=== PATIENT | male | born 1985 | race Caucasian/White ===

== ENCOUNTER → 2022-10-06 10:08 | Outpatient (CLI) | payer OTHER, SELFPAY ==
[2022-10-06 18:15] LABS: Basophils % 0.4 % (0.1-2.0); Eosinophils # 0.2 K/mm3 (0.0-0.4); Eosinophils % 2.2 % (0.1-12.0); Hematocrit 51.8 % (42.0-52.0); Hemoglobin 16.8 g/dL (14.1-18.0); Lymphocytes # 1.8 K/mm3 (0.7-4.5); Lymphocytes % 20.6 % (10-50); Mean Corpuscular HGB Conc 32.4 g/dL (31.8-35.4); Mean Corpuscular Hemoglobin 30.1 pg (27.0-31.2); Mean Corpuscular Volume 92.7 fl (80-94); Mean Platelet Volume 10.4 fl (7.4-10.4); Monocytes # 0.4 K/mm3 (0.1-1.0); Monocytes % 4.3 % (1.7-9.3); Neutrophils # 6.2 K/mm3 (1.8-7.8); Neutrophils % 72.6 % (37.0-80.0); Platelet Count 186 K/mm3 (142-424); Red Blood Count 5.59 M/mm3 (4.60-6.20); Red Cell Distribution Width 12.9 % (11.5-17.5); White Blood Count 8.5 K/mm3 (4.8-10.8)
[2022-10-06 18:33] LABS: Alanine Aminotransferase 29 U/L (12-78); Albumin Level 4.8 g/dl (3.5-5.0); Albumin/Globulin Ratio 1.9 (1.1-1.8); Alkaline Phosphatase 101 U/L (38-126); Anion Gap 15.7 mEq/L (5-15); Aspartate Amino Transferase 35 U/L (17-59); Bilirubin,Total 0.7 mg/dl (0.2-1.3); Blood Urea Nitrogen 17 mg/dl (9-20); Calcium 9.4 mg/dl (8.4-10.2); Carbon Dioxide 29 mmol/L (22.0-30.0); Chloride 103 mmol/L (98-107); Chol/HDL Ratio 3.5 (1-3.5); Cholesterol 188 mg/dl (140-200); Estimated Glomerular Filt Rate 94 ml/min (>60); GFR (African American) 114 ML/MIN (>60); Globulin 2.5 g/dL (1.3-3.2); Glucose 85 mg/dl (74-100); HDL Cholesterol 53 mg/dl (40-60); Potassium 4.7 mmoL/L (3.5-5.1); Sodium 143 mmol/L (136-145); Total Protein,Serum 7.3 g/dl (6.3-8.2); Triglycerides 161 mg/dl (30-150); VLDL Cholesterol 32 mg/dL (0-40)
[2022-10-06 18:44] LABS: Direct LDL Cholesterol 106.58 mg/dL (100-129)
[2022-10-06 18:48] LABS: T4 (Thyroxine) 7.8 ug/dl (5.53-11.0)
[2022-10-06 18:53] LABS: 25-OH Vitamin D, Total 33.5 ng/mL (30-100)
[2022-10-06 19:07] LABS: Prostate Specific Ag Screen 1.4 ng/ml (0.0-4.0); Thyroid Stimulating Hormone 0.78 uIU/mL (0.465-4.68)
== END ==
PROVIDERS: PCP Emergency Medicine; Visit Provider Emergency Medicine
DX: Z00.00 Encounter for general adult medical examination without abnormal findings (principal); R33.9 Retention of urine, unspecified; E66.3 Overweight; Z68.29 Body mass index [BMI] 29.0-29.9, adult; Z12.5 Encounter for screening for malignant neoplasm of prostate
CPT/HCPCS: 80053; 80061; 82306; 84436; 84443; 85025; 87086; G0103

== ENCOUNTER → 2022-10-17 10:05 | Outpatient (CLI) | payer OTHER, SELFPAY ==
--- NOTE | 2022-10-17 10:05 | CT_ITS ---
FINAL REPORT TECHNIQUE: Postcontrast axial images through the abdomen and pelvis were performed. This study was performed with techniques to keep radiation doses as low as reasonably achievable, (ALARA). Individualized dose reduction techniques using automated exposure control or adjustment of mA and/or kV according to the patient's size were employed. CLINICAL HISTORY: abnormal bowel habits, Constipation FINDINGS: Abdomen: The lung bases are clear. The liver is normal in size and attenuation. There is an 8 mm mass in the inferior spleen which is nonspecific. The adrenals are normal. The pancreas is unremarkable. The kidneys enhance appropriately. The aorta is normal in caliber. No free fluid is identified. No findings for mechanical bowel obstruction are identified. Pelvis: The appendix is normal. There is circumscribed rectal wall thickening measuring up to 26 mm with wall calcifications. Multiple enlarged perirectal lymph nodes are identified. While this could be inflammatory it is most worrisome for rectal neoplasm. The urinary bladder is unremarkable. No free fluid, free air, or abscess is identified. IMPRESSION: Findings most worrisome for rectal neoplasm. Recommend correlation with colonoscopy. Mass in the inferior spleen which is nonspecific. cytotechnologist supervisor Jaylyn Meza was notified of findings on 10/17/2022 at 12:39 p.m. Reviewed, Interpreted and Dictated by Chau Higuera III, MD Transcribed by Danni Keller Authenticated and [facility] [place]
--- NOTE | 2022-10-17 12:46 | HMH.ITSTN ---
CRITICAL FINDING CALLED FROM DR HINSON TO IGNACIO NEIL, MASS IN RECTUM REPRESENTING NEOPLASM . CRITICAL FINDING CALL TO DR. PAREKH OFFICE, I SPOKE WITH DR DENNEY NURSE NATALIO AND RELAYED THE CRITICAL FINDING, WILL FAX REPORT [phone] ONCE REPORT HAS BEEN SIGNED.
== END ==
PROVIDERS: PCP Emergency Medicine; Visit Provider Emergency Medicine
DX: R19.8 Other specified symptoms and signs involving the digestive system and abdomen (principal)
CPT/HCPCS: 74177; Q9967

== ENCOUNTER 2022-10-23 06:35 | Day surgery (SDC) | payer OTHER, SELFPAY ==
[2022-10-19 11:01] VITALS: BMI 28.8
[2022-10-23 06:48] VITALS: BP 149/90; PULSE 99; RESP 18; TEMP 36.8; O2SAT 97
[2022-10-23 07:05] VITALS: BP 125/71; PULSE 92; RESP 18; TEMP 36.1; O2SAT 97
[2022-10-23 07:16] VITALS: O2SAT 97
--- NOTE | 2022-10-23 07:51 | P.PCN_ITS ---
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 He has had some change in bowel habits with constipation for several months beginning in January or February 2022. He has felt sensation of incomplete defecation. He has had some abdominal discomfort. He had a CT scan ordered by his primary care provider. And this revealed findings of most worrisome for rectal neoplasm. There was a mass in the inferior aspect of the spleen which was nonspecific. Surgery was requested to perform colonoscopy as soon as possible. Performing Provider:: Chau Camejo MD Referring Provider:: Kimani Suazo Sedation:: MAC sedation Procedure:: Patient history was obtained and appropriate physical examination was performed. Patient's medications and allergies were reviewed. Informed consent was obtained after explaining the benefits, alternatives, and risks of the procedure including, but not limited to, bleeding, perforation, missed lesions, and adverse reaction to anesthesia medications. Patient was transported to endoscopy procedure room. Patient was connected to monitoring devices. Throughout the procedure the patient's blood pressure, pulse, and oxygen saturations were monitored continuously. Patient identification and planned procedure were verified by the staff. Patient was positioned in lateral decubitus position. Digital anorectal exam was performed. Variable stiffness Olympus colonoscope was inserted and advanced under direct visualization to the cecum. Adequacy of the colonic preparation was noted. The colonoscope was advanced a short distance into the terminal ileum. The colonoscope was then slowly withdrawn while carefully examining the color, texture, anatomy, and integrity of the mucosoa circumferentially. Within the rectum retroflexion was performed. Colonoscope was then withdrawn. Digital examination revealed a circumferential firm mass about 7 cm from the anal verge. Olympus colonoscope was inserted via the anus. Findings consistent with circumferential fungating somewhat ulcerated mass was encountered consistent with rectal carcinoma. There was some luminal compromise but the colonoscope was able to be advanced beyond this. Colonoscope was advanced to the cecum. Colonic preparation was good. Terminal ileum was normal. There was possible polyp noted in the ascending colon. However with repeated insertion and withdrawal of the colonoscope none was noted and this was likely hyperplastic or lymphoid aggregate. Colonoscope was withdrawn into the rectum. The mass extended between 7 and 12 cm approximately and was circumferential. Numerous biopsies were obtained using cold biopsy forceps. The mass was rather friable and fungating and bled somewhat easily. Colonoscope was withdrawn. Findings:: Circumferential fungating somewhat ulcerative mass in rectum between 7 and 12 cm from the anal verge consistent with rectal carcinoma Recommendations:: Follow-up on biopsies Complications:: None immediate Estimated blood obtained (mL): 5 Colonoscopy Component Colonoscopy Component Was a colonoscopy performed during today's procedure?: Yes Recommended follow up colonoscopy of at least 10 years?: No If no, follow up colonoscopy recommended in ___ years?: Unknown Reason for not recommending >/= 10 yr follow-up interval?: Path
[2022-10-23 08:05] VITALS: BP 118/80; PULSE 79; RESP 16; O2SAT 94
[2022-10-23 08:15] VITALS: BP 121/70; PULSE 78; RESP 16; O2SAT 94
[2022-10-23 08:25] VITALS: BP 118/71; PULSE 79; RESP 16; TEMP 36.6; O2SAT 100
--- NOTE | 2022-10-23 08:50 | EXP.ANES.CKL ---
[facility] Disclaimer: The information contained in this section may have been updated after the patient was seen, as this information can be updated by other users. Medical History (Updated 10/23/22 @ 06:46 by Evelyn Garcia RN) Constipation H/O fracture of arm History of kidney stones Hx of fracture of forearm Ulna fracture Surgical History [place] teeth extracted Family History Other No significant family history Social History Smoking Status: Current every day smoker alcohol intake: current substance use type: denies use current occupational status: employed Travel in the last 8 weeks: None caffeine: Yes [facility] Anesthesia Checklist Patient Identification Patient Identification: Verbal (Name & ) Structural Data Admitted From: Home Planned Operative Procedure/s: colonoscopy Consent for Planned Operative Procedure(s) Verified: Yes Airway Assessment C-Spine Mobility Assessed: Yes TMJ Mobility Assessed: Yes Dentition: Good Dentition Neurological Assessment Level of Consciousness: Awake, Alert and Appropriate Anesthesia Plan Anesthesia Risk discussed: Yes Anesthesia Plan: Verified ASA Class: I Anesthesia Type: MAC
== END 2022-10-23 08:25 | disposition home or self-care (01) ==
PROVIDERS: PCP Emergency Medicine; Visit Provider Surgery
PROC: 0DJD8ZZ Inspection of Lower Intestinal Tract, Via Natural or Artificial Opening Endoscopic (ICD-10-PCS; CPT 45380; principal; 2022-10-23 07:30)
DX: C20 Malignant neoplasm of rectum (principal)
CPT/HCPCS: 45380

== ENCOUNTER 2023-04-02 14:03 | Outpatient (CLI) | payer OTHER, SELFPAY ==
[2023-04-02 14:12] VITALS: BMI 29.5
[2023-04-02 14:27] LABS: Basophils % 0.2 % (0.1-2.0); Eosinophils # 0.4 K/mm3 (0.0-0.4); Eosinophils % 4.8 % (0.1-12.0); Hematocrit 40.2 % (42.0-52.0); Hemoglobin 13.1 g/dL (14.1-18.0); Lymphocytes # 0.8 K/mm3 (0.7-4.5); Lymphocytes % 9.8 % (10-50); Mean Corpuscular HGB Conc 32.5 g/dL (31.8-35.4); Mean Corpuscular Hemoglobin 31.1 pg (27.0-31.2); Mean Corpuscular Volume 95.6 fl (80-94); Mean Platelet Volume 7.7 fl (7.4-10.4); Monocytes # 0.3 K/mm3 (0.1-1.0); Monocytes % 3.9 % (1.7-9.3); Neutrophils # 6.4 K/mm3 (1.8-7.8); Neutrophils % 81.3 % (37.0-80.0); Platelet Count 447 K/mm3 (142-424); Red Blood Count 4.21 M/mm3 (4.60-6.20); White Blood Count 7.8 K/mm3 (4.8-10.8)
[2023-04-02 14:36] LABS: Alanine Aminotransferase 49 U/L (12-78); Alkaline Phosphatase 178 U/L (38-126); Anion Gap 12.3 mEq/L (5-15); Aspartate Amino Transferase 30 U/L (17-59); Bilirubin,Total 0.3 mg/dl (0.2-1.3); Blood Urea Nitrogen 14 mg/dl (9-20); Carbon Dioxide 27 mmol/L (22.0-30.0); Chloride 101 mmol/L (98-107); Creatinine Clearance Estimated 122 mL/min (50-200); Estimated Glomerular Filt Rate 83 ml/min (>60); GFR (African American) 100 ML/MIN (>60); Globulin 3.9 g/dL (1.3-3.2); Glucose 111 mg/dl (74-100); Potassium 4.3 mmoL/L (3.5-5.1); Sodium 136 mmol/L (136-145); Total Protein,Serum 7.9 g/dl (6.3-8.2)
[2023-04-02 14:54] LABS: C-Reactive Protein 38.3 mg/L (0-4)
[2023-04-02 15:03] LABS: Erythrocyte Sedimentation Rate 74 mm/hr (0-15)
== END 2023-04-02 14:36 | disposition home or self-care (01) ==
LOC: INF 14:06
PROVIDERS: PCP Internal Medicine; Visit Provider Internal Medicine Infectious Disease
DX: Z45.2 Encounter for adjustment and management of vascular access device (principal); Z48.00 Encounter for change or removal of nonsurgical wound dressing
CPT/HCPCS: 36592; 80053; 85025; 85651; 86140

== ENCOUNTER 2023-04-09 09:57 | Outpatient (CLI) | payer OTHER, SELFPAY ==
[2023-04-09 10:04] VITALS: BMI 29.5
[2023-04-09 10:25] LABS: Basophils % 0.3 % (0.1-2.0); Eosinophils # 0.4 K/mm3 (0.0-0.4); Eosinophils % 5.9 % (0.1-12.0); Hematocrit 38.4 % (42.0-52.0); Hemoglobin 12.8 g/dL (14.1-18.0); Lymphocytes # 0.7 K/mm3 (0.7-4.5); Lymphocytes % 11.9 % (10-50); Mean Corpuscular HGB Conc 33.3 g/dL (31.8-35.4); Mean Corpuscular Hemoglobin 31.1 pg (27.0-31.2); Mean Corpuscular Volume 93.2 fl (80-94); Mean Platelet Volume 8.3 fl (7.4-10.4); Monocytes # 0.3 K/mm3 (0.1-1.0); Monocytes % 4.5 % (1.7-9.3); Neutrophils # 4.7 K/mm3 (1.8-7.8); Neutrophils % 77.4 % (37.0-80.0); Platelet Count 296 K/mm3 (142-424); Red Blood Count 4.13 M/mm3 (4.60-6.20); Red Cell Distribution Width 13.2 % (11.5-17.5); White Blood Count 6.1 K/mm3 (4.8-10.8)
[2023-04-09 10:26] LABS: Chloride 103 mmol/L (98-107)
[2023-04-09 10:27] LABS: Potassium 4.5 mmoL/L (3.5-5.1); Sodium 138 mmol/L (136-145)
[2023-04-09 10:29] LABS: Alanine Aminotransferase 38 U/L (12-78); Albumin/Globulin Ratio 1.1 (1.1-1.8); Alkaline Phosphatase 130 U/L (38-126); Aspartate Amino Transferase 36 U/L (17-59); Bilirubin,Total 0.3 mg/dl (0.2-1.3); Blood Urea Nitrogen 15 mg/dl (9-20); Calcium 9.3 mg/dl (8.4-10.2); Creatinine Clearance Estimated 76 mL/min (50-200); Estimated Glomerular Filt Rate 48 ml/min (>60); GFR (African American) 58 ML/MIN (>60); Globulin 3.6 g/dL (1.3-3.2); Glucose 103 mg/dl (74-100); Total Protein,Serum 7.6 g/dl (6.3-8.2)
[2023-04-09 10:35] LABS: C-Reactive Protein 20.5 mg/L (0-4)
[2023-04-09 11:11] LABS: Anion Gap 11.5 mEq/L (5-15); Carbon Dioxide 28 mmol/L (22.0-30.0)
[2023-04-09 11:19] LABS: Erythrocyte Sedimentation Rate 85 mm/hr (0-15)
== END 2023-04-09 10:33 | disposition home or self-care (01) ==
LOC: INF 09:58
PROVIDERS: PCP Internal Medicine; Visit Provider Internal Medicine Infectious Disease
DX: Z45.2 Encounter for adjustment and management of vascular access device (principal)
CPT/HCPCS: 36592; 80053; 83735; 85025; 85651; 86140

== ENCOUNTER 2023-04-11 13:40 | Outpatient (CLI) | payer OTHER, SELFPAY ==
[2023-04-11 13:45] VITALS: BMI 29.5
[2023-04-11 14:10] LABS: Chloride 103 mmol/L (98-107); Sodium 140 mmol/L (136-145)
[2023-04-11 14:11] LABS: Potassium 3.9 mmoL/L (3.5-5.1)
[2023-04-11 14:13] LABS: Blood Urea Nitrogen 14 mg/dl (9-20); Creatinine Clearance Estimated 76 mL/min (50-200); Estimated Glomerular Filt Rate 48 ml/min (>60); GFR (African American) 58 ML/MIN (>60)
[2023-04-11 14:14] LABS: Anion Gap 11.9 mEq/L (5-15); Calcium 9.3 mg/dl (8.4-10.2); Carbon Dioxide 29 mmol/L (22.0-30.0); Glucose 155 mg/dl (74-100)
--- NOTE | 2023-04-11 14:42 | PC.NURSE ---
04/11/23 1350 pt presents today to have blood drawn from picc line to check labs as ordered per . Picc line accessed and blood obtained from line for labs. Specimen obtained and sent to lab for analysis. Picc line flushed with saline and pt d/c'd home.
== END 2023-04-11 13:50 | disposition home or self-care (01) ==
LOC: INF 13:41
PROVIDERS: PCP Internal Medicine; Visit Provider Internal Medicine Infectious Disease
DX: N17.9 Acute kidney failure, unspecified (principal); T81.43XD Infection following a procedure, organ and space surgical site, subsequent encounter; K65.1 Peritoneal abscess; B97.89 Other viral agents as the cause of diseases classified elsewhere; C20 Malignant neoplasm of rectum; Z92.21 Personal history of antineoplastic chemotherapy
CPT/HCPCS: 36592; 80048

== ENCOUNTER 2023-04-16 11:16 | Outpatient (CLI) | payer OTHER, SELFPAY ==
[2023-04-16 11:21] VITALS: BMI 29.5
[2023-04-16 11:44] LABS: Basophils % 0.2 % (0.1-2.0); Chloride 104 mmol/L (98-107); Eosinophils # 0.3 K/mm3 (0.0-0.4); Eosinophils % 4.7 % (0.1-12.0); Hematocrit 38.4 % (42.0-52.0); Hemoglobin 12.9 g/dL (14.1-18.0); Lymphocytes # 0.8 K/mm3 (0.7-4.5); Lymphocytes % 11.9 % (10-50); Mean Corpuscular HGB Conc 33.6 g/dL (31.8-35.4); Mean Corpuscular Hemoglobin 30.7 pg (27.0-31.2); Mean Corpuscular Volume 91.3 fl (80-94); Mean Platelet Volume 8.2 fl (7.4-10.4); Monocytes # 0.3 K/mm3 (0.1-1.0); Monocytes % 4.6 % (1.7-9.3); Neutrophils # 5.1 K/mm3 (1.8-7.8); Neutrophils % 78.5 % (37.0-80.0); Platelet Count 212 K/mm3 (142-424); Red Cell Distribution Width 13.3 % (11.5-17.5); White Blood Count 6.4 K/mm3 (4.8-10.8)
[2023-04-16 11:45] LABS: Potassium 4.1 mmoL/L (3.5-5.1); Sodium 138 mmol/L (136-145)
[2023-04-16 11:47] LABS: Alanine Aminotransferase 61 U/L (12-78); Alkaline Phosphatase 139 U/L (38-126); Aspartate Amino Transferase 50 U/L (17-59); Bilirubin,Total 0.5 mg/dl (0.2-1.3); Blood Urea Nitrogen 12 mg/dl (9-20); Creatinine Clearance Estimated 87 mL/min (50-200); Estimated Glomerular Filt Rate 56 ml/min (>60); GFR (African American) 68 ML/MIN (>60)
[2023-04-16 11:48] LABS: Albumin Level 4.3 g/dl (3.5-5.0); Albumin/Globulin Ratio 1.2 (1.1-1.8); Anion Gap 10.1 mEq/L (5-15); Calcium 9.5 mg/dl (8.4-10.2); Carbon Dioxide 28 mmol/L (22.0-30.0); Globulin 3.5 g/dL (1.3-3.2); Glucose 95 mg/dl (74-100); Total Protein,Serum 7.8 g/dl (6.3-8.2)
[2023-04-16 12:26] LABS: Erythrocyte Sedimentation Rate 79 mm/hr (0-15)
== END 2023-04-16 11:37 | disposition home or self-care (01) ==
LOC: INF 11:16
PROVIDERS: PCP Internal Medicine; Visit Provider Internal Medicine Infectious Disease
DX: Z45.2 Encounter for adjustment and management of vascular access device (principal)
CPT/HCPCS: 36592; 80053; 85025; 85651; 86140

== ENCOUNTER 2023-04-20 11:14 | Outpatient (CLI) | payer OTHER, SELFPAY | END 2023-04-20 11:29 | disposition home or self-care (01) | PROVIDERS: PCP Internal Medicine; Visit Provider Internal Medicine Infectious Disease | DX: Z45.2 Encounter for adjustment and management of vascular access device (principal); N17.9 Acute kidney failure, unspecified; T81.43XD Infection following a procedure, organ and space surgical site, subsequent encounter; K65.1 Peritoneal abscess | CPT/HCPCS: G0463 ==

== ENCOUNTER → 2023-04-27 11:04 | Outpatient (CLI) | payer OTHER, SELFPAY ==
[2023-04-27 11:19] VITALS: BMI 24.0
[2023-04-27 12:08] LABS: Microscopic, Urine URINE MICROSCOPIC (MICROSCOPIC)
[2023-04-27 12:09] LABS: Basophils % 0.4 % (0.1-2.0); Eosinophils # 0.3 K/mm3 (0.0-0.4); Eosinophils % 4.8 % (0.1-12.0); Hematocrit 41.6 % (42.0-52.0); Hemoglobin 14.1 g/dL (14.1-18.0); Lymphocytes # 0.6 K/mm3 (0.7-4.5); Lymphocytes % 10.2 % (10-50); Mean Corpuscular HGB Conc 33.9 g/dL (31.8-35.4); Mean Corpuscular Hemoglobin 30.5 pg (27.0-31.2); Mean Corpuscular Volume 89.9 fl (80-94); Mean Platelet Volume 8.2 fl (7.4-10.4); Monocytes # 0.3 K/mm3 (0.1-1.0); Monocytes % 4.6 % (1.7-9.3); Neutrophils # 4.7 K/mm3 (1.8-7.8); Platelet Count 214 K/mm3 (142-424); Red Blood Count 4.63 M/mm3 (4.60-6.20); Red Cell Distribution Width 13.4 % (11.5-17.5); White Blood Count 5.9 K/mm3 (4.8-10.8)
[2023-04-27 12:10] LABS: Appearance,Urine CLEAR (Clear); Bilirubin,Urine Negative (Negative); Blood, Urine Negative (Negative); Color,Urine YELLOW (Yellow); Glucose,Urine (UA) Negative (Negative); Ketones,Urine TRACE (Negative); Leukocyte Esterase,Urine Negative (Negative); Nitrate,Urine Negative (Negative); Protein,Urine Negative (Negative); Urobilinogen,Urine 0.2 EU/dl (0.2)
[2023-04-27 12:25] LABS: Chloride 99 mmol/L (98-107); Sodium 139 mmol/L (136-145)
[2023-04-27 12:26] LABS: Potassium 4.1 mmoL/L (3.5-5.1)
[2023-04-27 12:28] LABS: Alanine Aminotransferase 74 U/L (12-78); Albumin Level 4.7 g/dl (3.5-5.0); Albumin/Globulin Ratio 1.3 (1.1-1.8); Alkaline Phosphatase 154 U/L (38-126); Anion Gap 13.1 mEq/L (5-15); Aspartate Amino Transferase 56 U/L (17-59); Bacteria,Urine Trace /lpf; Bilirubin,Total 0.4 mg/dl (0.2-1.3); Blood Urea Nitrogen 17 mg/dl (9-20); Carbon Dioxide 31 mmol/L (22.0-30.0); Creatinine Clearance Estimated 100 mL/min (50-200); Estimated Glomerular Filt Rate 83 ml/min (>60); GFR (African American) 100 ML/MIN (>60); Globulin 3.7 g/dL (1.3-3.2); Squamous Epithelial Cell,Urine Occasional #/hpf (0-5); Total Protein,Serum 8.4 g/dl (6.3-8.2)
[2023-04-27 12:29] LABS: Calcium 9.8 mg/dl (8.4-10.2); Glucose 108 mg/dl (74-100)
[2023-04-27 12:40] LABS: Erythrocyte Sedimentation Rate 57 mm/hr (0-15)
--- NOTE | 2023-04-27 12:42 | CT_ITS ---
FINAL REPORT TECHNIQUE: After the administration of oral and intravenous contrast, axial images were obtained through the abdomen and pelvis by computed tomography. The study was performed with techniques to keep radiation dose as low as reasonably achievable, (ALARA). Individual dose reduction techniques using automated exposure control or adjustment of mA and/or kV according to the patient's size were employed. CLINICAL HISTORY: LT LOWER QUAD PAIN. recent surgery and cancer dx. drain in place COMPARISON: 10/17/2022 FINDINGS: Abdomen: The lung bases are clear. The liver parenchyma is homogeneous. The gallbladder is present. There is a small, low-attenuation focus in the inferior spleen measuring 8 mm. The pancreas, adrenals and kidneys appear unremarkable. The aorta is normal in caliber. A right anterior abdominal wall ostomy is present Pelvis: There are postoperative changes in the rectum. There is a fluid collection in the presacral space posterior to the rectum measuring 4.4 x 2.5 cm in transverse and AP dimension. The bladder is incompletely distended. Previously noted multiple enlarged pelvic and perirectal lymph nodes are no longer seen. However, there are now several loops of small bowel with abnormal bowel wall thickening and surrounding inflammation, best seen on images 81 through 88 of series 2. IMPRESSION: Postoperative changes with presacral fluid collection which could be related to seroma, hematoma, or abscess. Clinical correlation is recommended. Previously noted enlarged perirectal lymph nodes are no longer present. New right anterior abdominal wall ostomy. Loops of abnormally thickened small bowel with surrounding fluid and inflammation may be postoperative. Ischemic or inflammatory changes are not excluded. Reviewed, Interpreted and Dictated by Lázaro Wang MD Transcribed by Tati De La Paz Authenticated and [facility]
[2023-04-27 14:05] LABS: C-Reactive Protein 71.6 mg/L (0-4)
== END ==
PROVIDERS: Internal Medicine Infectious Disease; PCP Internal Medicine; Visit Provider Colon & Rectal Surgery
DX: R10.32 Left lower quadrant pain (principal); N17.9 Acute kidney failure, unspecified; T81.43XD Infection following a procedure, organ and space surgical site, subsequent encounter; K65.1 Peritoneal abscess; B37.89 Other sites of candidiasis; C20 Malignant neoplasm of rectum; Z92.21 Personal history of antineoplastic chemotherapy
CPT/HCPCS: 36415; 74177; 80053; 81001; 85025; 85651; 86140; Q9967

== ENCOUNTER 2023-05-04 14:07 | Outpatient (CLI) | payer OTHER, SELFPAY ==
[2023-05-04 14:10] VITALS: BMI 24.2
[2023-05-04] MEDS: SODIUM CHLORIDE 0.9% 10ML FLUSH SYRINGE 10 ML IV (14:15)
[2023-05-04 14:55] LABS: Basophils % 0.4 % (0.1-2.0); Eosinophils # 0.1 K/mm3 (0.0-0.4); Eosinophils % 2.8 % (0.1-12.0); Hematocrit 35.6 % (42.0-52.0); Hemoglobin 12.2 g/dL (14.1-18.0); Lymphocytes # 0.6 K/mm3 (0.7-4.5); Lymphocytes % 12.4 % (10-50); Mean Corpuscular HGB Conc 34.2 g/dL (31.8-35.4); Mean Corpuscular Hemoglobin 29.6 pg (27.0-31.2); Mean Corpuscular Volume 86.6 fl (80-94); Mean Platelet Volume 8.1 fl (7.4-10.4); Monocytes # 0.2 K/mm3 (0.1-1.0); Monocytes % 4.9 % (1.7-9.3); Neutrophils % 79.5 % (37.0-80.0); Platelet Count 231 K/mm3 (142-424); Red Blood Count 4.11 M/mm3 (4.60-6.20); Red Cell Distribution Width 13.4 % (11.5-17.5)
[2023-05-04 14:56] LABS: Anion Gap 9.8 mEq/L (5-15); Blood Urea Nitrogen 11 mg/dl (9-20); Calcium 8.8 mg/dl (8.4-10.2); Carbon Dioxide 26 mmol/L (22.0-30.0); Chloride 103 mmol/L (98-107); Creatinine Clearance Estimated 129 mL/min (50-200); Estimated Glomerular Filt Rate 107 ml/min (>60); GFR (African American) 130 ML/MIN (>60); Glucose 120 mg/dl (74-100); Potassium 3.8 mmoL/L (3.5-5.1); Sodium 135 mmol/L (136-145)
[2023-05-04 15:00] LABS: C-Reactive Protein 49.5 mg/L (0-4)
== END 2023-05-04 14:40 | disposition home or self-care (01) ==
LOC: INF 14:08
PROVIDERS: PCP Internal Medicine; Visit Provider Internal Medicine Infectious Disease
DX: C20 Malignant neoplasm of rectum (principal); K65.1 Peritoneal abscess; T81.43XD Infection following a procedure, organ and space surgical site, subsequent encounter; Z45.2 Encounter for adjustment and management of vascular access device
CPT/HCPCS: 36591; 80048; 85025; 86140; J1642

== ENCOUNTER 2023-05-26 21:24 | Emergency (ER) | payer OTHER, SELFPAY ==
[2023-05-26] VITALS (8 sets, daily range): BP systolic 121–144; BP diastolic 62–76; PULSE 77–120; RESP 14–25; TEMP 38.4; O2SAT 96–98; BMI 25.8
--- NOTE | 2023-05-26 21:36 | XR_ITS ---
PROCEDURE INFORMATION: Exam: XR Chest Exam date and time: 05/26/2023 9:36 PM Age: 38 years old Clinical indication: Patient HX: Fever, on chemo TECHNIQUE: Imaging protocol: Radiologic exam of the chest. Views: 2 views. Total images: 2 COMPARISON: CT ABDOMEN PELVIS W CON 04/27/2023 1:00 PM FINDINGS: Tubes, catheters and devices: Status post right IJ infusion port with catheter tip in the lower SVC. EKG leads are present. Lungs: Unremarkable. No consolidation. No pulmonary vascular congestion or edema. Pleural spaces: Unremarkable. No pleural effusion. No pneumothorax. Heart/Mediastinum: Unremarkable. No cardiomegaly. No mediastinal widening or hilar enlargement. Bones/joints: Unremarkable. IMPRESSION: No radiographically acute cardiopulmonary process.
[2023-05-26 21:57] LABS: Adenovirus,PCR Not Detected (NotDetected); Coronavirus 19, PCR Not Detected (NotDetected); Coronavirus 229E Not Detected (NotDetected); Coronavirus NL63 Not Detected (NotDetected); Coronavirus OC43 Not Detected (NotDetected); Coronovirus HKU1,PCR Not Detected (NotDetected); Human Metapneumovirus Not Detected (NotDetected); Influenza A, PCR Not Detected (NotDetected); Influenza AH1, 2009 Not Detected (NotDetected); Influenza AH1, PCR Not Detected (NotDetected); Influenza AH3,PCR Not Detected (NotDetected); Influenza B, PCR Not Detected (NotDetected); Parainfluenza 1, PCR Not Detected (NotDetected); Parainfluenza 2, PCR Not Detected (NotDetected); Parainfluenza 3, PCR Not Detected (NotDetected); Parainfluenza 4, PCR Not Detected (NotDetected); Respiratory Syncytial Virus Not Detected (NotDetected); Rhinovirus/Enterovirus Not Detected (NotDetected)
--- NOTE | 2023-05-26 22:05 | ED_ITS ---
Discharge Plan Disposition Patient Disposition: Home, Self-Care Condition: Good Prescriptions Prescriptions: No Action docusate sodium [Stool Softener] 100 mg capsule 100 mg PO DAILY capecitabine 150 mg tablet 150 mg PO capecitabine 500 mg tablet 500 mg PO lisinopril 2.5 mg tablet 2.5 mg PO DAILY Qty: 30 1RF Referrals Follow up/Referrals: Dylan Rowe DO [Primary Care Provider] - See instructions Activity Restrictions/Add. Instructions Additional Instructions/Restrictions: Your CT scan showed no changes in the fluid collection in the pelvis. Your blood work showed that your white blood cell count is low but not critically so. No obvious source of infection on workup. Please follow-up with your oncologist as soon as possible. Please continue taking your home medications as prescribed. Please follow-up with your primary care provider. Please return to the emergency department if you develop any new or worsening symptoms or become concerned for your health. Clinical Impressions Clinical Impression: Rectal carcinoma Fever Qualifiers: Encounter type: initial encounter Discharge ED Provider: Reece Washburn General Adult HPI <Reece Washburn MD - Last Filed: 05/26/23 22:59> General Chief complaint: Fever Stated complaint: on chemo now running fever Time Seen by Provider: 05/26/23 21:32 Mode of Arrival: Ambulatory Source of Information: Patient and Spouse Limitations: No Limitations Description of Symptoms (Recalled from ER Triage Doc. by RN): Patient has rectal cancer and on chemo and started running a fever tonight with tmax of 100.6 prior to arrival. History of Present Illness HPI narrative: 38-year-old male history of colorectal cancer s/p resection with ileostomy bag in place currently on chemotherapy presenting with fever. Patient started h aving fever today just prior to arrival. 100.5. After an hour and talking to their strap machine operator automatic/oncologist, went up to greater than 101 ?F. Came to the emergency department for further evaluation. Patient having no symptoms. Patient is concerned because after colorectal resection, patient had recurrent abscess requiring drains and antibiotics. Currently on Augmentin and fluconazole for this. Patient denies rectal pain, bleeding, purulent discharge, or any similar complaints to what he had in the past when he did have the abscess. Patient's states that rectal abscess was about 2.5 x 4 cm when last imaged. This was at the middle of April. Related Data Home Medications Medication Instructions Recorded Confirmed docusate sodium 100 mg capsule 100 mg PO DAILY stool 10/06/22 12/27/22 (Stool Softener) capecitabine 150 mg tablet 150 mg PO 12/27/22 12/27/22 capecitabine 500 mg tablet 500 mg PO 12/27/22 12/27/22 Previous Rx's Medication Instructions Recorded lisinopril 2.5 mg tablet 2.5 mg PO DAILY #30 tabs 12/27/22 Allergies Allergy/AdvReac Type Severity Reaction Status Date / Time No Known Allergies Allergy Verified 12/27/22 08:49 PFS <Reece Washburn MD - Last Filed: 05/26/23 22:59> [facility] Disclaimer: The information contained in this section may have been updated after the patient was seen, as this information can be updated by other users. Medical History Constipation H/O fracture of arm History of kidney stones Hx of fracture of forearm surgery repair plates Ulna fracture 2009 Surgical History History of colonoscopy History of surgery on arm [place] teeth extracted Family History Other No significant family history Social History Smoking Status: Current every day smoker alcohol intake: current substance use type: denies use current occupational status: employed Travel in the last 8 weeks: None caffeine: Yes <Reece Washburn MD - Last Filed: 05/26/23 22:59> ROS Obtained: Yes All systems reviewed & no additional complaints except as documented Physical Exam <Reece Washburn MD - Last Filed: 05/26/23 22:59> General General appearance: alert and in no apparent distress Head Head exam: atraumatic and normocephalic Eye Eye exam: Present normal appearance, PERRL and EOMI ENT ENT exam: Present mucous membranes moist Neck Neck exam: Present normal inspection, full ROM and trachea midline Respiratory Respiratory exam: Present normal lung sounds bilaterally; Absent respiratory distress, wheezes, stridor, accessory muscle use or prolonged expiratory phase Cardiovascular Cardiovascular exam: Present normal rhythm and tachycardia Abdominal Exam Abdominal exam: Present soft; Absent distention, tenderness, guarding, rebound or rigidity Extremities Exam Extremities exam: Absent edema Neurological Exam Neurological exam: Present alert, oriented X3, CN II-XII intact and normal gait; Absent motor sensory deficit Skin Skin exam: Present warm and dry; Absent diaphoresis or erythema Medical Decision Making <Reece Washburn MD - Last Filed: 05/26/23 22:59> Medical Records Medical records reviewed: Yes I reviewed the patient's medical records. Sam Inquiry Pt receiving controlled substance: No Sam was queried for this patient: No Vital Signs: 05/26/23 21:25 05/26/23 21:32 05/26/23 22:00 Temperature 101.2 F H Temperature Source Oral Oral Pulse Rate 100 H Pulse Rate [Radial] 102 H Respiratory Rate 17 14 Blood Pressure 124/70 Blood Pressure [Right Radial Artery] 126/76 Blood Pressure Mean 88 Blood Pressure Mean [Right Radial Artery] 92 Blood Pressure Source [Right Radial Artery] Automatic Cuff Blood Pressure Position [Right Radial Artery] Sitting 02 Sat by Pulse Oximetry 97 98 Oxygen Delivery Method Room Air Room Air 05/26/23 22:20 05/26/23 22:40 05/26/23 23:00 Temperature Temperature Source Pulse Rate 98 H 96 H Pulse Rate [Radial] Respiratory Rate 16 18 25 H Blood Pressure 144/75 H 130/71 129/64 Blood Pressure [Right Radial Artery] Blood Pressure Mean 83 83 Blood Pressure Mean [Right Radial Artery] Blood Pressure Source [Right Radial Artery] Blood Pressure Position [Right Radial Artery] 02 Sat by Pulse Oximetry 97 98 Oxygen Delivery Method Room Air Room Air 05/26/23 23:04 05/26/23 23:20 05/26/23 23:40 Temperature Temperature Source Pulse Rate 120 H 89 77 Pulse Rate [Radial] Respiratory Rate 22 20 Blood Pressure 133/62 128/66 121/64 Blood Pressure [Right Radial Artery] Blood Pressure Mean 75 Blood Pressure Mean [Right Radial Artery] Blood Pressure Source [Right Radial Artery] Blood Pressure Position [Right Radial Artery] 02 Sat by Pulse Oximetry 96 97 98 Oxygen Delivery Method Room Air 05/27/23 00:00 05/27/23 00:20 05/27/23 00:40 Temperature Temperature Source Pulse Rate 81 88 70 Pulse Rate [Radial] Respiratory Rate 18 22 20 Blood Pressure 123/69 128/51 L 113/59 L Blood Pressure [Right Radial Artery] Blood Pressure Mean 80 76 75 Blood Pressure Mean [Right Radial Artery] Blood Pressure Source [Right Radial Artery] Blood Pressure Position [Right Radial Artery] 02 Sat by Pulse Oximetry 97 97 98 Oxygen Delivery Method Room Air Room Air Room Air 05/27/23 01:00 05/27/23 01:28 Temperature 0 F L Temperature Source Pulse Rate 69 69 Pulse Rate [Radial] Respiratory Rate 19 12 Blood Pressure 112/59 L 106/63 L Blood Pressure [Right Radial Artery] Blood Pressure Mean Blood Pressure Mean [Right Radial Artery] Blood Pressure Source [Right Radial Artery] Blood Pressure Position [Right Radial Artery] 02 Sat by Pulse Oximetry 98 Oxygen Delivery Method Lab Data Lab Results 05/26/23 21:45: WBC 2.2 L, RBC 3.84 L, Hgb 11.1 L, Hct 32.4 L, MCV 84.5, MCH 28.8, MCHC 34.1, RDW 14.6, Plt Count 220, MPV 8.2, Neut % (Auto) 71.2, Lymph % (Auto) 23.5, [place] % (Auto) 3.2, Eos % (Auto) 2.0, Baso % (Auto) 0.2, Neut # (Auto) 1.6 L, Lymph # (Auto) 0.5 L, [place] # (Auto) 0.1, Eos # (Auto) 0.0, Baso # (Auto) 0.0, Sodium 133 L, Potassium 3.5, Chloride 99, Carbon Dioxide 28, Anion Gap 9.5, BUN 13, Creatinine 0.80, Estimated Creat Clear 134, Estimated GFR 107, Est GFR ( Amer) 130, Glucose 107 H, Lactate 0.9, Calcium 8.7, Phosphorus 3.5, Total Bilirubin 0.5, AST 37, ALT 46, Alkaline Phosphatase 131 H, Lactate Dehydrogenase 148 L, C-Reactive Protein 132.1 H, Total Protein 6.9, Albumin 3.7, Globulin 3.2, Albumin/Globulin Ratio 1.2, Procalcitonin 0.075 05/26/23 21:51: Chlamy pneumoniae PCR TNP, Adenovirus (PCR) Not detected, B. pertussis DNA (PCR) TNP, Coronavirus OC43 (PCR) Not detected, Coronavirus HKU1 ( PCR) Not detected, Coronavirus 229E (PCR) Not detected, SARS-CoV-2 (PCR) Not detected, Coronavirus NL63 (PCR) Not detected, Human Metapneumovir PCR Not detected, Influenza A (H1) PCR Not detected, Influ A (H1N1/09) PCR Not detected, Influenza A (H3) PCR Not detected, Influenza Type A (PCR) Not detected, Influenza Type B (PCR) Not detected, M. pneumoniae (PCR) TNP, Parainfluenza 1 (PCR) Not detected, Parainfluenza 2 (PCR) Not detected, Parainfluenza 3 (PCR) Not detected, Parainfluenza 4 (PCR) Not detected, RSV (PCR) Not detected, Entero/Rhino (PCR) Not detected 05/26/23 23:58: Urine Color Yellow, Urine Appearance Clear, Urine pH 6.0, Ur Specific [place] <= 1.005, Urine Protein Negative, Urine Glucose (UA) Negative, Urine Ketones Negative, Urine Blood Negative, Urine Nitrate Negative, Urine Bilirubin Negative, Urine Urobilinogen 0.2, Ur Leukocyte Esterase Negative, U rine RBC None, Urine WBC None, Ur Squamous Epith Cells Occasional, Urine Bacteria None 05/26/23 21:45 05/26/23 21:45 Orders (Tests/Meds): ED MEDICATIONS Discontinued Medications Generic Name Dose Route Start Last Admin Trade Name Freq PRN Reason Stop Dose Admin Acetaminophen 1,000 mg 05/26/23 22:09 05/26/23 22:19 Acetaminophen 500mg Tab PO 05/26/23 22:10 1,000 mg ONCE ONE Administration Chlorpromazine HCl 50 mg 05/26/23 22:04 05/26/23 22:12 Chlorpromazine 25mg/Ml Amp IM 05/26/23 22:05 50 mg ONCE ONE Administration Heparin Sodium (Porcine) 300 unit 05/27/23 01:17 05/27/23 01:20 Heparin Lock Flush 500 Units/5ml Syr IV 05/27/23 01:18 300 unit ONCE ONE Administration Ceftriaxone Sodium 1 gm/ 50 mls @ 100 mls/hr 05/27/23 00:33 05/27/23 01:02 Sodium Chloride IV 05/27/23 01:02 100 mls/hr ONCE ONE Administration Iopamidol 75 ml 05/26/23 23:14 05/26/23 23:15 Iopamidol-370 (76%);100ml Bottle IV 05/26/23 23:15 75 ml ONCE ONE Administration Ketorolac Tromethamine 15 mg 05/26/23 22:09 05/26/23 22:19 Ketorolac 30mg/Ml Vial IV 05/26/23 22:10 15 mg ONCE ONE Administration Sodium Chloride 10 ml 05/26/23 23:14 05/26/23 23:15 Sodium Chloride 0.9% 10ml Syr (Rad Only) IV 05/26/23 23:15 10 ml ONCE ONE Administration ORDERS Category Date Time Status CT abdomen pelvis w con Stat Cat Scan 05/26/23 22:55 Completed CXR 2 view (NOT portable) [XR chest 2V] Stat Exams 05/26/23 21:36 Completed CBC w/Auto Diff [Complete Blood Count Auto Diff] Stat Lab 05/26/23 21:45 Completed CMP [Comprehensive Metabolic Panel] Stat Lab 05/26/23 21:45 Completed CRP [C-Reactive Protein] Stat Lab 05/26/23 21:45 Completed Full Resp Panel w/COVID ([facility]) Routine Lab 05/26/23 21:51 Completed LDH [Lactate Dehydrogenase] Stat Lab 05/26/23 21:45 Completed Lactic Acid Stat Lab 05/26/23 21:45 Completed Phosphorous Stat Lab 05/26/23 21:45 Completed Procalcitonin Stat Lab 05/26/23 21:45 Completed UA [Urinalysis and Microscopic] Stat Lab 05/26/23 23:58 Completed Blood Culture Stat Micro 05/26/23 22:16 Received Medical Decision Narrative: 38-year-old male history of colorectal cancer s/p resection with ileostomy bag in place currently on chemotherapy presenting with fever. Patient started having fever today just prior to arrival. 100.5. After an hour and talking to their strap machine operator automatic/oncologist, went up to greater than 101 ?F. Came to the emergency department for further evaluation. Patient having no symptoms. Patient is concerned because after colorectal resection, patient had recurrent abscess requiring drains and antibiotics. Currently on Augmentin and fluconazole for this. Patient denies rectal pain, bleeding, purulent discharge, or any similar complaints to what he had in the past when he did have the abscess. Patient's states that rectal abscess was about 2.5 x 4 cm when last imaged. This was at the middle of April. It should be noted that patient has cancer, is currently on chemotherapy, and has known rectal abscess, which is likely complicating care. History was obtained via conversation with patient and . On arrival, patient hemodynamically stable, alert, oriented x4, appropriate, GCS 15, moving all extremities spontaneously, pupils equal and reactive to light. Full physical exam performed and significant for well-appearing male no acute distress. Currently has no symptoms. Abdomen is soft, nontender, nondistended. He does have ileostomy in place right side of abdomen. Lungs clear to auscultation, patient is tachycardic, but cardiac exam otherwise normal. Differential includes perirectal abscess, viral syndrome, sepsis, pneumonia, opportunistic infection, medication side effect, among others. Patient was given Tylenol, Motrin, fluids for symptomatic management and corre ction of underlying abnormalities. He was also given Thorazine for intractable hiccups. Workup independently interpreted and significant for leukopenia 2.2 thousand with neutrophils 1600, lymphocytes 500. Nonactionable chemistry. CRP elevated at 132, lactate negative. Chest x-ray nonactionable and no evidence of acute pulmonary disease. See radiology read for full review of final results. On reevaluation, patient no longer having hiccups thankfully. Conversation was had regarding elevation in CRP and history of rectal abscess with fever, CT abdomen pelvis was ordered. Pending at time of handoff to Dr. Sims. <Wilfredo Sims MD - Last Filed: 05/27/23 02:25> Vital Signs: 05/26/23 21:25 05/26/23 21:32 05/26/23 22:00 Temperature 101.2 F H Temperature Source Oral Oral Pulse Rate 100 H Pulse Rate [Radial] 102 H Respiratory Rate 17 14 Blood Pressure 124/70 Blood Pressure [Right Radial Artery] 126/76 Blood Pressure Mean 88 Blood Pressure Mean [Right Radial Artery] 92 Blood Pressure Source [Right Radial Artery] Automatic Cuff Blood Pressure Position [Right Radial Artery] Sitting 02 Sat by Pulse Oximetry 97 98 Oxygen Delivery Method Room Air Room Air 05/26/23 22:20 05/26/23 22:40 05/26/23 23:00 Temperature Temperature Source Pulse Rate 98 H 96 H Pulse Rate [Radial] Respiratory Rate 16 18 25 H Blood Pressure 144/75 H 130/71 129/64 Blood Pressure [Right Radial Artery] Blood Pressure Mean 83 83 Blood Pressure Mean [Right Radial Artery] Blood Pressure Source [Right Radial Artery] Blood Pressure Position [Right Radial Artery] 02 Sat by Pulse Oximetry 97 98 Oxygen Delivery Method Room Air Room Air 05/26/23 23:04 05/26/23 23:20 05/26/23 23:40 Temperature Temperature Source Pulse Rate 120 H 89 77 Pulse Rate [Radial] Respiratory Rate 22 20 Blood Pressure 133/62 128/66 121/64 Blood Pressure [Right Radial Artery] Blood Pressure Mean 75 Blood Pressure Mean [Right Radial Artery] Blood Pressure Source [Right Radial Artery] Blood Pressure Position [Right Radial Artery] 02 Sat by Pulse Oximetry 96 97 98 Oxygen Delivery Method Room Air 05/27/23 00:00 05/27/23 00:20 05/27/23 00:40 Temperature Temperature Source Pulse Rate 81 88 70 Pulse Rate [Radial] Respiratory Rate 18 22 20 Blood Pressure 123/69 128/51 L 113/59 L Blood Pressure [Right Radial Artery] Blood Pressure Mean 80 76 75 Blood Pressure Mean [Right Radial Artery] Blood Pressure Source [Right Radial Artery] Blood Pressure Position [Right Radial Artery] 02 Sat by Pulse Oximetry 97 97 98 Oxygen Delivery Method Room Air Room Air Room Air 05/27/23 01:00 05/27/23 01:28 Temperature 0 F L Temperature Source Pulse Rate 69 69 Pulse Rate [Radial] Respiratory Rate 19 12 Blood Pressure 112/59 L 106/63 L Blood Pressure [Right Radial Artery] Blood Pressure Mean Blood Pressure Mean [Right Radial Artery] Blood Pressure Source [Right Radial Artery] Blood Pressure Position [Right Radial Artery] 02 Sat by Pulse Oximetry 98 Oxygen Delivery Method Lab Data Lab Results 05/26/23 21:45: WBC 2.2 L, RBC 3.84 L, Hgb 11.1 L, Hct 32.4 L, MCV 84.5, MCH 28.8, MCHC 34.1, RDW 14.6, Plt Count 220, MPV 8.2, Neut % (Auto) 71.2, Lymph % (Auto) 23.5, [place] % (Auto) 3.2, Eos % (Auto) 2.0, Baso % (Auto) 0.2, Neut # (Auto) 1.6 L, Lymph # (Auto) 0.5 L, [place] # (Auto) 0.1, Eos # (Auto) 0.0, Baso # (Auto) 0.0, Sodium 133 L, Potassium 3.5, Chloride 99, Carbon Dioxide 28, Anion Gap 9.5, BUN 13, Creatinine 0.80, Estimated Creat Clear 134, Estimated GFR 107, Est GFR ( Amer) 130, Glucose 107 H, Lactate 0.9, Calcium 8.7, Phosphorus 3.5, Total Bilirubin 0.5, AST 37, ALT 46, Alkaline Phosphatase 131 H, Lactate Dehydrogenase 148 L, C-Reactive Protein 132.1 H, Total Protein 6.9, Albumin 3.7, Globulin 3.2, Albumin/Globulin Ratio 1.2, Procalcitonin 0.075 05/26/23 21:51: Chlamy pneumoniae PCR TNP, Adenovirus (PCR) Not detected, B. pertussis DNA (PCR) TNP, Coronavirus OC43 (PCR) Not detected, Coronavirus HKU1 (PCR) Not detected, Coronavirus 229E (PCR) Not detected, SARS-CoV-2 (PCR) Not detected, Coronavirus NL63 (PCR) Not detected, Human Metapneumovir PCR Not detected, Influenza A (H1) PCR Not detected, Influ A (H1N1/09) PCR Not detected, Influenza A (H3) PCR Not detected, Influenza Type A (PCR) Not detected, Influenza Type B (PCR) Not detected, M. pneumoniae (PCR) TNP, Parainfluenza 1 (PCR) Not detected, Parainfluenza 2 (PCR) Not detected, Parainfluenza 3 (PCR) Not detected, Parainfluenza 4 (PCR) Not detected, RSV (PCR) Not detected, Entero/Rhino (PCR) Not detected 05/26/23 23:58: Urine Color Yellow, Urine Appearance Clear, Urine pH 6.0, Ur Spe cific [place] <= 1.005, Urine Protein Negative, Urine Glucose (UA) Negative, Urine Ketones Negative, Urine Blood Negative, Urine Nitrate Negative, Urine Bilirubin Negative, Urine Urobilinogen 0.2, Ur Leukocyte Esterase Negative, Urine RBC None, Urine WBC None, Ur Squamous Epith Cells Occasional, Urine Bacteria None Orders (Tests/Meds): ED MEDICATIONS Discontinued Medications Generic Name Dose Route Start Last Admin Trade Name Freq PRN Reason Stop Dose Admin Acetaminophen 1,000 mg 05/26/23 22:09 05/26/23 22:19 Acetaminophen 500mg Tab PO 05/26/23 22:10 1,000 mg ONCE ONE Administration Chlorpromazine HCl 50 mg 05/26/23 22:04 05/26/23 22:12 Chlorpromazine 25mg/Ml Amp IM 05/26/23 22:05 50 mg ONCE ONE Administration Heparin Sodium (Porcine) 300 unit 05/27/23 01:17 05/27/23 01:20 Heparin Lock Flush 500 Units/5ml Syr IV 05/27/23 01:18 300 unit ONCE ONE Administration Ceftriaxone Sodium 1 gm/ 50 mls @ 100 mls/hr 05/27/23 00:33 05/27/23 01:02 Sodium Chloride IV 05/27/23 01:02 100 mls/hr ONCE ONE Administration Iopamidol 75 ml 05/26/23 23:14 05/26/23 23:15 Iopamidol-370 (76%);100ml Bottle IV 05/26/23 23:15 75 ml ONCE ONE Administration Ketorolac Tromethamine 15 mg 05/26/23 22:09 05/26/23 22:19 Ketorolac 30mg/Ml Vial IV 05/26/23 22:10 15 mg ONCE ONE Administration Sodium Chloride 10 ml 05/26/23 23:14 05/26/23 23:15 Sodium Chloride 0.9% 10ml Syr (Rad Only) IV 05/26/23 23:15 10 ml ONCE ONE Administration ORDERS Category Date Time Status CT abdomen pelvis w con Stat Cat Scan 05/26/23 22:55 Completed CXR 2 view (NOT portable) [XR chest 2V] Stat Exams 05/26/23 21:36 Completed CBC w/Auto Diff [Complete Blood Count Auto Diff] Stat Lab 05/26/23 21:45 Completed CMP [Comprehensive Metabolic Panel] Stat Lab 05/26/23 21:45 Completed CRP [C-Reactive Protein] Stat Lab 05/26/23 21:45 Completed Full Resp Panel w/COVID ([facility]) Routine Lab 05/26/23 21:51 Completed LDH [Lactate Dehydrogenase] Stat Lab 05/26/23 21:45 Completed Lactic Acid Stat Lab 05/26/23 21:45 Completed Phosphorous Stat Lab 05/26/23 21:45 Completed Procalcitonin Stat Lab 05/26/23 21:45 Completed UA [Urinalysis and Microscopic] Stat Lab 05/26/23 23:58 Completed Blood Culture Stat Micro 05/26/23 22:16 Received Medical Decision Narrative: 38-year-old male history of colorectal cancer s/p resection with ileostomy bag in place currently on chemotherapy presenting with fever. Patient started having fever today just prior to arrival. 100.5. After an hour and talking to their strap machine operator automatic/oncologist, went up to greater than 101 ?F. Came to the emergency department for further evaluation. Patient having no symptoms. Patient is concerned because after colorectal resection, patient had recurrent abscess requiring drains and antibiotics. Currently on Augmentin and fluconazole for this. Patient denies rectal pain, bleeding, purulent discharge, or any similar complaints to what he had in the past when he did have the abscess. Patient's states that rectal abscess was about 2.5 x 4 cm when last imaged. This was at the middle of April. It should be noted that patient has cancer, is currently on chemotherapy, and has known rectal abscess, which is likely complicating care. History was obtained via conversation with patient and . On arrival, patient hemodynamically stable, alert, oriented x4, appropriate, GCS 15, moving all extremities spontaneously, pupils equal and reactive to light. Full physical exam performed and significant for well-appearing male no acute distress. Currently has no symptoms. Abdomen is soft, nontender, nondistended. He does have ileostomy in place right side of abdomen. Lungs clear to auscultation, patient is tachycardic, but cardiac exam otherwise normal. Differential includes perirectal abscess, viral syndrome, sepsis, pneumonia, opportunistic infection, medication side effect, among others. Patient was given Tylenol, Motrin, fluids for symptomatic management and correction of underlying abnormalities. He was also given Thorazine for intractable hiccups. Workup independently interpreted and significant for leukopenia 2.2 thousand with neutrophils 1600, lymphocytes 500. Nonactionable chemistry. CRP elevated at 132, lactate negative. Chest x-ray nonactionable and no evidence of acute pulmonary disease. See radiology read for full review of final results. On reevaluation, patient no longer having hiccups thankfully. Conversation was had regarding elevation in CRP and history of rectal abscess with fever, CT abdomen pelvis was ordered. Pending at time of handoff to Dr. Sims. Levi MEJIA: I assumed care of the patient at the time of handoff from the prior provider. On reassessment, patient remains hemodynamically stable and without symptoms. CT scan interpreted by me, shows nonspecific hypodensity in the spleen, stable appearance of the presacral fluid collection, specifically read by radiology as doubtful for abscess. Patient has no pelvic/rectal pain to suggest worsening of this area. No evidence of acute infectious pathology on CT imaging. Urinalysis shows no evidence of UTI. Full viral panel is negative. I had extensive discussion with patient and family regarding patient's presentation. He is not currently neutropenic though he is very close to it. There is no obvious source of infection time. We will treat with 1 dose of ceftriaxone IV with plan for follow-up with oncology on Sunday morning. Patient instructed to continue fluconazole and Augmentin at home as previously prescribed. Return precautions were given. Patient discharged in stable condition. Critical Care <Reece Washburn MD - Last Filed: 05/26/23 22:59> Critical Care Time Critical Care Time: No
[2023-05-26 22:06] LABS: Basophils % 0.2 % (0.1-2.0); Hematocrit 32.4 % (42.0-52.0); Hemoglobin 11.1 g/dL (14.1-18.0); Lymphocytes # 0.5 K/mm3 (0.7-4.5); Lymphocytes % 23.5 % (10-50); Mean Corpuscular HGB Conc 34.1 g/dL (31.8-35.4); Mean Corpuscular Hemoglobin 28.8 pg (27.0-31.2); Mean Corpuscular Volume 84.5 fl (80-94); Mean Platelet Volume 8.2 fl (7.4-10.4); Monocytes # 0.1 K/mm3 (0.1-1.0); Monocytes % 3.2 % (1.7-9.3); Neutrophils # 1.6 K/mm3 (1.8-7.8); Neutrophils % 71.2 % (37.0-80.0); Platelet Count 220 K/mm3 (142-424); Red Blood Count 3.84 M/mm3 (4.60-6.20); Red Cell Distribution Width 14.6 % (11.5-17.5); White Blood Count 2.2 K/mm3 (4.8-10.8)
[2023-05-26] MEDS: CHLORPROMAZINE 25 MG/ML 50 MG IM (22:12)
[2023-05-26 22:16] LABS: Chloride 99 mmol/L (98-107); Potassium 3.5 mmoL/L (3.5-5.1); Sodium 133 mmol/L (136-145)
[2023-05-26 22:19] LABS: Alanine Aminotransferase 46 U/L (12-78); Albumin Level 3.7 g/dl (3.5-5.0); Albumin/Globulin Ratio 1.2 (1.1-1.8); Alkaline Phosphatase 131 U/L (38-126); Anion Gap 9.5 mEq/L (5-15); Aspartate Amino Transferase 37 U/L (17-59); Bilirubin,Total 0.5 mg/dl (0.2-1.3); Blood Urea Nitrogen 13 mg/dl (9-20); Carbon Dioxide 28 mmol/L (22.0-30.0); Creatinine Clearance Estimated 134 mL/min (50-200); Estimated Glomerular Filt Rate 107 ml/min (>60); GFR (African American) 130 ML/MIN (>60); Globulin 3.2 g/dL (1.3-3.2); Lactic Acid 0.9 mmol/L (0.7-2.1); Phosphorous 3.5 mg/dl (2.5-4.5); Total Protein,Serum 6.9 g/dl (6.3-8.2)
[2023-05-26] MEDS: ACETAMINOPHEN 500MG TAB 1000 MG PO (22:19)
[2023-05-26] MEDS: KETOROLAC 30MG/ML VIAL 15 MG IV (22:19)
[2023-05-26 22:20] LABS: Calcium 8.7 mg/dl (8.4-10.2); Glucose 107 mg/dl (74-100)
[2023-05-26 22:25] LABS: C-Reactive Protein 132.1 mg/L (0-4)
[2023-05-26 22:38] LABS: Procalcitonin 0.075 ng/mL (0.0-2.0)
[2023-05-26 22:49] LABS: Lactate Dehydrogenase 148 U/L (313-618)
--- NOTE | 2023-05-26 22:55 | CT_ITS ---
PROCEDURE INFORMATION: Exam: CT Abdomen And Pelvis With Contrast Exam date and time: 05/26/2023 11:07 PM Age: 38 years old Clinical indication: Patient HX: History of rectal cancer, on chemo, new fever; Additional info: History of rectal abscess. On chemo, new fevers TECHNIQUE: Imaging protocol: Computed tomography of the abdomen and pelvis with contrast. Total images: 296 Radiation optimization: All CT scans at this facility use at least one of these dose optimization techniques: automated exposure control; mA and/or kV adjustment per patient size (includes targeted exams where dose is matched to clinical indication); or iterative reconstruction. Contrast material: ISOVUE; Contrast volume: 75 ml; Contrast route: IV; COMPARISON: CT ABDOMEN PELVIS W CON 04/27/2023 1:00 PM FINDINGS: Tubes, catheters and devices: Central venous catheter tip at the right atrium. Lungs: Lung bases are clear. Heart: Normal heart size. Liver: Focal fatty infiltration near the falciform ligament. Otherwise, unremarkable liver. Gallbladder and bile ducts: Contracted gallbladder. No calcified gallstones or bile duct dilatation. Pancreas: Normal. No ductal dilation. Spleen: Mild splenomegaly at 13.8 cm. Calcified splenic granulomas. Nonspecific 15 mm round splenic hypodensity, increased in size from prior exam measurement of 8 mm. Adrenal glands: Normal. No mass. Kidneys and ureters: No hydronephrosis, nephrolithiasis, or perinephric fluid. Stomach and bowel: Postoperative change of the rectum. Unremarkable stomach and duodenum. No ileus or bowel obstruction. Small bowel appears within normal limits. Unremarkable terminal ileum. The colon is completely collapsed. The rectum is completely collapsed. Status post diverting ileostomy in the right abdomen. No parastomal herniation. No bowel obstruction. Appendix: No evidence for appendicitis. Intraperitoneal space: Unremarkable. No free air. No significant fluid collection. Vasculature: Abdominal aorta is normal in caliber. Major abdominal vessels enhance appropriately. Lymph nodes: Unremarkable. No enlarged lymph nodes. Urinary bladder: Moderate bladder wall thickening. Reproductive: Nonenlarged prostate with dystrophic calcifications. Extraperitoneal space: Thick-walled presacral fluid collection, similar in size to the prior examination. Associated perirectal and presacral edema. Bones/joints: Mild degenerative changes thoracolumbar spine. No acute osseous abnormality or concerning bone lesions. Soft tissues: Unremarkable. IMPRESSION: 1. Stable thick-walled presacral fluid collection, likely reflecting chronic hematoma or seroma. Doubt abscess. No associated intraluminal gas. 2. Moderate circumferential bladder wall thickening with perivesicular edema implying acute or chronic cystitis. 3. Status post diverting ileostomy. No bowel obstruction. 4. Nonspecific enlarging 15 mm splenic hypodensity, previously measured 8 mm. 5. Mild splenomegaly at 13.8 cm. 6. Additional chronic and incidental findings.
[2023-05-26] MEDS: IOPAMIDOL-370 (76%);100ML BOTTLE 75 ML IV (23:15)
[2023-05-26] MEDS: SODIUM CHLORIDE 0.9% 10ML SYR (RAD ONLY) 10 ML IV (23:15)
--- NOTE | 2023-05-26 23:16 | PC.NURSE ---
called for medicals records at this time.
--- NOTE | 2023-05-26 23:16 | PC.NURSE ---
faxed medical records release form at this time.
[2023-05-27] VITALS: BP 123/69; PULSE 81; RESP 18; O2SAT 97
[2023-05-27 00:02] LABS: Microscopic, Urine URINE MICROSCOPIC (MICROSCOPIC)
[2023-05-27 00:03] LABS: Appearance,Urine CLEAR (Clear); Bilirubin,Urine Negative (Negative); Blood, Urine Negative (Negative); Color,Urine YELLOW (Yellow); Glucose,Urine (UA) Negative (Negative); Ketones,Urine Negative (Negative); Leukocyte Esterase,Urine Negative (Negative); Nitrate,Urine Negative (Negative); Protein,Urine Negative (Negative); Specific Gravity, Urine <= 1.005 (1.005-1.030); Urobilinogen,Urine 0.2 EU/dl (0.2)
[2023-05-27 00:19] LABS: Squamous Epithelial Cell,Urine Occasional #/hpf (0-5)
[2023-05-27 00:20] VITALS: BP 128/51; PULSE 88; RESP 22; O2SAT 97
[2023-05-27 00:40] VITALS: BP 113/59; PULSE 70; RESP 20; O2SAT 98
[2023-05-27 01:00] VITALS: BP 112/59; PULSE 69; RESP 19; O2SAT 98
[2023-05-27] MEDS: CEFTRIAXONE 1 GM 1 GM in 0.9 % SODIUM CHLORIDE 50 ML IV (01:02)
[2023-05-27 01:28] VITALS: BP 106/63; PULSE 69; RESP 12; TEMP -17.7; TEMP 0
== END 2023-05-27 01:31 | disposition home or self-care (01) ==
PROVIDERS: Emergency Provider Emergency Medicine; PCP Internal Medicine
DX: R50.9 Fever, unspecified (principal); C20 Malignant neoplasm of rectum; R00.0 Tachycardia, unspecified; F17.200 Nicotine dependence, unspecified, uncomplicated; Z93.2 Ileostomy status; D72.819 Decreased white blood cell count, unspecified
CPT/HCPCS: 71046; 74177; 80053; 81001; 83605; 83615; 84100; 84145; 85025; 86140; 87040; 87581; 87632; 87635; 87798; 96365; 96372; 96375; 99285; J0696; J1642; Q9967

== ENCOUNTER 2023-05-29 00:57 | Emergency (ER) | payer OTHER, SELFPAY ==
[2023-05-29] VITALS (15 sets, daily range): BP systolic 118–143; BP diastolic 64–88; PULSE 75–111; RESP 16–22; TEMP 37.3–37.9; O2SAT 97–100; BMI 25.8
--- NOTE | 2023-05-29 01:03 | HMH.EDGENADL ---
Discharge Plan Disposition Patient Disposition: Home, Self-Care Condition: Fair Prescriptions Prescriptions: No Action fluconazole 200 mg tablet 200 mg PO DAILY Patient Comments: Take 1 tablet by mouth once a day acetaminophen 500 mg tablet 650 mg PO QID Patient Comments: TAKE TWO TABLETS BY MOUTH EVERY 6 HOURS ondansetron 8 mg tablet,disintegrating 8 mg PO TID Patient Comments: DISSOLVE ONE TABLET in MOUTH THREE TIMES DAILY NEEDED FOR NAUSEA tamsulosin 0.4 mg capsule 0.4 mg PO DAILY Patient Comments: TAKE ONE CAPSULE BY MOUTH EVERY DAY baclofen 10 mg tablet 10 mg PO BID Patient Comments: TAKE ONE TABLET BY MOUTH TWICE DAILY MAY CAUSE DROWSINESS ferrous sulfate [FeroSul] 325 mg (65 mg iron) tablet 325 mg PO TID Patient Comments: TAKE ONE TABLET BY MOUTH 3 TIMES A WEEK ON Sunday AND SUNDAY gabapentin 100 mg capsule 200 mg PO TID Patient Comments: TAKE TWO CAPSULES BY MOUTH THREE TIMES DAILY MAY CAUSE DROWSINESS max daily DOSE of 600 MG chlorpromazine 50 mg tablet 50 mg PO DAILY diazepam 5 mg tablet 5 mg PO QID Patient Comments: TAKE ONE TABLET BY MOUTH EVERY 6 HOURS NEEDED FOR MUSCLE SPASMS metoclopramide HCl 10 mg tablet 10 mg PO TID Patient Comments: TAKE ONE TABLET BY MOUTH EVERY 8 HOURS FOR 10 DAYS TO aide with hiccups amoxicillin-pot clavulanate 875-125 mg tablet 1 tab PO BID Patient Comments: Take 1 tablet by mouth twice a day oxycodone 5 mg tablet 5 mg PO QID Patient Comments: TAKE ONE TABLET BY MOUTH EVERY 6 HOURS NEEDED FOR PAIN MAY CAUSE DROWSINESS Vasculera 630 mg Tablet 1 tab PO DAILY Referrals Follow up/Referrals: Dylan Rowe DO [Primary Care Provider] - See instructions Clinical Impressions Clinical Impression: Chronic hiccups, Breath shortness Instructions Patient Instructions: DI for Shortness of Breath Discharge ED Provider: Ralph Caldera General Adult HPI General Chief complaint: Shortness of Breath/Dyspnea Stated complaint: SOA-Post Chemo Time Seen by Provider: 05/29/23 01:01 History of Present Illness HPI narrative: 38-year-old male history of colorectal cancer s/p resection with ileostomy bag, HTN, currently on chemotherapy presenting with complaints of SOB. Patient notes that since morning, he has been having progressively worsening shortness of breath. Patient notes that his shortness of breath is acutely worsening, but denies any chest pain. On Sunday night, patient was seen in the ED after the patient spiked a fever. Patient had a CT abdomen pelvis obtained at that time to rule out any sort of postoperative abscess, which the patient has had previously, but CT scan was negative for any acute fluid collection. Patient notes that his last chemotherapy was from Sunday to Sunday. Patient is not on any anticoagulation. Patient denies any prior cardiac history. Patient denies any documented fevers greater than 100.4 in the last 18 hours. Patient is also having acute worsening of his hiccups which patient notes has been thought to be a side effect from chemotherapy. Related Data Home Medications Medication Instructions Recorded Confirmed acetaminophen 500 mg tablet 650 mg PO QID 05/29/23 05/29/23 amoxicillin 875 mg-potassium 1 tab PO BID 05/29/23 05/29/23 clavulanate 125 mg tablet baclofen 10 mg tablet 10 mg PO BID 05/29/23 05/29/23 chlorpromazine 50 mg tablet 50 mg PO DAILY 05/29/23 05/29/23 diazepam 5 mg tablet 5 mg PO QID 05/29/23 05/29/23 diosmin complex no.1 630 mg tablet 1 tab PO DAILY 05/29/23 05/29/23 (Vasculera) ferrous sulfate 325 mg (65 mg 325 mg PO TID 05/29/23 05/29/23 iron) tablet (FeroSul) fluconazole 200 mg tablet 200 mg PO DAILY 05/29/23 05/29/23 gabapentin 100 mg capsule 200 mg PO TID 05/29/23 05/29/23 metoclopramide HCl 10 mg tablet 10 mg PO TID 05/29/23 05/29/23 ondansetron 8 mg disintegrating 8 mg PO TID 05/29/23 05/29/23 tablet oxycodone 5 mg tablet 5 mg PO QID 05/29/23 05/29/23 tamsulosin 0.4 mg capsule 0.4 mg PO DAILY 05/29/23 05/29/23 Allergies Allergy/AdvReac Type Severity Reaction Status Date / Time No Known Allergies Allergy Verified 12/27/22 08:49 [facility] Disclaimer: The information contained in this section may have been updated after the patient was seen, as this information can be updated by other users. Medical History Constipation H/O fracture of arm History of kidney stones Hx of fracture of forearm surgery repair plates Ulna fracture 2009 Surgical History History of colonoscopy History of surgery on arm [place] teeth extracted Family History Other No significant family history Social History Smoking Status: Current every day smoker alcohol intake: current substance use type: denies use current occupational status: employed Travel in the last 8 weeks: None caffeine: Yes ROS Obtained: Yes All systems reviewed & no additional complaints except as documented Physical Exam General General appearance: alert and in no apparent distress Head Head exam: atraumatic, normocephalic and normal inspection Eye Eye exam: Present normal appearance, PERRL and EOMI; Absent scleral icterus or nystagmus ENT ENT exam: Present normal exam, mucous membranes moist and normal external ear exam Neck Neck exam: Present normal inspection, full ROM and trachea midline Chest Chest inspection: Present normal inspection and symmetric chest wall rise; Absent tenderness Respiratory Respiratory exam: Present normal lung sounds bilaterally; Absent respiratory distress, wheezes or accessory muscle use Cardiovascular Cardiovascular exam: Present regular rate, normal rhythm and normal heart sounds Abdominal Exam Abdominal exam: Present soft; Absent distention, tenderness, guarding, rebound, rigidity, trauma, ascites or pulsatile mass Comment: Ileostomy in place exam: Present deferred Extremities Exam Extremities exam: Present normal inspection and full ROM; Absent tenderness Back Exam Back exam: Present normal inspection and full ROM; Absent tenderness Neurological Exam Neurological exam: Present alert, oriented X3 and normal gait; Absent motor sensory deficit Psychiatric Psychiatric exam: Present normal affect and normal mood Skin Skin exam: Present warm, dry and normal color Medical Decision Making Medical Records Medical records reviewed: Yes I reviewed the patient's medical records. Sam Inquiry Pt receiving controlled substance: No Vital Signs: 05/29/23 00:58 05/29/23 02:00 05/29/23 02:20 Temperature 100.2 F H Temperature Source Oral Pulse Rate 76 86 Pulse Rate [Left] 111 H Respiratory Rate 20 20 18 Blood Pressure 131/70 118/69 Blood Pressure [Right Arm] 124/79 Blood Pressure Mean 90 85 Blood Pressure Mean [Right Arm] 94 Blood Pressure Source [Right Arm] Automatic Cuff Blood Pressure Position [Right Arm] Supine 02 Sat by Pulse Oximetry 98 98 97 Oxygen Delivery Method Room Air Room Air Room Air 05/29/23 02:40 05/29/23 03:00 05/29/23 03:20 Temperature Temperature Source Pulse Rate 86 80 84 Pulse Rate [Left] Respiratory Rate 16 16 18 Blood Pressure 125/77 143/88 H 129/66 Blood Pressure [Right Arm] Blood Pressure Mean 85 99 87 Blood Pressure Mean [Right Arm] Blood Pressure Source [Right Arm] Blood Pressure Position [Right Arm] 02 Sat by Pulse Oximetry 100 99 97 Oxygen Delivery Method 05/29/23 03:40 05/29/23 04:00 05/29/23 04:20 Temperature Temperature Source Pulse Rate 90 88 85 Pulse Rate [Left] Respiratory Rate 22 20 20 Blood Pressure 128/75 126/78 131/77 Blood Pressure [Right Arm] Blood Pressure Mean 82 94 93 Blood Pressure Mean [Right Arm] Blood Pressure Source [Right Arm] Blood Pressure Position [Right Arm] 02 Sat by Pulse Oximetry 97 97 98 Oxygen Delivery Method Room Air Room Air Room Air 05/29/23 04:40 05/29/23 05:00 Temperature Temperature Source Pulse Rate 82 76 Pulse Rate [Left] Respiratory Rate 16 18 Blood Pressure 129/81 126/80 Blood Pressure [Right Arm] Blood Pressure Mean 88 96 Blood Pressure Mean [Right Arm] Blood Pressure Source [Right Arm] Blood Pressure Position [Right Arm] 02 Sat by Pulse Oximetry 98 97 Oxygen Delivery Method Room Air Room Air Lab Data Lab results reviewed: Yes I reviewed the patient's lab results. Lab Results 05/29/23 01:20: WBC 2.2 L, RBC 3.67 L, Hgb 10.3 L, Hct 30.9 L, MCV 84.2, MCH 28.1, MCHC 33.3, RDW 14.4, Plt Count 167, MPV 8.1, Neut % (Auto) 80.8 H, Lymph % (Auto) 13.2, [place] % (Auto) 3.3, Eos % (Auto) 2.3, Baso % (Auto) 0.4, Neut # (Auto) 1.8, Lymph # (Auto) 0.3 L, [place] # (Auto) 0.1, Eos # (Auto) 0.1, Baso # (Auto) 0.0, Sodium 134 L, Potassium 3.9, Chloride 102, Carbon Dioxide 27, Anion Gap 8.9, BUN 10, Creatinine 0.80, Estimated Creat Clear 134, Estimated GFR 107, Est GFR ( Amer) 130, Glucose 104 H, Lactate 0.7, Calcium 8.6, Magnesium 1.8, Total Bilirubin 0.5, AST 45, ALT 39, Alkaline Phosphatase 157 H, Troponin I < 0.01, Total Protein 6.8, Albumin 3.6, Globulin 3.2, Albumin/Globulin Ratio 1.1, Lipase 68 05/29/23 01:30: SARS-CoV-2 (PCR) Not detected, Influenza A Untype (PCR) Not detected, Influenza Type B (PCR) Not detected 05/29/23 01:20 05/29/23 01:20 Orders (Tests/Meds): ED MEDICATIONS Generic Name Dose Route Start Last Admin Trade Name Freq PRN Reason Stop Dose Admin Sodium Chloride 10 ml 05/29/23 01:57 05/29/23 01:58 Sodium Chloride 0.9% 10ml Syr (Rad Only) IV 06/28/23 01:56 10 ml NEEDED PRN Administration Maintain IV Site Tetracycl/Hydrocort/Nystatin/Diphen 15 ml 05/29/23 09:00 05/29/23 02:52 Magic Mouthwash 300ml Bottle PO 06/28/23 08:59 15 ml QID BEKA Administration Discontinued Medications Generic Name Dose Route Start Last Admin Trade Name Freq PRN Reason Stop Dose Admin Albuterol Sulfate 2.5 mg 05/29/23 05:28 Albuterol 0.083% 2.5 Mg/3 Ml Neb IH 05/29/23 05:29 ONCE ONE Belladonna Alkaloids 60 ml 05/29/23 01:16 05/29/23 01:20 Belladonna Alkaloids 60 Ml Ml PO 05/29/23 01:17 60 ml ONCE ONE Administration Diazepam 5 mg 05/29/23 02:45 05/29/23 02:52 Diazepam 10mg/2ml Syringe IV 05/29/23 02:46 5 mg ONCE ONE Administration Haloperidol Lactate 5 mg 05/29/23 01:36 05/29/23 01:42 Haloperidol Lactate 5 Mg/Ml Vial IV 05/29/23 01:37 5 mg ONCE ONE Administration Iopamidol 75 ml 05/29/23 01:57 05/29/23 01:58 Iopamidol-370 (76%);100ml Bottle IV 05/29/23 01:58 75 ml ONCE ONE Administration ORDERS Category Date Time Status CT angio chest PE protocol Stat Cat Scan 05/29/23 01:13 Completed CBC w/Auto Diff [Complete Blood Count Auto Diff] Stat Lab 05/29/23 01:20 Completed CMP [Comprehensive Metabolic Panel] Stat Lab 05/29/23 01:20 Completed Lactic Acid Stat Lab 05/29/23 01:20 Completed Lipase Stat Lab 05/29/23 01:20 Completed Magnesium Stat Lab 05/29/23 01:20 Completed Rapid PCR Covid and Flu A/B Stat Lab 05/29/23 01:30 Completed Troponin I Q3H Lab 05/29/23 01:20 Completed Troponin I Q3H Lab 05/29/23 04:15 Ordered ECG initial [place] Stat Y 05/29/23 01:30 Completed Medical Decision Narrative: In summary, 38-year-old male history of colorectal cancer s/p resection with ileostomy bag, HTN, currently on chemotherapy presenting with complaints of SOB. Patient notes that since morning, he has been having progressively worsening shortness of breath. Patient notes that his shortness of breath is acutely worsening, but denies any chest pain. On Sunday night, patient was seen in the ED after the patient spiked a fever. Patient had a CT abdomen pelvis obtained at that time to rule out any sort of postoperative abscess, which the patient has had previously, but CT scan was negative for any acute fluid collection. Patient notes that his last chemotherapy was from Sunday to Sunday. Patient is not on any anticoagulation. Patient denies any prior cardiac history. Patient denies any documented fevers greater than 100.4 in the last 18 hours. Patient is also having acute worsening of his hiccups which patient notes has been thought to be a side effect from chemotherapy. Patient was afebrile, hemodynamically stable, in no respiratory distress, and nontoxic in appearance upon arrival and throughout the entire stay in the ED. Physical examination was unremarkable aside from hiccups, including lungs CTAB, normal cardiac auscultation, benign abdominal exam with no focal TTP, and no acute neurological deficit. The DDx includes, but is not limited to, ACS, PE, CHF exacerbation, asthma vs COPD exacerbation, arrhythmia, pneumothorax, pneumonia, pleural effusion, acute metabolic derangement, acute hematologic derangement, viral syndrome, pericarditis/myocarditis, thoracic aortic dissection, musculoskeletal chest pain, costochondritis or other acute infectious process. All of these have been considered, however ruling out the most morbid conditions drove my clinical assessment and thus the following laboratory and/or radiographic evaluation was conducted to the appropriate extent based on history and physical examination. Patient's largest concern was persistent hiccups despite thorazine, reglan, valium, gabapentin, baclofen at home. All ordered laboratory studies independently reviewed and interpreted by myself and pertinent for: - CBC was unremarkable for any actionable leukocytosis, anemia, or thrombocytopenia. - CMP was unremarkable for any actionable electrolyte derangement, elevated creatinine, or transaminitis. - Lactate WNL - Lipase WNL - Mg WNL - COVID flu negative - Troponin <0.01 EKG independently reviewed and interpreted as follows: - EKG: Regular rate and rhythm. No actionable ST elevations or interval abnormalities with normal QTc. Lot of artifact in the EKG as well from hiccups X-ray/CT/US studies independently reviewed and interpreted by myself and notable for: - CT PE protocol negative for large central PE. Lot of motion artifact from hiccups. Interventions/Medications Received in the ED: - IV haldol 5mg, 5mg valium, GI cocktail, magic mouthwash all attempted to improve hiccups which could be causing the SOB - To rule out any sort of laryngospasm or bronchospasm, albuterol neb was attempted without any improvement. Reassessment: On re-evaluation of patient, patient endorsed mild improvement of symptoms, but patient continued to have significant hiccups presumably from chemotherapy side effects. At this time, despite no significant improvement of hiccups but otherwise negative cardiac/pulm workup, it was felt that the patient was safe to be discharged home with close follow up with oncologist the very same day. The patient/parents were comfortable and in agreement with this plan. Patient instructed to follow up with oncology today. The patient/parents were given strict return precautions prior to being discharged from the emergency department. All questions were answered. Ralph Caldera MD Emergency Medicine Critical Care Critical Care Time Critical Care Time: No
--- OUTSIDE RECORDS SUMMARY | 2023-05-29 01:04 | XMS_ITS ---
Author Name Unknown Address [address] [place] [address] [place] [phone] Phone Organization [facility] Address [address] [place] [address] [place] [phone] Phone Care Team Providers Care Auto Claims Adjuster Name Role Phone Avelino Perrin MD [ ] Conditions or Problems No information available. Medications Medication Instructions Start Date Stop Date Generic Name [facility] Provider FLUCONAZOLE 200 MG TABS Take 1 tablet by mouth once a day 2 fluconazole 43883076459 Avelino Perrin MD TAMSULOSIN HCL 0.4 MG CAPS Take 1 capsule by mouth once a day tamsulosin [id number] Avelino Perrin MD AMOXICILLIN-POT CLAVULANATE 875-125 MG TABS Take 1 tablet by mouth twice a day 2 amoxicillin-po t clavulanate [id number] Avelino Perrin MD TAMSULOSIN HCL 0.4 MG CAPS 1 capsule by mouth once a day 6 tamsulosin [id number] Avelino Perrin MD Medications Administered No information available. Allergies, Adverse Reactions, Alerts No information available. Results Date Name Value Unit Range Flag Description Office Visit: Office Visit: 13 MEDS REVIEW Done Documenta tion of current medications (procedure) ORALTOBACUSE Former Tobacco smoking status SMOK STATUS Current every da y smoker Tobacco smoking status Plan of Care Type Date Detail Appointment 02:15 PM Avelino Perrin MD, [facility], [address], [place], [phone], Pending order Continue oral an tibiotics Pending order CMP Pending order CBC with Differe ntial Pending order C- reactive prot ein Pending order Sedimentation Ra te (ESR) Procedures No information available. Vital Signs Date Name Value Unit Description BMI (Body Mass Index) 26.12 kg/m2 Bod y Mass Index (Ratio) Body Temperature 97.5 [degF] temperat ure E&M BP Diastolic 60 mm[Hg] blood pressu re, diastolic BP Systolic 124 mm[Hg] blood pressur e, systolic Heart Rate 100 /min pulse rate Height 68 [in_us] height E&M Respiratory Rate 16 /min respirat ory rate E&M Weight Measured 171.8 [lb_av] weight E& M Immunizations No information available. Advance Directives No information available.
--- OUTSIDE RECORDS SUMMARY | 2023-05-29 01:04 | XMS_ITS ---
Author Name Unknown Address [address] [place], [place] [address] [address] [place] [phone] Phone Organization [facility] Address [address] [facility] [address] [place] [phone] Phone Care Team Providers Care Die Casting Machine Maintainer Name Role Phone Aydin MEJIA, Avelino Shea [ ] Conditions or Problems Problem Name Problem Code Onset Date Status Entry Date Provider Comment Standard Description Annotate Renal failure, acute [id number] (SNOMED CT) Active Avelino Perrin MD Acute kidney injury Medications No information available. Medications Administered No information available. Allergies, Adverse Reactions, Alerts No information available. Results Date Name Value Unit Range Flag Description Office Visit: Office Visit: rm 14 ORALTOBACUSE Former Tobacco smoking status SMOK STATUS Current every da y smoker Tobacco smoking status MEDS REVIEW Done Documenta tion of current medications (procedure) Plan of Care Type Date Detail Appointment 02:15 PM Avelino Perrin MD, [address] [place] [address], [facility] [address] [place] [address], [phone], Pending order Continue IV anti biotics Pending order BMP Procedures Code Procedure Name Date Entry Date CPT-ca Continue IV antibiotics 2022 [id number] BMP Vital Signs Date Name Value Unit Description BMI (Body Mass Index) 27.34 kg/m2 Bod y Mass Index (Ratio) Body Temperature 97.5 [degF] temperat ure E&M BP Diastolic 68 mm[Hg] blood pressu re, diastolic BP Systolic 120 mm[Hg] blood pressur e, systolic Heart Rate 88 /min pulse rate Height 68 [in_us] height E&M Respiratory Rate 16 /min respirat ory rate E&M Weight Measured 179.8 [lb_av] weight E& M Immunizations No information available. Advance Directives No information available.
--- OUTSIDE RECORDS SUMMARY | 2023-05-29 01:04 | XMS_ITS ---
Author Name Unknown Address [address] [place] [address] [place] [id number] Phone Organization [facility] Address [address] [place] [address] [place] [phone] Phone Care Team Providers Care Furnace Keeper Name Role Phone Aydin MEJIA, Avelino Unavailable [ ] Conditions or Problems No information available. Medications No information available. Medications Administered No information available. Allergies, Adverse Reactions, Alerts No information available. Results Date Name Value Unit Range Flag Description Office Visit: Office Visit: 10 ORALTOBACUSE Former Tobacco smoking status SMOK STATUS Current every da y smoker Tobacco smoking status MEDS REVIEW Done Documenta tion of current medications (procedure) Plan of Care Type Date Detail Appointment 02:15 PM Avelino Perrin MD, [address] [place] [address] [place] [address], [phone], Pending order Continue oral an tibiotics Pending order CMP Pending order CBC with Differe ntial Pending order C- reactive prot ein Pending order Sedimentation Ra te (ESR) Pending order CMP Pending order CBC with Differe ntial Pending order C- reactive prot ein Pending order Sedimentation Ra te (ESR) Procedures Code Procedure Name Date Entry Date CPT-Cooral Continue oral antibiotics 20 28/04/26 CPT-76518 CMP [id number] CBC with Differential 2022 CPT-91400 C- reactive protein CPT-97983 Sedimentation Rate (ESR) 202 07/16/25 CPT-11917 CMP [id number] CBC with Differential 2022 CPT-41938 C- reactive protein CPT-64840 Sedimentation Rate (ESR) 202 07/16/25 Vital Signs Date Name Value Unit Description BMI (Body Mass Index) 26.97 kg/m2 Bod y Mass Index (Ratio) Body Temperature 97.1 [degF] temperat ure E&M BP Diastolic 74 mm[Hg] blood pressu re, diastolic BP Systolic 116 mm[Hg] blood pressur e, systolic Heart Rate 96 /min pulse rate Height 68 [in_us] height E&M Respiratory Rate 16 /min respirat ory rate E&M Weight Measured 177.4 [lb_av] weight E& M Immunizations No information available. Advance Directives No information available.
--- OUTSIDE RECORDS SUMMARY | 2023-05-29 01:04 | XMS_ITS ---
Author Name Unknown Address [address] [place] [address] [address] [place] [address] Phone Organization [facility] Address [address] [place] [address] Phone Care Team Providers Care Route Driver Salesperson Name Role Phone Avelino Perrin MD [ ] Conditions or Problems No information available. Medications Medication Instructions Start Date Stop Date Generic Name NDC Provider GABAPENTIN 100 MG CAPS Take 2 capsules (200 mg total) by mouth nightly for 10 days. Max Daily Amount: 200 mg 0 gabapentin [id number] Avelino Perrin MD FLUCONAZOLE 200 MG TABS Take 1 tablet (200 mg total) by mouth daily for 14 days. 1 fluconazole [id number] Avelino Perrin MD FLUCONAZOLE 200 MG TABS Take 2 tablet by mouth once a day 9 fluconazole [id number] Avelino Perrin MD GABAPENTIN 100 MG CAPS Take 2 capsule by mouth every night 9 gabapentin [id number] Avelino Perrin MD magnesium gluconate 30 mg (550 mg) tablet Take 1 tablet by mouth once a day 9 magnesium gluconate [id number] Avelino Perrin MD DIAZEPAM 5 MG TABS Q6HPRN diazepam [id number] Stephani Calina OXYCODONE HCL 5 MG CAPS Q4HPRN oxycodone [id number] Stephani Calina Medications Administered No information available. Allergies, Adverse Reactions, Alerts No information available. Results Date Name Value Unit Range Flag Description Office Visit: Office Visit: 14 [facility] MEDS REVIEW Done Documenta tion of current medications (procedure) ORALTOBACUSE Former Tobacco smoking status SMOK STATUS Current every da y smoker Tobacco smoking status Plan of Care Type Date Detail Appointment 02:15 PM Avelino Perrin MD, [address] [facility], [address], [place], [phone], Pending order Continue IV anti biotics Procedures Code Procedure Name Date Entry Date CPT-ca Continue IV antibiotics 2022 Vital Signs Date Name Value Unit Description BMI (Body Mass Index) 27.09 kg/m2 Bod y Mass Index (Ratio) Body Temperature 97.6 [degF] temperat ure E&M BP Diastolic 72 mm[Hg] blood pressu re, diastolic BP Systolic 124 mm[Hg] blood pressur e, systolic Heart Rate 84 /min pulse rate Height 68 [in_us] height E&M Respiratory Rate 16 /min respirat ory rate E&M Weight Measured 178.2 [lb_av] weight E& M Immunizations No information available. Advance Directives Directive Description Start Date NO ADVANCE DIRECTIVES
--- OUTSIDE RECORDS SUMMARY | 2023-05-29 01:04 | XMS_ITS ---
Author Name Unknown Address [address] [place] [address] [place] [address] Phone [facility] Address [address] [place] [address] [place] [address] Phone Care Team Providers Care Research Professor Of Biostatistics Name Role Phone Avelino Perrin MD [ ] Conditions or Problems No information available. Medications Medication Instructions Start Date Stop Date Generic Name [facility] Provider FLUCONAZOLE 200 MG TABS Take 2 tablet by mouth once a day 9 fluconazole [id number] Avelino Perrin MD AMOXICILLIN-POT CLAVULANATE 875-125 MG TABS Take 1 tablet by mouth twice a day 2 amoxicillin-po t clavulanate 77972587902 Avelino Perrin MD FLUCONAZOLE 200 MG TABS Take 1 tablet by mouth once a day 2 fluconazole [id number] Avelino Perrin MD VASCULERA TABS once a day diosmin complex no.1 [id number] Amber Ta Medications Administered No information available. Allergies, Adverse Reactions, Alerts No information available. Results Date Name Value Unit Range Flag Description Office Visit: Office Visit: 12 ORALTOBACUSE Former Tobacco smoking status SMOK STATUS Current every da y smoker Tobacco smoking status MEDS REVIEW Done Documenta tion of current medications (procedure) Plan of Care Type Date Detail Appointment 02:15 PM Avelino Perrin MD, [facility], [address], [place], [phone], Pending order Continue IV anti biotics Pending order Continue oral an tibiotics Pending order CMP Pending order CBC with Differe ntial Pending order C- reactive prot ein Pending order Sedimentation Ra te (ESR) Procedures Code Procedure Name Date Entry Date CPT-ca Continue IV antibiotics 2022 CPT-Cooral Continue oral antibiotics 20 28/04/12 CPT-34869 CMP [id number] CBC with Differential 2022 CPT-72538 C- reactive protein CPT-50715 Sedimentation Rate (ESR) 202 07/17/11 Vital Signs Date Name Value Unit Description BMI (Body Mass Index) 27.15 kg/m2 Bod y Mass Index (Ratio) Body Temperature 97.4 [degF] temperat ure E&M BP Diastolic 78 mm[Hg] blood pressu re, diastolic BP Systolic 124 mm[Hg] blood pressur e, systolic Heart Rate 84 /min pulse rate Height 68 [in_us] height E&M Respiratory Rate 16 /min respirat ory rate E&M Weight Measured 178.6 [lb_av] weight E& M Immunizations No information available. Advance Directives No information available.
--- NOTE | 2023-05-29 01:13 | CT_ITS ---
PROCEDURE INFORMATION: Exam: CTA Chest With Contrast Exam date and time: 05/29/2023 1:51 AM Age: 38 years old Clinical indication: Shortness of breath; Additional info: Colon cancer, SOB TECHNIQUE: Imaging protocol: Computed tomographic angiography of the chest with contrast. Exam focused on the arteries. 3D rendering (Not supervised by radiologist): MIP and/or 3D reconstructed images were created by the technologist. Radiation optimization: All CT scans at this facility use at least one of these dose optimization techniques: automated exposure control; mA and/or kV adjustment per patient size (includes targeted exams where dose is matched to clinical indication); or iterative reconstruction. Contrast material: ISOVUE; Contrast volume: 75 ml; Contrast route: INTRAVENOUS (IV); COMPARISON: CR Chest 05/26/2023 9:36 PM FINDINGS: Tubes, catheters and devices: There is a right internal jugular vein Sohinc-Q-Ipbn noted. Pulmonary arteries: Normal. No pulmonary emboli. Aorta: Unremarkable. No aortic aneurysm. No aortic dissection. Lungs: There are several small calcified left upper lobe granulomas. Pleural spaces: Unremarkable. No pneumothorax. No pleural effusion. Heart: Unremarkable. No cardiomegaly. No pericardial effusion. Lymph nodes: There are small calcified left hilar and mediastinal lymph nodes. Bones/joints: Unremarkable. No acute fracture. Soft tissues: Unremarkable. Other findings: The study is degraded by motion artifact. IMPRESSION: 1. There are no large pulmonary emboli however, small distal pulmonary emboli could be missed due to the abundant motion causing misregistration artifact. 2. Evidence of prior granulomatous exposure.
[2023-05-29] MEDS: BELLADONNA ALKALOIDS 60 ML ML PO (01:20)
--- NOTE | 2023-05-29 01:30 | ECG_ITS ---
APPROVED REPORT Exam: Resting ECG HR:102 bpm ECG Measurements Heart Rate 102 AXES WI 136 P 75 QRSd 89 QRS 43 QT 379 T 71 QTc 438 Conclusion SINUS TACHYCARDIA NONSPECIFIC T-WAVE ABNORMALITY ABNORMAL RHYTHM ECG marked artifact limits interpretation UNCONFIRMED REPORT Electronically signed by : Levi Cantu MD 06/01/2023 14:48:59
[2023-05-29 01:34] LABS: Chloride 102 mmol/L (98-107)
[2023-05-29 01:35] LABS: Potassium 3.9 mmoL/L (3.5-5.1); Sodium 134 mmol/L (136-145)
[2023-05-29 01:36] LABS: Coronavirus 19, PCR Not Detected (NotDetected); Influenza A, PCR Not Detected (NotDetected); Influenza B, PCR Not Detected (NotDetected)
[2023-05-29 01:37] LABS: Alanine Aminotransferase 39 U/L (12-78); Alkaline Phosphatase 157 U/L (38-126); Anion Gap 8.9 mEq/L (5-15); Aspartate Amino Transferase 45 U/L (17-59); Bilirubin,Total 0.5 mg/dl (0.2-1.3); Blood Urea Nitrogen 10 mg/dl (9-20); Carbon Dioxide 27 mmol/L (22.0-30.0); Creatinine Clearance Estimated 134 mL/min (50-200); Estimated Glomerular Filt Rate 107 ml/min (>60); GFR (African American) 130 ML/MIN (>60); Lactic Acid 0.7 mmol/L (0.7-2.1)
[2023-05-29 01:38] LABS: Albumin Level 3.6 g/dl (3.5-5.0); Albumin/Globulin Ratio 1.1 (1.1-1.8); Calcium 8.6 mg/dl (8.4-10.2); Globulin 3.2 g/dL (1.3-3.2); Glucose 104 mg/dl (74-100); Lipase 68 U/L (23-300); Magnesium 1.8 mg/dl (1.6-2.3); Total Protein,Serum 6.8 g/dl (6.3-8.2)
[2023-05-29 01:39] LABS: Basophils % 0.4 % (0.1-2.0); Eosinophils # 0.1 K/mm3 (0.0-0.4); Eosinophils % 2.3 % (0.1-12.0); Hematocrit 30.9 % (42.0-52.0); Hemoglobin 10.3 g/dL (14.1-18.0); Lymphocytes # 0.3 K/mm3 (0.7-4.5); Lymphocytes % 13.2 % (10-50); Mean Corpuscular HGB Conc 33.3 g/dL (31.8-35.4); Mean Corpuscular Hemoglobin 28.1 pg (27.0-31.2); Mean Corpuscular Volume 84.2 fl (80-94); Mean Platelet Volume 8.1 fl (7.4-10.4); Monocytes # 0.1 K/mm3 (0.1-1.0); Monocytes % 3.3 % (1.7-9.3); Neutrophils # 1.8 K/mm3 (1.8-7.8); Neutrophils % 80.8 % (37.0-80.0); Platelet Count 167 K/mm3 (142-424); Red Blood Count 3.67 M/mm3 (4.60-6.20); Red Cell Distribution Width 14.4 % (11.5-17.5); White Blood Count 2.2 K/mm3 (4.8-10.8)
[2023-05-29] MEDS: HALOPERIDOL LACTATE 5 MG/ML VIAL IV (01:42)
[2023-05-29 01:50] LABS: Troponin I < 0.01 ng/ml (0.00-0.034)
[2023-05-29] MEDS: SODIUM CHLORIDE 0.9% 10ML SYR (RAD ONLY) 10 ML IV (01:58)
[2023-05-29] MEDS: IOPAMIDOL-370 (76%);100ML BOTTLE 75 ML IV (01:58)
[2023-05-29] MEDS: diazePAM 10MG/2ML SYRINGE 5 MG IV (02:52)
[2023-05-29] MEDS: MAGIC MOUTHWASH 300ML BOTTLE 15 ML PO (02:52)
[2023-05-29] MEDS: ALBUTEROL 0.083% 2.5 MG/3 ML NEB IH (05:40)
--- NOTE | 2023-05-29 07:25 | PC.NURSE ---
dr brar at bedside
[2023-05-29] MEDS: diphenhydrAMINE 50MG/ML VIAL 50 MG IV (07:34)
--- NOTE | 2023-05-29 07:45 | PC.NURSE ---
Patient wants to hold on taking the Thorazine at this time. aware.
[2023-05-29] MEDS: LACTATED RINGERS 1000ML 1,000 ML 999 ML IV (08:15)
--- NOTE | 2023-05-29 09:04 | PC.NURSE ---
on phone with ISABELLA Roman from 's office at this time
--- NOTE | 2023-05-29 09:21 | PC.NURSE ---
paged Dr Ashford per family request
[2023-05-29] MEDS: DEXAMETHASONE 4MG/ML 1ML VIAL 10 MG IV (09:31)
== END 2023-05-29 09:43 | disposition home or self-care (01) ==
PROVIDERS: Emergency Provider Emergency Medicine; PCP Internal Medicine
DX: R06.02 Shortness of breath (principal); R06.6 Hiccough; T45.1X5A Adverse effect of antineoplastic and immunosuppressive drugs, initial encounter; C18.9 Malignant neoplasm of colon, unspecified; F17.200 Nicotine dependence, unspecified, uncomplicated; I10 Essential (primary) hypertension
CPT/HCPCS: 71275; 80053; 83605; 83690; 83735; 84484; 85025; 87636; 93005; 96374; 96375; 99285; J1642; Q9967

== ENCOUNTER 2023-05-30 15:42 | Outpatient (CLI) | payer OTHER, SELFPAY ==
[2023-05-30 15:56] VITALS: BP 134/89; PULSE 78; RESP 18; O2SAT 100
[2023-05-30] MEDS: ERTAPENEM SODIUM 1 GM in 0.9 % SODIUM CHLORIDE 50 ML IV (15:56)
[2023-05-30] MEDS: 0.9 % SODIUM CHLORIDE 50 ML IV (15:59)
[2023-05-30 16:36] VITALS: BP 128/83; PULSE 72; RESP 18; O2SAT 99
[2023-05-30] MEDS: SODIUM CHLORIDE 0.9% 10ML FLUSH SYRINGE 10 ML IV (16:39)
== END 2023-05-30 16:38 | disposition home or self-care (01) ==
LOC: INF 15:43
PROVIDERS: PCP Internal Medicine; Visit Provider Internal Medicine Infectious Disease
DX: K61.2 Anorectal abscess (principal); C20 Malignant neoplasm of rectum; R50.9 Fever, unspecified
CPT/HCPCS: 96365; J1335; J1642

== ENCOUNTER 2023-05-31 15:29 | Outpatient (CLI) | payer OTHER, SELFPAY ==
[2023-05-31] MEDS: 0.9 % SODIUM CHLORIDE 50 ML 100 ML IV (15:40)
[2023-05-31] MEDS: ERTAPENEM SODIUM 1 GM in 0.9 % SODIUM CHLORIDE 50 ML IV (15:45)
[2023-05-31 15:50] VITALS: BP 118/89; PULSE 60; RESP 18; TEMP 36.6; O2SAT 100
[2023-05-31] MEDS: SODIUM CHLORIDE 0.9% 10ML FLUSH SYRINGE 10 ML IV (16:17)
[2023-05-31 16:24] VITALS: BP 140/78; PULSE 87; RESP 18; O2SAT 100
== END 2023-05-31 16:24 | disposition home or self-care (01) ==
LOC: INF 15:29
PROVIDERS: PCP Internal Medicine; Visit Provider Internal Medicine Infectious Disease
DX: K61.2 Anorectal abscess (principal); C20 Malignant neoplasm of rectum; Z45.2 Encounter for adjustment and management of vascular access device
CPT/HCPCS: 96365; J1335; J1642

== ENCOUNTER 2023-06-01 15:05 | Outpatient (CLI) | payer OTHER, SELFPAY ==
[2023-06-01 15:30] VITALS: BP 134/69; PULSE 57; RESP 18; O2SAT 100
[2023-06-01] MEDS: IRON SUCROSE COMPLEX 200 MG in 0.9 % SODIUM CHLORIDE 100 ML 220 MG IV (15:30)
[2023-06-01] MEDS: ERTAPENEM SODIUM 1 GM in 0.9 % SODIUM CHLORIDE 50 ML IV (16:06)
[2023-06-01] MEDS: SODIUM CHLORIDE 0.9% 50ML BAG 50 ML IV (16:06)
[2023-06-01] MEDS: SODIUM CHLORIDE 0.9% 10ML FLUSH SYRINGE 10 ML IV (16:40)
[2023-06-01 16:48] VITALS: BP 130/76; PULSE 55; RESP 18; O2SAT 100
== END 2023-06-01 16:48 | disposition home or self-care (01) ==
LOC: INF 15:05
PROVIDERS: PCP Internal Medicine; Visit Provider Internal Medicine Infectious Disease
DX: C20 Malignant neoplasm of rectum (principal); K61.2 Anorectal abscess; T81.43XD Infection following a procedure, organ and space surgical site, subsequent encounter; Z45.2 Encounter for adjustment and management of vascular access device
CPT/HCPCS: 96365; 96366; 96367; J1335; J1642; J1756

== ENCOUNTER 2023-06-02 14:07 | Outpatient (CLI) | payer OTHER, SELFPAY ==
[2023-06-02] MEDS: ERTAPENEM SODIUM 1 GM in 0.9 % SODIUM CHLORIDE 50 ML IV (14:30)
== END 2023-06-02 23:59 ==
PROVIDERS: PCP Internal Medicine; Visit Provider Internal Medicine Infectious Disease
DX: K61.2 Anorectal abscess (principal); C20 Malignant neoplasm of rectum; D50.0 Iron deficiency anemia secondary to blood loss (chronic)
CPT/HCPCS: 96365; J1335

== ENCOUNTER 2023-06-03 15:19 | Outpatient (CLI) | payer OTHER, SELFPAY ==
[2023-06-03] MEDS: ERTAPENEM SODIUM 1 GM in 0.9 % SODIUM CHLORIDE 50 ML IV (15:30)
--- NOTE | 2023-06-03 16:06 | PC.NURSE ---
port deaccessed at this time, flushed with hep lock prior to deaccessing. site cdi, no s/s of infection or bleeding noted.
== END 2023-06-03 23:59 ==
LOC: INF 15:20
PROVIDERS: PCP Internal Medicine; Visit Provider Internal Medicine Infectious Disease
DX: K61.2 Anorectal abscess (principal); C20 Malignant neoplasm of rectum; R50.9 Fever, unspecified; Z45.2 Encounter for adjustment and management of vascular access device
CPT/HCPCS: 96365; J1335; J1642

== ENCOUNTER 2023-06-04 15:46 | Outpatient (CLI) | payer OTHER, SELFPAY ==
[2023-06-04 15:50] VITALS: BMI 25.4
[2023-06-04] MEDS: SODIUM CHLORIDE 0.9% 50ML BAG 50 ML IV (15:57)
[2023-06-04] MEDS: ERTAPENEM SODIUM 1 GM in 0.9 % SODIUM CHLORIDE 50 ML IV (15:57)
[2023-06-04 15:58] VITALS: BP 121/75; PULSE 50; RESP 18; O2SAT 100
[2023-06-04] MEDS: SODIUM CHLORIDE 0.9% 10ML FLUSH SYRINGE 10 ML IV (16:28)
[2023-06-04 16:30] LABS: Basophils % 0.2 % (0.1-2.0); Hematocrit 34.8 % (42.0-52.0); Hemoglobin 11.6 g/dL (14.1-18.0); Lymphocytes # 0.6 K/mm3 (0.7-4.5); Lymphocytes % 17.2 % (10-50); Mean Corpuscular HGB Conc 33.2 g/dL (31.8-35.4); Mean Corpuscular Hemoglobin 28.9 pg (27.0-31.2); Mean Platelet Volume 9.1 fl (7.4-10.4); Monocytes # 0.3 K/mm3 (0.1-1.0); Monocytes % 8.2 % (1.7-9.3); Neutrophils # 2.4 K/mm3 (1.8-7.8); Neutrophils % 74.4 % (37.0-80.0); Platelet Count 114 K/mm3 (142-424); Red Cell Distribution Width 17.6 % (11.5-17.5); White Blood Count 3.2 K/mm3 (4.8-10.8)
[2023-06-04 16:38] LABS: Alanine Aminotransferase 75 U/L (12-78); Albumin Level 3.6 g/dl (3.5-5.0); Albumin/Globulin Ratio 1.3 (1.1-1.8); Alkaline Phosphatase 97 U/L (38-126); Anion Gap 8.6 mEq/L (5-15); Aspartate Amino Transferase 47 U/L (17-59); Bilirubin,Total 0.2 mg/dl (0.2-1.3); Blood Urea Nitrogen 24 mg/dl (9-20); Calcium 8.8 mg/dl (8.4-10.2); Carbon Dioxide 28 mmol/L (22.0-30.0); Chloride 103 mmol/L (98-107); Creatinine Clearance Estimated 132 mL/min (50-200); Estimated Glomerular Filt Rate 107 ml/min (>60); GFR (African American) 130 ML/MIN (>60); Globulin 2.7 g/dL (1.3-3.2); Glucose 122 mg/dl (74-100); Potassium 3.6 mmoL/L (3.5-5.1); Sodium 136 mmol/L (136-145); Total Protein,Serum 6.3 g/dl (6.3-8.2)
[2023-06-04 16:42] VITALS: BP 119/70; PULSE 48; RESP 18; O2SAT 99
[2023-06-04 16:44] LABS: C-Reactive Protein 4.5 mg/L (0-4)
[2023-06-04 17:09] LABS: Erythrocyte Sedimentation Rate 45 mm/hr (0-15)
[2023-06-05 08:32] LABS: CEA 3.8 ng/mL (0.0-4.7)
== END 2023-06-04 16:46 | disposition home or self-care (01) ==
LOC: INF 15:47
PROVIDERS: Internal Medicine Medical Oncology; PCP Internal Medicine; Visit Provider Internal Medicine Infectious Disease
DX: K61.2 Anorectal abscess (principal); C20 Malignant neoplasm of rectum; Z45.2 Encounter for adjustment and management of vascular access device
CPT/HCPCS: 80053; 82378; 85025; 85651; 86140; 96365; J1335; J1642

== ENCOUNTER 2023-06-05 12:00 | Outpatient (CLI) | payer OTHER, SELFPAY ==
[2023-06-05 12:12] VITALS: BP 120/74; PULSE 51; RESP 18; TEMP 36.7; O2SAT 100
[2023-06-05] MEDS: ERTAPENEM SODIUM 1 GM in 0.9 % SODIUM CHLORIDE 50 ML IV (12:12)
[2023-06-05] MEDS: 0.9 % SODIUM CHLORIDE 50 ML 100 ML IV (12:12)
[2023-06-05] MEDS: SODIUM CHLORIDE 0.9% 10ML FLUSH SYRINGE 10 ML IV (12:53)
[2023-06-05 12:56] VITALS: BP 124/55; PULSE 54; RESP 18; O2SAT 100
== END 2023-06-05 12:56 | disposition home or self-care (01) ==
LOC: INF 12:01
PROVIDERS: PCP Internal Medicine; Visit Provider Internal Medicine Infectious Disease
DX: Z45.2 Encounter for adjustment and management of vascular access device (principal); K61.2 Anorectal abscess; C20 Malignant neoplasm of rectum
CPT/HCPCS: 96365; J1335; J1642

== ENCOUNTER 2023-06-06 15:25 | Outpatient (CLI) | payer OTHER, SELFPAY ==
[2023-06-06 15:40] VITALS: BP 124/84; PULSE 79; RESP 18; TEMP 36.8; O2SAT 99
[2023-06-06] MEDS: 0.9 % SODIUM CHLORIDE 50 ML 25 ML IV (15:40)
[2023-06-06] MEDS: SODIUM CHLORIDE 0.9% 10ML FLUSH SYRINGE 10 ML IV (16:11)
[2023-06-06 16:20] VITALS: BP 132/74; PULSE 76; RESP 18; O2SAT 99
[2023-06-06] MEDS: ERTAPENEM SODIUM 1 GM in 0.9 % SODIUM CHLORIDE 50 ML IV (16:20)
== END 2023-06-06 16:22 | disposition home or self-care (01) ==
LOC: INF 15:25
PROVIDERS: PCP Internal Medicine; Visit Provider Internal Medicine Infectious Disease
DX: Z45.2 Encounter for adjustment and management of vascular access device (principal); K61.2 Anorectal abscess; C20 Malignant neoplasm of rectum
CPT/HCPCS: 96365; J1335; J1642

== ENCOUNTER 2023-06-07 15:24 | Outpatient (CLI) | payer OTHER, SELFPAY ==
[2023-06-07] MEDS: ERTAPENEM SODIUM 1 GM in 0.9 % SODIUM CHLORIDE 50 ML IV (15:40)
[2023-06-07 15:45] VITALS: BP 148/75; PULSE 85; RESP 18; O2SAT 99
[2023-06-07 16:15] VITALS: BP 124/66; PULSE 81
[2023-06-07] MEDS: SODIUM CHLORIDE 0.9% 10ML FLUSH SYRINGE 10 ML IV (16:16)
[2023-06-07] MEDS: SODIUM CHLORIDE 0.9% 50ML BAG 50 ML IV (16:16)
== END 2023-06-07 16:18 | disposition home or self-care (01) ==
LOC: INF 15:24
PROVIDERS: PCP Internal Medicine; Visit Provider Internal Medicine Medical Oncology
DX: K61.2 Anorectal abscess (principal); C20 Malignant neoplasm of rectum; Z45.2 Encounter for adjustment and management of vascular access device
CPT/HCPCS: 96365; J1335; J1642

== ENCOUNTER 2023-06-08 14:47 | Outpatient (CLI) | payer OTHER, SELFPAY ==
[2023-06-08 15:24] VITALS: BP 127/75; PULSE 95; RESP 18; O2SAT 100
[2023-06-08] MEDS: 0.9 % SODIUM CHLORIDE 50 ML 100 ML IV (15:24)
[2023-06-08] MEDS: ERTAPENEM SODIUM 1 GM in 0.9 % SODIUM CHLORIDE 50 ML IV (15:54)
[2023-06-08] MEDS: IRON SUCROSE COMPLEX 200 MG in 0.9 % SODIUM CHLORIDE 100 ML 220 MG IV (15:56)
[2023-06-08] MEDS: SODIUM CHLORIDE 0.9% 10ML FLUSH SYRINGE 10 ML IV (16:39)
[2023-06-08 16:41] VITALS: BP 126/63; PULSE 76; RESP 18
== END 2023-06-08 16:41 | disposition home or self-care (01) ==
LOC: INF 14:47
PROVIDERS: PCP Internal Medicine; Visit Provider Internal Medicine Infectious Disease
DX: K61.2 Anorectal abscess (principal); C20 Malignant neoplasm of rectum; D64.9 Anemia, unspecified; Z79.899 Other long term (current) drug therapy
CPT/HCPCS: 96365; 96367; J1335; J1642; J1756

== ENCOUNTER 2023-06-09 12:35 | Outpatient (CLI) | payer OTHER, SELFPAY ==
[2023-06-09] MEDS: ERTAPENEM SODIUM 1 GM in 0.9 % SODIUM CHLORIDE 50 ML IV (13:00)
[2023-06-09 13:33] VITALS: PULSE 83; RESP 16; TEMP 36.8; O2SAT 100
== END 2023-06-09 13:40 | disposition home or self-care (01) ==
LOC: INF 12:36
PROVIDERS: PCP Internal Medicine; Visit Provider Internal Medicine Infectious Disease
DX: K61.2 Anorectal abscess (principal); C20 Malignant neoplasm of rectum
CPT/HCPCS: 96365; G0463; J1335

== ENCOUNTER 2023-06-10 12:21 | Outpatient (CLI) | payer OTHER, SELFPAY ==
[2023-06-10 12:21] VITALS: BP 103/70; PULSE 102; RESP 16; TEMP 37.2; O2SAT 100
[2023-06-10] MEDS: ERTAPENEM SODIUM 1 GM in 0.9 % SODIUM CHLORIDE 50 ML IV (12:38)
== END 2023-06-10 13:11 | disposition home or self-care (01) ==
LOC: INF 12:22
PROVIDERS: PCP Internal Medicine; Referring Provider Internal Medicine; Visit Provider Internal Medicine Infectious Disease
DX: K61.2 Anorectal abscess (principal); C20 Malignant neoplasm of rectum
CPT/HCPCS: 96365; G0463; J1335

== ENCOUNTER 2023-06-11 15:25 | Outpatient (CLI) | payer OTHER, SELFPAY ==
[2023-06-11 15:27] VITALS: BMI 25.9
[2023-06-11 15:46] LABS: Basophils % 0.3 % (0.1-2.0); Eosinophils # 0.1 K/mm3 (0.0-0.4); Eosinophils % 0.9 % (0.1-12.0); Hematocrit 34.9 % (42.0-52.0); Hemoglobin 11.6 g/dL (14.1-18.0); Lymphocytes # 0.7 K/mm3 (0.7-4.5); Lymphocytes % 13.4 % (10-50); Mean Corpuscular HGB Conc 33.2 g/dL (31.8-35.4); Mean Corpuscular Hemoglobin 30.4 pg (27.0-31.2); Mean Corpuscular Volume 91.4 fl (80-94); Mean Platelet Volume 9.1 fl (7.4-10.4); Monocytes # 0.5 K/mm3 (0.1-1.0); Monocytes % 8.9 % (1.7-9.3); Neutrophils # 3.9 K/mm3 (1.8-7.8); Neutrophils % 76.4 % (37.0-80.0); Platelet Count 134 K/mm3 (142-424); Red Blood Count 3.82 M/mm3 (4.60-6.20); Red Cell Distribution Width 19.2 % (11.5-17.5); White Blood Count 5.1 K/mm3 (4.8-10.8)
[2023-06-11 15:53] VITALS: BP 124/68; PULSE 88; RESP 18; O2SAT 100
[2023-06-11 15:55] LABS: Chloride 107 mmol/L (98-107); Potassium 3.9 mmoL/L (3.5-5.1); Sodium 136 mmol/L (136-145)
[2023-06-11 15:58] LABS: Alanine Aminotransferase 53 U/L (12-78); Albumin Level 3.5 g/dl (3.5-5.0); Albumin/Globulin Ratio 1.1 (1.1-1.8); Alkaline Phosphatase 121 U/L (38-126); Anion Gap 5.9 mEq/L (5-15); Aspartate Amino Transferase 40 U/L (17-59); Bilirubin,Total 0.4 mg/dl (0.2-1.3); Blood Urea Nitrogen 19 mg/dl (9-20); Carbon Dioxide 27 mmol/L (22.0-30.0); Creatinine Clearance Estimated 154 mL/min (50-200); Estimated Glomerular Filt Rate 125 ml/min (>60); GFR (African American) 151 ML/MIN (>60); Globulin 3.2 g/dL (1.3-3.2); Total Protein,Serum 6.7 g/dl (6.3-8.2)
[2023-06-11 15:59] LABS: Calcium 8.7 mg/dl (8.4-10.2); Glucose 94 mg/dl (74-100)
[2023-06-11 16:04] LABS: C-Reactive Protein 47.7 mg/L (0-4)
[2023-06-11 16:19] LABS: Erythrocyte Sedimentation Rate 95 mm/hr (0-15)
[2023-06-11] MEDS: SODIUM CHLORIDE 0.9% 10ML FLUSH SYRINGE 10 ML IV (16:20)
[2023-06-11] MEDS: 0.9 % SODIUM CHLORIDE 50 ML IV (16:20)
[2023-06-11 16:24] VITALS: BP 131/82; PULSE 88; RESP 18; O2SAT 98
[2023-06-11] MEDS: ERTAPENEM SODIUM 1 GM in 0.9 % SODIUM CHLORIDE 50 ML IV (16:25)
== END 2023-06-11 16:24 | disposition home or self-care (01) ==
LOC: INF 15:26
PROVIDERS: PCP Internal Medicine; Visit Provider Internal Medicine Infectious Disease
DX: K61.2 Anorectal abscess (principal); C20 Malignant neoplasm of rectum; Z79.899 Other long term (current) drug therapy
CPT/HCPCS: 80053; 85025; 85651; 86140; J1335; J1642

== ENCOUNTER 2023-06-12 12:56 | Outpatient (CLI) | payer OTHER, SELFPAY ==
[2023-06-12] MEDS: 0.9 % SODIUM CHLORIDE 25 ML IV (13:08)
[2023-06-12 13:09] VITALS: BP 114/70; PULSE 95; RESP 18; TEMP 36.6; O2SAT 100
[2023-06-12] MEDS: ERTAPENEM SODIUM 1 GM in 0.9 % SODIUM CHLORIDE 50 ML IV (13:09)
[2023-06-12] MEDS: SODIUM CHLORIDE 0.9% 10ML FLUSH SYRINGE 10 ML IV (13:09)
[2023-06-12 13:50] VITALS: BP 116/72; PULSE 85; RESP 18; O2SAT 100
== END 2023-06-12 13:50 | disposition home or self-care (01) ==
LOC: INF 12:56
PROVIDERS: PCP Internal Medicine; Visit Provider Internal Medicine Infectious Disease
DX: K61.2 Anorectal abscess (principal); C20 Malignant neoplasm of rectum; Z45.2 Encounter for adjustment and management of vascular access device
CPT/HCPCS: 96365; J1335; J1642

== ENCOUNTER 2023-06-13 09:32 | Outpatient (CLI) | payer OTHER, SELFPAY ==
[2023-06-13] VITALS (12 sets, daily range): BP systolic 108–127; BP diastolic 57–70; PULSE 60–81; RESP 16–17; TEMP 36.6; O2SAT 99
[2023-06-13] MEDS: DEXTROSE 5 % IN WATER 100 ML IV (09:46)
[2023-06-13] MEDS: POTASSIUM CHLORIDE 20MEQ TAB 40 MEQ PO (09:46)
[2023-06-13] MEDS: ONDANSETRON 4MG ODT 16 MG (09:47)
[2023-06-13] MEDS: LEUCOVORIN CALCIUM IV (10:27)
[2023-06-13] MEDS: DEXTROSE 5% IV (10:27)
[2023-06-13] MEDS: WATER IV (10:27)
[2023-06-13] MEDS: FLUOROURACIL 500MG/10ML VIAL 760 MG IV (13:05)
--- NOTE | 2023-06-13 15:50 | PC.NURSE ---
1315 - [facility] DELIVERED 5FU FOR CONTINUOUS HOME INFUSION OVER NEXT 46 HRS. HOOKED TO PORT AND MADE SURE ALL CLAMPS ALONG TUBING WERE OPEN. INSTRUCTED ON INFUSION OVER NEXT 46 HRS AND TO RETURN AT 1115 ON 06/15/23 TO [facility].
== END 2023-06-13 13:30 | disposition home or self-care (01) ==
LOC: INF 09:33
PROVIDERS: PCP Internal Medicine; Visit Provider Internal Medicine Infectious Disease
DX: C18.9 Malignant neoplasm of colon, unspecified (principal); K61.2 Anorectal abscess; C20 Malignant neoplasm of rectum
CPT/HCPCS: 96411; 96413; 96415; J0640; J9190

== ENCOUNTER 2023-06-15 11:23 | Outpatient (CLI) | payer OTHER, SELFPAY ==
[2023-06-15 11:40] VITALS: BP 125/72; PULSE 88; RESP 17; O2SAT 100
[2023-06-15] MEDS: 0.9 % SODIUM CHLORIDE 1000ML 1,000 ML 999 ML IV (11:40)
[2023-06-15] MEDS: IRON SUCROSE COMPLEX 200 MG in 0.9 % SODIUM CHLORIDE 100 ML 220 MG IV (11:43)
[2023-06-15] MEDS: SODIUM CHLORIDE 0.9% 50ML BAG 50 ML IV (11:43)
[2023-06-15 12:40] VITALS: BP 129/78; PULSE 89; RESP 17; TEMP 36.8
== END 2023-06-15 12:50 | disposition home or self-care (01) ==
LOC: INF 11:24
PROVIDERS: PCP Internal Medicine; Visit Provider Internal Medicine Medical Oncology
DX: K61.2 Anorectal abscess (principal); C20 Malignant neoplasm of rectum; E86.0 Dehydration; Z45.2 Encounter for adjustment and management of vascular access device
CPT/HCPCS: 96360; 96367; J1642; J1756

== ENCOUNTER 2023-06-19 13:57 | Outpatient (CLI) | payer OTHER, SELFPAY ==
--- NOTE | 2023-06-19 | CT_ITS ---
FINAL REPORT CLINICAL HISTORY: FOLLOW UP ABCESS/Rectal CANCER COMPARISON: CTA chest 05/29/2023 FINDINGS: Axial CT images of the chest were obtained with contrast. Coronal reformatted images were also obtained. This study was performed with techniques to keep radiation doses as low as reasonably achievable, (ALARA). Individualized dose reduction techniques using automated exposure control or adjustment of mA and/or KV according to the patients' size were employed. Right jugular port is present. There is no evidence of mediastinal or hilar mass or adenopathy.No axillary mass or adenopathy is identified. On lung window images, no pulmonary mass or dominant pulmonary nodule is identified. There is mild bibasilar atelectasis. IMPRESSION: Mild bibasilar atelectasis. Reviewed, Interpreted and Dictated by Chau Higuera III, MD Transcribed by Nithya Naranjo Authenticated and [facility]
--- NOTE | 2023-06-19 | CT_ITS ---
FINAL REPORT CLINICAL HISTORY: rectal cancer, resent rectal abscess. COMPARISON: 05/26/2023 FINDINGS: CT OF THE ABDOMEN AND PELVIS WITH CONTRAST Axial CT images of the abdomen and pelvis were obtained after the administration of IV contrast. Coronal reformatted images were also obtained and reviewed.This study was performed with techniques to keep radiation doses as low as reasonably achievable (ALARA). Individualized dose reduction techniques using automated exposure control or adjustment of mA and/or kV according to the patient''s size were employed. Abdomen: The liver has an unremarkable appearance, without evidence of mass or biliary ductal dilatation. The gallbladder is partially collapsed with wall thickening. Probable cyst inferior pole of the spleen appears similar to the prior study. No adrenal mass is present. The pancreas has an unremarkable appearance. The kidneys are normal, without evidence of mass or hydronephrosis. The aorta is normal in caliber. Right abdomen ostomy is noted. Pelvis: The appendix normal. Bladder wall thickening is likely inflammatory. Presacral fluid collection measuring 3.9 x 1.7 cm is stable and likely represents seroma or chronic hematoma, less likely abscess. Presacral soft tissue is likely posttreatment change. There is no evidence of bowel obstruction. There are postoperative changes in the lower pelvis. IMPRESSION: Stable presacral fluid collection likely represent seroma or chronic hematoma, less likely abscess. Reviewed, Interpreted and Dictated by Chau Higuera III, MD Transcribed by Nithya Naranjo Authenticated and [facility]
[2023-06-19] MEDS: IOPAMIDOL-370 (76%);100ML BOTTLE 75 ML IV (14:31)
[2023-06-19] MEDS: SODIUM CHLORIDE 0.9% 10ML FLUSH SYRINGE 10 ML IV (14:32)
== END 2023-06-19 14:35 | disposition home or self-care (01) ==
LOC: RAD 13:57
PROVIDERS: PCP Internal Medicine; Visit Provider Internal Medicine Medical Oncology
DX: K61.1 Rectal abscess (principal); C20 Malignant neoplasm of rectum
CPT/HCPCS: 71260; 74177; J1642; Q9967

== ENCOUNTER 2023-06-22 15:11 | Outpatient (CLI) | payer OTHER, SELFPAY ==
[2023-06-22 15:14] VITALS: BMI 25.9
[2023-06-22 15:35] LABS: Basophils % 0.2 % (0.1-2.0); Eosinophils # 0.1 K/mm3 (0.0-0.4); Eosinophils % 1.6 % (0.1-12.0); Hematocrit 31.4 % (42.0-52.0); Hemoglobin 10.7 g/dL (14.1-18.0); Lymphocytes # 0.7 K/mm3 (0.7-4.5); Lymphocytes % 15.1 % (10-50); Mean Corpuscular HGB Conc 34.1 g/dL (31.8-35.4); Mean Corpuscular Hemoglobin 30.3 pg (27.0-31.2); Mean Corpuscular Volume 88.7 fl (80-94); Mean Platelet Volume 9.2 fl (7.4-10.4); Monocytes # 0.4 K/mm3 (0.1-1.0); Monocytes % 9.2 % (1.7-9.3); Neutrophils # 3.4 K/mm3 (1.8-7.8); Neutrophils % 73.9 % (37.0-80.0); Platelet Count 188 K/mm3 (142-424); Red Blood Count 3.54 M/mm3 (4.60-6.20); Red Cell Distribution Width 19.1 % (11.5-17.5); White Blood Count 4.6 K/mm3 (4.8-10.8)
[2023-06-22 15:54] LABS: Alanine Aminotransferase 46 U/L (12-78); Albumin Level 3.7 g/dl (3.5-5.0); Albumin/Globulin Ratio 1.1 (1.1-1.8); Alkaline Phosphatase 136 U/L (38-126); Anion Gap 8.6 mEq/L (5-15); Aspartate Amino Transferase 38 U/L (17-59); Bilirubin,Total 0.3 mg/dl (0.2-1.3); Blood Urea Nitrogen 11 mg/dl (9-20); Calcium 9.3 mg/dl (8.4-10.2); Carbon Dioxide 29 mmol/L (22.0-30.0); Chloride 104 mmol/L (98-107); Creatinine Clearance Estimated 154 mL/min (50-200); Estimated Glomerular Filt Rate 125 ml/min (>60); GFR (African American) 151 ML/MIN (>60); Globulin 3.4 g/dL (1.3-3.2); Glucose 89 mg/dl (74-100); Potassium 3.6 mmoL/L (3.5-5.1); Sodium 138 mmol/L (136-145); Total Protein,Serum 7.1 g/dl (6.3-8.2)
[2023-06-22 15:59] LABS: C-Reactive Protein 107.6 mg/L (0-4)
[2023-06-22 16:04] LABS: Erythrocyte Sedimentation Rate > 140 mm/hr (0-15)
== END 2023-06-22 15:30 | disposition home or self-care (01) ==
LOC: INF 15:11
PROVIDERS: Internal Medicine Infectious Disease; PCP Internal Medicine; Visit Provider Internal Medicine Medical Oncology
DX: K65.1 Peritoneal abscess (principal); C20 Malignant neoplasm of rectum; Z45.2 Encounter for adjustment and management of vascular access device
CPT/HCPCS: 36591; 80053; 85025; 85651; 86140; J1642

== ENCOUNTER 2023-06-27 11:48 | Outpatient (CLI) | payer OTHER, SELFPAY ==
--- NOTE | 2023-06-27 11:52 | MR_ITS ---
FINAL REPORT CLINICAL HISTORY: .abnormal ct, surgery mar 13 for rectal cancer, fluid collection near sacrum seen on ct COMPARISON: CT 06/19/2023 FINDINGS: Multiplanar and multisequence imaging of the pelvis were obtained without contrast. There is a presacral fluid collection measuring 4.2 x 1.8 cm best seen on axial images 19 through 29 of series 7. There appears to be a deformity in the left lateral wall of the rectum with fluid continuity between the rectum and the presacral space best seen on image 30 of series 7. Cannot exclude persistent leak from the lateral wall of the rectum. This is also well seen on coronal image 12 of series 3. IMPRESSION: Presacral fluid collection as above. Left lateral rectal wall defect. Cannot exclude persistent leak. Reviewed, Interpreted and Dictated by Lázaro Wang MD Transcribed by Nithya Naranjo Authenticated and [facility]
== END 2023-06-27 23:59 ==
LOC: RAD 11:48
PROVIDERS: PCP Internal Medicine; Visit Provider Internal Medicine Infectious Disease
DX: T81.43XD Infection following a procedure, organ and space surgical site, subsequent encounter (principal); K65.1 Peritoneal abscess; C20 Malignant neoplasm of rectum; Z92.21 Personal history of antineoplastic chemotherapy
CPT/HCPCS: 72195

== ENCOUNTER 2023-07-02 15:13 | Outpatient (CLI) | payer OTHER, SELFPAY ==
[2023-07-02 15:16] VITALS: BMI 25.9
[2023-07-02 15:43] LABS: Basophils % 0.2 % (0.1-2.0); Eosinophils # 0.1 K/mm3 (0.0-0.4); Eosinophils % 1.2 % (0.1-12.0); Hematocrit 34.9 % (42.0-52.0); Hemoglobin 11.5 g/dL (14.1-18.0); Lymphocytes # 0.9 K/mm3 (0.7-4.5); Lymphocytes % 15.4 % (10-50); Mean Corpuscular HGB Conc 32.9 g/dL (31.8-35.4); Mean Corpuscular Hemoglobin 29.8 pg (27.0-31.2); Mean Corpuscular Volume 90.6 fl (80-94); Mean Platelet Volume 8.1 fl (7.4-10.4); Monocytes # 0.4 K/mm3 (0.1-1.0); Monocytes % 6.3 % (1.7-9.3); Neutrophils # 4.3 K/mm3 (1.8-7.8); Neutrophils % 76.9 % (37.0-80.0); Platelet Count 336 K/mm3 (142-424); Red Blood Count 3.85 M/mm3 (4.60-6.20); Red Cell Distribution Width 18.4 % (11.5-17.5); White Blood Count 5.6 K/mm3 (4.8-10.8)
[2023-07-02 15:50] LABS: Alanine Aminotransferase 34 U/L (12-78); Albumin Level 3.8 g/dl (3.5-5.0); Albumin/Globulin Ratio 1.2 (1.1-1.8); Alkaline Phosphatase 140 U/L (38-126); Anion Gap 8.8 mEq/L (5-15); Aspartate Amino Transferase 34 U/L (17-59); Blood Urea Nitrogen 15 mg/dl (9-20); Calcium 9.3 mg/dl (8.4-10.2); Carbon Dioxide 25 mmol/L (22.0-30.0); Chloride 106 mmol/L (98-107); Creatinine Clearance Estimated 154 mL/min (50-200); Estimated Glomerular Filt Rate 125 ml/min (>60); GFR (African American) 151 ML/MIN (>60); Globulin 3.2 g/dL (1.3-3.2); Glucose 88 mg/dl (74-100); Potassium 3.8 mmoL/L (3.5-5.1); Sodium 136 mmol/L (136-145)
[2023-07-02 15:52] LABS: Bilirubin,Total 0.1 mg/dl (0.2-1.3)
[2023-07-02 15:56] LABS: C-Reactive Protein 28.9 mg/L (0-4)
[2023-07-02 16:36] LABS: Erythrocyte Sedimentation Rate 140 mm/hr (0-15)
== END 2023-07-02 15:30 | disposition home or self-care (01) ==
LOC: INF 15:13
PROVIDERS: PCP Internal Medicine; Visit Provider Internal Medicine Infectious Disease
DX: T81.43XD Infection following a procedure, organ and space surgical site, subsequent encounter (principal); K65.1 Peritoneal abscess; C20 Malignant neoplasm of rectum; Z92.21 Personal history of antineoplastic chemotherapy
CPT/HCPCS: 36591; 80053; 85025; 85651; 86140; J1642

== ENCOUNTER 2023-07-09 14:40 | Outpatient (CLI) | payer OTHER, SELFPAY ==
[2023-07-09 14:55] VITALS: BMI 26.3
[2023-07-09 15:23] LABS: Basophils % 0.3 % (0.1-2.0); Eosinophils % 0.5 % (0.1-12.0); Hematocrit 33.9 % (42.0-52.0); Lymphocytes # 0.6 K/mm3 (0.7-4.5); Lymphocytes % 9.2 % (10-50); Mean Corpuscular HGB Conc 32.3 g/dL (31.8-35.4); Mean Corpuscular Hemoglobin 30.4 pg (27.0-31.2); Mean Platelet Volume 8.2 fl (7.4-10.4); Monocytes # 0.4 K/mm3 (0.1-1.0); Monocytes % 5.7 % (1.7-9.3); Neutrophils # 5.2 K/mm3 (1.8-7.8); Neutrophils % 84.3 % (37.0-80.0); Platelet Count 183 K/mm3 (142-424); Red Blood Count 3.61 M/mm3 (4.60-6.20); Red Cell Distribution Width 19.5 % (11.5-17.5); White Blood Count 6.2 K/mm3 (4.8-10.8)
[2023-07-09 15:28] LABS: Alanine Aminotransferase 39 U/L (12-78); Albumin Level 3.7 g/dl (3.5-5.0); Albumin/Globulin Ratio 1.4 (1.1-1.8); Alkaline Phosphatase 83 U/L (38-126); Anion Gap 8.6 mEq/L (5-15); Aspartate Amino Transferase 42 U/L (17-59); Blood Urea Nitrogen 15 mg/dl (9-20); Calcium 9.3 mg/dl (8.4-10.2); Carbon Dioxide 26 mmol/L (22.0-30.0); Chloride 109 mmol/L (98-107); Creatinine Clearance Estimated 156 mL/min (50-200); Estimated Glomerular Filt Rate 125 ml/min (>60); GFR (African American) 151 ML/MIN (>60); Globulin 2.6 g/dL (1.3-3.2); Glucose 105 mg/dl (74-100); Potassium 3.6 mmoL/L (3.5-5.1); Sodium 140 mmol/L (136-145); Total Protein,Serum 6.3 g/dl (6.3-8.2)
[2023-07-09 15:31] LABS: Bilirubin,Total 0.1 mg/dl (0.2-1.3)
[2023-07-09 15:33] LABS: C-Reactive Protein 4.7 mg/L (0-4)
[2023-07-09 16:09] LABS: Erythrocyte Sedimentation Rate 77 mm/hr (0-15)
== END 2023-07-09 15:00 | disposition home or self-care (01) ==
LOC: LAB 14:42
PROVIDERS: PCP Internal Medicine; Visit Provider Internal Medicine Infectious Disease
DX: T81.43XD Infection following a procedure, organ and space surgical site, subsequent encounter (principal); K65.1 Peritoneal abscess; C20 Malignant neoplasm of rectum; Z92.21 Personal history of antineoplastic chemotherapy; Z45.2 Encounter for adjustment and management of vascular access device
CPT/HCPCS: 36591; 80053; 85025; 85651; 86140; J1642

== ENCOUNTER 2023-07-16 13:28 | Outpatient (CLI) | payer OTHER, SELFPAY ==
[2023-07-16 13:32] VITALS: BMI 26.3
[2023-07-16 13:46] LABS: Basophils % 0.4 % (0.1-2.0); Eosinophils # 0.1 K/mm3 (0.0-0.4); Hematocrit 38.4 % (42.0-52.0); Hemoglobin 12.4 g/dL (14.1-18.0); Lymphocytes # 0.7 K/mm3 (0.7-4.5); Lymphocytes % 10.4 % (10-50); Mean Corpuscular HGB Conc 32.4 g/dL (31.8-35.4); Mean Corpuscular Hemoglobin 30.8 pg (27.0-31.2); Mean Corpuscular Volume 95.1 fl (80-94); Mean Platelet Volume 9.2 fl (7.4-10.4); Monocytes # 0.3 K/mm3 (0.1-1.0); Monocytes % 4.8 % (1.7-9.3); Neutrophils # 5.2 K/mm3 (1.8-7.8); Neutrophils % 83.4 % (37.0-80.0); Platelet Count 173 K/mm3 (142-424); Red Blood Count 4.04 M/mm3 (4.60-6.20); Red Cell Distribution Width 19.9 % (11.5-17.5); White Blood Count 6.3 K/mm3 (4.8-10.8)
[2023-07-16 13:55] LABS: Chloride 106 mmol/L (98-107); Potassium 3.6 mmoL/L (3.5-5.1); Sodium 138 mmol/L (136-145)
[2023-07-16 13:57] LABS: Alanine Aminotransferase 33 U/L (12-78); Blood Urea Nitrogen 12 mg/dl (9-20); Creatinine Clearance Estimated 156 mL/min (50-200); Estimated Glomerular Filt Rate 125 ml/min (>60); GFR (African American) 151 ML/MIN (>60)
[2023-07-16 13:58] LABS: Albumin/Globulin Ratio 1.4 (1.1-1.8); Alkaline Phosphatase 93 U/L (38-126); Anion Gap 8.6 mEq/L (5-15); Aspartate Amino Transferase 36 U/L (17-59); Bilirubin,Total 0.2 mg/dl (0.2-1.3); Calcium 9.4 mg/dl (8.4-10.2); Carbon Dioxide 27 mmol/L (22.0-30.0); Globulin 2.9 g/dL (1.3-3.2); Glucose 110 mg/dl (74-100); Total Protein,Serum 6.9 g/dl (6.3-8.2)
[2023-07-16 14:04] LABS: C-Reactive Protein 39.5 mg/L (0-4)
[2023-07-16 14:14] LABS: Erythrocyte Sedimentation Rate 91 mm/hr (0-15)
== END 2023-07-16 13:55 | disposition home or self-care (01) ==
LOC: INF 13:28
PROVIDERS: Internal Medicine Infectious Disease; PCP Internal Medicine; Visit Provider Internal Medicine Medical Oncology
DX: K65.1 Peritoneal abscess (principal); T81.43XD Infection following a procedure, organ and space surgical site, subsequent encounter; B37.89 Other sites of candidiasis; C20 Malignant neoplasm of rectum; Z92.21 Personal history of antineoplastic chemotherapy; Z45.2 Encounter for adjustment and management of vascular access device
CPT/HCPCS: 36591; 80053; 85025; 85651; 86140; J1642

== ENCOUNTER 2023-07-18 13:34 | Outpatient (CLI) | payer OTHER, SELFPAY ==
[2023-07-18] MEDS: ERTAPENEM SODIUM 1 GM in 0.9 % SODIUM CHLORIDE 50 ML IV (14:00)
[2023-07-18 14:10] VITALS: BP 141/78; PULSE 97; RESP 18; O2SAT 100
[2023-07-18] MEDS: 0.9 % SODIUM CHLORIDE 50 ML 100 ML IV (14:10)
[2023-07-18] MEDS: DAPTOmycin 500 MG in 0.9 % SODIUM CHLORIDE 50 ML 100 MG IV (14:10)
[2023-07-18] MEDS: SODIUM CHLORIDE 0.9% 10ML FLUSH SYRINGE 10 ML IV (15:00)
[2023-07-18 15:06] VITALS: BP 147/98; PULSE 95; RESP 18; O2SAT 100
== END 2023-07-18 15:06 | disposition home or self-care (01) ==
LOC: INF 13:35
PROVIDERS: PCP Internal Medicine; Visit Provider Internal Medicine Infectious Disease
DX: K61.2 Anorectal abscess (principal); C20 Malignant neoplasm of rectum
CPT/HCPCS: 96365; 96367; J0878; J1335; J1642

== ENCOUNTER 2023-07-19 08:55 | Outpatient (CLI) | payer OTHER, SELFPAY ==
[2023-07-19] MEDS: SODIUM CHLORIDE 0.9% 50ML BAG 50 ML IV (09:30)
[2023-07-19] MEDS: DAPTOmycin 500 MG in 0.9 % SODIUM CHLORIDE 50 ML 100 MG IV (09:30)
[2023-07-19] MEDS: ERTAPENEM SODIUM 1 GM in 0.9 % SODIUM CHLORIDE 50 ML IV (09:30)
[2023-07-19 09:35] VITALS: BP 122/71; PULSE 72; RESP 18; O2SAT 99
[2023-07-19 10:05] VITALS: BP 102/68; PULSE 73; O2SAT 99
== END 2023-07-19 10:10 | disposition home or self-care (01) ==
LOC: INF 08:55
PROVIDERS: PCP Internal Medicine; Visit Provider Internal Medicine Infectious Disease
DX: K61.2 Anorectal abscess (principal); C20 Malignant neoplasm of rectum
CPT/HCPCS: 96365; 96367; J0878; J1335; J1642

== ENCOUNTER 2023-07-20 13:17 | Outpatient (CLI) | payer OTHER, SELFPAY ==
[2023-07-20 13:27] VITALS: BMI 26.3
[2023-07-20 13:30] VITALS: BP 127/75; PULSE 92; RESP 18; O2SAT 100
[2023-07-20] MEDS: DAPTOmycin 500 MG in 0.9 % SODIUM CHLORIDE 50 ML 100 MG IV (13:30)
[2023-07-20] MEDS: ERTAPENEM SODIUM 1 GM in 0.9 % SODIUM CHLORIDE 50 ML IV (13:30)
[2023-07-20] MEDS: SODIUM CHLORIDE 0.9% 50ML BAG 50 ML IV (13:30)
[2023-07-20 14:03] LABS: Anion Gap 11.6 mEq/L (5-15); Blood Urea Nitrogen 14 mg/dl (9-20); Calcium 9.3 mg/dl (8.4-10.2); Carbon Dioxide 23 mmol/L (22.0-30.0); Chloride 108 mmol/L (98-107); Creatine Kinase 41 U/L (55-170); Creatinine Clearance Estimated 182 mL/min (50-200); Estimated Glomerular Filt Rate 149 ml/min (>60); GFR (African American) 181 ML/MIN (>60); Glucose 131 mg/dl (74-100); Potassium 3.6 mmoL/L (3.5-5.1); Sodium 139 mmol/L (136-145)
[2023-07-20 14:25] VITALS: BP 130/78; PULSE 89; RESP 18; O2SAT 100
[2023-07-20] MEDS: SODIUM CHLORIDE 0.9% 10ML FLUSH SYRINGE 10 ML IV (15:09)
== END 2023-07-20 14:25 | disposition home or self-care (01) ==
LOC: INF 13:17
PROVIDERS: PCP Internal Medicine; Visit Provider Internal Medicine Infectious Disease
DX: K61.2 Anorectal abscess; C20 Malignant neoplasm of rectum
CPT/HCPCS: 80048; 82550; 96365; 96367; J0878; J1335; J1642

== ENCOUNTER 2023-07-21 14:05 | Outpatient (CLI) | payer OTHER, SELFPAY ==
[2023-07-21 14:05] VITALS: BP 120/68; PULSE 70; RESP 14; O2SAT 100
[2023-07-21 14:45] VITALS: BMI 27.3
[2023-07-21] MEDS: DAPTOmycin 500 MG in 0.9 % SODIUM CHLORIDE 50 ML 100 MG IV (14:46)
[2023-07-21] MEDS: ERTAPENEM SODIUM 1 GM in 0.9 % SODIUM CHLORIDE 50 ML IV (14:48)
== END 2023-07-21 15:27 | disposition home or self-care (01) ==
LOC: INF 14:05
PROVIDERS: PCP Internal Medicine; Visit Provider Internal Medicine Infectious Disease
DX: K61.2 Anorectal abscess (principal); C20 Malignant neoplasm of rectum
CPT/HCPCS: 96365; 96367; G0463; J0878; J1335; J1642

== ENCOUNTER 2023-07-22 13:35 | Outpatient (CLI) | payer OTHER, SELFPAY ==
[2023-07-22] MEDS: ERTAPENEM SODIUM 1 GM in 0.9 % SODIUM CHLORIDE 50 ML IV (13:50)
[2023-07-22] MEDS: DAPTOmycin 500 MG in 0.9 % SODIUM CHLORIDE 50 ML 100 MG IV (13:50)
== END 2023-07-22 14:30 | disposition home or self-care (01) ==
LOC: INF 13:35
PROVIDERS: PCP Internal Medicine; Visit Provider Internal Medicine Infectious Disease
DX: K61.2 Anorectal abscess (principal); C20 Malignant neoplasm of rectum
CPT/HCPCS: 96365; 96367; G0463; J0878; J1335

== ENCOUNTER 2023-07-23 10:17 | Outpatient (CLI) | payer OTHER, SELFPAY ==
[2023-07-23 10:21] VITALS: BMI 26.3
[2023-07-23] MEDS: DAPTOmycin 500 MG in 0.9 % SODIUM CHLORIDE 50 ML 100 MG IV (10:44)
[2023-07-23] MEDS: ERTAPENEM SODIUM 1 GM in 0.9 % SODIUM CHLORIDE 50 ML IV (10:44)
[2023-07-23 10:46] LABS: Basophils # 0.1 K/mm3 (0-0.2); Basophils % 0.9 % (0.1-2.0); Eosinophils # 0.2 K/mm3 (0.0-0.4); Eosinophils % 3.7 % (0.1-12.0); Hematocrit 38.5 % (42.0-52.0); Hemoglobin 12.3 g/dL (14.1-18.0); Lymphocytes # 0.7 K/mm3 (0.7-4.5); Lymphocytes % 12.1 % (10-50); Mean Corpuscular Hemoglobin 30.3 pg (27.0-31.2); Mean Corpuscular Volume 94.8 fl (80-94); Mean Platelet Volume 8.3 fl (7.4-10.4); Monocytes # 0.4 K/mm3 (0.1-1.0); Monocytes % 6.1 % (1.7-9.3); Neutrophils # 4.4 K/mm3 (1.8-7.8); Neutrophils % 77.1 % (37.0-80.0); Platelet Count 211 K/mm3 (142-424); Red Blood Count 4.06 M/mm3 (4.60-6.20); Red Cell Distribution Width 19.1 % (11.5-17.5); White Blood Count 5.8 K/mm3 (4.8-10.8)
[2023-07-23 10:54] LABS: Alanine Aminotransferase 35 U/L (12-78); Albumin Level 3.8 g/dl (3.5-5.0); Albumin/Globulin Ratio 1.5 (1.1-1.8); Alkaline Phosphatase 87 U/L (38-126); Anion Gap 7.2 mEq/L (5-15); Aspartate Amino Transferase 37 U/L (17-59); Bilirubin,Total 0.2 mg/dl (0.2-1.3); Blood Urea Nitrogen 13 mg/dl (9-20); Calcium 9.1 mg/dl (8.4-10.2); Carbon Dioxide 28 mmol/L (22.0-30.0); Chloride 108 mmol/L (98-107); Creatine Kinase 23 U/L (55-170); Creatinine Clearance Estimated 156 mL/min (50-200); Estimated Glomerular Filt Rate 125 ml/min (>60); GFR (African American) 151 ML/MIN (>60); Globulin 2.6 g/dL (1.3-3.2); Glucose 97 mg/dl (74-100); Potassium 3.2 mmoL/L (3.5-5.1); Sodium 140 mmol/L (136-145); Total Protein,Serum 6.4 g/dl (6.3-8.2)
[2023-07-23 10:55] VITALS: BP 147/72; PULSE 88; RESP 18; TEMP 36.6; O2SAT 100
[2023-07-23 11:00] LABS: C-Reactive Protein 5.3 mg/L (0-4)
[2023-07-23 11:29] VITALS: BP 154/69; PULSE 82
[2023-07-23] MEDS: 0.9 % SODIUM CHLORIDE 50 ML 25 ML IV (11:30)
[2023-07-23 12:20] LABS: Erythrocyte Sedimentation Rate 82 mm/hr (0-15)
== END 2023-07-23 11:30 | disposition home or self-care (01) ==
LOC: INF 10:17
PROVIDERS: PCP Internal Medicine; Visit Provider Internal Medicine Infectious Disease
DX: K65.1 Peritoneal abscess (principal); T81.43XD Infection following a procedure, organ and space surgical site, subsequent encounter; B37.89 Other sites of candidiasis; C20 Malignant neoplasm of rectum; Z92.21 Personal history of antineoplastic chemotherapy
CPT/HCPCS: 80053; 82550; 85025; 85651; 86140; 96365; 96367; J0878; J1335; J1642

== ENCOUNTER 2023-07-24 11:59 | Outpatient (CLI) | payer OTHER, SELFPAY ==
[2023-07-24] MEDS: DAPTOmycin 500 MG in 0.9 % SODIUM CHLORIDE 50 ML 100 MG IV (12:25)
[2023-07-24] MEDS: ERTAPENEM SODIUM 1 GM in 0.9 % SODIUM CHLORIDE 50 ML IV (12:26)
[2023-07-24 12:38] VITALS: BP 122/77; PULSE 74; RESP 18; O2SAT 100
[2023-07-24] MEDS: SODIUM CHLORIDE 0.9% 50ML BAG 50 ML IV (12:38)
[2023-07-24] MEDS: SODIUM CHLORIDE 0.9% 10ML FLUSH SYRINGE 10 ML IV (13:19)
[2023-07-24 13:21] VITALS: BP 123/70; PULSE 74; RESP 18; O2SAT 100
== END 2023-07-24 23:59 | disposition home or self-care (01) ==
PROVIDERS: PCP Internal Medicine; Visit Provider Internal Medicine Infectious Disease
DX: K61.2 Anorectal abscess (principal); C20 Malignant neoplasm of rectum
CPT/HCPCS: 96365; 96367; J0878; J1335; J1642

== ENCOUNTER 2023-07-25 14:31 | Outpatient (CLI) | payer OTHER, SELFPAY ==
[2023-07-25] MEDS: ERTAPENEM SODIUM 1 GM in 0.9 % SODIUM CHLORIDE 50 ML IV (14:45)
[2023-07-25] MEDS: DAPTOmycin 500 MG in 0.9 % SODIUM CHLORIDE 50 ML 100 MG IV (14:45)
[2023-07-25] MEDS: SODIUM CHLORIDE 0.9% 50ML BAG 50 ML IV (14:45)
[2023-07-25 15:09] VITALS: BP 137/77; PULSE 77; RESP 16; O2SAT 100
[2023-07-25] MEDS: SODIUM CHLORIDE 0.9% 10ML FLUSH SYRINGE 10 ML IV (15:26)
[2023-07-25 15:31] VITALS: BP 128/76; PULSE 75; RESP 16; O2SAT 100
== END 2023-07-25 23:59 | disposition home or self-care (01) ==
PROVIDERS: PCP Internal Medicine; Visit Provider Internal Medicine Infectious Disease
DX: K61.2 Anorectal abscess (principal); C20 Malignant neoplasm of rectum
CPT/HCPCS: 96365; 96367; J0878; J1335; J1642

== ENCOUNTER 2023-07-26 14:40 | Outpatient (CLI) | payer OTHER, SELFPAY ==
[2023-07-26] MEDS: DAPTOmycin 500 MG in 0.9 % SODIUM CHLORIDE 50 ML 100 MG IV (15:15)
[2023-07-26] MEDS: ERTAPENEM SODIUM 1 GM in 0.9 % SODIUM CHLORIDE 50 ML IV (15:15)
[2023-07-26] MEDS: SODIUM CHLORIDE 0.9% 50ML BAG 50 ML IV (15:15)
[2023-07-26 15:18] VITALS: BP 118/74; PULSE 74; RESP 16; O2SAT 100
[2023-07-26 15:32] LABS: Creatine Kinase 33 U/L (55-170)
[2023-07-26 15:33] LABS: Chloride 107 mmol/L (98-107); Sodium 143 mmol/L (136-145)
[2023-07-26 15:36] LABS: Blood Urea Nitrogen 17 mg/dl (9-20); Carbon Dioxide 30 mmol/L (22.0-30.0); Estimated Glomerular Filt Rate 93 ml/min (>60); GFR (African American) 113 ML/MIN (>60); Glucose 84 mg/dl (74-100)
[2023-07-26] MEDS: SODIUM CHLORIDE 0.9% 10ML FLUSH SYRINGE 10 ML IV (15:55)
[2023-07-26 16:00] VITALS: BP 122/75; PULSE 77; RESP 16; O2SAT 100
== END 2023-07-26 16:02 | disposition home or self-care (01) ==
PROVIDERS: PCP Internal Medicine; Visit Provider Internal Medicine Infectious Disease
DX: K61.2 Anorectal abscess (principal); C20 Malignant neoplasm of rectum
CPT/HCPCS: 80048; 82550; 96365; 96367; J0878; J1335; J1642

== ENCOUNTER 2023-07-27 14:36 | Outpatient (CLI) | payer OTHER, SELFPAY ==
[2023-07-27 14:50] VITALS: BP 128/84; PULSE 73; RESP 18; O2SAT 100
[2023-07-27] MEDS: ERTAPENEM SODIUM 1 GM in 0.9 % SODIUM CHLORIDE 50 ML IV (14:50)
[2023-07-27] MEDS: DAPTOmycin 500 MG in 0.9 % SODIUM CHLORIDE 50 ML 100 MG IV (14:50)
[2023-07-27] MEDS: SODIUM CHLORIDE 0.9% 50ML BAG 50 ML IV (14:50)
[2023-07-27] MEDS: SODIUM CHLORIDE 0.9% 10ML FLUSH SYRINGE 10 ML IV (15:25)
[2023-07-27 15:30] VITALS: BP 125/76; PULSE 79; RESP 18; O2SAT 100
== END 2023-07-27 15:30 | disposition home or self-care (01) ==
LOC: INF 14:36
PROVIDERS: PCP Internal Medicine; Visit Provider Internal Medicine Infectious Disease
DX: K61.2 Anorectal abscess (principal); C20 Malignant neoplasm of rectum
CPT/HCPCS: 96365; 96367; J0878; J1335; J1642

== ENCOUNTER 2023-07-28 15:04 | Outpatient (CLI) | payer OTHER, SELFPAY ==
[2023-07-28] MEDS: ERTAPENEM SODIUM 1 GM in 0.9 % SODIUM CHLORIDE 50 ML IV (15:30)
[2023-07-28] MEDS: DAPTOmycin 500 MG in 0.9 % SODIUM CHLORIDE 50 ML 100 MG IV (15:30)
== END 2023-07-28 23:59 ==
LOC: INF 15:05
PROVIDERS: PCP Internal Medicine; Visit Provider Internal Medicine Infectious Disease
DX: K61.2 Anorectal abscess (principal); C20 Malignant neoplasm of rectum; Z48.01 Encounter for change or removal of surgical wound dressing
CPT/HCPCS: 96365; 96367; J0878; J1335; J1642

== ENCOUNTER 2023-07-29 14:19 | Outpatient (CLI) | payer OTHER, SELFPAY ==
[2023-07-29 14:52] VITALS: BP 124/77; PULSE 77; RESP 18; O2SAT 99
[2023-07-29] MEDS: ERTAPENEM SODIUM 1 GM in 0.9 % SODIUM CHLORIDE 50 ML IV (14:53)
[2023-07-29] MEDS: DAPTOmycin 500 MG in 0.9 % SODIUM CHLORIDE 50 ML 100 MG IV (14:53)
[2023-07-29 16:07] VITALS: BP 124/77; PULSE 77; RESP 18; O2SAT 99
== END 2023-07-29 16:08 | disposition home or self-care (01) ==
LOC: INF 14:20
PROVIDERS: PCP Internal Medicine; Visit Provider Internal Medicine Infectious Disease
DX: K61.2 Anorectal abscess (principal); C20 Malignant neoplasm of rectum
CPT/HCPCS: 96365; 96367; J0878; J1335; J1642

== ENCOUNTER 2023-07-30 14:28 | Outpatient (CLI) | payer OTHER, SELFPAY ==
[2023-07-30 14:34] VITALS: BMI 26.3
[2023-07-30 14:51] LABS: Basophils % 0.6 % (0.1-2.0); Eosinophils # 0.2 K/mm3 (0.0-0.4); Eosinophils % 2.7 % (0.1-12.0); Hematocrit 37.1 % (42.0-52.0); Hemoglobin 12.3 g/dL (14.1-18.0); Lymphocytes # 0.7 K/mm3 (0.7-4.5); Lymphocytes % 12.5 % (10-50); Mean Corpuscular HGB Conc 33.2 g/dL (31.8-35.4); Mean Corpuscular Hemoglobin 31.3 pg (27.0-31.2); Mean Corpuscular Volume 94.3 fl (80-94); Mean Platelet Volume 9.3 fl (7.4-10.4); Monocytes # 0.3 K/mm3 (0.1-1.0); Monocytes % 5.5 % (1.7-9.3); Neutrophils # 4.5 K/mm3 (1.8-7.8); Neutrophils % 78.7 % (37.0-80.0); Platelet Count 163 K/mm3 (142-424); Red Blood Count 3.93 M/mm3 (4.60-6.20); Red Cell Distribution Width 18.3 % (11.5-17.5); White Blood Count 5.7 K/mm3 (4.8-10.8)
[2023-07-30 15:15] VITALS: BP 137/90; PULSE 77; RESP 18; O2SAT 100
[2023-07-30] MEDS: SODIUM CHLORIDE 0.9% 10ML FLUSH SYRINGE 10 ML IV (15:15)
[2023-07-30] MEDS: DAPTOmycin 500 MG in 0.9 % SODIUM CHLORIDE 50 ML 100 MG IV (15:15)
[2023-07-30] MEDS: SODIUM CHLORIDE 0.9% 50ML BAG 50 ML IV (15:15)
[2023-07-30] MEDS: ERTAPENEM SODIUM 1 GM in 0.9 % SODIUM CHLORIDE 50 ML IV (15:15)
[2023-07-30 15:19] LABS: Erythrocyte Sedimentation Rate 25 mm/hr (0-15)
[2023-07-30 15:54] VITALS: BP 134/82; PULSE 89
[2023-07-30 16:01] LABS: Creatine Kinase 48 U/L (55-170)
[2023-07-30 16:07] LABS: C-Reactive Protein 4.9 mg/L (0-4)
[2023-07-30 16:41] LABS: Chloride 108 mmol/L (98-107); Potassium 3.5 mmoL/L (3.5-5.1); Sodium 139 mmol/L (136-145)
[2023-07-30 16:44] LABS: Alanine Aminotransferase 60 U/L (12-78); Albumin Level 3.9 g/dl (3.5-5.0); Albumin/Globulin Ratio 1.5 (1.1-1.8); Alkaline Phosphatase 113 U/L (38-126); Anion Gap 8.5 mEq/L (5-15); Aspartate Amino Transferase 52 U/L (17-59); Blood Urea Nitrogen 13 mg/dl (9-20); Calcium 9.2 mg/dl (8.4-10.2); Carbon Dioxide 26 mmol/L (22.0-30.0); Creatinine Clearance Estimated 156 mL/min (50-200); Estimated Glomerular Filt Rate 125 ml/min (>60); GFR (African American) 151 ML/MIN (>60); Globulin 2.6 g/dL (1.3-3.2); Glucose 110 mg/dl (74-100); Total Protein,Serum 6.5 g/dl (6.3-8.2)
[2023-07-30 16:45] LABS: Bilirubin,Total 0.1 mg/dl (0.2-1.3)
== END 2023-07-30 15:54 | disposition home or self-care (01) ==
LOC: INF 14:30
PROVIDERS: PCP Internal Medicine; Visit Provider Internal Medicine Infectious Disease
DX: K61.2 Anorectal abscess (principal); C20 Malignant neoplasm of rectum; Z79.899 Other long term (current) drug therapy
CPT/HCPCS: 80053; 82550; 85025; 85651; 86140; 96365; 96367; J0878; J1335

== ENCOUNTER 2023-07-31 11:41 | Outpatient (CLI) | payer OTHER, SELFPAY ==
[2023-07-31 12:00] VITALS: BP 127/69; PULSE 82; RESP 18; O2SAT 97
[2023-07-31] MEDS: ERTAPENEM SODIUM 1 GM in 0.9 % SODIUM CHLORIDE 50 ML IV (12:00)
[2023-07-31] MEDS: DAPTOmycin 500 MG in 0.9 % SODIUM CHLORIDE 50 ML 100 MG IV (12:00)
[2023-07-31 12:40] VITALS: BP 125/70; PULSE 72
[2023-07-31] MEDS: SODIUM CHLORIDE 0.9% 50ML BAG 50 ML IV (12:40)
[2023-07-31] MEDS: SODIUM CHLORIDE 0.9% 10ML FLUSH SYRINGE 10 ML IV (12:40)
== END 2023-07-31 12:45 | disposition home or self-care (01) ==
LOC: INF 11:41
PROVIDERS: PCP Internal Medicine; Visit Provider Internal Medicine Infectious Disease
DX: K61.2 Anorectal abscess (principal); C20 Malignant neoplasm of rectum
CPT/HCPCS: 96365; 96367; J0878; J1335; J1642

== ENCOUNTER 2023-08-13 14:06 | Outpatient (CLI) | payer OTHER, SELFPAY ==
[2023-08-13 14:10] VITALS: BMI 25.8
[2023-08-13] MEDS: SODIUM CHLORIDE 0.9% 10ML FLUSH SYRINGE 10 ML IV (14:20)
[2023-08-13 14:32] LABS: Basophils # 0.1 K/mm3 (0-0.2); Basophils % 1.1 % (0.1-2.0); Eosinophils # 0.2 K/mm3 (0.0-0.4); Eosinophils % 3.2 % (0.1-12.0); Hematocrit 40.2 % (42.0-52.0); Hemoglobin 13.4 g/dL (14.1-18.0); Lymphocytes # 0.9 K/mm3 (0.7-4.5); Lymphocytes % 18.7 % (10-50); Mean Corpuscular HGB Conc 33.3 g/dL (31.8-35.4); Mean Corpuscular Hemoglobin 31.1 pg (27.0-31.2); Mean Corpuscular Volume 93.3 fl (80-94); Mean Platelet Volume 8.6 fl (7.4-10.4); Monocytes # 0.3 K/mm3 (0.1-1.0); Monocytes % 7.4 % (1.7-9.3); Neutrophils # 3.2 K/mm3 (1.8-7.8); Neutrophils % 69.6 % (37.0-80.0); Platelet Count 158 K/mm3 (142-424); Red Blood Count 4.31 M/mm3 (4.60-6.20); Red Cell Distribution Width 17.8 % (11.5-17.5); White Blood Count 4.6 K/mm3 (4.8-10.8)
[2023-08-13 14:38] LABS: Chloride 106 mmol/L (98-107)
[2023-08-13 14:39] LABS: Potassium 3.8 mmoL/L (3.5-5.1); Sodium 137 mmol/L (136-145)
[2023-08-13 14:41] LABS: Alanine Aminotransferase 52 U/L (12-78); Albumin Level 4.3 g/dl (3.5-5.0); Albumin/Globulin Ratio 1.7 (1.1-1.8); Alkaline Phosphatase 124 U/L (38-126); Anion Gap 8.8 mEq/L (5-15); Aspartate Amino Transferase 48 U/L (17-59); Bilirubin,Total 0.2 mg/dl (0.2-1.3); Blood Urea Nitrogen 13 mg/dl (9-20); Calcium 9.8 mg/dl (8.4-10.2); Carbon Dioxide 26 mmol/L (22.0-30.0); Creatinine Clearance Estimated 134 mL/min (50-200); Estimated Glomerular Filt Rate 107 ml/min (>60); GFR (African American) 130 ML/MIN (>60); Globulin 2.5 g/dL (1.3-3.2); Glucose 84 mg/dl (74-100); Total Protein,Serum 6.8 g/dl (6.3-8.2)
[2023-08-13 15:15] LABS: Erythrocyte Sedimentation Rate 17 mm/hr (0-15)
== END 2023-08-13 14:27 | disposition home or self-care (01) ==
PROVIDERS: PCP Internal Medicine; Visit Provider Internal Medicine Infectious Disease
DX: K65.1 Peritoneal abscess (principal); T81.43XD Infection following a procedure, organ and space surgical site, subsequent encounter; B37.89 Other sites of candidiasis; C20 Malignant neoplasm of rectum; Z92.21 Personal history of antineoplastic chemotherapy; Z45.2 Encounter for adjustment and management of vascular access device
CPT/HCPCS: 36591; 80053; 85025; 85651; 86140; J1642

== ENCOUNTER 2023-08-30 14:34 | Outpatient (CLI) | payer OTHER, SELFPAY ==
[2023-08-30 14:38] VITALS: BMI 27.0
[2023-08-30] MEDS: SODIUM CHLORIDE 0.9% 10ML FLUSH SYRINGE 10 ML IV (14:50)
[2023-08-30 15:02] LABS: Basophils % 0.3 % (0.1-2.0); Eosinophils # 0.1 K/mm3 (0.0-0.4); Eosinophils % 2.3 % (0.1-12.0); Hematocrit 39.4 % (42.0-52.0); Hemoglobin 13.4 g/dL (14.1-18.0); Lymphocytes # 0.7 K/mm3 (0.7-4.5); Lymphocytes % 16.5 % (10-50); Mean Corpuscular HGB Conc 34.1 g/dL (31.8-35.4); Mean Corpuscular Hemoglobin 31.8 pg (27.0-31.2); Mean Corpuscular Volume 93.1 fl (80-94); Mean Platelet Volume 8.7 fl (7.4-10.4); Monocytes # 0.3 K/mm3 (0.1-1.0); Monocytes % 5.9 % (1.7-9.3); Neutrophils # 3.4 K/mm3 (1.8-7.8); Platelet Count 148 K/mm3 (142-424); Red Blood Count 4.23 M/mm3 (4.60-6.20); Red Cell Distribution Width 17.1 % (11.5-17.5); White Blood Count 4.5 K/mm3 (4.8-10.8)
[2023-08-30 15:09] LABS: Chloride 107 mmol/L (98-107); Sodium 138 mmol/L (136-145)
[2023-08-30 15:10] LABS: Potassium 3.6 mmoL/L (3.5-5.1)
[2023-08-30 15:12] LABS: Alanine Aminotransferase 47 U/L (12-78); Albumin/Globulin Ratio 1.6 (1.1-1.8); Alkaline Phosphatase 107 U/L (38-126); Anion Gap 8.6 mEq/L (5-15); Aspartate Amino Transferase 45 U/L (17-59); Bilirubin,Total 0.4 mg/dl (0.2-1.3); Blood Urea Nitrogen 13 mg/dl (9-20); Calcium 9.2 mg/dl (8.4-10.2); Carbon Dioxide 26 mmol/L (22.0-30.0); Creatinine Clearance Estimated 125 mL/min (50-200); Estimated Glomerular Filt Rate 93 ml/min (>60); GFR (African American) 113 ML/MIN (>60); Globulin 2.5 g/dL (1.3-3.2); Glucose 122 mg/dl (74-100); Total Protein,Serum 6.5 g/dl (6.3-8.2)
[2023-08-30 15:58] LABS: Erythrocyte Sedimentation Rate 20 mm/hr (0-15)
== END 2023-08-30 14:55 | disposition home or self-care (01) ==
LOC: INF 14:35
PROVIDERS: PCP Internal Medicine; Visit Provider Internal Medicine Infectious Disease
DX: N17.9 Acute kidney failure, unspecified (principal); T81.43XD Infection following a procedure, organ and space surgical site, subsequent encounter; K65.1 Peritoneal abscess; B37.89 Other sites of candidiasis; C20 Malignant neoplasm of rectum; Z45.2 Encounter for adjustment and management of vascular access device
CPT/HCPCS: 36591; 80053; 85025; 85651; 86140; J1642

== ENCOUNTER 2023-09-03 13:47 | Outpatient (CLI) | payer OTHER, SELFPAY ==
[2023-09-03 13:48] VITALS: BMI 26.1
--- NOTE | 2023-09-03 13:52 | PC.NURSE ---
1352-collected swabs for covid/flu and strep test per md order will call pt with results.
[2023-09-03 14:07] LABS: Influenza A, PCR Not Detected (NotDetected); Influenza B, PCR Not Detected (NotDetected)
[2023-09-03 14:22] LABS: Strep Scrn Group A (Rapid) Negative (Negative)
[2023-09-03 14:50] LABS: Coronavirus 19, PCR Detected (NotDetected)
== END 2023-09-03 13:55 | disposition home or self-care (01) ==
LOC: INF 13:47
PROVIDERS: PCP Internal Medicine; Visit Provider Internal Medicine Infectious Disease
DX: R50.9 Fever, unspecified (principal)
CPT/HCPCS: 87430; 87636; G0463

== ENCOUNTER 2023-09-21 14:27 | Outpatient (CLI) | payer OTHER, SELFPAY ==
[2023-09-21] MEDS: SODIUM CHLORIDE 0.9% 10ML FLUSH SYRINGE 10 ML IV (14:35)
== END 2023-09-21 14:39 | disposition home or self-care (01) ==
LOC: INF 14:28
PROVIDERS: PCP Internal Medicine; Visit Provider Internal Medicine Infectious Disease
DX: K61.2 Anorectal abscess (principal); C20 Malignant neoplasm of rectum; Z45.2 Encounter for adjustment and management of vascular access device
CPT/HCPCS: 96523; J1642

== ENCOUNTER 2023-10-02 10:08 | Outpatient (CLI) | payer OTHER, SELFPAY ==
--- NOTE | 2023-10-02 10:13 | CT_ITS ---
FINAL REPORT TECHNIQUE: Routine axial images were obtained from the lung apices to below the diaphragm following IV contrast administration. Individualized dose reduction techniques using automated exposure control or adjustment of the mA and/or kV according to the patient size were employed. CLINICAL HISTORY: RECTAL CANCER COMPARISON: June 19, 2023. FINDINGS: There is no axillary adenopathy. Heart size is normal. No acute lung disease is present. There is mild dependent edema at the lung bases. No pleural or pericardial effusion is seen. There is no significant mediastinal mass or adenopathy. There is a right-sided chest port identified with the tip terminating in the right atrium. IMPRESSION: No acute cardiopulmonary process. Reviewed, Interpreted and Dictated by Lázaro Wang MD Transcribed by Esthela Smith PA-C Authenticated and [facility]
--- NOTE | 2023-10-02 10:13 | CT_ITS ---
FINAL REPORT TECHNIQUE: After the administration of oral and intravenous contrast, axial images were obtained through the abdomen and pelvis by computed tomography. The study was performed with techniques to keep radiation dose as low as reasonably achievable, (ALARA). Individual dose reduction techniques using automated exposure control or adjustment of mA and/or kV according to the patient's size were employed. CLINICAL HISTORY: RECTAL CANCER COMPARISON: 06/19/2023 FINDINGS: Abdomen: The lung bases are clear. There is moderate fatty infiltration of the liver. The gallbladder is present. There is a 1.2 cm benign-appearing cyst in the inferior spleen. The pancreas, adrenals and kidneys appear unremarkable. The aorta is normal in caliber. There is no free fluid or adenopathy. A right anterior abdominal wall ostomy is seen. Pelvis: There is abnormal soft tissue in the presacral region measuring up to 2.8 cm in AP dimension. Previously noted fluid collection in this region has resolved. There are postoperative changes in this region. The appendix is not identified. The urinary bladder is decompressed. There is no free fluid or adenopathy. IMPRESSION: Abnormal soft tissue in the presacral region is probably related to posttreatment change. There has been interval resolution of fluid collection in this region. Reviewed, Interpreted and Dictated by Lázaro Wang MD Transcribed by Tati De La Paz Authenticated and [facility]
[2023-10-02 10:22] VITALS: BMI 29.2
[2023-10-02 11:07] LABS: Chloride 106 mmol/L (98-107)
[2023-10-02 11:08] LABS: Potassium 3.9 mmoL/L (3.5-5.1); Sodium 138 mmol/L (136-145)
[2023-10-02 11:10] LABS: Alanine Aminotransferase 55 U/L (12-78); Aspartate Amino Transferase 50 U/L (17-59); Blood Urea Nitrogen 12 mg/dl (9-20); Creatinine Clearance Estimated 151 mL/min (50-200); Estimated Glomerular Filt Rate 107 ml/min (>60); GFR (African American) 130 ML/MIN (>60)
[2023-10-02 11:11] LABS: Albumin Level 4.1 g/dl (3.5-5.0); Albumin/Globulin Ratio 1.4 (1.1-1.8); Alkaline Phosphatase 115 U/L (38-126); Bilirubin,Total 0.2 mg/dl (0.2-1.3); Calcium 9.5 mg/dl (8.4-10.2); Globulin 2.9 g/dL (1.3-3.2); Glucose 90 mg/dl (74-100)
[2023-10-02 11:13] LABS: Basophils % 0.3 % (0.1-2.0); Eosinophils # 0.1 K/mm3 (0.0-0.4); Eosinophils % 2.2 % (0.1-12.0); Hematocrit 42.1 % (42.0-52.0); Hemoglobin 14.1 g/dL (14.1-18.0); Lymphocytes # 0.7 K/mm3 (0.7-4.5); Lymphocytes % 12.2 % (10-50); Mean Corpuscular HGB Conc 33.4 g/dL (31.8-35.4); Mean Corpuscular Hemoglobin 31.3 pg (27.0-31.2); Mean Corpuscular Volume 93.8 fl (80-94); Mean Platelet Volume 8.5 fl (7.4-10.4); Monocytes # 0.2 K/mm3 (0.1-1.0); Monocytes % 4.5 % (1.7-9.3); Neutrophils # 4.4 K/mm3 (1.8-7.8); Neutrophils % 80.8 % (37.0-80.0); Platelet Count 147 K/mm3 (142-424); Red Blood Count 4.49 M/mm3 (4.60-6.20); Red Cell Distribution Width 15.8 % (11.5-17.5); White Blood Count 5.4 K/mm3 (4.8-10.8)
[2023-10-02 11:15] LABS: C-Reactive Protein 7.5 mg/L (0-4)
[2023-10-02] MEDS: SODIUM CHLORIDE 0.9% 10ML SYR (RAD ONLY) 10 ML IV (11:55)
[2023-10-02] MEDS: IOPAMIDOL-370 (76%);100ML BOTTLE 75 ML IV (11:55)
[2023-10-02 12:09] LABS: Erythrocyte Sedimentation Rate 14 mm/hr (0-15)
[2023-10-02 15:00] LABS: Anion Gap 12.9 mEq/L (5-15); Carbon Dioxide 23 mmol/L (22.0-30.0)
[2023-10-03 08:28] LABS: CEA 7.2 ng/mL (0.0-4.7)
== END 2023-10-02 11:35 | disposition home or self-care (01) ==
PROVIDERS: Internal Medicine Infectious Disease; PCP Internal Medicine; Visit Provider Internal Medicine Medical Oncology
DX: C20 Malignant neoplasm of rectum (principal); Z79.899 Other long term (current) drug therapy
CPT/HCPCS: 36591; 71260; 74177; 80053; 82378; 85025; 85651; 86140; J1642; Q9967

== ENCOUNTER 2023-10-29 19:49 | Emergency (ER) | payer OTHER, SELFPAY ==
[2023-10-29 20:00] VITALS: BP 131/87; PULSE 97; RESP 18; TEMP 37.1; O2SAT 99; BMI 28.1
--- NOTE | 2023-10-29 20:05 | ED_ITS ---
<Statement entered by Yane Winter DO - 10/30/23 00:11> I was consulted by the GENEVIEVE, and we discussed the complexity of the problems being addressed. I approved the treatment and management plan for this patient's care in the emergency department, thus performing a substantive portion of the medical decision making. Yane Winter DO Discharge Plan Disposition Patient Disposition: Home, Self-Care Condition: Good Prescriptions Prescriptions: New cephalexin 500 mg capsule 500 mg PO BID 10 Days Qty: 20 0RF Referrals Follow up/Referrals: Dylan Rowe DO [Primary Care Provider] - See instructions Activity Restrictions/Add. Instructions Additional Instructions/Restrictions: Please follow-up with your PCP as needed. Return to ER for any worsening signs of redness swelling drainage or pain. Clinical Impressions Clinical Impression: Foreign body (FB) in soft tissue, Laceration Discharge ED Provider: Yane Winter General Adult HPI General Chief complaint: Extremity Injury, Lower Stated complaint: AO 10/28, FO in left leg Time Seen by Provider: 10/29/23 20:05 History of Present Illness HPI narrative: Patient presents after evaluation of embedding a fishing lower into his left calf. Patient was fishing and was casting and hooked his calf in the left lateral portion of his lower extremity. Patient reports normal sensation and no loss of function. Related Data Previous Rx's Medication Instructions Recorded cephalexin 500 mg capsule 500 mg PO BID 10 days #20 caps 10/29/23 Allergies Allergy/AdvReac Type Severity Reaction Status Date / Time No Known Allergies Allergy Verified 10/29/23 20:13 [facility] Disclaimer: The information contained in this section may have been updated after the patient was seen, as this information can be updated by other users. Medical History Hx of fracture of forearm surgery repair plates History of kidney stones H/O fracture of arm Ulna fracture 2009 Constipation Surgical History History of colonoscopy History of surgery on arm [place] teeth extracted Family History Other No significant family history Social History Smoking Status: Current every day smoker alcohol intake: current alcohol intake frequency: 3 or more drinks per day substance use type: denies use current occupational status: employed Travel in the last 8 weeks: None caffeine: Yes ROS Obtained: Yes Systems reviewed as appropriate & no additional complaints except as documented Physical Exam General General appearance: alert and in no apparent distress Respiratory Respiratory exam: Present normal lung sounds bilaterally Cardiovascular Cardiovascular exam: Present regular rate and normal rhythm Expanded Lower Extremity Exam Left: Leg image: 2 1. Location of rob entry Neurological Exam Neurological exam: Present alert and oriented X3 Medical Decision Making Sam Inquiry Pt receiving controlled substance: No Vital Signs: 10/29/23 20:00 10/29/23 21:11 Temperature 98.7 F 98.7 F Temperature Source Oral Oral Pulse Rate 80 Pulse Rate [Right Radial] 97 H Respiratory Rate 18 18 Blood Pressure 124/78 Blood Pressure [Right Arm] 131/87 Blood Pressure Mean [Right Arm] 101 Blood Pressure Source [Right Arm] Automatic Cuff Blood Pressure Position [Right Arm] Sitting 02 Sat by Pulse Oximetry 99 Oxygen Delivery Method Room Air Orders (Tests/Meds): ED MEDICATIONS Discontinued Medications Generic Name Dose Route Start Last Admin Trade Name Alecq PRN Reason Stop Dose Admin Cephalexin HCl 500 mg 10/29/23 21:03 10/29/23 21:07 Cephalexin 500mg Capsule PO 10/29/23 21:04 500 mg ONCE ONE Administration Lidocaine HCl 10 ml 10/29/23 20:31 Lidocaine 1% 10ml Mdv SQ 10/29/23 20:32 ONCE ONE Lidocaine HCl 15 ml 10/29/23 20:33 10/29/23 20:34 Lidocaine 1% 20ml Mdv SQ 10/29/23 20:34 15 ml ONCE ONE Administration Medical Decision Narrative: In summary patient is a 38-year-old male who presents to the emergency department for evaluation of embedded fishhook in his left calf. Patient is hemodynamically stable upon arrival, afebrile. Physical exam is remarkable for a buzz bite rob impaled rob first into his left calf. Differential diagnosis includes simple fishing lower versus nerve involvement versus vascular vomiting versus bony involvement. Initial workup will be conducted with [hematologic labs, imaging, respiratory swab, describe workup]. Initial interventions were considered however I can feel the entire length of the rob and it is not involving any important structure therefore further workup was deferred. After local anesthesia I made a small incision and poked the rob through the skin and was able to remove the fishhook after clipping off the rob. Skin was closed loosely with 4-0 nylon. Procedures Laceration Laceration 1: Site: lower extremity (Left calf) Side (If applicable): left Size (cm): 1 Description: irregular Depth: involves muscle layer Local Anesthetic: lidocaine 1% Amount of anesthesia used (mL): 10 Pre-repair: wound explored, irrigated extensively and deep structures intact Skin layer closed with: nylon Size (cm): 4-0 Number of sutures: 4 Technique: simple, interrupted (Skin edges approximated loosely due to deep involvement) Foreign Body Removal Site: left and lower extremity (Left calf) Description of foreign body: fish hook Sedation/Analgesia: other (Local lidocaine) Technique: incision made to facilitate removal Confirmed by:: direct visualization Complications: none Critical Care Critical Care Time Critical Care Time: No
--- NOTE | 2023-10-29 20:15 | PC.NURSE ---
Pt had tdap in 2022.
[2023-10-29] MEDS: LIDOCAINE 1% 20ML MDV 15 ML SQ (20:34)
[2023-10-29] MEDS: cephALEXin 500MG CAPSULE 500 MG PO (21:07)
[2023-10-29 21:11] VITALS: BP 124/78; PULSE 80; RESP 18; TEMP 37.1; O2SAT 99
== END 2023-10-29 21:12 | disposition home or self-care (01) ==
PROVIDERS: Emergency Provider Emergency Medicine; PCP Internal Medicine
DX: S80.852A Superficial foreign body, left lower leg, initial encounter (principal); W45.8XXA Other foreign body or object entering through skin, initial encounter
CPT/HCPCS: 12001; 99283

== ENCOUNTER 2023-11-06 14:34 | Outpatient (CLI) | payer OTHER, SELFPAY ==
[2023-11-06] MEDS: SODIUM CHLORIDE 0.9% 10ML FLUSH SYRINGE 10 ML IV (14:36)
== END 2023-11-06 14:44 | disposition home or self-care (01) ==
LOC: INF 14:34
PROVIDERS: PCP Internal Medicine; Visit Provider Internal Medicine Medical Oncology
DX: C20 Malignant neoplasm of rectum (principal)
CPT/HCPCS: 96523; J1642

== ENCOUNTER 2023-11-16 13:10 | Outpatient (CLI) | payer OTHER, SELFPAY ==
[2023-11-16] MEDS: SODIUM CHLORIDE 0.9% 10ML FLUSH SYRINGE 10 ML IV (13:15)
[2023-11-16 13:43] VITALS: BMI 29.2
[2023-11-17 03:37] LABS: CEA 4.1 ng/mL (0.0-4.7)
== END 2023-11-16 13:20 | disposition home or self-care (01) ==
LOC: INF 13:10
PROVIDERS: PCP Internal Medicine; Visit Provider Internal Medicine Medical Oncology
DX: C20 Malignant neoplasm of rectum (principal)
CPT/HCPCS: 36591; 82378; J1642

== ENCOUNTER 2023-11-22 13:27 | Outpatient (CLI) | payer OTHER, SELFPAY ==
[2023-11-22 14:40] VITALS: BMI 29.2
[2023-11-22] MEDS: SODIUM CHLORIDE 0.9% 10ML FLUSH SYRINGE 10 ML IV (14:45)
[2023-11-22 15:12] LABS: Basophils % 0.4 % (0.1-2.0); Eosinophils # 0.1 K/mm3 (0.0-0.4); Eosinophils % 2.4 % (0.1-12.0); Hematocrit 41.3 % (42.0-52.0); Hemoglobin 14.1 g/dL (14.1-18.0); Lymphocytes # 0.8 K/mm3 (0.7-4.5); Lymphocytes % 16.1 % (10-50); Mean Platelet Volume 8.5 fl (7.4-10.4); Monocytes # 0.3 K/mm3 (0.1-1.0); Monocytes % 5.2 % (1.7-9.3); Neutrophils # 3.9 K/mm3 (1.8-7.8); Neutrophils % 75.9 % (37.0-80.0); Platelet Count 160 K/mm3 (142-424); Red Cell Distribution Width 14.7 % (11.5-17.5); White Blood Count 5.1 K/mm3 (4.8-10.8)
[2023-11-22 15:33] LABS: Chloride 108 mmol/L (98-107); Potassium 3.3 mmoL/L (3.5-5.1); Sodium 141 mmol/L (136-145)
[2023-11-22 15:35] LABS: Alanine Aminotransferase 67 U/L (12-78); Alkaline Phosphatase 113 U/L (38-126); Aspartate Amino Transferase 55 U/L (17-59); Bilirubin,Total 0.3 mg/dl (0.2-1.3); Blood Urea Nitrogen 18 mg/dl (9-20); Creatinine Clearance Estimated 151 mL/min (50-200); Estimated Glomerular Filt Rate 107 ml/min (>60); GFR (African American) 130 ML/MIN (>60)
[2023-11-22 15:36] LABS: Albumin Level 4.2 g/dl (3.5-5.0); Albumin/Globulin Ratio 1.6 (1.1-1.8); Anion Gap 9.3 mEq/L (5-15); Calcium 9.3 mg/dl (8.4-10.2); Carbon Dioxide 27 mmol/L (22.0-30.0); Globulin 2.6 g/dL (1.3-3.2); Glucose 130 mg/dl (74-100); Total Protein,Serum 6.8 g/dl (6.3-8.2)
[2023-11-22 15:53] LABS: Erythrocyte Sedimentation Rate 15 mm/hr (0-15)
== END 2023-11-22 14:50 | disposition home or self-care (01) ==
PROVIDERS: PCP Internal Medicine; Visit Provider Internal Medicine Infectious Disease
DX: C20 Malignant neoplasm of rectum (principal); K65.1 Peritoneal abscess
CPT/HCPCS: 36591; 80053; 85025; 85651; 86140; J1642

== ENCOUNTER 2023-12-24 14:32 | Outpatient (CLI) | payer OTHER, SELFPAY ==
[2023-12-24 14:33] VITALS: BMI 29.2
[2023-12-24 14:57] LABS: Basophils % 0.4 % (0.1-2.0); Eosinophils # 0.1 K/mm3 (0.0-0.4); Eosinophils % 2.5 % (0.1-12.0); Hematocrit 41.2 % (42.0-52.0); Lymphocytes # 0.9 K/mm3 (0.7-4.5); Lymphocytes % 20.2 % (10-50); Mean Corpuscular HGB Conc 33.9 g/dL (31.8-35.4); Mean Corpuscular Volume 94.3 fl (80-94); Monocytes # 0.2 K/mm3 (0.1-1.0); Monocytes % 5.3 % (1.7-9.3); Neutrophils # 3.3 K/mm3 (1.8-7.8); Neutrophils % 71.6 % (37.0-80.0); Platelet Count 169 K/mm3 (142-424); Red Blood Count 4.37 M/mm3 (4.60-6.20); Red Cell Distribution Width 14.2 % (11.5-17.5); White Blood Count 4.6 K/mm3 (4.8-10.8)
[2023-12-24 15:23] LABS: Albumin Level 4.1 g/dl (3.5-5.0); Chloride 108 mmol/L (98-107); Potassium 3.6 mmoL/L (3.5-5.1); Sodium 136 mmol/L (136-145)
[2023-12-24 15:26] LABS: Alanine Aminotransferase 48 U/L (12-78); Albumin/Globulin Ratio 1.6 (1.1-1.8); Alkaline Phosphatase 102 U/L (38-126); Anion Gap 5.6 mEq/L (5-15); Aspartate Amino Transferase 49 U/L (17-59); Bilirubin,Total 0.4 mg/dl (0.2-1.3); Blood Urea Nitrogen 15 mg/dl (9-20); Calcium 8.6 mg/dl (8.4-10.2); Carbon Dioxide 26 mmol/L (22.0-30.0); Creatinine Clearance Estimated 173 mL/min (50-200); Estimated Glomerular Filt Rate 125 ml/min (>60); GFR (African American) 151 ML/MIN (>60); Globulin 2.5 g/dL (1.3-3.2); Glucose 126 mg/dl (74-100); Total Protein,Serum 6.6 g/dl (6.3-8.2)
[2023-12-26 14:09] LABS: CEA 3.5 ng/mL (0.0-4.7)
== END 2023-12-24 14:45 | disposition home or self-care (01) ==
LOC: INF 14:32
PROVIDERS: PCP Internal Medicine; Visit Provider Internal Medicine Medical Oncology
DX: C20 Malignant neoplasm of rectum (principal)
CPT/HCPCS: 36591; 80053; 82378; 85025; J1642

== ENCOUNTER 2024-01-29 14:53 | Outpatient (CLI) | payer OTHER, SELFPAY ==
[2024-01-29 14:57] VITALS: BMI 28.8
[2024-01-29] MEDS: SODIUM CHLORIDE 0.9% 10ML FLUSH SYRINGE 10 ML IV (15:09)
[2024-01-29 15:28] LABS: Basophils % 0.4 % (0.1-2.0); Eosinophils # 0.1 K/mm3 (0.0-0.4); Eosinophils % 2.5 % (0.1-12.0); Hematocrit 44.3 % (42.0-52.0); Hemoglobin 14.9 g/dL (14.1-18.0); Lymphocytes # 0.9 K/mm3 (0.7-4.5); Lymphocytes % 16.4 % (10-50); Mean Corpuscular HGB Conc 33.5 g/dL (31.8-35.4); Mean Corpuscular Volume 95.5 fl (80-94); Mean Platelet Volume 7.9 fl (7.4-10.4); Monocytes # 0.3 K/mm3 (0.1-1.0); Neutrophils # 4.1 K/mm3 (1.8-7.8); Neutrophils % 74.8 % (37.0-80.0); Platelet Count 142 K/mm3 (142-424); Red Blood Count 4.64 M/mm3 (4.60-6.20); Red Cell Distribution Width 13.6 % (11.5-17.5); White Blood Count 5.5 K/mm3 (4.8-10.8)
[2024-01-29 15:33] LABS: Albumin Level 4.2 g/dl (3.5-5.0); Chloride 110 mmol/L (98-107); Potassium 3.5 mmoL/L (3.5-5.1); Sodium 139 mmol/L (136-145)
[2024-01-29 15:35] LABS: Blood Urea Nitrogen 16 mg/dl (9-20); Creatinine Clearance Estimated 120 mL/min (50-200); Estimated Glomerular Filt Rate 83 ml/min (>60); GFR (African American) 100 ML/MIN (>60)
[2024-01-29 15:36] LABS: Alanine Aminotransferase 72 U/L (12-78); Albumin/Globulin Ratio 1.7 (1.1-1.8); Alkaline Phosphatase 97 U/L (38-126); Anion Gap 6.5 mEq/L (5-15); Aspartate Amino Transferase 55 U/L (17-59); Bilirubin,Total 0.4 mg/dl (0.2-1.3); Calcium 9.1 mg/dl (8.4-10.2); Carbon Dioxide 26 mmol/L (22.0-30.0); Globulin 2.5 g/dL (1.3-3.2); Glucose 112 mg/dl (74-100); Total Protein,Serum 6.7 g/dl (6.3-8.2)
[2024-01-29 15:41] LABS: C-Reactive Protein 5.1 mg/L (0-4)
[2024-01-29 15:56] LABS: Erythrocyte Sedimentation Rate 11 mm/hr (0-15)
== END 2024-01-29 15:15 | disposition home or self-care (01) ==
LOC: INF 14:53
PROVIDERS: Internal Medicine Infectious Disease; PCP Internal Medicine; Visit Provider Internal Medicine Medical Oncology
DX: K65.1 Peritoneal abscess (principal)
CPT/HCPCS: 36591; 80053; 85025; 85651; 86140; J1642

== ENCOUNTER 2024-03-07 10:41 | Outpatient (CLI) | payer OTHER, SELFPAY ==
[2024-03-07] MEDS: SODIUM CHLORIDE 0.9% 10ML FLUSH SYRINGE 10 ML IV (10:55)
== END 2024-03-07 10:58 | disposition home or self-care (01) ==
LOC: INF 10:41
PROVIDERS: PCP Internal Medicine; Visit Provider Internal Medicine Medical Oncology
DX: Z45.2 Encounter for adjustment and management of vascular access device (principal)
CPT/HCPCS: 96523; J1642

== ENCOUNTER 2024-03-19 08:22 | Outpatient (CLI) | payer OTHER, SELFPAY ==
[2024-03-19 08:34] VITALS: BMI 30.7
[2024-03-19 08:42] LABS: Basophils % 0.8 % (0.1-2.0); Eosinophils # 0.1 K/mm3 (0.0-0.4); Eosinophils % 2.5 % (0.1-12.0); Hematocrit 45.7 % (42.0-52.0); Hemoglobin 15.7 g/dL (14.1-18.0); Lymphocytes # 0.8 K/mm3 (0.7-4.5); Lymphocytes % 14.6 % (10-50); Mean Corpuscular HGB Conc 34.4 g/dL (31.8-35.4); Mean Corpuscular Hemoglobin 31.5 pg (27.0-31.2); Mean Corpuscular Volume 91.6 fl (80-94); Monocytes # 0.3 K/mm3 (0.1-1.0); Monocytes % 6.1 % (1.7-9.3); Neutrophils # 4.1 K/mm3 (1.8-7.8); Platelet Count 131 K/mm3 (142-424); Red Blood Count 4.99 M/mm3 (4.60-6.20); Red Cell Distribution Width 13.5 % (11.5-17.5); White Blood Count 5.4 K/mm3 (4.8-10.8)
[2024-03-19 08:51] LABS: Alanine Aminotransferase 80 U/L (12-78); Albumin Level 4.2 g/dl (3.5-5.0); Albumin/Globulin Ratio 1.8 (1.1-1.8); Alkaline Phosphatase 93 U/L (38-126); Aspartate Amino Transferase 51 U/L (17-59); Bilirubin,Total 0.5 mg/dl (0.2-1.3); Blood Urea Nitrogen 16 mg/dl (9-20); Carbon Dioxide 25 mmol/L (22.0-30.0); Chloride 109 mmol/L (98-107); Creatinine Clearance Estimated 182 mL/min (50-200); Estimated Glomerular Filt Rate 125 ml/min (>60); GFR (African American) 151 ML/MIN (>60); Globulin 2.3 g/dL (1.3-3.2); Glucose 90 mg/dl (74-100); Sodium 139 mmol/L (136-145); Total Protein,Serum 6.5 g/dl (6.3-8.2)
[2024-03-19] MEDS: SODIUM CHLORIDE 0.9% 10ML SYR (RAD ONLY) 10 ML IV (09:16)
[2024-03-19] MEDS: BARIUM SULFATE(READI-CAT2);450ML BOTTLE 450 ML PO (09:16)
[2024-03-19] MEDS: IOPAMIDOL-370 (76%);100ML BOTTLE 75 ML IV (09:16)
[2024-03-19] MEDS: SODIUM CHLORIDE 0.9% 10ML FLUSH SYRINGE 10 ML IV (10:00)
[2024-03-20 12:15] LABS: CEA 3.3 ng/mL (0.0-4.7)
== END 2024-03-19 09:15 | disposition home or self-care (01) ==
LOC: INF 08:23
PROVIDERS: PCP Internal Medicine; Visit Provider Internal Medicine Medical Oncology
DX: C20 Malignant neoplasm of rectum (principal)
CPT/HCPCS: 36591; 71260; 74177; 80053; 82378; 85025; J1642; Q9967

== ENCOUNTER 2024-04-23 13:04 | Outpatient (CLI) | payer OTHER, SELFPAY ==
[2024-04-23] MEDS: SODIUM CHLORIDE 0.9% 10ML FLUSH SYRINGE 10 ML IV (13:30)
== END 2024-04-23 13:20 | disposition home or self-care (01) ==
LOC: INF 13:06
PROVIDERS: PCP Internal Medicine; Visit Provider Internal Medicine Medical Oncology
DX: C20 Malignant neoplasm of rectum (principal)
CPT/HCPCS: 96523; J1642

== ENCOUNTER 2024-05-23 13:36 | Outpatient (CLI) | payer OTHER, SELFPAY ==
[2024-05-23] MEDS: SODIUM CHLORIDE 0.9% 10ML FLUSH SYRINGE 10 ML IV (13:45)
== END 2024-05-23 13:50 | disposition home or self-care (01) ==
LOC: INF 13:38
PROVIDERS: PCP Internal Medicine; Visit Provider Internal Medicine Medical Oncology
DX: C20 Malignant neoplasm of rectum (principal)
CPT/HCPCS: 96523; J1642

== ENCOUNTER 2024-06-16 08:00 | Outpatient (CLI) | payer OTHER, SELFPAY ==
--- NOTE | 2024-06-16 08:00 | CT_ITS ---
FINAL REPORT TECHNIQUE: Oral and IV contrast enhanced exam This study was performed with techniques to keep radiation doses as low as reasonably achievable, (ALARA). Individualized dose reduction techniques using automated exposure control or adjustment of mA and/or kV according to the patient''s size were employed. CLINICAL HISTORY: HX COLON CANCER COMPARISON: 03/19/2024 FINDINGS: Abdomen: Lung bases are clear. The gallbladder is unremarkable. Liver has an unremarkable CT appearance. The spleen, pancreas and adrenal glands are unremarkable. Kidneys show no mass or obstruction. A right abdominal ileostomy is again noted. No evidence of bowel obstruction or bowel wall thickening is identified. Pelvis: The appendix is normal in appearance. Presacral soft tissue is once again identified, stable when compared to the prior CT, likely postoperative change. Pelvic bowel loops are unremarkable. No fluid collection or adenopathy is seen. The bladder is contracted. IMPRESSION: Postoperative changes are once again identified, stable since the prior CT of March 2024. There is no evidence of metastases when compared to the prior exam. Reviewed, Interpreted and Dictated by Brittany Mckeon MD Transcribed by Dolores Fong Authenticated and [facility]
--- NOTE | 2024-06-16 08:00 | CT_ITS ---
FINAL REPORT TECHNIQUE: Axial CT with contrast with 3-D MIP reconstruction This study was performed with techniques to keep radiation doses as low as reasonably achievable, (ALARA). Individualized dose reduction techniques using automated exposure control or adjustment of mA and/or kV according to the patient's size were employed. CLINICAL HISTORY: HX COLON CANCER COMPARISON: 03/19/2024 FINDINGS: CT CHEST WITH CONTRAST: No pulmonary mass or infiltrate is present. Minimal scarring is noted in the right lower lobe. There is no significant pleural effusion. There is no significant pericardial effusion. No mediastinal or hilar adenopathy is present. IMPRESSION: Stable chest CT without evidence of metastasis. Reviewed, Interpreted and Dictated by Brittany Mckeon MD Transcribed by Dolores Fong Authenticated and [facility]
[2024-06-16] MEDS: SODIUM CHLORIDE 0.9% 10ML SYR (RAD ONLY) 10 ML IV (08:26)
[2024-06-16] MEDS: IOPAMIDOL-370 (76%);100ML BOTTLE 75 ML IV (08:27)
[2024-06-16] MEDS: BARIUM SULFATE(READI-CAT2);450ML BOTTLE 450 ML PO (08:27)
== END 2024-06-16 23:59 | disposition home or self-care (01) ==
LOC: RAD 08:00
PROVIDERS: PCP Internal Medicine; Visit Provider Internal Medicine Medical Oncology
DX: C20 Malignant neoplasm of rectum (principal)
CPT/HCPCS: 71260; 74177; Q9967

== ENCOUNTER 2024-06-25 08:34 | Outpatient (CLI) | payer OTHER, SELFPAY ==
[2024-06-25] MEDS: SODIUM CHLORIDE 0.9% 10ML FLUSH SYRINGE 10 ML IV (08:38)
[2024-06-25 09:16] LABS: Albumin Level 4.4 g/dl (3.5-5.0); Basophils % 0.3 % (0.1-2.0); Chloride 107 mmol/L (98-107); Eosinophils # 0.2 K/mm3 (0.0-0.4); Eosinophils % 2.8 % (0.1-12.0); Hematocrit 44.1 % (42.0-52.0); Hemoglobin 15.4 g/dL (14.1-18.0); Lymphocytes # 0.8 K/mm3 (0.7-4.5); Lymphocytes % 13.3 % (10-50); Mean Corpuscular HGB Conc 34.9 g/dL (31.8-35.4); Mean Corpuscular Hemoglobin 30.7 pg (27.0-31.2); Mean Corpuscular Volume 87.8 fl (80-94); Monocytes # 0.5 K/mm3 (0.1-1.0); Monocytes % 7.6 % (1.7-9.3); Neutrophils # 4.6 K/mm3 (1.8-7.8); Neutrophils % 75.7 % (37.0-80.0); Platelet Count 139 K/mm3 (142-424); Red Blood Count 5.02 M/mm3 (4.60-6.20); Red Cell Distribution Width 12.6 % (11.5-17.5); Sodium 140 mmol/L (136-145)
[2024-06-25 09:17] LABS: Potassium 3.5 mmoL/L (3.5-5.1)
[2024-06-25 09:19] LABS: Alanine Aminotransferase 96 U/L (12-78); Albumin/Globulin Ratio 1.8 (1.1-1.8); Alkaline Phosphatase 99 U/L (38-126); Anion Gap 8.5 mEq/L (5-15); Aspartate Amino Transferase 64 U/L (17-59); Bilirubin,Total 0.4 mg/dl (0.2-1.3); Blood Urea Nitrogen 14 mg/dl (9-20); Carbon Dioxide 28 mmol/L (22.0-30.0); Estimated Glomerular Filt Rate 107 ml/min (>60); GFR (African American) 129 ML/MIN (>60); Globulin 2.5 g/dL (1.3-3.2); Glucose 93 mg/dl (74-100); Total Protein,Serum 6.9 g/dl (6.3-8.2)
[2024-06-25 09:20] LABS: Calcium 9.3 mg/dl (8.4-10.2)
== END 2024-06-25 08:45 | disposition home or self-care (01) ==
LOC: INF 08:35
PROVIDERS: PCP Internal Medicine; Visit Provider Internal Medicine Medical Oncology
DX: C20 Malignant neoplasm of rectum (principal)
CPT/HCPCS: 36591; 80053; 82378; 85025; J1642

== ENCOUNTER 2024-07-24 15:32 | Outpatient (CLI) | payer OTHER, SELFPAY | END 2024-07-24 15:45 | disposition home or self-care (01) | LOC: INF 15:32 | PROVIDERS: PCP Internal Medicine; Visit Provider Internal Medicine Medical Oncology | DX: C20 Malignant neoplasm of rectum (principal) | CPT/HCPCS: 96523; J1642 ==

== ENCOUNTER 2024-08-21 15:06 | Outpatient (CLI) | payer OTHER, SELFPAY ==
[2024-08-21] MEDS: SODIUM CHLORIDE 0.9% 10ML FLUSH SYRINGE 10 ML IV (15:15)
== END 2024-08-21 15:25 | disposition home or self-care (01) ==
PROVIDERS: Visit Provider Internal Medicine Medical Oncology
DX: Z45.2 Encounter for adjustment and management of vascular access device (principal)
CPT/HCPCS: 96523; J1642

== ENCOUNTER 2024-09-16 07:57 | Outpatient (CLI) | payer OTHER, SELFPAY ==
--- NOTE | 2024-09-16 08:00 | CT_ITS ---
PROCEDURE INFORMATION: Exam: CT Abdomen And Pelvis With Contrast Exam date and time: 09/16/2024 8:13 AM Age: 39 years old Clinical indication: Prior chemotherapy - rectal cancer 10/2022. Condition or disease; Other: F/u rectal cancer; Prior surgery; Surgery date: 6+ months; Surgery type: Colon TECHNIQUE: Imaging protocol: Computed tomography of the abdomen and pelvis with contrast. Radiation optimization: All CT scans at this facility use at least one of these dose optimization techniques: automated exposure control; mA and/or kV adjustment per patient size (includes targeted exams where dose is matched to clinical indication); or iterative reconstruction. Contrast material: ISOVUE; Contrast volume: 75 ml; Contrast route: IV; COMPARISON: CT ABDOMEN PELVIS W CON 06/16/2024 8:08 AM FINDINGS: Liver: Normal. No mass. Gallbladder and biliary ducts: Normal. No calcified stones. No ductal dilation. Pancreas: Normal. No ductal dilation. Spleen: Calcified splenic granulomas. Adrenal glands: Normal. No mass. Kidneys and ureters: Normal. No hydronephrosis. Stomach and bowel: Right lower quadrant ileostomy. Postsurgical changes of low anterior resection. No evidence of bowel obstruction. Appendix: No evidence of appendicitis. Intraperitoneal space: Unremarkable. No free air. No significant fluid collection. Vasculature: Unremarkable. No abdominal aortic aneurysm. Lymph nodes: Unremarkable. No enlarged lymph nodes. Urinary bladder: Unremarkable as visualized. Reproductive: Unremarkable as visualized. Bones/joints: Unremarkable. No acute fracture. Soft tissues: Similar presacral soft tissue thickening without any nodular or masslike components. IMPRESSION: No specific evidence of recurrent or metastatic disease in the abdomen or pelvis.
--- NOTE | 2024-09-16 08:00 | CT_ITS ---
PROCEDURE INFORMATION: Exam: CT Chest With Contrast; Diagnostic Exam date and time: 09/16/2024 8:13 AM Age: 39 years old Clinical indication: Prior chemotherapy - rectal cancer , 10/2022. Prior oncological surgery - colon 2022. Condition or disease; Other: F/u rectal cancer 2022; Prior surgery; Surgery date: 6+ months TECHNIQUE: Imaging protocol: Diagnostic computed tomography of the chest with contrast. Radiation optimization: All CT scans at this facility use at least one of these dose optimization techniques: automated exposure control; mA and/or kV adjustment per patient size (includes targeted exams where dose is matched to clinical indication); or iterative reconstruction. Contrast material: ISOVUE; Contrast volume: 75 ml; Contrast route: IV; COMPARISON: CT CHEST W CON 06/16/2024 8:08 AM FINDINGS: Tubes, catheters and devices: Right-sided Port-A-Cath terminates in the region of the superior cavoatrial junction. Lungs: Calcified granulomas in the left lung. No suspicious pulmonary nodules. No focal airspace consolidation. Pleural spaces: Unremarkable. No pneumothorax. No pleural effusion. Heart: Unremarkable. No cardiomegaly. No pericardial effusion. Lymph nodes: Calcified mediastinal and left hilar lymph nodes. Vasculature: Unremarkable. No aortic aneurysm. Bones/joints: Unremarkable. No acute fracture. Soft tissues: Unremarkable. IMPRESSION: No specific evidence of metastatic disease to the chest.
[2024-09-16] MEDS: SODIUM CHLORIDE 0.9% 10ML SYR (RAD ONLY) 10 ML IV (08:20)
[2024-09-16] MEDS: IOPAMIDOL-370 (76%);100ML BOTTLE 75 ML IV (08:20)
[2024-09-16] MEDS: BARIUM SULFATE(READI-CAT2);450ML BOTTLE 450 ML PO (08:20)
== END 2024-09-16 23:59 | disposition home or self-care (01) ==
LOC: RAD 07:58
PROVIDERS: PCP Nurse Practitioner Family; Visit Provider Internal Medicine Medical Oncology
DX: C20 Malignant neoplasm of rectum (principal)
CPT/HCPCS: 71260; 74177; Q9967

== ENCOUNTER 2024-09-23 14:58 | Outpatient (CLI) | payer OTHER, SELFPAY ==
[2024-09-23] MEDS: SODIUM CHLORIDE 0.9% 10ML FLUSH SYRINGE 10 ML IV (15:17)
[2024-09-23 15:26] LABS: Basophils % 0.4 % (0.1-2.0); Eosinophils # 0.1 Kmm3 (0.0-0.4); Eosinophils % 2.5 % (0.1-12.0); Hematocrit 40.7 % (42.0-52.0); Immature Granulocytes # 0.01 10^3uL; Immature Granulocytes % 0.2 %; Lymphocytes % 20.3 % (10-50); Mean Corpuscular HGB Conc 34.4 g/dL (31.8-35.4); Mean Corpuscular Hemoglobin 30.8 pg (27.0-31.2); Mean Corpuscular Volume 89.5 fl (80-94); Mean Platelet Volume 10.7 fl (7.4-10.4); Monocytes # 0.4 K/mm3 (0.1-1.0); Monocytes % 7.6 % (1.7-9.3); Neutrophils # 3.5 K/mm3 (1.8-7.8); Nucleated Red Blood Cells # 0 10^3/uL; Nucleated Red Blood Cells % 0 %; Platelet Count 137 K/mm3 (142-424); Red Blood Count 4.55 M/mm3 (4.60-6.20); Red Cell Distribution Width 12.4 % (11.5-17.5); Red Cell Distribution Width-SD 40.7 fL; White Blood Count 5.1 K/mm3 (4.8-10.8)
[2024-09-23 15:30] LABS: Albumin Level 4.3 g/dl (3.5-5.0); Chloride 107 mmol/L (98-107); Potassium 3.5 mmoL/L (3.5-5.1); Sodium 137 mmol/L (136-145)
[2024-09-23 15:33] LABS: Alanine Aminotransferase 62 U/L (12-78); Albumin/Globulin Ratio 1.9 (1.1-1.8); Alkaline Phosphatase 86 U/L (38-126); Anion Gap 7.5 mEq/L (5-15); Aspartate Amino Transferase 45 U/L (17-59); Bilirubin,Total 0.4 mg/dl (0.2-1.3); Blood Urea Nitrogen 18 mg/dl (9-20); Carbon Dioxide 26 mmol/L (22.0-30.0); Estimated Glomerular Filt Rate 107 ml/min (>60); GFR (African American) 129 ML/MIN (>60); Globulin 2.3 g/dL (1.3-3.2); Glucose 118 mg/dl (74-100); Total Protein,Serum 6.6 g/dl (6.3-8.2)
[2024-09-23 15:34] LABS: Calcium 8.9 mg/dl (8.4-10.2)
== END 2024-09-23 15:20 | disposition home or self-care (01) ==
LOC: INF 14:59
PROVIDERS: PCP Nurse Practitioner Family; Visit Provider Internal Medicine Medical Oncology
DX: C20 Malignant neoplasm of rectum (principal)
CPT/HCPCS: 36591; 80053; 82378; 85025; J1642

== ENCOUNTER 2024-10-22 12:45 | Outpatient (CLI) | payer OTHER, SELFPAY ==
--- OUTSIDE RECORDS SUMMARY | 2024-10-22 12:49 | XMS_ITS | Clinical Summary ---
Author Organization [facility] Address [address] [place] [address] [address] [place] [address] Phone Care Team Providers Care Maintenance Fitter Name Role Phone Status, Fax Unavailable Conditions or Problems Problem Name Problem Code Onset Date Status Entry Date Provider Comment Standard Description Annotate COVID-19 coronavirus acute bronchitis 755847722 (SNOMED CT) 09/10 Active 09/10 Avelino Perrin MD COVID-19 Fever (pyrexia) 328280217 (SNOMED CT) 09/02 Active 09/02 Yanci Barrera RN Fever Nicotine dependence 46721180 (SNOMED CT) 06/28 Active 06/28 Malika Davis Nicotine dependence Renal failure, acute 08898226 (SNOMED CT) 06/12 Active 06/12 Avelino Perrin MD Acute kidney injury Candidiasis infection B37.89 (ICD-10-CM) 06/02 Active 06/02 Najma Araujo Other sites of candidiasis Personal history of antineoplastic chemotherapy 220409903 (SNOMED CT) 06/02 Active 06/02 Najma Araujo H/O: chemotherapy Infection following a procedure, organ and space surgical site, subsequent encounter(s) T81.43xD (ICD-10-CM) 06/02 Active 06/02 Najma Araujo Infection following a procedure, organ and space surgical site, subsequent encounter Abscess, intra-abdominal K65.1 (ICD-10-CM) 06/02 Active 06/02 Najma Araujo Peritoneal abscess Primary malignant neoplasm of rectum 81013831 (SNOMED CT) 06/02 Active 06/02 Najma Araujo Primary malignant neoplasm of rectum Medications Medication Instructions Start Date Stop Date Generic Name NDC Provider DIAZEPAM 5 MG TABS Q6HPRN diazepam 89555721106 Esthela López OXYCODONE HCL 5 MG CAPS Q4HPRN oxycodone 74083307953 Esthela López OMEPRAZOLE 20 MG CPDR by mouth once a day omeprazole 68144927342 Esthela López SULFAMETHOXAZOLE -TRIMETHOPRIM 800-160 MG TABS Take 1 tablet by mouth once a day sulfamethoxazole -trimethoprim 13223844340 Yanci Barrera RN SULFAMETHOXAZOLE -TRIMETHOPRIM 800-160 MG TABS Take 1 tablet by mouth twice a day sulfamethoxazole -trimethoprim 08674245718 Avelino Perrin MD SULFAMETHOXAZOLE -TRIMETHOPRIM 800-160 MG TABS sulfamethoxazole -trimethoprim 51625687980 Avelino Perrin MD SULFAMETHOXAZOLE -TRIMETHOPRIM 800-160 MG TABS Take 1 tablet by mouth once a day sulfamethoxazole -trimethoprim 45286701997 Avelino Perrin MD PAXLOVID (300/100) 20 x 150 MG & 10 x 100MG TBPK 1 dose pack by mouth as directed nirmatrelvir-rit onavir 78827691013 Avelino Perrin MD FLUCONAZOLE 200 MG TABS fluconazole 88238675762 Yanci Barrera RN SULFAMETHOXAZOLE -TRIMETHOPRIM 800-160 MG TABS sulfamethoxazole -trimethoprim 46600150000 Yanci Barrera RN daptomycin recon soln 500mg Q 24hrs - 07/30 [facility] [phone] daptomycin recon soln Yanci Barrera RN ertapenem recon soln 1gm Q 24hrs - 07/30 [facility] ertapenem recon soln Yanci Barrera RN SULFAMETHOXAZOLE -TRIMETHOPRIM 800-160 MG TABS Take 1 tablet by mouth twice a day sulfamethoxazole -trimethoprim 00242499509 Avelino Perrin MD FLUCONAZOLE 200 MG TABS Take 1 tablet by mouth once a day fluconazole 35983088580 Avelion Perrin MD SULFAMETHOXAZOLE -TRIMETHOPRIM 800-160 MG TABS Take 1 tablet by mouth twice a day sulfamethoxazole -trimethoprim 98987470881 Avelino Perrin MD daptomycin recon soln 500mg Q 24hrs - 07/30 [facility] [phone] daptomycin recon soln [facility] ertapenem recon soln 1gm Q 24hrs - 07/30 [facility] ertapenem recon soln [facility] FLUCONAZOLE 200 MG TABS 1 tablet by mouth once a day fluconazole 84629150229 Avelino Perrin MD FLUCONAZOLE 200 MG TABS Take 1 tablet by mouth once a day fluconazole 97643619990 Avelino Perrin MD METRONIDAZOLE 500 MG TABS Take 1 tablet by mouth twice a day metronidazole 71104261215 Avelino Perrin MD LEVOFLOXACIN 750 MG TABS Take 1 tablet by mouth once a day levofloxacin 37908436568 Avelino Perrin MD PROMETHAZINE HCL 25 MG TABS Take 1/2 tablet by mouth once a day as needed nausea promethazine 80419265757 Avelino Perrin MD LEVOFLOXACIN 750 MG TABS Take 1 tablet by mouth once a day levofloxacin 02824843520 Avelino Perrin MD METRONIDAZOLE 500 MG TABS Take 1 tablet by mouth twice a day metronidazole 47831383670 Avelino Perrin MD OMEPRAZOLE 20 MG CPDR by mouth once a day omeprazole 12231799931 Kera Minor VASCULERA TABS once a day diosmin complex no.1 57993849452 Kera Minor TAMSULOSIN HCL 0.4 MG CAPS 1 capsule by mouth once a day tamsulosin 83828474713 Kera Tate NYSTATIN 317717 UNIT/ML SUSP Take 10 mLs (1,000,000 Units total) by mouth 2 (two) times daily Swish and Swallow nystatin 16867520708 Kera Tate ertapenem recon soln 1gm Q 24hrs - 06/12 [facility] ()[phone] ertapenem recon soln [facility] FLUCONAZOLE 100 MG TABS Take 1 tablet by mouth once a day fluconazole 75232627689 Rhona Amaya FLUCONAZOLE 200 MG TABS 1 tablet by mouth once a day fluconazole 67707112914 Avelino Perrin MD AMOXICILLIN-POT CLAVULANATE 875-125 MG TABS Take 1 tablet by mouth twice a day amoxicillin-pot clavulanate 27746469602 Avelino Perrin MD FLUCONAZOLE 200 MG TABS Take 1 tablet by mouth once a day fluconazole 70637788472 Avelino Perrin MD FLUCONAZOLE 100 MG TABS Take 1 tablet by mouth once a day fluconazole 00594874203 Avelino Perrin MD ertapenem recon soln 1gm Q 24hrs - 06/12 [facility] ()[phone] [facility] MG TABS Take 1 tablet by mouth once a day fluconazole 03674333506 Avelino Perrin MD TAMSULOSIN HCL 0.4 MG CAPS Take 1 capsule by mouth once a day tamsulosin 00097855383 Avelino Perrin MD AMOXICILLIN-POT CLAVULANATE 875-125 MG TABS Take 1 tablet by mouth twice a day amoxicillin-pot clavulanate 35359085021 Avelino Perrin MD TAMSULOSIN HCL 0.4 MG CAPS 1 capsule by mouth once a day tamsulosin 49767953831 Avelino Perrin MD GABAPENTIN 100 MG CAPS Take 1 capsule by mouth once a day gabapentin 13391882731 Avelino Perrin MD TAMSULOSIN HCL 0.4 MG CAPS Take 1 capsule by mouth once a day tamsulosin 62538235371 Pat Newell RN AMOXICILLIN-POT CLAVULANATE 875-125 MG TABS Take 1 tablet by mouth twice a day amoxicillin-pot clavulanate 72670435801 Avelino Perrin MD FLUCONAZOLE 200 MG TABS Take 1 tablet by mouth once a day fluconazole 41186857512 Avelino Perrin MD ZOSYN 2-0.25 GM/50ML SOLN Zosyn 13.5G IV q24hrs continuous-AMer imed/ [facility] dose, line care, labs piperacillin-jose ramon obactam-dextrs 57055615043 Pat Newell RN ZOSYN 2-0.25 GM/50ML SOLN Zosyn 13.5G IV q24hrs continuous-AMer imed/ [facility] dose, line care, labs piperacillin-jose ramon obactam-dextrs 99357047488 Nicole Kaiser RN FLUCONAZOLE 200 MG TABS Take 2 tablet by mouth once a day fluconazole 60105558319 Avelino Perrin MD AMOXICILLIN-POT CLAVULANATE 875-125 MG TABS Take 1 tablet by mouth twice a day amoxicillin-pot clavulanate 50920280424 Avelino Perrin MD FLUCONAZOLE 200 MG TABS Take 1 tablet by mouth once a day fluconazole 45205403095 Avelino Perrin MD VASCULERA TABS once a day diosmin complex no.1 72734380156 Amber aT GABAPENTIN 100 MG CAPS Take 2 capsules (200 mg total) by mouth nightly for 10 days. Max Daily Amount: 200 mg gabapentin 03983535736 Avelino Perrin MD FLUCONAZOLE 200 MG TABS Take 1 tablet (200 mg total) by mouth daily for 14 days. fluconazole 28832029481 Avelino Perrin MD FLUCONAZOLE 200 MG TABS Take 2 tablet by mouth once a day fluconazole 73713339479 Avelino Perrin MD GABAPENTIN 100 MG CAPS Take 2 capsule by mouth every night gabapentin 84841834268 Avelino Perrin MD magnesium gluconate 30 mg (550 mg) tablet Take 1 tablet by mouth once a day magnesium gluconate 94544265750 Avelino Perrin MD DIAZEPAM 5 MG TABS Q6HPRN diazepam 29077886065 Stephani Calina OXYCODONE HCL 5 MG CAPS Q4HPRN oxycodone 99803281044 Stephani Calina ZOSYN 2-0.25 GM/50ML SOLN Zosyn 13.5G IV q24hrs continuous-[facility] [employer] piperacillin-jose ramon obactam-dextrs 32435204786 Yanci Barrera RN TAMSULOSIN HCL 0.4 MG CAPS Take 1 capsule (0.4 mg total) by mouth daily. tamsulosin 01087778364 QIE qieuser OXYCODONE HCL 5 MG TABS Take 1-2 tablets (5-10 mg total) by mouth every 6 (six) hours as needed for Pain for up to 7 days. Max Daily Amount: 40 mg oxycodone 83561286897 QIE qieuser NYSTATIN 228124 UNIT/ML SUSP Take 10 mLs (1,000,000 Units total) by mouth 2 (two) times daily Swish and Swallow nystatin 53075377462 QIE qieuser METHOCARBAMOL 500 MG TABS Take 1 tablet (500 mg total) by mouth 4 (four) times daily as needed for up to 10 days. METHOCARBAMOL QIE qieuser KETOROLAC TROMETHAMINE 10 MG TABS Take 1 tablet (10 mg total) by mouth every 6 (six) hours as needed for up to 5 days. ketorolac 15061671223 QIE qieuser GABAPENTIN 100 MG CAPS Take 2 capsules (200 mg total) by mouth nightly for 10 days. Max Daily Amount: 200 mg gabapentin 74979967972 QIE qieuser FLUCONAZOLE 200 MG TABS Take 1 tablet (200 mg total) by mouth daily for 14 days. fluconazole 23550975029 QIE qieuser DIAZEPAM 5 MG TABS Take 1 tablet (5 mg total) by mouth every 6 (six) hours as needed (Spasms) for up to 7 days. Max Daily Amount: 20 mg diazepam 93277964050 QIE qieuser Medications Administered No information available. Allergies, Adverse Reactions, Alerts No information available. Results Date Name Value Unit Range Flag Description Clinical Lists Update: Prelo ad VAPE_USE Never Tobacco smok ing status Chart Maintenance: lab updat e MAGNESIUM 2 mg/dL Magnesium [Moles/volume] in Serum or Plasma Lab Report: CBC WITH AUTO DI FFERENTIAL -GE-unk 0.0 /100 WBC 0.0-0.2 GE use only - for [employer] import when terms are not otherwise specified IMMATUREGRAN 0.01 10*3/MM3 0.00-0.05 Immature granulocytes [#/volume] in Blood BASO# 0.01 10*3/mm3 0.00-0.20 Basophils [#/vol ume] in Blood EOS ABSLT 0.06 10*3/uL 0.00-0.40 Eosinophi ls [#/volume] in Blood MONOSCT AUTO 0.40 10*3/uL 0.10-0.90 Monocy jackie [#/volume] in Blood by Automated count LYMPHCT AUTO 0.47 10*3/mm3 0.70-3.10 L Lymph ocytes [#/volume] in Blood by Automated count ABS NEUTROPH 2.92 10*3/uL 1.70-7.00 Neutro phils [#/volume] in Blood IMM GRANU % 0.3 % 0.0-0.5 Immature granulocytes/100 leukocytes in Blood MONOCYTE % 10.3 % 5.0-12.0 Monocytes /100 leukocytes in Blood by Automated count LYMPHOCY BF 12.1 % 19.6-45.3 L lymphoc ytes as percent of body fluid leukocytes RDW_ 12.9 12.3-15.4 RDW, no uni ts MCHC 32.4 G/DL 31.5-35.7 MCHC [Mass/ volume] by Automated count MCH 28.1 pg 26.6-33.0 MCH [Entiti c mass] by Automated count MCV 86.6 fL 79.0-97.0 MCV [Entiti c volume] by Automated count Lab Report: COMPREHENSIVE ME TABOLIC PANEL ANIONGAP 8.0 mmol/L 5.0-15.0 anion gap, serum BUN/CREAT 17.1 7.0-25.0 Urea nitrogen/Creatinine [Mass Ratio] in Serum or Plasma ALBUMIN 4.2 g/dL 3.5-5.2 Albumin [Mass/volume] in Serum or Plasma PROTEIN, TOT 7.3 g/dL 6.0-8.5 Protein [Mass/volume] in Serum or Plasma CO2 28.0 mmol/L 22.0-29.0 Carbon diox debra, total [Moles/volume] in Venous blood CHLORIDE 101 mmol/L 98-107 Chloride [Moles/volume] in Serum or Plasma Chart Maintenance BASOPHIL % 0.2 % Basophils/ 100 leukocytes in Blood by Manual count % EOS AUTO 0.0 % Eosinophil s/100 leukocytes in Blood by Automated count MONOCYTE BF 8.2 % monocytes as percent of body fluid leukocytes NEUTROP BF 74.4 % Neutrophil s/100 leukocytes in Body fluid Chart Maintenance: Updated H H labs 07/30/23 LYMPHS % 12.5 % Lymphocytes/ 100 leukocytes in Blood by Automated count PMN % 78.7 % Neutrophils/1 00 leukocytes in Blood by Automated count PLATELETS 163 10*3/mm3 Platelets [#/volume] in Blood by Automated count HCT 37.1 % Hematocrit [V olume Fraction] of Blood by Automated count HGB 12.3 g/dL Hemoglobin [Mass/volume] in Blood RBC 3.93 10*6/mm3 Erythrocytes [#/volume] in Blood by Automated count WBC 5.7 10*3/mm3 Leukocytes [#/volume] in Blood by Automated count CRP 4.9 mg/dL C reactive pr otein [Mass/volume] in Serum or Plasma CPK 48 U/L Creatine daniela se [Enzymatic activity/volume] in Serum or Plasma BILI TOTAL 0.1 mg/dL Bilirubin. total [Mass/volume] in Serum or Plasma ALK PHOS 113 U/L Alkaline miri sphatase [Enzymatic activity/volume] in Blood SGPT (ALT) 60 U/L Alanine aminotransferase [Enzymatic activity/volume] in Serum or Plasma SGOT (AST) 52 U/L Aspartate aminotransferase [Enzymatic activity/volume] in Serum or Plasma CALCIUM 9.2 mg/dL Calcium [Moles/volume] in Serum or Plasma POTASSIUM 3.5 mmol/L Potassium [Moles/volume] in Serum or Plasma SODIUM 139 mmol/L Sodium [Moles/volume] in Serum or Plasma CREATININE 0.70 mg/dL Creatinine [Mass/volume] in Serum or Plasma BUN 13 mg/dL Urea nitrogen [Mass/volume] in Serum or Plasma GLUCOSE SER 110 mg/dL Glucose [Mass/volume] in Serum or Plasma ESR 25 mm/h Erythrocyte sedimentation rate by Westergren method External Other: Patient lexy albarran update - [facility] ... TONI reddy l be used to establish a PIN number for patients to register in the Patient Portal. External Other: Patient lexy albarran update - Email [facility] ... PAT E-MAIL [email or web address] patient's e-mail address Office Visit: Office Visit: 14 MEDS REVIEW Done Documenta tion of current medications (procedure) ORALTOBACUSE Former Tobacco smoking status SMOK STATUS Current every day smoker Tobacco smoking status Plan of Care Type Date Detail Referral MRI Sacrum w/o c ontrast Referral CT scan ABD/Pelv is with contrast Pending order CMP Pending order CBC with [...] order Sedimentation Ra te (ESR) Pending order Other Pending order Continue oral an tibiotics Pending order CMP Pending order CBC with Differe ntial Pending order C- reactive prot ein Pending order Sedimentation Ra te (ESR) Pending order CMP Pending order CBC with Differe ntial Pending order C- reactive prot ein Pending order Sedimentation Ra te (ESR) Pending order New Oral Antibio tic Pending order CMP Pending order CBC with Differe ntial Pending order C- reactive prot ein Pending order Sedimentation Ra te (ESR) Pending order New IV antibioti c Pending order CMP Pending order CBC with Differe ntial Pending order C- reactive prot ein Pending order CPK Pending order Sedimentation Ra te (ESR) Pending order CMP Pending order CBC with Differe ntial Pending order C- reactive prot ein Pending order CPK Pending order Sedimentation Ra te (ESR) Pending order Continue oral an tibiotics Pending order CMP Pending order CBC with Differe ntial Pending order C- reactive prot ein Pending order Sedimentation Ra te (ESR) Pending order CMP Pending order CBC with Differe ntial Pending order C- reactive prot ein Pending order Sedimentation Ra te (ESR) Pending order New Oral Antibio tic Pending order CMP Pending order CBC with Differe ntial Pending order C- reactive prot ein Pending order Sedimentation Ra te (ESR) Pending order Continue oral an tibiotics Pending order CMP Pending order CBC with Differe ntial Pending order C- reactive prot ein Pending order Sedimentation Ra te (ESR) Pending order Continue IV anti biotics Pending order Continue oral an tibiotics Pending order New IV antibioti c Pending order Weekly [facility] Pending order Weekly Labs (Con tinue) Pending order New IV antibioti c Pending Order exclud ed from report: Pending order New IV antibioti c Pending order New IV antibioti c Pending Order exclud ed from report: Pending order New IV antibioti c Pending Order exclud ed from report: Pending order Weekly Labs (Con tinue) Pending Order exclud ed from report: Pending order Continue oral an tibiotics Pending order CMP Pending order CBC with Differe ntial Pending order C- reactive prot ein Pending order Sedimentation Ra te (ESR) Pending order Labs Pending order CMP Pending order Sedimentation Ra te (ESR) Pending order C- reactive prot ein Pending order CBC with Differe ntial Pending order Continue oral an tibiotics Pending order CMP Pending order CBC with Differe ntial Pending order C- reactive prot ein Pending order Sedimentation Ra te (ESR) Pending order CMP Pending order CBC with Differe ntial Pending order C- reactive prot ein Pending order Sedimentation Ra te (ESR) Pending order BMP Pending order CBC with Differe ntial Pending order C- reactive prot ein Pending order PICC Removal Pending order Continue IV anti biotics Pending order Continue oral an tibiotics Pending order CMP Pending order CBC with Differe ntial Pending order C- reactive prot ein Pending order Sedimentation Ra te (ESR) Pending order Continue IV anti biotics Pending order BMP Pending order Continue IV anti biotics Pending order PICC Removal Pending order PICC Removal Pending Order exclud ed from report: Procedures Code Procedure Name Date Entry Date CPT-00160 CMP [id number] CBC with Differential 2023 CPT-30013 C- reactive protein CPT-33487 Sedimentation Rate (ESR) 202 08/09/06 CPT-LAB Other CPT-Cooral Continue oral antibiotics 20 28/08/08 CPT-30119 CMP [id number] CBC with Differential 2023 CPT-15107 C- reactive protein CPT-52736 Sedimentation Rate (ESR) 202 08/08/08 CPT-jahaira New Oral Antibiotic CPT-11390 CMP [id number] CBC with Differential 2023 CPT-99928 C- reactive protein CPT-65679 Sedimentation Rate (ESR) 202 08/07/25 CPT-rashmi New IV antibiotic CPT-06942 CMP [id number] CBC with Differential 2023 CPT-04745 C- reactive protein [id number], [id number] CPK CPT-14729 Sedimentation Rate (ESR) 202 08/08/11 CPT-67297 CMP [id number] CBC with Differential 2023 CPT-69676 C- reactive protein [id number], [id number] CPK CPT-29653 Sedimentation Rate (ESR) 202 08/08/11 CPT-Cooral Continue oral antibiotics 30/06/26 CPT-58615 CMP [id number] CBC with Differential 2023 CPT-19477 C- reactive protein CPT-15346 Sedimentation Rate (ESR) 202 08/06/26 CPT-64147 CMP [id number] CBC with Differential 2023 CPT-40834 C- reactive protein CPT-33006 Sedimentation Rate (ESR) 202 08/06/26 CPT-jahaira New Oral Antibiotic CPT-95947 CMP [id number] CBC with Differential 2023 CPT-57047 C- reactive protein CPT-41151 Sedimentation Rate (ESR) 202 08/07/19 CPT-10512 MRI Sacrum w/o contrast 2023 CPT-Cooral Continue oral antibiotics 30/06/05 CPT-68014 CMP [id number] CBC with Differential 2023 CPT-72029 C- reactive protein CPT-59908 Sedimentation Rate (ESR) 202 08/06/05 CPT-43487 CT scan ABD/Pelvis with contrast CPT-ca Continue IV antibiotics 2023 CPT-Cooral Continue oral antibiotics 30/05/29 CPT-wclc Weekly [facility] 08/06/23 CPT-rashmi New IV antibiotic CPT-rashmi New IV antibiotic CPT-rashmi New IV antibiotic CPT-cwl Weekly Labs (Continue) 05/30 CPT-Cooral Continue oral antibiotics 30/05/15 CPT-93388 CMP [id number] CBC with Differential 2023 CPT-63379 C- reactive protein CPT-80409 Sedimentation Rate (ESR) 202 08/06/15 CPT-labs Labs CPT-90499 CMP CPT-57331 Sedimentation Rate (ESR) 202 08/05/14 CPT-99158 C- reactive protein [id number] CBC with Differential 2023 CPT-26841 BMP [id number] CBC with Differential 2022 CPT-63838 C- reactive protein CPT-Cooral Continue oral antibiotics 20 28/04/26 CPT-00989 CMP [id number] CBC with Differential 2022 CPT-83986 C- reactive protein CPT-60834 Sedimentation Rate (ESR) 202 07/16/25 CPT-18122 CMP [id number] CBC with Differential 2022 CPT-69262 C- reactive protein CPT-29545 Sedimentation Rate (ESR) 202 07/16/25 CPT-PICREM PICC Removal CPT-ca Continue IV antibiotics 2022 CPT-Cooral Continue oral antibiotics 20 28/04/12 CPT-33883 CMP [id number] CBC with Differential 2022 CPT-71463 C- reactive protein CPT-15263 Sedimentation Rate (ESR) 202 07/17/11 CPT-ca Continue IV antibiotics 2022 CPT-61312 [facility] CPT-PICREM PICC Removal CPT-ca Continue IV antibiotics 2022 Vital Signs Date Name Value Unit Description BMI (Body Mass Index) 31.26 kg/m2 Bod y Mass Index (Ratio) Body Temperature 97.8 [degF] temperat ure E&M BP Diastolic 88 mm[Hg] blood pressu re, diastolic BP Systolic 130 mm[Hg] blood pressur e, systolic Heart Rate 84 /min pulse rate Height 68 [in_us] height E&M Respiratory Rate 16 /min respirat ory rate E&M Weight Measured 205.6 [lb_av] weight E& M Weight Measured 205.6 [lb_av] weight E& M Immunizations No information available. Advance Directives Directive Description Start Date NO ADVANCE DIRECTIVES
--- OUTSIDE RECORDS SUMMARY | 2024-10-22 12:50 | XMS_ITS | Clinical Summary ---
Author Organization [employer] Address [address] [place] [address] Care Team Providers Care Child Protective Investigator Name Role Phone Pat So MD Unavailable [phone] Vic Suazo MD Primary Care Provider [phone] Allergies No known active allergies Medications tamsulosin (FLOMAX) 0.4 mg Cap 24 hr capsule Take 1 capsule (0.4 mg total) by mouth daily. Active diazePAM (VALIUM) 5 MG tablet Take 1 tablet (5 mg total) by mouth every 6 (six) hours as needed. 04/04/2023 Active oxyCODONE (ROXICODONE) 5 MG immediate release tablet Take by mouth. 04/05/2023 Active amoxicillin-cla vulanate (AUGMENTIN) 875-125 mg per tablet Take 1 tablet by mouth 2 (two) times daily. 04/17/2023 Active fluconazole (DIFLUCAN) 200 MG tablet Take 1 tablet (200 mg total) by mouth daily. 04/17/2023 Active SL RX ANTACIDS VASCULAR SURGERY POST-OP: FAMOTIDINE IV/PO OR PANEL Activ e diosmin complex no.1 (Vasculera) 630 mg Tab Take 630 mg by mouth daily. Active metoclopramide HCl (Reglan) 10 MG tabletIndicatio ns:Hiccups Take 1 tablet by mouth every 8 hours for 10 days to aide with hiccups.. 30 tablet 05/11/2023 Active gabapentin (NEURONTIN) 100 MG capsule Take 2 capsules (200 mg total) by mouth 3 (three) times daily. Max Daily Amount: 600 mg 180 capsule 2 05/24/2023 Active Active Problems Problem Noted Date Diagnosed Date Intra-abdominal infection 03/23/2023 Rectal cancer 03/13/2023 Acute radiation dermatitis 01/03/2023 Malignant neoplasm of rectum 11/08/2022 Cancer Staging:Clinical stage from 11/08/2022:Stage IIIC(cT4b, cN2, cM0) - Signed by Robert Floyd MD on 11/08/2022 Immunizations Name Administration Dates Next Due Covid-19 Vaccine MRNA (PF) 18yr+ (Moderna)(IMM60 [id number]) 05/05/2021,04/06/2021 Pneumococcal Conjugate Vaccine (20-Valent) IM Tdap 04/25/2023 Family History Medical History Relation Name Comments Kidney nephrosis Brother 1 Cyrus No Known Problem Brother 2 Bean No Known Problem Father No Known Problem Mother No Known Problem Sister 1 Maribel No Known Problem Sister 2 Shannon Relation Name Status Comments Brother 1 Cyrus Alive Brother 2 Bean Alive Father Mother Alive Sister 1 Maribel Alive Sister 2 Shannon Alive Social History Tobacco Use Types Packs/Day Years Used Date Smoking Tobacco: Every Day Cigarettes 1 23.5 Started: 2001 Passive Smoke Exposure: Past Smokeless Tobacco: Former Snuff Quit: 2021 Comments:1/2 can of dip per year Alcohol Use Standard Drinks/Week Comments Yes 28 (1 standard drink = 0.6 oz pu re alcohol) 3 drinks a day Humiliation, Afraid, Rape, and Kick questionnair e Answer Date Recorded Within the last year, have y ou been afraid of your partner or ex-partner? No 03/23/2023 Within the last year, have y ou been humiliated or emotionally abused in other ways by your partner or ex-partner? No Within the last year, have y ou been kicked, hit, slapped, or otherwise physically hurt by your partner or ex-partner? No 03/23/2023 Within the last year, have y ou been raped or forced to have any kind of sexual activity by your partner or ex-partner? No 03/23/2023 Social Connection and Isolation Panel [NHANES] A nswer Date Recorded In a typical week, how many times do you talk on the phone with family, friends, or neighbors? Three times a week 03/23/20 How often do you get togethe r with friends or relatives? Three times a week 03/23/2023 How often do you attend chur ch or orthodoxy services? Never 03/23/2023 Do you belong to any clubs o r organizations such as amish groups, unions, fraternal or athletic groups, or school groups? No 03/23/2023 How often do you attend meet ings of the clubs or organizations you belong to? Never 03/23/2023 Are you , , di vorced, , never , or living with a partner? Living with partner 03/23/2023 AUDIT-C Answer Date Recorded Q1: How often do you have a drink containing alcohol? 4 or more times a week 03/23/2023 Q2: How many drinks containi ng alcohol do you have on a typical day when you are drinking? 3 or 4 Q3: How often do you have si x or more drinks on one occasion? Less than monthly 03/23/2023 Overall Financial Resource Strain (CARDIA) Answe r Date Recorded How hard is it for you to pa y for the very basics like food, housing, medical care, and heating? Not hard at all 03/23/2023 PHQ-2 Answer Date Recorded PHQ-2 Total Score 0 04/25/2023 [facility]ational Stress Questionnaire Answer Date Recorded Do you feel stress - tense, restless, nervous, or anxious, or unable to sleep at night because your mind is troubled all the time - these days? Not at all 03/23/2023 Exercise Vital Sign Answer Date Recorde d On average, how many days pe r week do you engage in moderate to strenuous exercise (like a brisk walk)? 7 days 03/23/2023 On average, how many minutes do you engage in exercise at this level? 40 min 03/23/2023 Hunger Vital Sign Answer Date Recorded Within the past 12 months, y ou worried that your food would run out before you got the money to buy more. Never true 03/23/20 Within the past 12 months, t he food you bought just didn't last and you didn't have money to get more. Never true 03/23/2023 PRAPARE - Transportation Answer Date Re corded In the past 12 months, has l ack of transportation kept you from medical appointments or from getting medications? No 03/07 In the past 12 months, has l ack of transportation kept you from meetings, work, or from getting things needed for daily living? No 03/23/2023 Housing Stability Vital Sign Answer Jameson e Recorded In the last 12 months, was t here a time when you were not able to pay the mortgage or rent on time? No 03/24/2023 In the last 12 months, how many places have you lived? 1 03/24/2023 In the last 12 months, was t here a time when you did not have a steady place to sleep or slept in a long-term (including now)? No 03/24/2023 [facility] Intimate Partner Violence Answer Da te Recorded Within the last year, have y ou been afraid of your partner or ex-partner? No 03/23/2023 Within the last year, have y ou been humiliated or emotionally abused in other ways by your partner or ex-partner? No Within the last year, have y ou been kicked, hit, slapped, or otherwise physically hurt by your partner or ex-partner? No 03/23/2023 Within the last year, have y ou been raped or forced to have any kind of sexual activity by your partner or ex-partner? No 03/23/2023 Interpersonal Safety Answer Date Record ed Family or friends hurt you Not on file 05/15 Family or friends insult you Not on file 01/2024 Family or friends threaten you Not on file 0 05/15/2023 Family or friends scream or curse at you Not on file 05/15/2023 Housing Stability Answer Date Recorded Living situation today Not on file Living situation problems Not on file 2023 Food Insecurity Answer Date Recorded Food run out past 12 months Not on file 01/2024 Food did not last past 12 months Not on file 05/15/2023 Transportation Needs Answer Date Record ed Transportation unreliable past 12 months Not on file 08/20/2023 Employment Answer Date Recorded Help finding and keeping a job Not on file 0 05/15/2023 Family and Community Support Answer Jameson e Recorded Help with Day to Day Activities Not on file 05/15/2023 Feeling Lonely or Isolated Not on file 05/15 Educational Attainment Answer Date Harvey rded Speak language other than Zambian at home Not on file 05/15/2023 Want help with school or training Not on file 05/15/2023 Depression Answer Date Recorded PHQ-2 Risk Not on file 05/15/2023 Disabilities Answer Date Recorded Difficulty concentrating Not on file 024 Difficulty doing errands alone Not on file 0 05/15/2023 Substance Use Answer Date Recorded Used prescription meds for non-medical reasons N ot on file 05/15/2023 Used illegal drugs past 12 months Not on file 05/15/2023 Sex and Gender Information Value Date Recorded Sex Assigned at Male 03/23/2023 5:42 PM ASSESSMENT CLINICIAN Legal Sex Male 2:23 PM CDT Gender Identity Male 03/23/2023 5:42 PM ASSESSMENT CLINICIAN Sexual Orientation Straight 03/23/2023 5: 42 PM ASSESSMENT CLINICIAN 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 Not on file Not o n file Last Filed Vital Signs Vital Sign Reading Time Taken Comments Blood Pressure 110/62 05/25/2023 1:00 PM EST Pulse 85 05/25/2023 1:00 PM EST Temperature 36.8 C (98.2 F) 05/25/2023 1:00 PM EST Respiratory Rate 18 05/25/2023 1:00 PM EST Oxygen Saturation 99% 05/25/2023 1:00 PM EST Inhaled Oxygen Concentration - - Weight 77.6 kg (171 lb 1.6 oz) 05/23/2023 11:00 AM EST Height 172.7 cm (5' 7.99 ) 05/09/2023 8:54 AM ES T Body Mass Index 26.02 05/09/2023 8:54 AM EST Plan of Treatment Health Maintenance Due Date Last Done Comments Depression Screening (12+) 1995 HIV Screening 1998 Hepatitis C Screening 2001 Lipid Panel 2018 COVID-19 VACCINE ( season) 2024, 04/06/2021 Tobacco Cessation Counseling and Screening (12+) 05/09/2024 05/09/2023 Influenza Vaccine (Season Ended) 2025 DTAP/TDAP/TD VACCINES (2 - Td or Tdap) 04/25/2033 Pneumococcal Vaccine: 0-49 Years Completed 04/25/20 23 Insurance [id number] (Home) [address] [id number] [place] Advance Directives For more information, please contact: [phone] * Full Code (Latest Code Status on File) Date Activated Date Inactivated Comments 03/23/2023 4:38 PM 2023 3:41 PM * Full Code Date Activated Date Inactivated Comments 03/13/2023 1:55 PM 03/16/2023 4:31 PM Care Teams Child Protective Investigator Relationship Specialty Start Date End Date Vic Suazo MD [address] [facility] [address] [address] PCP - General Family Medicine 01/31/23 Pat So MD [address] [facility] [address] [place], [place] [id number] Referring Physician Colon and Rectal Surgery 11/08/22
--- OUTSIDE RECORDS SUMMARY | 2024-10-22 12:50 | XMS_ITS | Encounter Summary ---
Author Organization [employer] Address [address] [place] [address] Care Team Providers Care Pin Drafter Operator Name Role Phone Esperanza Logan RN Unavailable Unavailable Robert Floyd MD Unavailable [phone] Samreen Atkinson APRN Unavailable [phone] Pat So MD Unavailable [phone] Vic Suazo MD Primary Care Provider [phone] Minnie Wesley MD Unavailable [phone] Naheed Singleton RN Unavailable Unavailable Close, Shannan Marrero RN Unavailable Unavailable Reason for Referral * CAT Scan (Routine) - Closed Specialty Diagnoses / Procedures Referred By Contac t Referred To Contact Radiology Diagnoses Rectal cancer (HCC) Procedures CT ABDOMEN/PELVIS WITH IV CONTRAST Standard Protocol Pat So MD [address] [place], [place] [address]te [facility] [address] [place] [address] Phone: tel: fax: Referral ID Status Reason Start Date Expiration Date Visits Re quested Visits Authorized [id number] Closed 04/02/2023 09/29/2023 1 1 Encounter Details Date Type Department Care Team (Late st Contact Info) Description 04/02/2023 Outside Orders [facility] Central Scheduling 1 [place] [address] Pat So MD [address] [place], [place] [address] [place] [id number] Rectal cancer (HCC) (Primary Dx) Social History Tobacco Use Types Packs/Day Years [...] week 03/23/2023 How often do you attend [facility] or taoism services? Never 03/23/2023 Do you belong to any clubs o r organizations such as gnosticist groups, unions, fraternal or athletic groups, or [...] when you are drinking? 3 or 4 3 Q3: How often do you have si x or more drinks on one occasion? Less than monthly 03/23/2023 Overall Financial Resource Strain (CARDIA) Answe r Date Recorded How hard is it for you to pa y for the very basics like food, housing, medical care, and heating? Not hard at all 03/23/2023 PHQ-2 Answer Date Recorded Patient Health Questionnaire-2 Score 0 03/06/2023 [facility] - Occupational Stress Questionnaire Answer Date Recorded [...] money to buy more. Never true 03/23/20 23 Within the past 12 months, t he [...] place to sleep or slept in a retirement (including now)? No 03/24/2023 [facility] Intimate Partner [...] by your partner or ex-partner? 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 No / Unsure 03/13/2023 5:14 AM EST documented as of this encounter Plan of Treatment Not on file documented as of this encounter Results * CT ABDOMEN/PELVIS WITH IV CONTRAST Standard Protocol (04/06/2023 3:15 PM EST) Anatomical Region Laterality Modality Abdomen, Pelvis Computed Tomogra phy (CT) 04/06/2023 3:31 PM EST Impressions 04/06/2023 4:15 PM EST Interval improvement in pelvic fluid collections although there is a residual collection within the presacral space. No other new abnormality identified. Images reviewed, interpreted, and dictated by Dr. Yesenia Mooney. Transcribed by Virginia Mercedes PA-C. Narrative 04/06/2023 4:[address] SCAN OF THE ABDOMEN AND PELVIS WITH CONTRAST 04/06/2023 2:34 PM HISTORY: Rectal cancer, presacral fluid collection evaluation. COMPARISON: 2023. PROCEDURE: The patient was injected with IV contrast. Axial images were obtained from the lung bases to the pubic symphysis by computed tomography. This study was performed with techniques to keep radiation doses as low as reasonably achievable, (ALARA). Individualized dose reduction techniques using automated exposure control or adjustment of mA and/or kV according to the patient size were employed. FINDINGS: ABDOMEN: The lung bases are clear. The heart is proper size. The liver is homogenous with no focal abnormality. The gallbladder is present. The spleen is unremarkable. No adrenal mass is present. The pancreas is unremarkable. The kidneys demonstrate mild right hydronephrosis, unchanged. There is no renal mass identified. The aorta is proper caliber. There is a right mid abdominal ostomy present. There is improved abnormal attenuation within the mesentery. There are small mesenteric lymph nodes which are likely reactive. There is improved subcutaneous air along the anterior abdominal wall. PELVIS: The GI tract demonstrates no obstruction. The appendix is not identified. The prostate is without acute abnormality. The urinary bladder is decompressed. The presacral fluid collection contains a pigtail drainage catheter and measures 2.6 x 5.1 cm. This previously measured 2.5 x 5.9 cm. There is a tiny amount of air present but this is improved from the prior exam. The collection in the right pelvis has decreased in size and now measures 2.7 cm, previously 5.3 cm. The left pelvic fluid collection has essentially resolved. There is no acute osseous abnormality. Procedure Note Yesenia Mooney MD - 04/06/2023 CT SCAN OF THE ABDOMEN AND PELVIS WITH CONTRAST 04/06/2023 2:34 PM HISTORY: Rectal cancer, presacral fluid collection evaluation. COMPARISON: 2023. PROCEDURE: The patient was injected with IV contrast. Axial images were obtained from the lung bases to the pubic symphysis by computed tomography. This study was performed with techniques to keep radiation doses as low as reasonably achievable, (ALARA). Individualized dose reduction techniques using automated exposure control or adjustment of mA and/or kV according to the patient size were employed. FINDINGS: ABDOMEN: The lung bases are clear. The heart is proper size. The liver is homogenous with no focal abnormality. The gallbladder is present. The spleen is unremarkable. No adrenal mass is present. The pancreas is unremarkable. The kidneys demonstrate mild right hydronephrosis, unchanged. There is no renal mass identified. The aorta is proper caliber. There is a right mid abdominal ostomy present. There is improved abnormal attenuation within the mesentery. There are small mesenteric lymph nodes which are likely reactive. There is improved subcutaneous air along the anterior abdominal wall. PELVIS: The GI tract demonstrates no obstruction. The appendix is not identified. The prostate is without acute abnormality. The urinary bladder is decompressed. The presacral fluid collection contains a pigtail drainage catheter and measures 2.6 x 5.1 cm. This previously measured 2.5 x 5.9 cm. There is a tiny amount of air present but this is improved from the prior exam. The collection in the right pelvis has decreased in size and now measures 2.7 cm, previously 5.3 cm. The left pelvic fluid collection has essentially resolved. There is no acute osseous abnormality. IMPRESSION: Interval improvement in pelvic fluid collections although there is a residual collection within the presacral space. No other new abnormality identified. Images reviewed, interpreted, and dictated by Dr. Yesenia Mooney. Transcribed by Virginia Mercedes PA-C. Pat So MD IMG CT ORDERABLES Final Result documented in this encounter Visit Diagnoses Diagnosis Rectal cancer (HCC)- Primary Malignant neoplasm of rectum Rectal cancer (HCC) Malignant neoplasm of rectum documented in this encounter Care Teams Pin Drafter Operator Relationship Specialty Start Date End Date Vic Suazo MD [address] [place] [address] PCP - General Family Medicine 01/31/23 Esperanza Logan, RN Nurse Navigator Oncology 11/08/22 03/18/24 Robert Floyd MD [address] [facility] [address] [facility] [address] [place] [id number] Radiation Oncologist Radiation Oncology 11/08/2203/18 Samreen Atkinson, HAMMAD [address] [place] [address] Advanced Registered Nurse Practitioner Radiation Oncology 11/08/22 03/18/24 Pat So MD [address] [facility] [address] [place] [address] Referring Physician Colon and Rectal Surgery 11/08/22 Minnie Wesley MD [address] [place] [address] Medical Oncologist Hematology and Oncology 02/06/23 03/18/24 Naheed Singleton RN Registered Nurse Oncology 03/14/23 03/18/24 Shannan Gramajo RN Registered Nurse Radiation Oncology 03/26/23 03/18/24 documented as of this encounter
--- OUTSIDE RECORDS SUMMARY | 2024-10-22 12:50 | XMS_ITS | Encounter Summary ---
Author Organization [employer] Address [address] [place] [address] Care Team Providers Care Rehabilitation Attendant Name Role Phone Esperanza Logan RN Unavailable Unavailable Robert Floyd MD Unavailable [phone] Samreen Atkinosn APRN Unavailable [phone] Pat So MD Unavailable [phone] Vic Suazo MD Primary Care Provider [phone] Minnie Wesley MD Unavailable [phone] Naheed Singleton RN Unavailable Unavailable Close, Shannan Marrero RN Unavailable Unavailable Encounter Details Date Type Department Care Team (Late st Contact Info) Description 04/16/2023 Outside Orders [facility] Central Scheduling 1 [place] [address] Pat So MD [address] [facility] [address] [place] [id number] Social History Tobacco Use Types Packs/Day Years [...] often do you attend chur ch or taoist services? Never 03/23/2023 Do you belong to any clubs o r organizations such as caodaism groups, unions, fraternal or athletic groups, or [...] Recorded Patient Health Questionnaire-2 Score 0 03/06/2023 [facility] - Occupational Stress Questionnaire Answer Date [...] place to sleep or slept in a assisted (including now)? 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 on file Not o n file documented as of this encounter Plan of Treatment Not on file documented as of this encounter Visit Diagnoses Not on filedocumented in this encounter Care Teams Rehabilitation Attendant Relationship Specialty Start Date End Date Vic Suazo MD [address] [place] [address] PCP - General Family Medicine 01/31/23 Esperanza Logan, ISABELLA Nurse Navigator Oncology 11/08/22 03/18/24 [place] [address] [place] [address] [address] [place] [address] Radiation Oncologist Radiation Oncology 11/08/2203/18 Samreen Atkinson, GEOSCIENCES ASSOCIATE PROFESSOR [address] [facility] [address] [place], [place] [id number] Advanced Registered Nurse Practitioner Radiation Oncology 11/08/22 03/18/24 Pat So MD [address] [facility] [address] [place], [place] [id number] Referring Physician Colon and Rectal Surgery 11/08/22 Minnie Wesley MD [address] [facility] [address] [place], [place] [id number] Medical Oncologist Hematology and Oncology 02/06/23 03/18/24 Naheed Singleton, ISABELLA Registered Nurse Oncology 03/14/23 03/18/24 Shannan Gramajo RN Registered Nurse Radiation Oncology 03/26/23 03/18/24 documented as of this encounter
--- OUTSIDE RECORDS SUMMARY | 2024-10-22 12:50 | XMS_ITS | Referral Summary ---
Author Organization [employer] Address [address] [place] [address] Care Team Providers Care Corner Brace Block Machine Operator Name Role Phone Pat So MD Unavailable [phone] Vic Suazo MD Primary Care Provider [phone] Allergies No known active allergies Medications tamsulosin [...] Pneumococcal Conjugate Vaccine (20-Valent) IM Tdap 04/25/2023 Social History Tobacco Use Types Packs/Day Years [...] week 03/23/2023 How often do you attend [facility] or buddhist services? Never 03/23/2023 Do you belong to any clubs o r organizations such as druze groups, unions, fraternal or athletic groups, or [...] Date Recorded PHQ-2 Total Score 0 04/25/2023 [facility] - Occupational Stress Questionnaire Answer Date Recorded [...] place to sleep or slept in a chcf (including now)? No 03/24/2023 CHI Intimate Partner [...] Date Harvey rded Speak language other than Tajik at home Not on file 05/15/2023 Want [...] Sex Assigned at Male 03/23/2023 5:42 PM FRENCH COMBER Legal Sex Male 2:23 PM CDT Gender Identity Male 03/23/2023 5:42 PM FRENCH COMBER Sexual Orientation Straight 03/23/2023 5: 42 PM FRENCH COMBER Occupation Industry Job Start Date Job End [...] 05/09/2023 8:54 AM EST Plan of Treatment Not on file Insurance [id number] (Home) [address] [id number] [place] [address] MEDICAID PEND Advance Directives For more information, please contact: [phone] * Full Code (Latest Code Status on File) Date Activated Date Inactivated Comments 03/23/2023 4:38 PM 2023 3:41 PM * Full Code Date Activated Date Inactivated Comments 03/13/2023 1:55 PM 03/16/2023 4:31 PM Care Teams Corner Brace Block Machine Operator Relationship Specialty Start Date End Date Vic Suazo MD [address] [place] [address] PCP - General Family Medicine 01/31/23 Pat So MD [address] [place] [address] [address] [place] [address] Referring Physician Colon and Rectal Surgery 11/08/22
--- OUTSIDE RECORDS SUMMARY | 2024-10-22 12:50 | XMS_ITS | Encounter Summary ---
Author Organization [employer] Address [address] [place] [address] Care Team Providers Care Knocker Out Name Role Phone Esperanza Logan RN Unavailable Unavailable Robert Floyd MD Unavailable [phone] Samreen Atkinson APRN Unavailable [phone] Pat So MD Unavailable [phone] Vic Suazo MD Primary Care Provider [phone] Minnie Wesley MD Unavailable [phone] Naheed Singleton RN Unavailable Unavailable Close, Shannan Marrero RN Unavailable Unavailable Encounter Details Date Type Department Care Team (Late st Contact Info) Description 04/16/2023 Outside Orders [facility] Central Scheduling 1 [place] [address] Pat So MD [address] [facility] [address] [place], [place] [id number] Post-op pain (Primary Dx) Social History Tobacco Use Types [...] often do you attend chur ch or faith services? Never 03/23/2023 Do you belong to any clubs o r organizations such as yarsanism groups, unions, fraternal or athletic groups, or [...] Recorded Patient Health Questionnaire-2 Score 0 03/06/2023 [facility] - Occupational [...] place to sleep or slept in a care home (including now)? 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 Not on file Not o n file documented as of this encounter Plan of Treatment Not on file documented as of this encounter Visit Diagnoses Diagnosis Post-op pain- Primary Other acute postoperative pain documented in this encounter Care Teams Knocker Out Relationship Specialty Start Date End Date Vic Suazo MD [address] [place], [place] [id number] PCP - General Family Medicine 01/31/23 Esperanza Logan, ISABELLA Nurse Navigator Oncology 11/08/22 03/18/24 Robert Floyd MD [address] [facility] [address] [place] [address] Radiation Oncologist Radiation Oncology 11/08/2203/18 Samreen Atkinson, SELF PAY REPRESENTATIVE [address] [facility] [address] [place] [address] Advanced Registered Nurse Practitioner Radiation Oncology 11/08/22 03/18/24 Pat So MD [address] [facility] [address] [place] [address] Referring Physician Colon and Rectal Surgery 11/08/22 Minnie Wesley MD [address] [facility] [address] [place] [address] Medical Oncologist Hematology and Oncology 02/06/23 03/18/24 Naheed Singleton, ISABELLA Registered Nurse Oncology 03/14/23 03/18/24 Shannan Gramajo RN Registered Nurse Radiation Oncology 03/26/23 03/18/24 documented as of this encounter
--- OUTSIDE RECORDS SUMMARY | 2024-10-22 12:50 | XMS_ITS | Encounter Summary ---
Author Organization [employer] Address [address] [place] [address] Care Team Providers Care Refiner Operator Name Role Phone Esperanza Logan RN Unavailable Unavailable Robert Floyd MD Unavailable [phone] Samreen Atkinson APRN Unavailable [phone] Pat So MD Unavailable [phone] Vic Suazo MD Primary Care Provider [phone] Minnie Wesley MD Unavailable [phone] Naheed Singleton RN Unavailable Unavailable Close, Shannan Marrero RN Unavailable Unavailable Encounter Details Date Type Department Care Team (Late st Contact Info) Description 04/02/[address] [facility] Central Scheduling 1 [place] [address] Pat So MD [address] [facility] [address] [place], [place] [id number] Rectal cancer (HCC) (Primary Dx) Social History [...] often do you attend chur ch or mormon services? Never 03/23/2023 Do you belong to any clubs o r organizations such as restorationism groups, unions, fraternal or athletic groups, or [...] Recorded Patient Health Questionnaire-2 Score 0 03/06/2023 [facility] - Occupational [...] place to sleep or slept in a [facility] (including now)? 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 Legal Sex Male 2:23 PM CDT Gender Identity Male 03/23/2023 5:42 PM AUTOMOTIVE PARTS SALESPERSON Sexual Orientation Straight 03/23/2023 5: 42 PM AUTOMOTIVE PARTS SALESPERSON Occupation Industry Job Start Date Job End [...] as of this encounter Visit Diagnoses Diagnosis Rectal cancer (HCC)- Primary Malignant neoplasm of rectum documented in this encounter Care Teams Refiner Operator Relationship Specialty Start Date End Date Vic Suazo MD [address] [place], [place] [id number] PCP - General Family Medicine 01/31/23 Esperanza Logan RN Nurse Navigator Oncology 11/08/22 03/18/24 Robert Floyd MD [address] [place] [address] [address] [place] [id number] Radiation Oncologist Radiation Oncology 11/08/2203/18 Samreen Atkinson, CLERK TELEVISION PRODUCTION [address] [facility] [address] [place], [place] [id number] Advanced Registered Nurse Practitioner Radiation Oncology 11/08/22 03/18/24 Pat So MD [address] [facility] [address] [place] [address] Referring Physician Colon and Rectal Surgery 11/08/22 Minnie Wesley MD [address] [facility] [address] [place], [place] [id number] Medical Oncologist Hematology and Oncology 02/06/23 03/18/24 Naheed Singleton RN Registered Nurse Oncology 03/14/23 03/18/24 Shannan Gramajo RN Registered Nurse Radiation Oncology 03/26/23 03/18/24 documented as of this encounter
--- OUTSIDE RECORDS SUMMARY | 2024-10-22 12:50 | XMS_ITS | Encounter Summary ---
Author Organization [employer] Address [address] [place] [address] Care Team Providers Care Commercial Reporter Name Role Phone Provider, Not In System Primary Care Provider Un available Esperanza Logan RN Unavailable Unavailable Vci Ashford MD Unavailable Robert Floyd MD Unavailable [phone] Samreen Atkinson APRN Unavailable [phone] CloseShannan RN Unavailable Unavailable Pat So MD Unavailable [phone] Vic Suazo MD Primary Care Provider [phone] Minnie Wesley MD Unavailable [phone] Naheed Singleton RN Unavailable Unavailable Shannan Gramajo RN Unavailable Unavailable Virginia Merritt RN Unavailable Unavailable Reason for Referral * MRI (Routine) - Closed Specialty Diagnoses / Procedures Referred By Contmaría elena t Referred To Contact Radiology Diagnoses Rectal cancer (HCC) Procedures MR pelvis without IV contrast Pat So MD [address] [place] [address] Phone: tel: fax: Referral ID Status Reason Start Date Expiration Date Visits Re quested Visits Authorized [id number] Closed 10/26/2022 04/24/2023 1 1 Encounter Details Date Type Department Care Team (Late st Contact Info) Description 10/26/2022 Outside Orders [facility] Central Scheduling 1 [place] [address] Pat So MD [address] [facility] [address] [place], [place] [id number] Rectal cancer (HCC) (Primary Dx) Social History Tobacco Use Types Packs/Day Years Used Date Smoking Tobacco: Never Assessed Sex and Gender Information Value Date Recorded Sex Assigned at Male 03/23/2023 5:42 PM CAR REPAIRER PULLMAN Legal Sex Male 2:23 PM CDT Gender Identity Male 03/23/2023 5:42 PM CAR REPAIRER PULLMAN Sexual Orientation Straight 03/23/2023 5: 42 PM CAR REPAIRER PULLMAN documented as of this encounter Plan of Treatment Not on file documented as of this encounter Results * MR pelvis without IV contrast (10/27/2022 12:04 PM EDT) Anatomical Region Laterality Modality Pelvis Magnetic Resonan ce (MRI) 10/27/2022 2:44 PM EDT Impressions 10/27/2022 4:38 PM EDT Primary Tumor Location: Lower and mid rectum. Stage: T4b N2 (If node positive, provide location). Lymph nodes in the mesorectal, inferior rectal, and left internal iliac chains. Sphincter involvement: Yes (if yes provide location/laterality), right posterior, lateral. EMVI: Yes Images reviewed, interpreted, and dictated by Yesenia Mooney MD Narrative 10/27/2022 4:38 PM EDT MRI PELVIS WITHOUT CONTRAST - PRIMARY RECTAL CANCER STAGING CLINICAL INFORMATION: Rectal cancer staging. COMPARISON: None PRIMARY TUMOR: MORPHOLOGY, LOCATION AND CHARACTERISTICS: Distance to the anal verge: 7.5 cm Distance to the top of sphincter complex/anorectal junction: 0 1 m Relationship to anterior peritoneal reflection: Below Craniocaudal length: 6.3 cm Tumor location: Mid(5-10cm) Lower(0-5cm) Morphology: Annular Mucinous composition: Mostly mucin MR-T category: T4b (tumor invades or adherent to adjacent organs or structures) *If T4b, structures with possible invasion: Invades the right levator ani musculature as seen on series 8, image 13. It extends well beyond the outer muscular layer along the anterior and left aspects of the lesion from the 11 o'clock to 3 o'clock positions. FOR LOW RECTAL TUMORS - Invasion of anal sphincter complex: Invades IS and extends into intersphincteric space (ISS) If present: upper anal canal Comments: This is best visualized on series 8, image 17 and series 5, image 24, along the right posterior. EMVI: Yes (indicate location, series and image number) this is best seen on series 8, image 13. TUMOR DEPOSITS: Yes (describe number and location): Series and image number: Series 8, image 7 and series 5, image 20. LYMPH NODES: Mesorectal/superior rectal lymph nodes and/or tumor deposits: 2- N+ (short axis >/=9mm) 2- N+ (short axis 5-9mm AND at least 2 morphologic criteria* Suspicious extra mesorectal lymph nodes: Yes (if yes, short axis diameter and pick from list below:) Left internal iliac, 11 mm, this is seen on series 3, image 9. Distant (M1): N/A Procedure Note Yesenia Mooney MD - 10/27/2022 MRI PELVIS WITHOUT CONTRAST - PRIMARY RECTAL CANCER STAGING CLINICAL INFORMATION: Rectal cancer staging. COMPARISON: None PRIMARY TUMOR: MORPHOLOGY, LOCATION AND CHARACTERISTICS: Distance to the anal verge: 7.5 cm Distance to the top of sphincter complex/anorectal junction: 0 1 m Relationship to anterior peritoneal reflection: Below Craniocaudal length: 6.3 cm Tumor location: Mid(5-10cm) Lower(0-5cm) Morphology: Annular Mucinous composition: Mostly mucin MR-T category: T4b (tumor invades or adherent to adjacent organs or structures) *If T4b, structures with possible invasion: Invades the right levator ani musculature as seen on series 8, image 13. It extends well beyond the outer muscular layer along the anterior and left aspects of the lesion from the 11 o'clock to 3 o'clock positions. FOR LOW RECTAL TUMORS - Invasion of anal sphincter complex: Invades IS and extends into intersphincteric space (ISS) If present: upper anal canal Comments: This is best visualized on series 8, image 17 and series 5, image 24, along the right posterior. EMVI: Yes (indicate location, series and image number) this is best seen on series 8, image 13. TUMOR DEPOSITS: Yes (describe number and location): Series and image number: Series 8, image 7 and series 5, image 20. LYMPH NODES: Mesorectal/superior rectal lymph nodes and/or tumor deposits: 2- N+ (short axis >/=9mm) 2- N+ (short axis 5-9mm AND at least 2 morphologic criteria* Suspicious extra mesorectal lymph nodes: Yes (if yes, short axis diameter and pick from list below:) Left internal iliac, 11 mm, this is seen on series 3, image 9. Distant (M1): N/A IMPRESSION: Primary Tumor Location: Lower and mid rectum. Stage: T4b N2 (If node positive, provide location). Lymph nodes in the mesorectal, inferior rectal, and left internal iliac chains. Sphincter involvement: Yes (if yes provide location/laterality), right posterior, lateral. EMVI: Yes Images reviewed, interpreted, and dictated by Yesenia Mooney MD us Pat So MD IMG MRI ORDERABLES Final Resul t documented in this encounter Visit Diagnoses Diagnosis Rectal cancer (HCC)- Primary Malignant neoplasm of rectum Rectal cancer (HCC) Malignant neoplasm of rectum documented in this encounter Care Teams Commercial Reporter Relationship Specialty Start Date End Date Provider, Not In System [place] PCP - General 10/27/22 01/30/23 Vic Suazo MD [address] [place] [address] PCP - General Family Medicine 01/31/23 Esperanza Logan, ISABELLA Nurse Navigator Oncology 11/08/22 03/18/24 Vic Ashford MD [address] [facility] [address] [place] [address] Medical Oncologist Hematology and Oncology 11/08/22 02/05/23 Robert Floyd MD [address] [facility] [address] [place] [id number] Radiation Oncologist Radiation Oncology 11/08/2203/18 Samreen Atkinson, RADIOLOGY PRACTITIONER ASSISTANT [address] [facility] [address] [place], [place] [address] Advanced Registered Nurse Practitioner Radiation Oncology 11/08/22 03/18/24 Shannan Gramajo, RN Registered Nurse Oncology 11/08/22 02/05/23 Pat So MD [address] [place], [place] [address] Referring Physician Colon and Rectal Surgery 11/08/22 Minnie Wesley MD [address] [facility] [address] [place] [address] Medical Oncologist Hematology and Oncology 02/06/23 03/18/24 Naheed Singleton, RN Registered Nurse Oncology 03/14/23 03/18/24 Shannan Gramajo RN Registered Nurse Radiation Oncology 03/26/23 03/18/24 Virginia Merritt RN Nurse Navigator Oncology 03/27/23 03/27/23 documented as of this encounter
--- OUTSIDE RECORDS SUMMARY | 2024-10-22 12:50 | XMS_ITS ---
Author Organization [employer] Address [address] [place] [address] Care Team Providers Care Residential Appraiser Name Role Phone Pat So MD Unavailable [phone] Vic Suazo MD Primary Care Provider [phone] Active Problems Problem Noted Date Diagnosed Date Intra-abdominal infection 03/23/2023 Rectal cancer 03/13/2023 Acute radiation dermatitis 01/03/2023 Malignant neoplasm of rectum 11/08/2022 Cancer Staging:Clinical stage from 11/08/2022:Stage IIIC(cT4b, cN2, cM0) - Signed by Robert Floyd MD on 11/08/2022 Current Oncology Plans No current plan information found. Past Plans ONCOLOGY TREATMENT Plan Name Start Date Discontinue Date Treatment Medications Discontinue Reason Plan Provider Cycles [facility] GI - mFOLFOX 6 (oxaliplat in + fluorourac il) every 14 days 05/09/2023 01/10/2024 dexamethasone (DECADRON) IVPBdextrose 5 % (D5W)fluorouraciL (ADRUCIL)leucovorin (WELLCOVORIN) infusionoxaliplatin (ELOXATIN) chemo infusionpalonosetron (ALOXI)palonosetron (ALOXI) 0.25 mg/5 mLsodium chloride 0.9 % (NS)ZZ EXTEMPORANEOUS TEMPLATE Change in Level of Care Minnie Wesley MD 2 of 12 cycles started Oncology Oral Chemotherapy Plan Plan Name Start Date Discontinue Date Treatment Medications Discontinue Reason Plan Provider Cycles [facility] Rectal neoadjuvant - Capecitabine (Xeloda) 825 mg/m2 with concurrent XRT 3 04/06/2023 ZZ IMS TEMPLATE Therapy Complete Vic Ashford MD Treatment not started VAD Line Care Plan Name Start Date Discontinue Date Treatment Medications Discontinue Reason Plan Provider [facility] LINE CARE - USE WITH INFUSIONS 05/09/2023 05/01/2024 alteplase (CATHFLO) 2 mg in SW 2 mL syringe Therapy Complete Minnie Wesley MD Radiation Treatments * No radiation treatments are documented for this patient in [facility]. Treatments may have been administered in another system. Lifetime Dose Tracking * Chemical Lifetime Dose Automatic Entry Manual Entr y Radiation 8 mGy 8 mGy 0 mGy
[2024-10-22] MEDS: SODIUM CHLORIDE 0.9% 10ML FLUSH SYRINGE 10 ML IV (12:55)
== END 2024-10-22 13:10 | disposition home or self-care (01) ==
LOC: INF 12:46
PROVIDERS: PCP Nurse Practitioner Family; Visit Provider Internal Medicine Medical Oncology
DX: Z45.2 Encounter for adjustment and management of vascular access device (principal)
CPT/HCPCS: 96523; J1642

== ENCOUNTER 2024-11-20 15:09 | Outpatient (CLI) | payer OTHER, SELFPAY ==
[2024-11-20] MEDS: SODIUM CHLORIDE 0.9% 10ML FLUSH SYRINGE 10 ML IV (15:15)
--- OUTSIDE RECORDS SUMMARY | 2024-11-20 15:38 | XMS_ITS | Clinical Summary ---
Author Organization [facility] Address [address] [place] [address] [address] [place] [address] Phone Care Team Providers Care Toggle Press Operator Name Role Phone Status, Fax Unavailable Conditions or Problems Problem Name Problem Code Onset Date Status Entry Date Provider Comment Standard Description Annotate COVID-19 coronavirus acute bronchitis 424933626 (SNOMED CT) 09/10 Active 09/10 Avelino Prerin MD COVID-19 Fever (pyrexia) 282423479 (SNOMED CT) 09/02 Active 09/02 Yanci Barrera RN Fever Nicotine dependence 00609502 (SNOMED CT) 06/28 Active 06/28 Malika Davis Nicotine dependence Renal failure, acute 85957528 (SNOMED CT) 06/12 Active 06/12 Avelino Perrin MD Acute kidney injury Candidiasis infection B37.89 (ICD-10-CM) 06/02 Active 06/02 Najma Araujo Other sites of candidiasis Personal history of antineoplastic chemotherapy 800843244 (SNOMED CT) 06/02 Active 06/02 Najma Araujo H/O: chemotherapy Infection following a procedure, organ and space surgical site, subsequent encounter(s) T81.43xD (ICD-10-CM) 06/02 Active 06/02 Najma Araujo Infection following a procedure, organ and space surgical site, subsequent encounter Abscess, intra-abdominal K65.1 (ICD-10-CM) 06/02 Active 06/02 Najma Araujo Peritoneal abscess Primary malignant neoplasm of rectum 17130639 (SNOMED CT) 06/02 Active 06/02 Najma Araujo Primary malignant neoplasm of rectum Medications Medication Instructions Start Date Stop Date Generic Name NDC Provider DIAZEPAM 5 MG TABS Q6HPRN diazepam 70517884768 Esthela López OXYCODONE HCL 5 MG CAPS Q4HPRN oxycodone 21037128318 Esthela López OMEPRAZOLE 20 MG CPDR by mouth once a day omeprazole 52852683079 Esthela López SULFAMETHOXAZOLE -TRIMETHOPRIM 800-160 MG TABS Take 1 tablet by mouth once a day sulfamethoxazole -trimethoprim 57311030294 Yanci Barrera RN SULFAMETHOXAZOLE -TRIMETHOPRIM 800-160 MG TABS Take 1 tablet by mouth twice a day sulfamethoxazole -trimethoprim 35034364701 Avelino Perrin MD SULFAMETHOXAZOLE -TRIMETHOPRIM 800-160 MG TABS sulfamethoxazole -trimethoprim 48165306374 Avelino Perrin MD SULFAMETHOXAZOLE -TRIMETHOPRIM 800-160 MG TABS Take 1 tablet by mouth once a day sulfamethoxazole -trimethoprim 78356529392 Avelino Perrin MD PAXLOVID (300/100) 20 x 150 MG & 10 x 100MG TBPK 1 dose pack by mouth as directed nirmatrelvir-rit onavir 72325826669 Avelino Perrin MD FLUCONAZOLE 200 MG TABS fluconazole 88435806158 Yanci Barrera RN SULFAMETHOXAZOLE -TRIMETHOPRIM 800-160 MG TABS sulfamethoxazole -trimethoprim 26773710176 Yanci Barrera RN daptomycin recon soln 500mg Q 24hrs - 07/30 [facility] [phone] daptomycin recon soln Yanci Barrera RN ertapenem recon soln 1gm Q 24hrs - 07/30 [facility] ertapenem recon soln Yanci Barrera RN SULFAMETHOXAZOLE -TRIMETHOPRIM 800-160 MG TABS Take 1 tablet by mouth twice a day sulfamethoxazole -trimethoprim 55657308951 Avelino Perrin MD FLUCONAZOLE 200 MG TABS Take 1 tablet by mouth once a day fluconazole 13038428559 Avelino Perrin MD SULFAMETHOXAZOLE -TRIMETHOPRIM 800-160 MG TABS Take 1 tablet by mouth twice a day sulfamethoxazole -trimethoprim 05215083530 Avelino Perrin MD daptomycin recon soln 500mg Q 24hrs - 07/30 [facility] [phone] daptomycin recon soln [facility] ertapenem recon soln 1gm Q 24hrs - 07/30 [facility] ertapenem recon soln [facility] FLUCONAZOLE 200 MG TABS 1 tablet by mouth once a day fluconazole 21190364975 Avelino Perrin MD FLUCONAZOLE 200 MG TABS Take 1 tablet by mouth once a day fluconazole 57204103701 Avelino Perrin MD METRONIDAZOLE 500 MG TABS Take 1 tablet by mouth twice a day metronidazole 27884904286 Avelino Perirn MD LEVOFLOXACIN 750 MG TABS Take 1 tablet by mouth once a day levofloxacin 99969497449 Avelino Perrin MD PROMETHAZINE HCL 25 MG TABS Take 1/2 tablet by mouth once a day as needed nausea promethazine 39448974039 Avelino Perrin MD LEVOFLOXACIN 750 MG TABS Take 1 tablet by mouth once a day levofloxacin 59846305159 Avelino Perrin MD METRONIDAZOLE 500 MG TABS Take 1 tablet by mouth twice a day metronidazole 89110886514 Avelino Perrin MD OMEPRAZOLE 20 MG CPDR by mouth once a day omeprazole 99228695807 Kera Minor VASCULERA TABS once a day diosmin complex no.1 20383286037 Kera Minor TAMSULOSIN HCL 0.4 MG CAPS 1 capsule by mouth once a day tamsulosin 36419861460 Kera Tate NYSTATIN 607649 UNIT/ML SUSP Take 10 mLs (1,000,000 Units total) by mouth 2 (two) times daily Swish and Swallow nystatin 47072306037 Kera Tate ertapenem recon soln 1gm Q 24hrs - 06/12 [facility] ()[phone] ertapenem recon soln [facility] FLUCONAZOLE 100 MG TABS Take 1 tablet by mouth once a day fluconazole 14438163076 hRona Amaya FLUCONAZOLE 200 MG TABS 1 tablet by mouth once a day fluconazole 21608423197 Avelino Perrin MD AMOXICILLIN-POT CLAVULANATE 875-125 MG TABS Take 1 tablet by mouth twice a day amoxicillin-pot clavulanate 26309306868 Avelino Perrin MD FLUCONAZOLE 200 MG TABS Take 1 tablet by mouth once a day fluconazole 17127547226 Avelino Perrin MD FLUCONAZOLE 100 MG TABS Take 1 tablet by mouth once a day fluconazole 96275982092 Avelino Perrin MD ertapenem recon soln 1gm Q 24hrs - 06/12 [facility] ()[phone] [facility] 200 MG TABS Take 1 tablet by mouth once a day fluconazole 43665075919 Avelino Perrin MD TAMSULOSIN HCL 0.4 MG CAPS Take 1 capsule by mouth once a day tamsulosin 80592149071 Avelino Perrin MD AMOXICILLIN-POT CLAVULANATE 875-125 MG TABS Take 1 tablet by mouth twice a day amoxicillin-pot clavulanate 47448527392 Avelino Perrin MD TAMSULOSIN HCL 0.4 MG CAPS 1 capsule by mouth once a day tamsulosin 04406913639 Avelino Perrin MD GABAPENTIN 100 MG CAPS Take 1 capsule by mouth once a day gabapentin 43041480305 Avelino Perrin MD TAMSULOSIN HCL 0.4 MG CAPS Take 1 capsule by mouth once a day tamsulosin 19453856329 Pat Newell RN AMOXICILLIN-POT CLAVULANATE 875-125 MG TABS Take 1 tablet by mouth twice a day amoxicillin-pot clavulanate 74623012197 Avelino Perrin MD FLUCONAZOLE 200 MG TABS Take 1 tablet by mouth once a day fluconazole 36760707035 Avelino Perrin MD ZOSYN 2-0.25 GM/50ML SOLN Zosyn 13.5G IV q24hrs continuous-AMer imed/ [facility] dose, line care, labs piperacillin-jose ramon obactam-dextrs 97786800182 Pat Newell RN ZOSYN 2-0.25 GM/50ML SOLN Zosyn 13.5G IV q24hrs continuous-AMer imed/ [facility] dose, line care, labs piperacillin-jose ramon obactam-dextrs 02275207232 Nicole Kaiser RN FLUCONAZOLE 200 MG TABS Take 2 tablet by mouth once a day fluconazole 86786694900 Avelino Perrin MD AMOXICILLIN-POT CLAVULANATE 875-125 MG TABS Take 1 tablet by mouth twice a day amoxicillin-pot clavulanate 28575306742 Avelino Perrin MD FLUCONAZOLE 200 MG TABS Take 1 tablet by mouth once a day fluconazole 49830264002 Avelino Perrni MD VASCULERA TABS once a day diosmin complex no.1 59197636583 Amber Ta GABAPENTIN 100 MG CAPS Take 2 capsules (200 mg total) by mouth nightly for 10 days. Max Daily Amount: 200 mg gabapentin 02594638075 Avelino Perrin MD FLUCONAZOLE 200 MG TABS Take 1 tablet (200 mg total) by mouth daily for 14 days. fluconazole 43498707316 Avelino Perrin MD FLUCONAZOLE 200 MG TABS Take 2 tablet by mouth once a day fluconazole 61792265690 Avelino Perrin MD GABAPENTIN 100 MG CAPS Take 2 capsule by mouth every night gabapentin 18487669532 Avelino Perrin MD magnesium gluconate 30 mg (550 mg) tablet Take 1 tablet by mouth once a day magnesium gluconate 95370321527 Avelino Perrin MD DIAZEPAM 5 MG TABS Q6HPRN diazepam 00580420667 Stephani Calina OXYCODONE HCL 5 MG CAPS Q4HPRN oxycodone 18520731931 Stephani Calina ZOSYN 2-0.25 GM/50ML SOLN Zosyn 13.5G IV q24hrs continuous-AMER [employer] piperacillin-jose ramon obactam-dextrs 72817609320 Yanci Barrera RN TAMSULOSIN HCL 0.4 MG CAPS Take 1 capsule (0.4 mg total) by mouth daily. tamsulosin 53252255748 QIE qieuser OXYCODONE HCL 5 MG TABS Take 1-2 tablets (5-10 mg total) by mouth every 6 (six) hours as needed for Pain for up to 7 days. Max Daily Amount: 40 mg oxycodone 27655736907 QIE qieuser NYSTATIN 977009 UNIT/ML SUSP Take 10 mLs (1,000,000 Units total) by mouth 2 (two) times daily Swish and Swallow nystatin 68296771660 QIE qieuser METHOCARBAMOL 500 MG TABS Take 1 tablet (500 mg total) by mouth 4 (four) times daily as needed for up to 10 days. METHOCARBAMOL QIE qieuser KETOROLAC TROMETHAMINE 10 MG TABS Take 1 tablet (10 mg total) by mouth every 6 (six) hours as needed for up to 5 days. ketorolac 20891066576 QIE qieuser GABAPENTIN 100 MG CAPS Take 2 capsules (200 mg total) by mouth nightly for 10 days. Max Daily Amount: 200 mg gabapentin 43955025040 QIE qieuser FLUCONAZOLE 200 MG TABS Take 1 tablet (200 mg total) by mouth daily for 14 days. fluconazole 08880589685 QIE qieuser DIAZEPAM 5 MG TABS Take 1 tablet (5 mg total) by mouth every 6 (six) hours as needed (Spasms) for up to 7 days. Max Daily Amount: 20 mg diazepam 02389013699 QIE qieuser Medications Administered No information available. [...] Other: Patient lexy albarran update - [facility] ... TONI reddy l be used to establish a PIN number for patients to register in the Patient Portal. External Other: Patient lexy albarran update - Email [facility] ... PAT E-MAIL [email or web address] patient's e-mail address Office Visit: Office Visit: [...] Procedures Code Procedure Name Date Entry Date CPT-16666 CMP [id number] CBC with Differential 2023 CPT-69488 C- reactive protein CPT-77072 Sedimentation Rate (ESR) 202 08/09/06 CPT-LAB Other CPT-Cooral Continue oral antibiotics 20 28/08/08 CPT-65312 CMP [id number] CBC with Differential 2023 CPT-66393 C- reactive protein CPT-76219 Sedimentation Rate (ESR) 202 08/08/08 CPT-jahaira New Oral Antibiotic CPT-54396 CMP [id number] CBC with Differential 2023 CPT-56271 C- reactive protein CPT-22708 Sedimentation Rate (ESR) 202 08/07/25 CPT-rashmi New IV antibiotic CPT-61690 CMP [id number],[id number] CBC with Differential 2023 CPT-20900 C- reactive protein X006016, [id number] CPK CPT-57142 Sedimentation Rate (ESR) 202 08/08/11 CPT-77371 CMP [id number],[id number] CBC with Differential 2023 CPT-15000 C- reactive protein [id number], [id number] CPK CPT-86460 Sedimentation Rate (ESR) 202 08/08/11 CPT-Cooral Continue oral antibiotics 30/06/26 CPT-04112 CMP [id number] CBC with Differential 2023 CPT-69254 C- reactive protein CPT-92570 Sedimentation Rate (ESR) 202 08/06/26 CPT-57660 CMP F1695m,[id number] CBC with Differential 2023 CPT-61189 C- reactive protein CPT-09946 Sedimentation Rate (ESR) 202 08/06/26 CPT-jahaira New Oral Antibiotic CPT-15906 CMP [id number],[id number] CBC with Differential 2023 CPT-71303 C- reactive protein CPT-99768 Sedimentation Rate (ESR) 202 08/07/19 CPT-68562 MRI Sacrum w/o contrast 2023 CPT-Cooral Continue oral antibiotics 30/06/05 CPT-46550 CMP [id number] CBC with Differential 2023 CPT-92041 C- reactive protein CPT-53019 Sedimentation Rate (ESR) 202 08/06/05 CPT-07867 CT scan ABD/Pelvis with contrast CPT-ca Continue IV antibiotics 2023 CPT-Cooral Continue oral antibiotics 30/05/29 CPT-wclc Weekly Central Line Care 08/06/23 CPT-rashmi New IV antibiotic CPT-rashmi New IV antibiotic CPT-rashmi New IV antibiotic CPT-cwl Weekly Labs (Continue) 05/30 CPT-Cooral Continue oral antibiotics 30/05/15 CPT-04588 CMP [id number] CBC with Differential 2023 CPT-35538 C- reactive protein CPT-12140 Sedimentation Rate (ESR) 202 08/06/15 CPT-labs Labs CPT-75085 CMP CPT-16219 Sedimentation Rate (ESR) 202 08/05/14 CPT-52683 C- reactive protein [id number] CBC with Differential 2023 CPT-89141 BMP [id number] CBC with Differential 2022 CPT-65764 C- reactive protein CPT-Cooral Continue oral antibiotics 20 28/04/26 CPT-33906 CMP [id number],[id number] CBC with Differential 2022 CPT-25003 C- reactive protein CPT-28071 Sedimentation Rate (ESR) 202 07/16/25 CPT-26389 CMP [id number] CBC with Differential 2022 CPT-39388 C- reactive protein CPT-85282 Sedimentation Rate (ESR) 202 07/16/25 CPT-PICREM PICC Removal CPT-ca Continue IV antibiotics 2022 CPT-Cooral Continue oral antibiotics 20 28/04/12 CPT-37084 CMP [id number] CBC with Differential 2022 CPT-55269 C- reactive protein CPT-81898 Sedimentation Rate (ESR) 202 07/17/11 CPT-ca Continue IV antibiotics 2022 CPT-20430 [facility] CPT-PICREM PICC Removal CPT-ca Continue IV [...]
--- OUTSIDE RECORDS SUMMARY | 2024-11-20 15:39 | XMS_ITS | Encounter Summary ---
Author Organization [employer] ([place], [place], [place], [place]) Address [address] [place] [address] Care Team Providers Care Supervisor Costuming Name Role Phone Esperanza Logan RN Unavailable Unavailable Robert Floyd MD Unavailable [phone] Samreen Atkinson APRN Unavailable [phone] Pat So MD Unavailable [phone] Vic Suazo MD Primary Care Provider [phone] Minnie Wesley MD Unavailable [phone] Naheed Singleton RN Unavailable Unavailable Shannan Olivas RN Unavailable Unavailable Encounter Details Date Type Department Care Team (Late st Contact Info) Description 04/16/2023 Outside Orders [facility] Central Scheduling [address] [place] [address] Pat So MD [address] [facility] [address] [place] [id number] Post-op pain (Primary Dx) Social History Tobacco Use Types Packs/Day Years Used Date Smoking Tobacco: Every Day Cigarettes 1 23.5 Started: 2001 Passive Smoke Exposure: Past Smokeless Tobacco: Former Snuff Quit: 2021 Comments:1/2 can of dip per year Alcohol Use Standard Drinks/Week Comments Yes 28 (1 standard drink = 0.6 oz pu re alcohol) 3 drinks a day Social Connection and Isolation Panel [NHANES] A nswer Date Recorded In a typical week, how many times do you talk on the phone with family, friends, or neighbors? Three times a week 03/23/20 How often do you get togethe r with friends or relatives? Three times a week 03/23/2023 How often do you attend chur ch or congregational services? Never 03/23/2023 Do you belong to any clubs o r organizations such as buddhism groups, unions, fraternal or athletic groups, or school groups? No 03/23/2023 How often do you attend meet ings of the clubs or organizations you belong to? Never 03/23/2023 Are you , , di vorced, , never , or living with a partner? Living with partner 03/23/2023 Overall Financial Resource Strain (CARDIA) Answe r Date Recorded How hard is it for you to pa y for the very basics like food, housing, medical care, and heating? Not hard at all 03/23/2023 Exercise Vital Sign Answer [...] things needed for daily living? No 03/23/2023 Food Insecurity Answer Date Recorded Food run [...] Date Harvey rded Speak language other than Luxembourger at home Not on file 05/15/2023 Want help with school or training Not on file 05/15/2023 Substance Use Answer Date Recorded Used prescription meds for non-medical reasons N ot on file 05/15/2023 Used illegal drugs past 12 months Not on file 05/15/2023 Sex and Gender Information Value Date Recorded Sex Assigned at Male 03/23/2023 5:42 PM PAPER HANGER Legal Sex Male 2:23 PM CDT Gender Identity Male 03/23/2023 5:42 PM PAPER HANGER Sexual Orientation Straight 03/23/2023 5: 42 PM PAPER HANGER 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 Not on file Not o n file documented as of this encounter Plan of Treatment Not on file documented as of this encounter Visit Diagnoses Diagnosis Post-op pain- Primary Other acute postoperative pain documented in this encounter Care Teams Supervisor Costuming Relationship Specialty Start Date End Date Vic Suazo MD [address] [place], [place] [id number] PCP - General Family Medicine 01/31/23 Esperanza Logan, ISABELLA Nurse Navigator Oncology 11/08/22 03/18/24 Robert Floyd MD [address] [facility] [address] [place] [address] Radiation Oncologist Radiation Oncology 11/08/2203/18 Samreen Atkinson, MANAGER FINE [address] [place], [place] [id number] Advanced Registered Nurse Practitioner Radiation Oncology 11/08/22 03/18/24 Pat So MD [address] [facility] [address] [place] [address] Referring Physician Colon and Rectal Surgery 11/08/22 Minnie Wesley MD [address] [address] Medical Oncologist Hematology and Oncology 02/06/23 03/18/24 Naheed Singleton, RN Registered Nurse Oncology 03/14/23 03/18/24 Shannan Olivas RN Registered Nurse Radiation Oncology 03/26/23 03/18/24 documented as of this encounter
--- OUTSIDE RECORDS SUMMARY | 2024-11-20 15:39 | XMS_ITS | Clinical Summary ---
Author Organization [employer] ([place], [place], [place], [place]) Address [address] [place] [address] Care Team Providers Care Bicycle Mechanic Name Role Phone Pat So MD Unavailable [phone] Vic Suazo MD Primary Care Provider [phone] Allergies No known active allergies Medications tamsulosin [...] often do you attend chur ch or hinduism services? Never 03/23/2023 Do you belong to any clubs o r organizations such as baptist groups, unions, fraternal or athletic groups, or [...] Date Harvey rded Speak language other than Trinidadian at home Not on file 05/15/2023 Want help with school or training Not on file 05/15/2023 Substance Use Answer Date Recorded Used prescription meds for non-medical reasons N ot on file 05/15/2023 Used illegal drugs past 12 months Not on file 05/15/2023 Sex and Gender Information Value Date Recorded Sex Assigned at Male 03/23/2023 5:42 PM FIRST ASSIST Legal Sex Male 2:23 PM CDT Gender Identity Male 03/23/2023 5:42 PM FIRST ASSIST Sexual Orientation Straight 03/23/2023 5: 42 PM FIRST ASSIST Occupation Industry Job Start Date Job End [...] and Screening (12+) 05/09/2024 05/09/2023 Influenza Vaccine (#1) 2025 DTAP/TDAP/TD VACCINES (2 - Td or Tdap) 04/25/2033 Pneumococcal Vaccine: 0-49 Years Completed 04/25/20 23 Insurance [id number] (Home) [address] [id number] [facility] MEDICAID PEND Advance Directives For more information, please contact: [phone] * Full Code (Latest Code Status on File) Date Activated Date Inactivated Comments 03/23/2023 4:38 PM 2023 3:41 PM * Full Code Date Activated Date Inactivated Comments 03/13/2023 1:55 PM 03/16/2023 4:31 PM Care Teams Bicycle Mechanic Relationship Specialty Start Date End Date Vic Suazo MD [address] [place] [address] PCP - General Family Medicine 01/31/23 Pat So MD [address] [facility] [address] [place], [place] [address] Referring Physician Colon and Rectal Surgery 11/08/22
--- OUTSIDE RECORDS SUMMARY | 2024-11-20 15:39 | XMS_ITS | Encounter Summary ---
Author Organization [employer] ([place], [place], [place], [place]) Address [address] [place] [address] Care Team Providers Care Bartenders Name Role Phone Esperanza Logan RN Unavailable Unavailable Robert Floyd MD Unavailable [phone] Samreen Atkinson APRN Unavailable [phone] Pat So MD Unavailable [phone] Vic Suazo MD Primary Care Provider [phone] Minnie Wesley MD Unavailable [phone] Naheed Singleton RN Unavailable Unavailable Shannan Olivas RN Unavailable Unavailable Encounter Details Date Type Department Care Team (Late st Contact Info) Description 04/16/2023 Outside Orders [facility] Central Scheduling [address] [place] [address] Pat So MD [address] [facility] [address] [place] [id number] Social History Tobacco Use Types Packs/Day Years [...] friends, or neighbors? Three times a week 11/17/20 23 How often do you get togethe r with friends or relatives? Three times a week 03/23/2023 How often do you attend chur ch or gnosticism services? Never 03/23/2023 Do you belong to [...] things needed for daily living? 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 on file Not o n file documented as of this encounter Plan of Treatment Not on file documented as of this encounter Visit Diagnoses Not on filedocumented in this encounter Care Teams Bartenders Relationship Specialty Start Date End Date Vic Suazo MD [address] [place], [place] [phone] PCP - General Family Medicine 01/31/23 Esperanza Logan, ISABELLA Nurse Navigator Oncology 11/08/22 03/18/24 [place] [address] [place] [address] [address] [place] [address] Radiation Oncologist Radiation Oncology 11/08/2203/18 Samreen Atkinson APRN [address] [email or web address] [address] [place] [address] Advanced Registered Nurse Practitioner Radiation Oncology 11/08/22 03/18/24 Pat So MD [address] [facility] [address] [place] [address] Referring Physician Colon and Rectal Surgery 11/08/22 Minnie Wesley MD [address] [facility] [address] [place], [place] [address] Medical Oncologist Hematology and Oncology 02/06/23 03/18/24 Naheed Singleton, ISABELLA Registered Nurse Oncology 03/14/23 03/18/24 Shannan Olivas RN Registered Nurse Radiation Oncology 03/26/23 03/18/24 documented as of this encounter
--- OUTSIDE RECORDS SUMMARY | 2024-11-20 15:39 | XMS_ITS | Referral Summary ---
Author Organization [employer] ([place], [place], [place], [place]) Address [address] [place] [address] Care Team Providers Care Metallurgist Helper Name Role Phone Pat So MD Unavailable [phone] Vic Suazo MD Primary Care Provider [phone] Allergies No known active allergies Medications tamsulosin [...] IIIC(cT4b, cN2, cM0) - Signed by Robert lFoyd MD on 11/08/2022 Immunizations Name Administration Dates [...] often do you attend chur ch or rastafari services? Never 03/23/2023 Do you belong to any clubs o r organizations such as islam groups, unions, fraternal or athletic groups, or [...] Date Harvey rded Speak language other than Taiwanese at home Not on file 05/15/2023 Want help with school or training Not on file 05/15/2023 Substance Use Answer Date Recorded Used prescription meds for non-medical reasons N ot on file 05/15/2023 Used illegal drugs past 12 months Not on file 05/15/2023 Sex and Gender Information Value Date Recorded Sex Assigned at Male 03/23/2023 5:42 PM VALIDATION ARCHITECT Legal Sex Male 2:23 PM CDT Gender Identity Male 03/23/2023 5:42 PM VALIDATION ARCHITECT Sexual Orientation Straight 03/23/2023 5: 42 PM VALIDATION ARCHITECT Occupation Industry Job Start Date Job End [...] Plan of Treatment Not on file Insurance [id number] (Home) [address] [place] [address] [place] MEDICAID PEND Advance Directives For more information, please contact: [phone] * Full Code (Latest Code Status on File) Date Activated Date Inactivated Comments 03/23/2023 4:38 PM 2023 3:41 PM * Full Code Date Activated Date Inactivated Comments 03/13/2023 1:55 PM 03/16/2023 4:31 PM Care Teams Metallurgist Helper Relationship Specialty Start Date End Date Vic Suazo MD [address] [place] [address] [place] [address] PCP - General Family Medicine 01/31/23 Pat So MD [address] [facility] [address] [place] [address] Referring Physician Colon and Rectal Surgery 11/08/22
--- OUTSIDE RECORDS SUMMARY | 2024-11-20 15:39 | XMS_ITS ---
Author Organization [employer] ([place], [place], [place], [place]) Address [address] [place] [address] Care Team Providers Care Electronic Console Display Operator Name Role Phone Pat So MD Unavailable [phone] Vic Suazo MD Primary Care Provider [phone] Active Problems Problem Noted Date Diagnosed Date Intra-abdominal infection 03/23/2023 Rectal cancer 03/13/2023 Acute radiation dermatitis 01/03/2023 Malignant neoplasm of rectum 11/08/2022 Cancer Staging:Clinical stage from 11/08/2022:Stage IIIC(cT4b, cN2, cM0) - Signed by Robert Floyd MD on 11/08/2022 Current Oncology Plans No current plan information found. Past Plans ONCOLOGY TREATMENT Plan Name Start Date Discontinue Date Treatment Medications Discontinue Reason Plan Provider [facility] GI - mFOLFOX 6 (oxaliplat in + [...] Treatment Medications Discontinue Reason Plan Provider [facility] Rectal neoadjuvant - Capecitabine (Xeloda) 825 mg/m2 with concurrent XRT 3 04/06/2023 ZZ IMS TEMPLATE Therapy Complete Vic Ashford MD Treatment not started VAD Line Care Plan Name Start Date Discontinue Date Treatment Medications Discontinue Reason Plan Provider [facility] LINE CARE - USE WITH INFUSIONS 05/09/2023 05/01/2024 alteplase (CATHFLO) 2 mg in SW 2 mL syringe Therapy Complete Minnie Wesley MD Radiation Treatments * No radiation treatments are documented for this patient in [facility]. Treatments may have been administered in another system. Lifetime Dose Tracking * Chemical Lifetime Dose Automatic Entry Manual Entr y Radiation 8 mGy 8 mGy 0 mGy
--- OUTSIDE RECORDS SUMMARY | 2024-11-20 15:39 | XMS_ITS | Encounter Summary ---
Author Organization [employer] ([place], [place], [place], [place]) Address [address] [place] [address] Care Team Providers Care Chain Link Fence Installer Name Role Phone Esperanza Logan RN Unavailable Unavailable Robert Floyd MD Unavailable [phone] Samreen Atkinson APRN Unavailable [phone] Pat So MD Unavailable [phone] Vic Suazo MD Primary Care Provider [phone] Minnie Wesley MD Unavailable [phone] Naheed Singleton RN Unavailable Unavailable Shannan Olivas RN Unavailable Unavailable Reason for Referral * CAT Scan (Routine) - Closed Specialty Diagnoses / Procedures Referred By Contac t Referred To Contact Radiology Diagnoses Rectal cancer (HCC) Procedures CT ABDOMEN/PELVIS WITH IV CONTRAST Standard Protocol Pat So MD [address] [place] [address] [address] [place] [address] Phone: tel: fax: Referral ID Status Reason Start Date Expiration Date Visits Re quested Visits Authorized [id number] Closed 04/02/2023 09/29/2023 1 1 Encounter Details Date Type Department Care Team (Late st Contact Info) Description 04/02/2023 Outside Orders [facility] Central Scheduling [address] [place] [address] Pat So MD [address] [place] [address] Rectal cancer (HCC) (Primary Dx) Social History [...] often do you attend chur ch or jain services? Never 03/23/2023 Do you belong to any clubs o r organizations such as lutheran groups, unions, fraternal or athletic groups, or [...] Date Harvey rded Speak language other than Bolivian at home Not on file 05/15/2023 Want help with school or training Not on file 05/15/2023 Substance Use Answer Date Recorded Used prescription meds for non-medical reasons N ot on file 05/15/2023 Used illegal drugs past 12 months Not on file 05/15/2023 Sex and Gender Information Value Date Recorded Sex Assigned at Male 03/23/2023 5:42 PM COMMANDING OFFICER [employer] Legal Sex Male 2:23 PM CDT Gender Identity Male 03/23/2023 5:42 PM COMMANDING OFFICER [employer] Sexual Orientation Straight 03/23/2023 5: 42 PM COMMANDING OFFICER [employer] Occupation Industry Job Start Date Job End [...] rectum documented in this encounter Care Teams Chain Link Fence Installer Relationship Specialty Start Date End Date Vic Suazo MD [address] [place] [address] PCP - General Family Medicine 01/31/23 Esperanza Logan, RN Nurse Navigator Oncology 11/08/22 03/18/24 Robert Floyd MD [address] [facility] [address] [facility] [address] [place] [address] Radiation Oncologist Radiation Oncology 11/08/2203/18 Samreen Atkinson APRN [address] [facility] [address] [place] [address] Advanced Registered Nurse Practitioner Radiation Oncology 11/08/22 03/18/24 Pat So MD [address] [facility] [address] [place], [place] [id number] Referring Physician Colon and Rectal Surgery 11/08/22 Minnie Wesley MD [address] [facility] [address] [place], [place] [id number] Medical Oncologist Hematology and Oncology 02/06/23 03/18/24 Naheed Singleton, ISABELLA Registered Nurse Oncology 03/14/23 03/18/24 Shannan Olivas RN Registered Nurse Radiation Oncology 03/26/23 03/18/24 documented as of this encounter
--- OUTSIDE RECORDS SUMMARY | 2024-11-20 15:39 | XMS_ITS | Encounter Summary ---
Author Organization [employer] ([place], [place], [place], [place]) Address [address] [place] [address] Care Team Providers Care Nurse Educator Name Role Phone Provider, Not In System Primary Care Provider Un available Esperanza Logan RN Unavailable Unavailable Vic Ashford MD Unavailable Robert Floyd MD Unavailable [phone] Samreen Atkinson APRN Unavailable [phone] Shannan Olivas RN Unavailable Unavailable Pat So MD Unavailable [phone] Vic Suazo MD Primary Care Provider [phone] Minnie Wesley MD Unavailable [phone] Naheed Singleton RN Unavailable Unavailable Shannan Olivas RN Unavailable Unavailable Virginia Merritt RN Unavailable Unavailable Reason for Referral * MRI (Routine) - Closed Specialty Diagnoses / Procedures Referred By Vilma t Referred To Contact Radiology Diagnoses Rectal cancer (HCC) Procedures MR pelvis without IV contrast Pat So MD [address] [place] [address] Phone: tel: fax: Referral ID Status Reason Start Date Expiration Date Visits Re quested Visits Authorized [id number] Closed 10/26/2022 04/24/2023 1 1 Encounter Details Date Type Department Care Team (Late st Contact Info) Description 10/26/2022 Outside Orders [facility] Central Scheduling 1 [place] [address] Pat So MD [address] [facility] [address] [place] [address] Rectal cancer (HCC) (Primary Dx) Social History Tobacco Use Types Packs/Day Years Used Date Smoking Tobacco: Never Assessed Social Connection and Isolation Panel [NHANES] A nswer Date Recorded In a typical week, how many times do you talk on the phone with family, friends, or neighbors? Three times a week 03/23/20 How often do you get togethe r with friends or relatives? Three times a week 03/23/2023 How often do you attend chur ch or anabaptist services? Never 03/23/2023 Do you belong to any clubs o r organizations such as religion groups, unions, fraternal or athletic groups, or [...] Date Harvey rded Speak language other than Malawian at home Not on file 05/15/2023 Want help with school or training Not on file 05/15/2023 Substance Use Answer Date Recorded Used prescription meds for non-medical reasons N ot on file 05/15/2023 Used illegal drugs past 12 months Not on file 05/15/2023 Sex and Gender Information Value Date Recorded Sex Assigned at Male 03/23/2023 5:42 PM LIBRARY [employer] Legal Sex Male 2:23 PM CDT Gender Identity Male 03/23/2023 5:42 PM [employer] Sexual Orientation Straight 03/23/2023 5: 42 PM [employer] COVID-19 Exposure Response Date Recorded In the last 10 days, have yo u been in contact with someone who was confirmed or suspected to have Coronavirus/COVID-19? No / Unsure 03/13/2023 5:14 AM EST documented as of this encounter Functional Status documented as of this encounter Plan of [...] rectum documented in this encounter Care Teams Nurse Educator Relationship Specialty Start Date End Date Provider, Not In System [place] PCP - General 10/27/22 01/30/23 Vic Suazo MD [address] [place] [address] PCP - General Family Medicine 01/31/23 Esperanza Logan, RN Nurse Navigator Oncology 11/08/22 03/18/24 Vic Ashford MD [address] [facility] [address] [place] [address] Medical Oncologist Hematology and Oncology 11/08/22 02/05/23 Robert Floyd MD [address] [facility] [address] [place] [address] Radiation Oncologist Radiation Oncology 11/08/2203/18 Samreen Atkinson, THERAPEUTIC DIETITIAN [address] [place], [place] [id number] Advanced Registered Nurse Practitioner Radiation Oncology 11/08/22 03/18/24 Shannan Olivas, RN Registered Nurse Oncology 11/08/22 02/05/23 Pat So MD [address] [place], [place] [id number] Referring Physician Colon and Rectal Surgery 11/08/22 Minnie Wesley MD [address] [facility] [address] [place], [place] [id number] Medical Oncologist Hematology and Oncology 02/06/23 03/18/24 Naheed Singleton, ISABELLA Registered Nurse Oncology 03/14/23 03/18/24 Shannan Olivas RN Registered Nurse Radiation Oncology 03/26/23 03/18/24 Virginia Merritt RN Nurse Navigator Oncology 03/27/23 03/27/23 documented as of this encounter
--- OUTSIDE RECORDS SUMMARY | 2024-11-20 15:39 | XMS_ITS | Encounter Summary ---
Author Organization [employer] ([place], [place], [place], [place]) Address [address] [place] [address] Care Team Providers Care Edge Beader Name Role Phone Esperanza Logan RN Unavailable Unavailable Robert Floyd MD Unavailable [phone] Samreen Atkinson APRN Unavailable [phone] Pat So MD Unavailable [phone] Vic Suazo MD Primary Care Provider [phone] Minnie Wesley MD Unavailable [phone] Naheed Singleton RN Unavailable Unavailable Shannan Olivas RN Unavailable Unavailable Encounter Details Date Type Department Care Team (Late st Contact Info) Description 04/02/2023 Outside Orders [facility] Central Scheduling [address] [place] [address] Pat So MD [address] [facility] [address] [place], [place] [id number] Rectal cancer (HCC) (Primary Dx) Social History [...] often do you attend chur ch or congregation services? 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 GREENHOUSE MANAGER Legal Sex Male 2:23 PM CDT Gender Identity Male 03/23/2023 5:42 PM ANNUAL GREENHOUSE MANAGER Sexual Orientation Straight 03/23/2023 5: 42 PM ANNUAL GREENHOUSE MANAGER Occupation Industry Job Start Date Job End [...] rectum documented in this encounter Care Teams Edge Beader Relationship Specialty Start Date End Date Vic Suazo MD [address] [place] [address] PCP - General Family Medicine 01/31/23 Esperanza Logan, ISABELLA Nurse Navigator Oncology 11/08/22 03/18/24 Robert Floyd MD [address] [facility] [address] [facility] [address] [place] [id number] Radiation Oncologist Radiation Oncology 11/08/2203/18 Samreen Atkinson APRN [address] [facility] [employer] [facility] [address] [place], [place] [id number] Advanced Registered Nurse Practitioner Radiation Oncology 11/08/22 03/18/24 [place] [address] [place] [address] [address] [place] [address] Referring Physician Colon and Rectal Surgery 11/08/22 Minnie Wesley MD [address] [facility] [address] [place] [address] Medical Oncologist Hematology and Oncology 02/06/23 03/18/24 Naheed Singleton, RN Registered Nurse Oncology 03/14/23 03/18/24 Shannan Olivas RN Registered Nurse Radiation Oncology 03/26/23 03/18/24 documented as of this encounter
== END 2024-11-20 15:15 | disposition home or self-care (01) ==
LOC: INF 15:11
PROVIDERS: PCP Nurse Practitioner Family; Visit Provider Internal Medicine Medical Oncology
DX: C20 Malignant neoplasm of rectum (principal)
CPT/HCPCS: 96523; J1642

== ENCOUNTER 2024-12-16 08:01 | Outpatient (CLI) | payer OTHER, SELFPAY ==
--- NOTE | 2024-12-16 08:00 | CT_ITS ---
FINAL REPORT TECHNIQUE: Thin section axial images were obtained from the thoracic inlet through the upper abdomen after intravenous contrast injection. Reconstruction images were obtained from the axial data. Exam was performed using dose reduction technique. CLINICAL HISTORY: rectal cancer COMPARISON: 09/16/2024 FINDINGS: A right chest port is in place. There is no mediastinal, hilar, or axillary lymphadenopathy. There is no pleural or pericardial effusion. The lungs are clear. No acute osseous abnormality. IMPRESSION: No acute intrathoracic abnormality. Reviewed, Interpreted and Dictated by Yesenia Mooney MD Transcribed by Melanie Beal Authenticated and [facility]
--- OUTSIDE RECORDS SUMMARY | 2024-12-16 08:03 | XMS_ITS | Clinical Summary ---
Author Organization [facility] Address [address] [place] [address] [address] [place] [address] Phone Care Team Providers Care Geneticist Name Role Phone Status, Fax Unavailable Conditions or Problems Problem Name Problem Code Onset Date Status Entry Date Provider Comment Standard Description Annotate COVID-19 coronavirus acute bronchitis 842001138 (SNOMED CT) 09/10 Active 09/10 Avelino Perrin MD COVID-19 Fever (pyrexia) 039027806 (SNOMED CT) 09/02 Active 09/02 Chana Arthru RN Fever Nicotine dependence 15304249 (SNOMED CT) 06/28 Active 06/28 Malika Davis Nicotine dependence Renal failure, acute 00277031 (SNOMED CT) 06/12 Active 06/12 Avelino Perrin MD Acute kidney injury Candidiasis infection B37.89 (ICD-10-CM) 06/02 Active 06/02 Najma Araujo Other sites of candidiasis Personal history of antineoplastic chemotherapy 417293145 (SNOMED CT) 06/02 Active 06/02 Najma Araujo H/O: chemotherapy Infection following a procedure, organ and space surgical site, subsequent encounter(s) T81.43xD (ICD-10-CM) 06/02 Active 06/02 Najma Araujo Infection following a procedure, organ and space surgical site, subsequent encounter Abscess, intra-abdominal K65.1 (ICD-10-CM) 06/02 Active 06/02 Najma Araujo Peritoneal abscess Primary malignant neoplasm of rectum 14880518 (SNOMED CT) 06/02 Active 06/02 Najma Araujo Primary malignant neoplasm of rectum Medications Medication Instructions Start Date Stop Date Generic Name ND Provider DIAZEPAM 5 MG TABS Q6HPRN diazepam 93666095759 Esthela López OXYCODONE HCL 5 MG CAPS Q4HPRN oxycodone 05405640546 Esthela López OMEPRAZOLE 20 MG CPDR by mouth once a day omeprazole 79245531180 Esthela López SULFAMETHOXAZOLE -TRIMETHOPRIM 800-160 MG TABS Take 1 tablet by mouth once a day sulfamethoxazole -trimethoprim 49547092885 [facility] RN SULFAMETHOXAZOLE -TRIMETHOPRIM 800-160 MG TABS Take 1 tablet by mouth twice a day sulfamethoxazole -trimethoprim 87967909046 Avelino Perrin MD SULFAMETHOXAZOLE -TRIMETHOPRIM 800-160 MG TABS sulfamethoxazole -trimethoprim 67785397877 Avelino Perrin MD SULFAMETHOXAZOLE -TRIMETHOPRIM 800-160 MG TABS Take 1 tablet by mouth once a day sulfamethoxazole -trimethoprim 65696129006 Avelino Perrin MD PAXLOVID (300/100) 20 x 150 MG & 10 x 100MG TBPK 1 dose pack by mouth as directed nirmatrelvir-rit onavir 60329633481 Avelino Perrin MD FLUCONAZOLE 200 MG TABS fluconazole 48846994843 [facility] RN SULFAMETHOXAZOLE -TRIMETHOPRIM 800-160 MG TABS sulfamethoxazole -trimethoprim 38886759626 [facility] RN daptomycin recon soln 500mg Q 24hrs - 07/30 [facility] [phone] daptomycin recon [facility] RN ertapenem recon soln 1gm Q 24hrs - 07/30 [facility] ertapenem recon [facility] RN SULFAMETHOXAZOLE -TRIMETHOPRIM 800-160 MG TABS Take 1 tablet by mouth twice a day sulfamethoxazole -trimethoprim 23719352447 Avelino Perrin MD FLUCONAZOLE 200 MG TABS Take 1 tablet by mouth once a day fluconazole 53939132938 Avelino Perrin MD SULFAMETHOXAZOLE -TRIMETHOPRIM 800-160 MG TABS Take 1 tablet by mouth twice a day sulfamethoxazole -trimethoprim 05122368937 Avelino Perrin MD daptomycin recon soln 500mg Q 24hrs - 07/30 [facility] [phone] daptomycin recon soln [facility] ertapenem recon soln 1gm Q 24hrs - 07/30 [facility] ertapenem recon soln [facility] FLUCONAZOLE 200 MG TABS 1 tablet by mouth once a day fluconazole 05427672919 Avelino Perrin MD FLUCONAZOLE 200 MG TABS Take 1 tablet by mouth once a day fluconazole 47139612605 Avelino Perrin MD METRONIDAZOLE 500 MG TABS Take 1 tablet by mouth twice a day metronidazole 76225240773 Avelino Perrin MD LEVOFLOXACIN 750 MG TABS Take 1 tablet by mouth once a day levofloxacin 39186401317 Avelino Perrin MD PROMETHAZINE HCL 25 MG TABS Take 1/2 tablet by mouth once a day as needed nausea promethazine 23241901142 Avelino Perrin MD LEVOFLOXACIN 750 MG TABS Take 1 tablet by mouth once a day levofloxacin 04362305503 Avelino Perrin MD METRONIDAZOLE 500 MG TABS Take 1 tablet by mouth twice a day metronidazole 76069052028 Avelino Perrin MD OMEPRAZOLE 20 MG CPDR by mouth once a day omeprazole 42741296806 Kera Minor VASCULERA TABS once a day diosmin complex no.1 39580253669 Kera Minor TAMSULOSIN HCL 0.4 MG CAPS 1 capsule by mouth once a day tamsulosin 74708147123 Kera Bebeto NYSTATIN 958804 UNIT/ML SUSP Take 10 mLs (1,000,000 Units total) by mouth 2 (two) times daily Swish and Swallow nystatin 03888477130 Kera Tate ertapenem recon soln 1gm Q 24hrs - 06/12 [facility] ()[phone] ertapenem recon soln [facility] FLUCONAZOLE 100 MG TABS Take 1 tablet by mouth once a day fluconazole 41750804876 Rhona Amaya FLUCONAZOLE 200 MG TABS 1 tablet by mouth once a day fluconazole 58007316928 Avelino Perrin MD AMOXICILLIN-POT CLAVULANATE 875-125 MG TABS Take 1 tablet by mouth twice a day amoxicillin-pot clavulanate 68329867965 Avelino Perrin MD FLUCONAZOLE 200 MG TABS Take 1 tablet by mouth once a day fluconazole 51031250932 Avelino Perrin MD FLUCONAZOLE 100 MG TABS Take 1 tablet by mouth once a day fluconazole 72096221037 Avelino Perrin MD ertapenem recon soln 1gm Q 24hrs - 06/12 [facility] ()[phone] [facility] MG TABS Take 1 tablet by mouth once a day fluconazole 85431567125 Avelino Perrin MD TAMSULOSIN HCL 0.4 MG CAPS Take 1 capsule by mouth once a day tamsulosin 99490531488 Avelino Perrin MD AMOXICILLIN-POT CLAVULANATE 875-125 MG TABS Take 1 tablet by mouth twice a day amoxicillin-pot clavulanate 24820748453 Avelino Perrin MD TAMSULOSIN HCL 0.4 MG CAPS 1 capsule by mouth once a day tamsulosin 82118171891 Avelino Perrin MD GABAPENTIN 100 MG CAPS Take 1 capsule by mouth once a day gabapentin 96718932742 Avelino Perrin MD TAMSULOSIN HCL 0.4 MG CAPS Take 1 capsule by mouth once a day tamsulosin 46768840089 Pat Newell RN AMOXICILLIN-POT CLAVULANATE 875-125 MG TABS Take 1 tablet by mouth twice a day amoxicillin-pot clavulanate 61980024722 Avelino Perrin MD FLUCONAZOLE 200 MG TABS Take 1 tablet by mouth once a day fluconazole 72343417140 Avelino Perrin MD ZOSYN 2-0.25 GM/50ML SOLN Zosyn 13.5G IV q24hrs continuous-AMer imed/ [facility] dose, line care, labs piperacillin-jose ramon obactam-dextrs 93983267545 Pat Newell RN ZOSYN 2-0.25 GM/50ML SOLN Zosyn 13.5G IV q24hrs continuous-AMer imed/ [facility] dose, line care, labs piperacillin-jose ramon obactam-dextrs 45130654153 Nicole Kaiser RN FLUCONAZOLE 200 MG TABS Take 2 tablet by mouth once a day fluconazole 47092453247 Avelino Perrin MD AMOXICILLIN-POT CLAVULANATE 875-125 MG TABS Take 1 tablet by mouth twice a day amoxicillin-pot clavulanate 52268079636 Avelino Perrin MD FLUCONAZOLE 200 MG TABS Take 1 tablet by mouth once a day fluconazole 29750122679 Avelino Perrin MD VASCULERA TABS once a day diosmin complex no.1 15641952386 Amber Ta GABAPENTIN 100 MG CAPS Take 2 capsules (200 mg total) by mouth nightly for 10 days. Max Daily Amount: 200 mg gabapentin 51347593002 Avelino Perrin MD FLUCONAZOLE 200 MG TABS Take 1 tablet (200 mg total) by mouth daily for 14 days. fluconazole 62241578652 Avelino Perrin MD FLUCONAZOLE 200 MG TABS Take 2 tablet by mouth once a day fluconazole 46153784469 Avelino Perrin MD GABAPENTIN 100 MG CAPS Take 2 capsule by mouth every night gabapentin 89599864013 Avelino Perrin MD magnesium gluconate 30 mg (550 mg) tablet Take 1 tablet by mouth once a day magnesium gluconate 53586137037 Avelino Perrin MD DIAZEPAM 5 MG TABS Q6HPRN diazepam 71519010403 Stephani Calina OXYCODONE HCL 5 MG CAPS Q4HPRN oxycodone 14522116381 Stephani Calina ZOSYN 2-0.25 GM/50ML SOLN Zosyn 13.5G IV q24hrs continuous-AMER [employer] piperacillin-jose ramon obactam-dextrs 71141510377 Chana Gibson RN TAMSULOSIN HCL 0.4 MG CAPS Take 1 capsule (0.4 mg total) by mouth daily. tamsulosin 82183822233 QIE qieuser OXYCODONE HCL 5 MG TABS Take 1-2 tablets (5-10 mg total) by mouth every 6 (six) hours as needed for Pain for up to 7 days. Max Daily Amount: 40 mg oxycodone 72754703672 QIE qieuser NYSTATIN 239516 UNIT/ML SUSP Take 10 mLs (1,000,000 Units total) by mouth 2 (two) times daily Swish and Swallow nystatin 59788967959 QIE qieuser METHOCARBAMOL 500 MG TABS Take 1 tablet (500 mg total) by mouth 4 (four) times daily as needed for up to 10 days. METHOCARBAMOL QIE qieuser KETOROLAC TROMETHAMINE 10 MG TABS Take 1 tablet (10 mg total) by mouth every 6 (six) hours as needed for up to 5 days. ketorolac 72480104157 QIE qieuser GABAPENTIN 100 MG CAPS Take 2 capsules (200 mg total) by mouth nightly for 10 days. Max Daily Amount: 200 mg gabapentin 66382268031 QIE qieuser FLUCONAZOLE 200 MG TABS Take 1 tablet (200 mg total) by mouth daily for 14 days. fluconazole 40752414284 QIE qieuser DIAZEPAM 5 MG TABS Take 1 tablet (5 mg total) by mouth every 6 (six) hours as needed (Spasms) for up to 7 days. Max Daily Amount: 20 mg diazepam 79457199188 QIE qieuser Medications Administered No information available. Allergies, Adverse Reactions, Alerts No information available. Results Date Name Value Unit Range Flag Description Clinical Lists Update: Prelo ad VAPE_USE Never Tobacco smok ing status Chart Maintenance: lab updat e MAGNESIUM 2 mg/dL Magnesium [Moles/volume] in Serum or Plasma Lab Report: CBC WITH AUTO DI FFERENTIAL ZZ-GE-unk 0.0 /100 WBC 0.0-0.2 GE use only [...] External Other: Patient lexy albarran update - EmailStatus, [facility] ... TONI Corey This barry l be used to establish a PIN number for patients to register in the Patient Portal. External Other: Patient lexy albarran update - Email Push, [facility] ... PAT E-MAIL [email or web address] patient's e-mail address Office Visit: Office Visit: [...] Procedures Code Procedure Name Date Entry Date CPT-93642 CMP [id number] CBC with Differential 2023 CPT-45357 C- reactive protein CPT-60846 Sedimentation Rate (ESR) 202 08/09/06 CPT-LAB Other CPT-Cooral Continue oral antibiotics 20 28/08/08 CPT-72373 CMP [id number] CBC with Differential 2023 CPT-89843 C- reactive protein CPT-68665 Sedimentation Rate (ESR) 202 08/08/08 CPT-jahaira New Oral Antibiotic CPT-33743 CMP [id number] CBC with Differential 2023 CPT-14246 C- reactive protein CPT-99933 Sedimentation Rate (ESR) 202 08/07/25 CPT-rashmi New IV antibiotic CPT-19928 CMP [id number] CBC with Differential 2023 CPT-29861 C- reactive protein [id number], [id number] CPK CPT-42401 Sedimentation Rate (ESR) 202 08/08/11 CPT-97375 CMP [id number] CBC with Differential 2023 CPT-42642 C- reactive protein [id number], [id number] CPK CPT-31992 Sedimentation Rate (ESR) 202 08/08/11 CPT-Cooral Continue oral antibiotics 30/06/26 CPT-43470 CMP [id number] CBC with Differential 2023 CPT-51049 C- reactive protein CPT-58580 Sedimentation Rate (ESR) 202 08/06/26 CPT-97067 CMP [id number] CBC with Differential 2023 CPT-75365 C- reactive protein CPT-70952 Sedimentation Rate (ESR) 202 08/06/26 CPT-jahaira New Oral Antibiotic CPT-64693 CMP [id number] CBC with Differential 2023 CPT-37264 C- reactive protein CPT-51424 Sedimentation Rate (ESR) 202 08/07/19 CPT-29280 MRI Sacrum w/o contrast 2023 CPT-Cooral Continue oral antibiotics 30/06/05 CPT-23651 CMP [id number] CBC with Differential 2023 CPT-52783 C- reactive protein CPT-59243 Sedimentation Rate (ESR) 202 08/06/05 CPT-07963 CT scan ABD/Pelvis with contrast CPT-ca Continue IV antibiotics 2023 CPT-Cooral Continue oral antibiotics 30/05/29 CPT-wclc Weekly Central Line Care 08/06/23 CPT-rashmi New IV antibiotic CPT-rashmi New IV antibiotic CPT-rashmi New IV antibiotic CPT-cwl Weekly Labs (Continue) 05/30 CPT-Cooral Continue oral antibiotics 30/05/15 CPT-60250 CMP [id number] CBC with Differential 2023 CPT-67825 C- reactive protein CPT-83662 Sedimentation Rate (ESR) 202 08/06/15 CPT-labs Labs CPT-34060 CMP CPT-97266 Sedimentation Rate (ESR) 202 08/05/14 CPT-30383 C- reactive protein [id number] CBC with Differential 2023 CPT-08104 BMP [id number] CBC with Differential 2022 CPT-15750 C- reactive protein CPT-Cooral Continue oral antibiotics 20 28/04/26 CPT-55172 CMP [id number] CBC with Differential 2022 CPT-31414 C- reactive protein CPT-76779 Sedimentation Rate (ESR) 202 07/16/25 CPT-20870 CMP [id number] CBC with Differential 2022 CPT-45436 C- reactive protein CPT-28452 Sedimentation Rate (ESR) 202 07/16/25 CPT-PICREM PICC Removal CPT-ca Continue IV antibiotics 2022 CPT-Cooral Continue oral antibiotics 20 28/04/12 CPT-37577 CMP [id number] CBC with Differential 2022 CPT-16530 C- reactive protein CPT-50294 Sedimentation Rate (ESR) 202 07/17/11 CPT-ca Continue IV antibiotics 2022 CPT-09626 BMP CPT-PICREM PICC Removal CPT-ca Continue IV antibiotics [...]
--- OUTSIDE RECORDS SUMMARY | 2024-12-16 08:04 | XMS_ITS | Clinical Summary ---
Author Organization [facility] Address [address] [place] [address] Care Team Providers Care Publicity Person Name Role Phone Provider, No Known Primary Care Provider Unavail able Allergies Active Allergy Reactions Criticality Noted Date Comments Oxaliplatin Other (See Comments) 07/13/2023 Hiccoughs, stopped r/t/ laryngospasm per oncologist Medications Acetaminophen Extra Strength 500 MG tablet Take 2 tablets by mouth Every 6 (Six) Hours. 03/16/2023 Active levoFLOXacin (LEVAQUIN) 750 MG tablet Take 1 tablet by mouth Daily. 06/26/2023 Active metroNIDAZOLE (FLAGYL) 500 MG tablet Take 1 tablet by mouth Every 12 (Twelve) Hours. 06/26/2023 Active promethazine (PHENERGAN) 25 MG tablet 07/03/2023 Active Social History Tobacco Use Types Packs/Day Years Used Date Smoking Tobacco: Never Assessed Abuse Screen Answer Date Recorded Unsafe at Home or Work/School Not on file Feels Threatened by Someone? Not on file Does Anyone Keep You from Co ntacting Others or Doint Things Outside the Home? Not on file 03/23/2023 Physical Sign of Abuse Present Not on file 1 05/23/2022 Housing Stability Answer Date Recorded Current Living Arrangements Not on file 03/07 Potentially Unsafe Housing Conditions Not on fran e 03/23/2023 Family and Community Support Answer Jameson e Recorded Help with Day-to-Day Activities Not on file 03/23/2023 Lonely or Isolated Not on file 03/23/2023 Employment Answer Date Recorded Do you want help finding or keeping work or a mayito b? Not on file 03/23/2023 Disabilities Answer Date Recorded Concentrating, Remembering, or Making Decisions Difficulty Not on file 03/23/2023 Doing Errands Independently Difficulty Not on fi le 03/23/2023 Education Answer Date Recorded Help with school or training? Not on file Preferred Language Not on file 03/23/2023 Sex and Gender Information Value Date Recorded Sex Assigned at Not on file Legal Sex Male 3:41 PM EST Gender Identity Not on file Sexual Orientation Not on file Last Filed Vital Signs Vital Sign Reading Time Taken Comments Blood Pressure 114/78 07/13/2023 1:32 PM EST Pulse 106 07/13/2023 1:32 PM EST Temperature 36.6 C (97.9 F) 07/13/2023 8:30 AM EST Respiratory Rate 16 07/13/2023 12:30 PM EST Oxygen Saturation 96% 07/13/2023 1:32 PM EST Inhaled Oxygen Concentration - - Weight 80.8 kg (178 lb 3.2 oz) 07/13/2023 8:30 A M EST Height 177.8 cm (5' 10 ) 07/13/2023 8:30 AM EST Body Mass Index 25.57 07/13/2023 8:30 AM EST Plan of Treatment Health Maintenance Due Date Last Done Comments ANNUAL PHYSICAL 07/12/2023 HEPATITIS C SCREENING 07/12/2023 COVID-19 Vaccine ( - 2023-2 5 season) 2024 05/05/2021, 04/06/2021 INFLUENZA VACCINE 02/04/2025 02/20/2023 TDAP/TD VACCINES (2 - Td or Tdap) 04/25/2033 04/25/2023 Pneumococcal Vaccine 0-49 Aged Out 04/25/2023 No longer eligible based on patient's age to complete this topic Insurance [facility] Member Subscriber Plan / Payer (Ef fective 2015-Present) Name:Kenan Liao Relation to Subscriber:Self Name:Kenan Liao Payer ID:[id number] (NAIC) Type:Not on file Address: [place] [id number] [place] [id number] Care Teams Publicity Person Relationship Specialty Start Date End Date Provider, [place] [address] PCP - General 05/01/23
--- OUTSIDE RECORDS SUMMARY | 2024-12-16 08:04 | XMS_ITS | Encounter Summary ---
Author Organization [employer] ([place], [place], [place], [place]) Address [address] [place] [address] Care Team Providers Care Willow Machine Operator Name Role Phone Esperanza Logan RN Unavailable Unavailable Robert Floyd MD Unavailable [phone] Samreen Atkinson APRN Unavailable [phone] Pat So MD Unavailable [phone] Vic Suazo MD Primary Care Provider [phone] Minnie Wesley MD Unavailable [phone] Naheed Singleton RN Unavailable Unavailable Shannan Olivas RN Unavailable Unavailable Encounter Details Date Type Department Care Team (Late st Contact Info) Description 04/16/2023 Outside Orders [facility] Central Scheduling [address] [place] [address] Pat So MD [address] [facility] [address] [place] [id number] Post-op pain (Primary Dx) Social History Tobacco Use Types Packs/Day Years Used Date Smoking Tobacco: Every Day Cigarettes 1 23.6 Started: 2001 Passive Smoke Exposure: Past Smokeless [...] often do you attend chur ch or judaism services? Never 03/23/2023 Do you belong to any clubs o r organizations such as restoration groups, unions, fraternal or athletic groups, or [...] Date Harvey rded Speak language other than [place] at home Not on file 05/15/2023 Want help with school or training Not on file 05/15/2023 Substance Use Answer Date Recorded Used prescription meds for non-medical reasons N ot on file 05/15/2023 Used illegal drugs past 12 months Not on file 05/15/2023 Sex and Gender Information Value Date Recorded Sex Assigned at Male 03/23/2023 5:42 PM HOSPICE CLINICAL MANAGER Legal Sex Male 2:23 PM CDT Gender Identity Male 03/23/2023 5:42 PM HOSPICE CLINICAL MANAGER Sexual Orientation Straight 03/23/2023 5: 42 PM HOSPICE CLINICAL MANAGER 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 Not on file Not o n file documented as of this encounter Plan of Treatment Not on file documented as of this encounter Visit Diagnoses Diagnosis Post-op pain- Primary Other acute postoperative pain documented in this encounter Care Teams Willow Machine Operator Relationship Specialty Start Date End Date Vic Suazo MD [address] [place], [place] [id number] PCP - General Family Medicine 01/31/23 Esperanza Logan, ISABELLA Nurse Navigator Oncology 11/08/22 03/18/24 Robert Floyd MD [address] [facility] [address] [place] [id number] Radiation Oncologist Radiation Oncology 11/08/2203/18 Samreen Atkinson, BULK MAIL TECHNICIAN [address] [place], [place] [id number] Advanced Registered Nurse Practitioner Radiation Oncology 11/08/22 03/18/24 Pat So MD [address] [facility] [address] [place] [address] Referring Physician Colon and Rectal Surgery 11/08/22 Minnie Wesley MD [address] [address] Medical Oncologist Hematology and Oncology 02/06/23 03/18/24 Naheed Singleton, RN Registered Nurse Oncology 03/14/23 03/18/24 Shannan Olivas RN Registered Nurse Radiation Oncology 03/26/23 03/18/24 documented as of this encounter
--- OUTSIDE RECORDS SUMMARY | 2024-12-16 08:04 | XMS_ITS | Encounter Summary ---
Author Organization [employer] ([place], [place], [place], [place]) Address [address] [place] [address] Care Team Providers Care Emergency Medicine Medical Director Name Role Phone Esperanza Logan RN Unavailable Unavailable Robert Floyd MD Unavailable [phone] Samreen Atkinson APRN Unavailable [phone] Pat So MD Unavailable [phone] Vic Suazo MD Primary Care Provider [phone] Minnie Wesley MD Unavailable [phone] Naheed Singleton RN Unavailable Unavailable Shannan Olivas RN Unavailable Unavailable Encounter Details Date Type Department Care Team (Late st Contact Info) Description 04/16/2023 Outside Orders [facility] Central Scheduling [address] [place] [address] Pat So MD [address] [facility] [address] [place] [id number] Social History Tobacco Use Types Packs/Day Years [...] often do you attend chur ch or yazidism services? 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 Not on file Not o n file documented as of this encounter Plan of Treatment Not on file documented as of this encounter Visit Diagnoses Not on filedocumented in this encounter Care Teams Emergency Medicine Medical Director Relationship Specialty Start Date End Date Vic Suazo MD [address] [place], [place] [id number] PCP - General Family Medicine 01/31/23 Esperanza Logan, ISABELLA Nurse Navigator Oncology 11/08/22 03/18/24 [place] [address] [place] [address] [address] [place] [phone] Radiation Oncologist Radiation Oncology 11/08/2203/18 Samreen Atkinson APRN [address] [facility] [address] [place] [address] Advanced Registered Nurse Practitioner Radiation Oncology 11/08/22 03/18/24 Pat So MD [address] [facility] [address] [place] [address] Referring Physician Colon and Rectal Surgery 11/08/22 Minnie Wesley MD [address] [facility] [address] [place], [place] [id number] Medical Oncologist Hematology and Oncology 02/06/23 03/18/24 Naheed Singleton, ISABELLA Registered Nurse Oncology 03/14/23 03/18/24 Shannan Olivas RN Registered Nurse Radiation Oncology 03/26/23 03/18/24 documented as of this encounter
--- OUTSIDE RECORDS SUMMARY | 2024-12-16 08:06 | XMS_ITS | Encounter Summary ---
Author Organization [employer] ([place], [place], [place], [place]) Address [address] [place] [address] Care Team Providers Care Subsurface Augmentee Operator Name Role Phone Provider, Not In System Primary Care Provider Un available Esperanza Logan RN Unavailable Unavailable Vic Ashford MD Unavailable Robert Floyd MD Unavailable [phone] Samreen Atkinson APRN Unavailable [phone] Shannan Olivas RN Unavailable Unavailable Pat So MD Unavailable [phone] Vic Suazo MD Primary Care Provider [phone] Minnie Wesley MD Unavailable [phone] Naheed Singleton RN Unavailable Unavailable Shannan Olivas RN Unavailable Unavailable Virginia Merritt RN Unavailable Unavailable Reason for Referral * MRI (Routine) - Closed Specialty Diagnoses / Procedures Referred By Vilma t Referred To Contact Radiology Diagnoses Rectal cancer (HCC) Procedures MR pelvis without IV contrast Pat So MD [address] [place] [address] Phone: tel: fax: Referral ID Status Reason Start Date Expiration Date Visits Re quested Visits Authorized [id number] Closed 10/26/2022 04/24/2023 1 1 Encounter Details Date Type Department Care Team (Late st Contact Info) Description 10/26/2022 Outside Orders [facility] Central Scheduling [address] [place] [address] Pat So MD [address] [facility] [address] [place] [address] Rectal cancer (HCC) (Primary Dx) [...] often do you attend chur ch or baptism services? Never 03/23/2023 Do you belong to any clubs o r organizations such as sabianism groups, unions, fraternal or athletic groups, or [...] Date Harvey rded Speak language other than Paraguayan at home Not on file 05/15/2023 Want help with school or training Not on file 05/15/2023 Substance Use Answer Date Recorded Used prescription meds for non-medical reasons N ot on file 05/15/2023 Used illegal drugs past 12 months Not on file 05/15/2023 Sex and Gender Information Value Date Recorded Sex Assigned at Male 03/23/2023 5:42 PM KNIFE CUTTER Legal Sex Male 2:23 PM CDT Gender Identity Male 03/23/2023 5:42 PM KNIFE CUTTER Sexual Orientation Straight 03/23/2023 5: 42 PM KNIFE CUTTER COVID-19 Exposure Response Date Recorded In the [...] rectum documented in this encounter Care Teams Subsurface Augmentee Operator Relationship Specialty Start Date End Date Provider, Not In System [place] PCP - General 10/27/22 01/30/23 Vic Suazo MD [address] [place] [address] PCP - General Family Medicine 01/31/23 Esperanza Logan, RN Nurse Navigator Oncology 11/08/22 03/18/24 Vic Ashford MD [address] [facility] [address] [place] [address] Medical Oncologist Hematology and Oncology 11/08/22 02/05/23 Robert Floyd MD [address] [facility] [address] [place] [address] Radiation Oncologist Radiation Oncology 11/08/2203/18 Samreen Atkinson, SHEET CUTTER [address] [place], [place] [id number] Advanced Registered Nurse Practitioner Radiation Oncology 11/08/22 03/18/24 Shannan Olivas, RN Registered Nurse Oncology 11/08/22 02/05/23 Pat So MD [address] [place], [place] [address] Referring Physician Colon and Rectal Surgery 11/08/22 Minnie Wesley MD [address] [facility] [address] [place], [place] [id number] Medical Oncologist Hematology and Oncology 02/06/23 03/18/24 Naheed Singleton, ISABELLA Registered Nurse Oncology 03/14/23 03/18/24 Shannan Olivas RN Registered Nurse Radiation Oncology 03/26/23 03/18/24 Virginia Merritt RN Nurse Navigator Oncology 03/27/23 03/27/23 documented as of this encounter
--- OUTSIDE RECORDS SUMMARY | 2024-12-16 08:06 | XMS_ITS | Encounter Summary ---
Author Organization [employer] ([place], [place], [place], [place]) Address [address] [place] [address] Care Team Providers Care Aerial Photograph Interpreter Name Role Phone Esperanza Logan RN Unavailable Unavailable Robert Floyd MD Unavailable [phone] Samreen Atkinson APRN Unavailable [phone] Pat So MD Unavailable [phone] Vic Suazo MD Primary Care Provider [phone] Minnie Wesley MD Unavailable [phone] Naheed Singleton RN Unavailable Unavailable Shannan Olivas RN Unavailable Unavailable Encounter Details Date Type Department Care Team (Late st Contact Info) Description 04/02/2023 Outside Orders [facility] Central Scheduling [address] [place] [address] Pat So MD [address] [facility] [address] [place], [place] [id number] Rectal cancer (HCC) (Primary Dx) Social History [...] any clubs o r organizations such as mormon groups, unions, fraternal or athletic groups, or [...] Date Harvey rded Speak language other than Panamanian at home Not on file 05/15/2023 Want help with school or training Not on file 05/15/2023 Substance Use Answer Date Recorded Used prescription meds for non-medical reasons N ot on file 05/15/2023 Used illegal drugs past 12 months Not on file 05/15/2023 Sex and Gender Information Value Date Recorded Sex Assigned at Male 03/23/2023 5:42 PM AUTO AIR CONDITIONING INSTALLER Legal Sex Male 2:23 PM CDT Gender Identity Male 03/23/2023 5:42 PM AUTO AIR CONDITIONING INSTALLER Sexual Orientation Straight 03/23/2023 5: 42 PM AUTO AIR CONDITIONING INSTALLER Occupation Industry Job Start Date Job End [...] rectum documented in this encounter Care Teams Aerial Photograph Interpreter Relationship Specialty Start Date End Date Vic Suazo MD [address] [place] [address] PCP - General Family Medicine 01/31/23 Esperanza Logan, ISABELLA Nurse Navigator Oncology 11/08/22 03/18/24 Robert Floyd MD [address] [facility] [address] [facility] [address] [place] [address] Radiation Oncologist Radiation Oncology 11/08/2203/18 Samreen Atkinson APRN [address] [facility] [address] [place], [place] [id number] Advanced Registered Nurse Practitioner Radiation Oncology 11/08/22 03/18/24 [place] [address] [place] [address] [address] [place] [address] Referring Physician Colon and Rectal Surgery 11/08/22 Minnie Wesley MD [address] [facility] [address] [place] [address] Medical Oncologist Hematology and Oncology 02/06/23 03/18/24 Naheed Singleton, RN Registered Nurse Oncology 03/14/23 03/18/24 Shannan Olivas RN Registered Nurse Radiation Oncology 03/26/23 03/18/24 documented as of this encounter
[2024-12-16] MEDS: BARIUM SULFATE(READI-CAT2);450ML BOTTLE 450 ML PO (08:07)
[2024-12-16] MEDS: SODIUM CHLORIDE 0.9% 10ML SYR (RAD ONLY) 10 ML IV (08:07)
[2024-12-16] MEDS: IOPAMIDOL-370 (76%);100ML BOTTLE 75 ML IV (08:07)
--- OUTSIDE RECORDS SUMMARY | 2024-12-16 08:07 | XMS_ITS | Referral Summary ---
Author Organization [employer] ([place], [place], [place], [place]) Address [address] [place] [address] Care Team Providers Care Rating Officer Name Role Phone Pat So MD Unavailable [phone] Vic Suazo MD Primary Care Provider [phone] Allergies No known active allergies Medications tamsulosin [...] any clubs o r organizations such as episcopalian groups, unions, fraternal or athletic groups, or [...] Date Harvey rded Speak language other than Bruneian at home Not on file 05/15/2023 Want help with school or training Not on file 05/15/2023 Substance Use Answer Date Recorded Used prescription meds for non-medical reasons N ot on file 05/15/2023 Used illegal drugs past 12 months Not on file 05/15/2023 Sex and Gender Information Value Date Recorded Sex Assigned at Male 03/23/2023 5:42 PM BILINGUAL LEGAL ASSISTANT Legal Sex Male 2:23 PM CDT Gender Identity Male 03/23/2023 5:42 PM BILINGUAL LEGAL ASSISTANT Sexual Orientation Straight 03/23/2023 5: 42 PM BILINGUAL LEGAL ASSISTANT Occupation Industry Job Start Date Job End [...] Plan of Treatment Not on file Insurance [id number] (Home) [address] [place] [address] R MEDICAID PEND Advance Directives For more information, please contact: [phone] * Full Code (Latest Code Status on File) Date Activated Date Inactivated Comments 03/23/2023 4:38 PM 2023 3:41 PM * Full Code Date Activated Date Inactivated Comments 03/13/2023 1:55 PM 03/16/2023 4:31 PM Care Teams Rating Officer Relationship Specialty Start Date End Date Vic Suazo MD [address] [place] [address] [place] [address] PCP - General Family Medicine 01/31/23 Pat So MD [address] [facility] [address] [place] [address] Referring Physician Colon and Rectal Surgery 11/08/22
--- OUTSIDE RECORDS SUMMARY | 2024-12-16 08:07 | XMS_ITS ---
Author Organization [employer] ([place], [place], [place], [place]) Address [address] [place] [address] Care Team Providers Care Netbackup Administrator Name Role Phone Pat So MD Unavailable [phone] Vic Suazo MD Primary Care Provider [phone] Active Problems Problem Noted Date Diagnosed Date Intra-abdominal infection 03/23/2023 Rectal cancer 03/13/2023 Acute radiation dermatitis 01/03/2023 Malignant neoplasm of rectum 11/08/2022 Cancer Staging:Clinical stage from 11/08/2022:Stage IIIC(cT4b, cN2, cM0) - Signed by Robert Floyd MD on 11/08/2022 Current Oncology Plans No current plan information found. Past Plans ONCOLOGY TREATMENT Plan Name Start Date Discontinue Date Treatment Medications Discontinue Reason Plan Provider [facility] GI - mFOLFOX 6 (oxaliplat [...] Treatment Medications Discontinue Reason Plan Provider [facility] Rectal neoadjuvant - Capecitabine (Xeloda) 825 mg/m2 with concurrent XRT 3 04/06/2023 ZZ IMS TEMPLATE Therapy Complete Vic Ashford MD Treatment not started VAD Line Care Plan Name Start Date Discontinue Date Treatment Medications Discontinue Reason Plan Provider [facility] LINE CARE - USE WITH [...]
--- OUTSIDE RECORDS SUMMARY | 2024-12-16 08:07 | XMS_ITS | Clinical Summary ---
Author Organization [employer] ([place], [place]) Address [address] [place] [address] Care Team Providers Care Counter Professional Name Role Phone Pat So MD Unavailable [phone] Vic Suazo MD Primary Care Provider [phone] Allergies No known active allergies Medications tamsulosin [...] often do you attend chur ch or religion services? Never 03/23/2023 Do you belong to any clubs o r organizations such as anabaptism groups, unions, fraternal or athletic groups, or [...] Date Harvey rded Speak language other than Croatian at home Not on file 05/15/2023 Want help with school or training Not on file 05/15/2023 Substance Use Answer Date Recorded Used prescription meds for non-medical reasons N ot on file 05/15/2023 Used illegal drugs past 12 months Not on file 05/15/2023 Sex and Gender Information Value Date Recorded Sex Assigned at Male 03/23/2023 5:42 PM PRINCIPAL TECHNICAL SPECIALIST Legal Sex Male 2:23 PM CDT Gender Identity Male 03/23/2023 5:42 PM PRINCIPAL TECHNICAL SPECIALIST Sexual Orientation Straight 03/23/2023 5: 42 PM PRINCIPAL TECHNICAL SPECIALIST Occupation Industry Job Start Date Job End [...] Vaccine: 0-49 Years Completed 04/25/20 23 Insurance [id number] (Home) [address] [place] [id number] [place] [address] MEDICAID PEND Advance Directives For more information, please contact: [phone] * Full Code (Latest Code Status on File) Date Activated Date Inactivated Comments 03/23/2023 4:38 PM 2023 3:41 PM * Full Code Date Activated Date Inactivated Comments 03/13/2023 1:55 PM 03/16/2023 4:31 PM Care Teams Counter Professional Relationship Specialty Start Date End Date Vic Suazo MD [address] [place] [address] PCP - General Family Medicine 01/31/23 Pat So MD [address] [facility] [address] [place], [place] [address] Referring Physician Colon and Rectal Surgery 11/08/22
--- NOTE | 2024-12-16 08:45 | CT_ITS ---
FINAL REPORT TECHNIQUE: Thin section axial images are obtained through the abdomen and pelvis after intravenous contrast. Reconstruction images were obtained from the axial data. Exam was performed using dose reduction techniques. CLINICAL HISTORY: rectal cancer COMPARISON: 09/16/2024 FINDINGS: LIVER: Homogeneous. No focal lesion. GALLBLADDER/BILIARY SYSTEM: Gallbladder is present. No gallstones. No biliary dilatation. SPLEEN: Unremarkable. PANCREAS: Unremarkable. ADRENALS: Unremarkable. KIDNEYS/URETERS/BLADDER: No hydronephrosis, renal mass, or renal stone. Unremarkable urinary bladder. GI TRACT: No small bowel obstruction or dilatation. There is a right lower quadrant ostomy with parastomal hernia. Hernia has increased in size now containing multiple small bowel loops. Appendix is normal. Colon is decompressed, an expected finding. Presacral soft tissue is improved, now measuring 16 mm of thickness, previously measured 28 mm. PELVIC ORGANS: Unremarkable for age. LYMPH NODES/RETROPERITONEUM/MESENTERY: No lymphadenopathy. No abdominal aortic aneurysm. ABDOMINAL WALL: The abdominal wall is intact. FREE FLUID: No ascites. BONES: No acute osseous abnormality. IMPRESSION: 1. No evidence of metastatic disease. 2. Interval increase in size and parastomal hernia associated with right lower quadrant ostomy. 3. Improved presacral soft tissue. Reviewed, Interpreted and Dictated by Yesenia Mooney MD Transcribed by Melanie Beal Authenticated and [facility]
== END 2024-12-16 23:59 | disposition home or self-care (01) ==
LOC: RAD 08:02
PROVIDERS: PCP Nurse Practitioner Family; Visit Provider Internal Medicine Medical Oncology
DX: C20 Malignant neoplasm of rectum (principal); K43.5 Parastomal hernia without obstruction or gangrene
CPT/HCPCS: 71260; 74177; Q9967

== ENCOUNTER 2024-12-24 14:50 | Outpatient (CLI) | payer OTHER, SELFPAY ==
--- OUTSIDE RECORDS SUMMARY | 2024-12-24 14:54 | XMS_ITS | Clinical Summary ---
Author Organization [facility] Address [address] [place] [address] Care Team Providers Care Powdered Metal Supervisor Name Role Phone Provider, No Known Primary [...] patient's age to complete this topic Insurance [facility] Member Subscriber Plan / Payer (Ef fective 2015-Present) Name:Kenan Liao Relation to Subscriber:Self Name:Kenan Liao Payer ID:[id number] (NAIC) Type:Not on file Address: [place] [id number] [place] [id number] Care Teams Powdered Metal Supervisor Relationship Specialty Start Date End Date Provider, [place] [address] PCP - General 05/01/23
[2024-12-24 15:03] VITALS: BMI 31.9
[2024-12-24 15:18] LABS: Hematocrit 41.9 % (42.0-52.0); Hemoglobin 14.5 g/dL (14.1-18.0); Immature Granulocytes % 0.2 %; Mean Corpuscular HGB Conc 34.6 g/dL (31.8-35.4); Mean Corpuscular Hemoglobin 31.0 pg (27.0-31.2); Mean Corpuscular Volume 89.5 fl (80-94); Nucleated Red Blood Cells % 0 %; Platelet Count 142 K/mm3 (142-424); Red Blood Count 4.68 M/mm3 (4.60-6.20); Red Cell Distribution Width-SD 39.9 fL; White Blood Count 5.7 K/mm3 (4.8-10.8)
[2024-12-24 15:26] LABS: Albumin Level 4.4 g/dl (3.5-5.0); Chloride 108 mmol/L (98-107); Potassium 3.6 mmoL/L (3.5-5.1); Sodium 140 mmol/L (136-145)
[2024-12-24 15:28] LABS: Blood Urea Nitrogen 17 mg/dl (9-20); Creatinine Clearance Estimated 164 mL/min (50-200); Creatinine,Serum 0.80 mg/dl (0.66-1.25); Estimated Glomerular Filt Rate 107 ml/min (>60); GFR (African American) 129 ML/MIN (>60)
[2024-12-24 15:29] LABS: Alanine Aminotransferase 69 U/L (12-78); Albumin/Globulin Ratio 1.8 (1.1-1.8); Alkaline Phosphatase 110 U/L (38-126); Anion Gap 10.6 mEq/L (5-15); Aspartate Amino Transferase 46 U/L (17-59); Bilirubin,Total 0.4 mg/dl (0.2-1.3); Calcium 8.9 mg/dl (8.4-10.2); Carbon Dioxide 25 mmol/L (22.0-30.0); Globulin 2.4 g/dL (1.3-3.2); Glucose 124 mg/dl (74-100); Total Protein,Serum 6.8 g/dl (6.3-8.2)
[2024-12-24] MEDS: SODIUM CHLORIDE 0.9% 10ML FLUSH SYRINGE 10 ML IV (16:00)
[2024-12-26 08:13] LABS: CEA 3.2 ng/mL (0.0-4.7)
== END 2024-12-24 15:10 | disposition home or self-care (01) ==
LOC: INF 14:52
PROVIDERS: PCP Nurse Practitioner Family; Visit Provider Internal Medicine Medical Oncology
DX: C20 Malignant neoplasm of rectum (principal)
CPT/HCPCS: 36591; 80053; 82378; 85025; J1642

== ENCOUNTER 2025-01-20 14:55 | Outpatient (CLI) | payer OTHER, SELFPAY ==
--- OUTSIDE RECORDS SUMMARY | 2025-01-20 14:59 | XMS_ITS | Clinical Summary ---
Author Organization [facility] Address [address] [place] [address] [address] [place] [address] Phone Care Team Providers Care Document Reviewer Name Role Phone Status, Fax Unavailable Conditions or Problems Problem Name Problem Code Onset Date Status Entry Date Provider Comment Standard Description Annotate COVID-19 coronavirus acute bronchitis 313374887 (SNOMED CT) 09/10 Active 09/10 Avelino Perrin MD COVID-19 Fever (pyrexia) 252366679 (SNOMED CT) 09/02 Active 09/02 Chana Arthur RN Fever Nicotine dependence 84282903 (SNOMED CT) 06/28 Active 06/28 Malika Davis Nicotine dependence Renal failure, acute 86178550 (SNOMED CT) 06/12 Active 06/12 Avelino Perrin MD Acute kidney injury Candidiasis infection B37.89 (ICD-10-CM) 06/02 Active 06/02 Najma Araujo Other sites of candidiasis Personal history of antineoplastic chemotherapy 158962480 (SNOMED CT) 06/02 Active 06/02 Najma Araujo H/O: chemotherapy Infection following a procedure, organ and space surgical site, subsequent encounter(s) T81.43xD (ICD-10-CM) 06/02 Active 06/02 Najma Araujo Infection following a procedure, organ and space surgical site, subsequent encounter Abscess, intra-abdominal K65.1 (ICD-10-CM) 06/02 Active 06/02 Najma Araujo Peritoneal abscess Primary malignant neoplasm of rectum 27331541 (SNOMED CT) 06/02 Active 06/02 Najma Araujo Primary malignant neoplasm of rectum Medications Medication Instructions Start Date Stop Date Generic Name ND Provider DIAZEPAM 5 MG TABS Q6HPRN diazepam [id number] Esthela López OXYCODONE HCL 5 MG CAPS Q4HPRN oxycodone 00413287571 Esthela López OMEPRAZOLE 20 MG CPDR by mouth once a day omeprazole 13036488672 Esthela López SULFAMETHOXAZOLE -TRIMETHOPRIM 800-160 MG TABS Take 1 tablet by mouth once a day sulfamethoxazole -trimethoprim 36107780700 [facility] RN SULFAMETHOXAZOLE -TRIMETHOPRIM 800-160 MG TABS Take 1 tablet by mouth twice a day sulfamethoxazole -trimethoprim 57717949528 Avelino Perrin MD SULFAMETHOXAZOLE -TRIMETHOPRIM 800-160 MG TABS sulfamethoxazole -trimethoprim 00916340008 Avelino Perrin MD SULFAMETHOXAZOLE -TRIMETHOPRIM 800-160 MG TABS Take 1 tablet by mouth once a day sulfamethoxazole -trimethoprim 68058952451 Avelino Perrin MD PAXLOVID (300/100) 20 x 150 MG & 10 x 100MG TBPK 1 dose pack by mouth as directed nirmatrelvir-rit onavir 62339445506 Avelino Perrin MD FLUCONAZOLE 200 MG TABS fluconazole 76529414324 [facility] RN SULFAMETHOXAZOLE -TRIMETHOPRIM 800-160 MG TABS sulfamethoxazole -trimethoprim 02973495740 [facility] RN daptomycin recon soln 500mg Q 24hrs - 07/30 [facility] [phone] daptomycin recon [facility] RN ertapenem recon soln 1gm Q 24hrs - 07/30 [facility] ertapenem recon [facility] RN SULFAMETHOXAZOLE -TRIMETHOPRIM 800-160 MG TABS Take 1 tablet by mouth twice a day sulfamethoxazole -trimethoprim 03972607799 Avelino Perrin MD FLUCONAZOLE 200 MG TABS Take 1 tablet by mouth once a day fluconazole 97955776320 Avelino Perrin MD SULFAMETHOXAZOLE -TRIMETHOPRIM 800-160 MG TABS Take 1 tablet by mouth twice a day sulfamethoxazole -trimethoprim 21069184498 Avelino Perrin MD daptomycin recon soln 500mg Q 24hrs - 07/30 [facility] [phone] daptomycin recon soln [facility] ertapenem recon soln 1gm Q 24hrs - 07/30 [facility] ertapenem recon soln [facility] FLUCONAZOLE 200 MG TABS 1 tablet by mouth once a day fluconazole 08570573682 Avelino Perrin MD FLUCONAZOLE 200 MG TABS Take 1 tablet by mouth once a day fluconazole 55620494395 Avelino Perrin MD METRONIDAZOLE 500 MG TABS Take 1 tablet by mouth twice a day metronidazole 76868016907 Avelino Perrin MD LEVOFLOXACIN 750 MG TABS Take 1 tablet by mouth once a day levofloxacin 86510336711 Avelino Perrin MD PROMETHAZINE HCL 25 MG TABS Take 1/2 tablet by mouth once a day as needed nausea promethazine 53891579827 Avelino Perrin MD LEVOFLOXACIN 750 MG TABS Take 1 tablet by mouth once a day levofloxacin 81988571096 Avelino Perrin MD METRONIDAZOLE 500 MG TABS Take 1 tablet by mouth twice a day metronidazole 72205832663 Avelino Perrin MD OMEPRAZOLE 20 MG CPDR by mouth once a day omeprazole 37914390781 Kera Minor VASCULERA TABS once a day diosmin complex no.1 50294902469 Kera Minor TAMSULOSIN HCL 0.4 MG CAPS 1 capsule by mouth once a day tamsulosin 86324020237 Kera Bebeto NYSTATIN 516331 UNIT/ML SUSP Take 10 mLs (1,000,000 Units total) by mouth 2 (two) times daily Swish and Swallow nystatin 45225940834 Kera Tate ertapenem recon soln 1gm Q 24hrs - 06/12 [facility] ()[phone] ertapenem recon soln [facility] FLUCONAZOLE 100 MG TABS Take 1 tablet by mouth once a day fluconazole 39770457514 Rhona Amaya FLUCONAZOLE 200 MG TABS 1 tablet by mouth once a day fluconazole 02662697956 Avelino Perrin MD AMOXICILLIN-POT CLAVULANATE 875-125 MG TABS Take 1 tablet by mouth twice a day amoxicillin-pot clavulanate 49329220769 Avelino Perrin MD FLUCONAZOLE 200 MG TABS Take 1 tablet by mouth once a day fluconazole 43678816442 Avelino Perrin MD FLUCONAZOLE 100 MG TABS Take 1 tablet by mouth once a day fluconazole 48223680712 Avelino Perrin MD ertapenem recon soln 1gm Q 24hrs - 06/12 [facility] ()[phone] [facility] 200 MG TABS Take 1 tablet by mouth once a day fluconazole 68970388076 Avelino Perrin MD TAMSULOSIN HCL 0.4 MG CAPS Take 1 capsule by mouth once a day tamsulosin 43779884192 Avelino Perrin MD AMOXICILLIN-POT CLAVULANATE 875-125 MG TABS Take 1 tablet by mouth twice a day amoxicillin-pot clavulanate 20366842165 Avelino Perrin MD TAMSULOSIN HCL 0.4 MG CAPS 1 capsule by mouth once a day tamsulosin 57945638827 Avelino Perrin MD GABAPENTIN 100 MG CAPS Take 1 capsule by mouth once a day gabapentin 79024668913 Avelino Perrin MD TAMSULOSIN HCL 0.4 MG CAPS Take 1 capsule by mouth once a day tamsulosin 98413530110 Pat Newell RN AMOXICILLIN-POT CLAVULANATE 875-125 MG TABS Take 1 tablet by mouth twice a day amoxicillin-pot clavulanate 47662772070 Avelino Perrin MD FLUCONAZOLE 200 MG TABS Take 1 tablet by mouth once a day fluconazole 08036588743 Avelino Perrin MD ZOSYN 2-0.25 GM/50ML SOLN Zosyn 13.5G IV q24hrs continuous-AMer imed/ [facility] dose, line care, labs piperacillin-jose ramon obactam-dextrs 43804365738 Pat Newell RN ZOSYN 2-0.25 GM/50ML SOLN Zosyn 13.5G IV q24hrs continuous-AMer imed/ [facility] dose, line care, labs piperacillin-jose ramon obactam-dextrs 77339126610 Nicole Kaiser RN FLUCONAZOLE 200 MG TABS Take 2 tablet by mouth once a day fluconazole 46550130645 Avelino Perrin MD AMOXICILLIN-POT CLAVULANATE 875-125 MG TABS Take 1 tablet by mouth twice a day amoxicillin-pot clavulanate 77639596420 Avelino Perrin MD FLUCONAZOLE 200 MG TABS Take 1 tablet by mouth once a day fluconazole 16961805538 Avelino Prerin MD VASCULERA TABS once a day diosmin complex no.1 49347383729 Amber Ta GABAPENTIN 100 MG CAPS Take 2 capsules (200 mg total) by mouth nightly for 10 days. Max Daily Amount: 200 mg gabapentin 99000732721 Avelino Perrin MD FLUCONAZOLE 200 MG TABS Take 1 tablet (200 mg total) by mouth daily for 14 days. fluconazole 46758691730 Avelino Perrin MD FLUCONAZOLE 200 MG TABS Take 2 tablet by mouth once a day fluconazole 70801255217 Avelino Perrin MD GABAPENTIN 100 MG CAPS Take 2 capsule by mouth every night gabapentin 28657955360 Avelino Perrin MD magnesium gluconate 30 mg (550 mg) tablet Take 1 tablet by mouth once a day magnesium gluconate 40876119906 Avelino Perrin MD DIAZEPAM 5 MG TABS Q6HPRN diazepam 88379931860 Stephani Calina OXYCODONE HCL 5 MG CAPS Q4HPRN oxycodone 23680276388 Stephani Calina ZOSYN 2-0.25 GM/50ML SOLN Zosyn 13.5G IV q24hrs continuous-[facility]ER [employer] piperacillin-jose ramon obactam-dextrs 74486898261 Chana Gibson RN TAMSULOSIN HCL 0.4 MG CAPS Take 1 capsule (0.4 mg total) by mouth daily. tamsulosin 44615825516 QIE qieuser OXYCODONE HCL 5 MG TABS Take 1-2 tablets (5-10 mg total) by mouth every 6 (six) hours as needed for Pain for up to 7 days. Max Daily Amount: 40 mg oxycodone 49215218626 QIE qieuser NYSTATIN 121703 UNIT/ML SUSP Take 10 mLs (1,000,000 Units total) by mouth 2 (two) times daily Swish and Swallow nystatin 69884622289 QIE qieuser METHOCARBAMOL 500 MG TABS Take 1 tablet (500 mg total) by mouth 4 (four) times daily as needed for up to 10 days. METHOCARBAMOL QIE qieuser KETOROLAC TROMETHAMINE 10 MG TABS Take 1 tablet (10 mg total) by mouth every 6 (six) hours as needed for up to 5 days. ketorolac 90375662405 QIE qieuser GABAPENTIN 100 MG CAPS Take 2 capsules (200 mg total) by mouth nightly for 10 days. Max Daily Amount: 200 mg gabapentin 98491798217 QIE qieuser FLUCONAZOLE 200 MG TABS Take 1 tablet (200 mg total) by mouth daily for 14 days. fluconazole 43106790936 QIE qieuser DIAZEPAM 5 MG TABS Take 1 tablet (5 mg total) by mouth every 6 (six) hours as needed (Spasms) for up to 7 days. Max Daily Amount: 20 mg diazepam 21828508216 QIE qieuser Medications Administered No information available. [...] by Westergren method External Other: Patient lexy ablarran update - EmailStatus, [facility] ... TONI Corey This barry l be used to establish a PIN number for patients to register in the Patient Portal. External Other: Patient lexy albarran update - Email Push, [facility] ... PAT E-MAIL [email or web address] patient's e-mail address Office Visit: Office Visit: [...] Procedures Code Procedure Name Date Entry Date CPT-62295 CMP J3691a,[id number] CBC with Differential 2023 CPT-45033 C- reactive protein CPT-05318 Sedimentation Rate (ESR) 202 08/09/06 CPT-LAB Other CPT-Cooral Continue oral antibiotics 20 28/08/08 CPT-97012 CMP U2757g,[id number] CBC with Differential 2023 CPT-71069 C- reactive protein CPT-99214 Sedimentation Rate (ESR) 202 08/08/08 CPT-jahaira New Oral Antibiotic CPT-94121 CMP G9501g,[id number] CBC with Differential 2023 CPT-16697 C- reactive protein CPT-43222 Sedimentation Rate (ESR) 202 08/07/25 CPT-rashmi New IV antibiotic CPT-89615 CMP V4634o,[id number] CBC with Differential 2023 CPT-24809 C- reactive protein [id number], O26150L CPK CPT-52824 Sedimentation Rate (ESR) 202 08/08/11 CPT-81824 CMP V8242p,[id number] CBC with Differential 2023 CPT-39384 C- reactive protein T659061, T99504P CPK CPT-18277 Sedimentation Rate (ESR) 202 08/08/11 CPT-Cooral Continue oral antibiotics 30/06/26 CPT-28226 CMP I1785e,[id number] CBC with Differential 2023 CPT-15475 C- reactive protein CPT-81253 Sedimentation Rate (ESR) 202 08/06/26 CPT-46406 CMP Q1391o,[id number] CBC with Differential 2023 CPT-28297 C- reactive protein CPT-17548 Sedimentation Rate (ESR) 202 08/06/26 CPT-jahaira New Oral Antibiotic CPT-68911 CMP Q8759q,[id number] CBC with Differential 2023 CPT-26279 C- reactive protein CPT-29100 Sedimentation Rate (ESR) 202 08/07/19 CPT-12663 MRI Sacrum w/o contrast 2023 CPT-Cooral Continue oral antibiotics 30/06/05 CPT-01502 CMP V9114t,[id number] CBC with Differential 2023 CPT-81213 C- reactive protein CPT-71350 Sedimentation Rate (ESR) 202 08/06/05 CPT-24675 CT scan ABD/Pelvis with contrast CPT-ca Continue IV antibiotics 2023 CPT-Cooral Continue oral antibiotics 30/05/29 CPT-wclc Weekly Central Line Care 08/06/23 CPT-rashmi New IV antibiotic CPT-rashmi New IV antibiotic CPT-rashmi New IV antibiotic CPT-cwl Weekly Labs (Continue) 05/30 CPT-Cooral Continue oral antibiotics 30/05/15 CPT-66153 CMP [id number],[id number] CBC with Differential 2023 CPT-45447 C- reactive protein CPT-29703 Sedimentation Rate (ESR) 202 08/06/15 CPT-labs Labs CPT-46133 CMP CPT-51513 Sedimentation Rate (ESR) 202 08/05/14 CPT-29831 C- reactive protein U3711s,[id number] CBC with Differential 2023 CPT-97373 BMP Y1325t,[id number] CBC with Differential 2022 CPT-34858 C- reactive protein CPT-Cooral Continue oral antibiotics 20 28/04/26 CPT-68918 CMP W8555m,[id number] CBC with Differential 2022 CPT-35332 C- reactive protein CPT-30303 Sedimentation Rate (ESR) 202 07/16/25 CPT-95387 CMP F6134u,[id number] CBC with Differential 2022 CPT-35406 C- reactive protein CPT-98109 Sedimentation Rate (ESR) 202 07/16/25 CPT-PICREM PICC Removal CPT-ca Continue IV antibiotics 2022 CPT-Cooral Continue oral antibiotics 20 28/04/12 CPT-40879 CMP Z0187k,[id number] CBC with Differential 2022 CPT-45993 C- reactive protein CPT-97141 Sedimentation Rate (ESR) 202 07/17/11 CPT-ca Continue IV antibiotics 2022 CPT-03236 BMP CPT-PICREM PICC Removal CPT-ca Continue IV [...]
--- OUTSIDE RECORDS SUMMARY | 2025-01-20 15:01 | XMS_ITS | Clinical Summary ---
Author Organization [facility] Address [address] [place] [address] Care Team Providers Care Machinery Erector Name Role Phone Provider, No Known Primary [...] 07/12/2023 HEPATITIS C SCREENING 07/12/2023 COVID-19 Vaccine (3 - 2024-2 6 season) 2025 05/05/2021, 04/06/2021 INFLUENZA VACCINE 02/04/2025 02/20/2023 TDAP/TD VACCINES (2 - Td or Tdap) 04/25/2033 04/25/2023 Pneumococcal Vaccine 0-49 Aged Out 04/25/2023 No longer eligible based on patient's age to complete this topic Insurance [facility] Member Subscriber Plan / Payer (Ef fective 2015-Present) Name:Kenan Liao Relation to Subscriber:Self Name:Kenan Liao Payer ID:[id number] (NAIC) Type:Not on file Address: [place] [id number] [place] [phone] Care Teams Machinery Erector Relationship Specialty Start Date End Date Provider, [place] [address] PCP - General 05/01/23
[2025-01-20] MEDS: SODIUM CHLORIDE 0.9% 10ML FLUSH SYRINGE 10 ML IV (15:10)
== END 2025-01-20 15:14 | disposition home or self-care (01) ==
LOC: INF 14:57
PROVIDERS: PCP Nurse Practitioner Family; Visit Provider Internal Medicine Medical Oncology
DX: C20 Malignant neoplasm of rectum (principal)
CPT/HCPCS: 96523; J1642

== ENCOUNTER 2025-02-19 15:04 | Outpatient (CLI) | payer OTHER, SELFPAY ==
--- OUTSIDE RECORDS SUMMARY | 2025-02-19 15:08 | XMS_ITS | Clinical Summary ---
Author Organization [facility] Address [address] [place] [address] Care Team Providers Care Group Product Manager Name Role Phone Provider, No Known Primary [...] ANNUAL PHYSICAL 07/12/2023 HEPATITIS C SCREENING 07/12/2023 INFLUENZA VACCINE 12/05/2024 02/20/2023 TDAP/TD VACCINES (2 - Td or Tdap) 04/25/2033 023 Pneumococcal Vaccine 0-49 Aged Out 04/25/2023 No longer eligible based on patient's age to complete this topic Insurance [facility] Care Teams Group Product Manager Relationship Specialty Start Date End Date Provider, [place] [address] PCP - General 05/01/23
[2025-02-19] MEDS: SODIUM CHLORIDE 0.9% 10ML FLUSH SYRINGE 10 ML IV (15:10)
== END 2025-02-19 23:59 | disposition home or self-care (01) ==
PROVIDERS: PCP Family Medicine; Visit Provider Internal Medicine Medical Oncology
DX: C20 Malignant neoplasm of rectum (principal)
CPT/HCPCS: 96523; J1642

== ENCOUNTER 2025-03-11 08:40 | Outpatient (CLI) | payer OTHER, SELFPAY ==
--- OUTSIDE RECORDS SUMMARY | 2025-03-11 08:44 | XMS_ITS | Clinical Summary ---
Author Organization [facility] Address [address] [place] [address] [address] [place] [address] Phone Care Team Providers Care Keno Writer/Runner Name Role Phone Status, Fax Unavailable Conditions or Problems Problem Name Problem Code Onset Date Status Entry Date Provider Comment Standard Description Annotate COVID-19 coronavirus acute bronchitis 516505982 (SNOMED CT) 09/10 Active 09/10 Avelino Perrin MD COVID-19 Fever (pyrexia) 271147866 (SNOMED CT) 09/02 Active 09/02 Chana Arthur RN Fever Nicotine dependence 35296704 (SNOMED CT) 06/28 Active 06/28 Malika Davis Nicotine dependence Renal failure, acute 08548208 (SNOMED CT) 06/12 Active 06/12 Avelino Perrin MD Acute kidney injury Candidiasis infection B37.89 (ICD-10-CM) 06/02 Active 06/02 Najma Araujo Other sites of candidiasis Personal history of antineoplastic chemotherapy 368047228 (SNOMED CT) 06/02 Active 06/02 Najma Araujo H/O: chemotherapy Infection following a procedure, organ and space surgical site, subsequent encounter(s) T81.43xD (ICD-10-CM) 06/02 Active 06/02 Najma Araujo Infection following a procedure, organ and space surgical site, subsequent encounter Abscess, intra-abdominal K65.1 (ICD-10-CM) 06/02 Active 06/02 Najma Araujo Peritoneal abscess Primary malignant neoplasm of rectum 86223752 (SNOMED CT) 06/02 Active 06/02 Najma Araujo Primary malignant neoplasm of rectum Medications Medication Instructions Start Date Stop Date Generic Name ND Provider DIAZEPAM 5 MG TABS Q6HPRN diazepam 90801143281 Esthela López OXYCODONE HCL 5 MG CAPS Q4HPRN oxycodone 44435746374 Esthela López OMEPRAZOLE 20 MG CPDR by mouth once a day omeprazole 56918992184 Esthela López SULFAMETHOXAZOLE -TRIMETHOPRIM 800-160 MG TABS Take 1 tablet by mouth once a day sulfamethoxazole -trimethoprim 45799467650 [facility] RN SULFAMETHOXAZOLE -TRIMETHOPRIM 800-160 MG TABS Take 1 tablet by mouth twice a day sulfamethoxazole -trimethoprim 36286646291 Avelino Perrin MD SULFAMETHOXAZOLE -TRIMETHOPRIM 800-160 MG TABS sulfamethoxazole -trimethoprim 23373484187 Avelino Perrin MD SULFAMETHOXAZOLE -TRIMETHOPRIM 800-160 MG TABS Take 1 tablet by mouth once a day sulfamethoxazole -trimethoprim 40174110139 Avelino Perrin MD PAXLOVID (300/100) 20 x 150 MG & 10 x 100MG TBPK 1 dose pack by mouth as directed nirmatrelvir-rit onavir 42645587473 Avelino Perrin MD FLUCONAZOLE 200 MG TABS fluconazole 79241406957 [facility] RN SULFAMETHOXAZOLE -TRIMETHOPRIM 800-160 MG TABS sulfamethoxazole -trimethoprim 78924055142 [facility] RN daptomycin recon soln 500mg Q 24hrs - 07/30 [facility] [phone] daptomycin recon [facility] RN ertapenem recon soln 1gm Q 24hrs - 07/30 [facility] ertapenem recon [facility] RN SULFAMETHOXAZOLE -TRIMETHOPRIM 800-160 MG TABS Take 1 tablet by mouth twice a day sulfamethoxazole -trimethoprim 03338798594 Avelino Perrin MD FLUCONAZOLE 200 MG TABS Take 1 tablet by mouth once a day fluconazole 46272535472 Avelino Perrin MD SULFAMETHOXAZOLE -TRIMETHOPRIM 800-160 MG TABS Take 1 tablet by mouth twice a day sulfamethoxazole -trimethoprim 52246095633 Avelino Perrin MD daptomycin recon soln 500mg Q 24hrs - 07/30 [facility] [phone] daptomycin recon soln [facility] ertapenem recon soln 1gm Q 24hrs - 07/30 [facility] ertapenem recon soln [facility] FLUCONAZOLE 200 MG TABS 1 tablet by mouth once a day fluconazole 40883428551 Avelino Perrin MD FLUCONAZOLE 200 MG TABS Take 1 tablet by mouth once a day fluconazole 90920394367 Avelino Perrin MD METRONIDAZOLE 500 MG TABS Take 1 tablet by mouth twice a day metronidazole 58931996917 Avelino Perrin MD LEVOFLOXACIN 750 MG TABS Take 1 tablet by mouth once a day levofloxacin 77677786890 Avelino Perrin MD PROMETHAZINE HCL 25 MG TABS Take 1/2 tablet by mouth once a day as needed nausea promethazine 66298567228 Avelino Perrin MD LEVOFLOXACIN 750 MG TABS Take 1 tablet by mouth once a day levofloxacin 14507612180 Avelino Perrin MD METRONIDAZOLE 500 MG TABS Take 1 tablet by mouth twice a day metronidazole 41495909636 Avelino Perrin MD OMEPRAZOLE 20 MG CPDR by mouth once a day omeprazole 58659644357 Kera Minor VASCULERA TABS once a day diosmin complex no.1 33666388919 Kera Minor TAMSULOSIN HCL 0.4 MG CAPS 1 capsule by mouth once a day tamsulosin 67757714864 Kera Bebeto NYSTATIN 093880 UNIT/ML SUSP Take 10 mLs (1,000,000 Units total) by mouth 2 (two) times daily Swish and Swallow nystatin 47087313084 Kera Tate ertapenem recon soln 1gm Q 24hrs - 06/12 [facility] ()[phone] ertapenem recon soln [facility] FLUCONAZOLE 100 MG TABS Take 1 tablet by mouth once a day fluconazole 78876110882 Rhona Amaya FLUCONAZOLE 200 MG TABS 1 tablet by mouth once a day fluconazole 44100918706 Avelino Perrin MD AMOXICILLIN-POT CLAVULANATE 875-125 MG TABS Take 1 tablet by mouth twice a day amoxicillin-pot clavulanate 77857313893 Avelino Perrin MD FLUCONAZOLE 200 MG TABS Take 1 tablet by mouth once a day fluconazole 76743868779 Avelino Perrin MD FLUCONAZOLE 100 MG TABS Take 1 tablet by mouth once a day fluconazole 59418170162 Avelino Perrin MD ertapenem recon soln 1gm Q 24hrs - 06/12 [facility] ()[phone] [facility] 200 MG TABS Take 1 tablet by mouth once a day fluconazole 71590766754 Avelino Perrin MD TAMSULOSIN HCL 0.4 MG CAPS Take 1 capsule by mouth once a day tamsulosin 72306276578 Avelino Perrin MD AMOXICILLIN-POT CLAVULANATE 875-125 MG TABS Take 1 tablet by mouth twice a day amoxicillin-pot clavulanate 87856342192 Avelino Perrin MD TAMSULOSIN HCL 0.4 MG CAPS 1 capsule by mouth once a day tamsulosin 51533802389 Avelino Perrin MD GABAPENTIN 100 MG CAPS Take 1 capsule by mouth once a day gabapentin 00510414368 Avelino Perrin MD TAMSULOSIN HCL 0.4 MG CAPS Take 1 capsule by mouth once a day tamsulosin 85511405317 Pat Newell RN AMOXICILLIN-POT CLAVULANATE 875-125 MG TABS Take 1 tablet by mouth twice a day amoxicillin-pot clavulanate 48956860410 Avelino Perrin MD FLUCONAZOLE 200 MG TABS Take 1 tablet by mouth once a day fluconazole 74933499145 Avelino Perrin MD ZOSYN 2-0.25 GM/50ML SOLN Zosyn 13.5G IV q24hrs continuous-AMer imed/ [facility] dose, line care, labs piperacillin-jose ramon obactam-dextrs 84969620235 Pat Newell RN ZOSYN 2-0.25 GM/50ML SOLN Zosyn 13.5G IV q24hrs continuous-AMer imed/ [facility] dose, line care, labs piperacillin-jose ramon obactam-dextrs 70729181954 Nicole Kaiser RN FLUCONAZOLE 200 MG TABS Take 2 tablet by mouth once a day fluconazole 03883766032 Avelino Perrin MD AMOXICILLIN-POT CLAVULANATE 875-125 MG TABS Take 1 tablet by mouth twice a day amoxicillin-pot clavulanate 35531818106 Avelino Perrin MD FLUCONAZOLE 200 MG TABS Take 1 tablet by mouth once a day fluconazole 76528719492 Avelino Perrin MD VASCULERA TABS once a day diosmin complex no.1 43580143100 Amber Ta GABAPENTIN 100 MG CAPS Take 2 capsules (200 mg total) by mouth nightly for 10 days. Max Daily Amount: 200 mg gabapentin 90706586165 Avelino Perrin MD FLUCONAZOLE 200 MG TABS Take 1 tablet (200 mg total) by mouth daily for 14 days. fluconazole 85506213758 Avelino Perrin MD FLUCONAZOLE 200 MG TABS Take 2 tablet by mouth once a day fluconazole 71424127036 Avelino Perrin MD GABAPENTIN 100 MG CAPS Take 2 capsule by mouth every night gabapentin 68640184540 Avelino Perrin MD magnesium gluconate 30 mg (550 mg) tablet Take 1 tablet by mouth once a day magnesium gluconate 92545721731 Avelino Perrin MD DIAZEPAM 5 MG TABS Q6HPRN diazepam 18037605086 Stephani Calina OXYCODONE HCL 5 MG CAPS Q4HPRN oxycodone 74317513807 Stephani Calina ZOSYN 2-0.25 GM/50ML SOLN Zosyn 13.5G IV q24hrs continuous-AMER [employer] piperacillin-jose ramon obactam-dextrs 76385070047 Chana Gibson RN TAMSULOSIN HCL 0.4 MG CAPS Take 1 capsule (0.4 mg total) by mouth daily. tamsulosin 64483306066 QIE qieuser OXYCODONE HCL 5 MG TABS Take 1-2 tablets (5-10 mg total) by mouth every 6 (six) hours as needed for Pain for up to 7 days. Max Daily Amount: 40 mg oxycodone 64492938383 QIE qieuser NYSTATIN 740954 UNIT/ML SUSP Take 10 mLs (1,000,000 Units total) by mouth 2 (two) times daily Swish and Swallow nystatin 96478379136 QIE qieuser METHOCARBAMOL 500 MG TABS Take 1 tablet (500 mg total) by mouth 4 (four) times daily as needed for up to 10 days. METHOCARBAMOL QIE qieuser KETOROLAC TROMETHAMINE 10 MG TABS Take 1 tablet (10 mg total) by mouth every 6 (six) hours as needed for up to 5 days. ketorolac 06779701986 QIE qieuser GABAPENTIN 100 MG CAPS Take 2 capsules (200 mg total) by mouth nightly for 10 days. Max Daily Amount: 200 mg gabapentin 42399829289 QIE qieuser FLUCONAZOLE 200 MG TABS Take 1 tablet (200 mg total) by mouth daily for 14 days. fluconazole 75590347444 QIE qieuser DIAZEPAM 5 MG TABS Take 1 tablet (5 mg total) by mouth every 6 (six) hours as needed (Spasms) for up to 7 days. Max Daily Amount: 20 mg diazepam 30633925546 QIE qieuser Medications Administered No information available. [...] Other: Patient lexy albarran update - EmailStatus, [facility] ... TONI Corey This barry l be used to establish a PIN number for patients to register in the Patient Portal. External Other: Patient lexy albarran update - Email Push, [facility] ... PAT E-MAIL [email or web address] patient's e-mail address Office Visit: Office Visit: [...] Procedures Code Procedure Name Date Entry Date CPT-03954 CMP [id number],[id number] CBC with Differential 2023 CPT-81545 C- reactive protein CPT-53411 Sedimentation Rate (ESR) 202 08/09/06 CPT-LAB Other CPT-Cooral Continue oral antibiotics 20 28/08/08 CPT-03366 CMP [id number],[id number] CBC with Differential 2023 CPT-70475 C- reactive protein CPT-56534 Sedimentation Rate (ESR) 202 08/08/08 CPT-jahaira New Oral Antibiotic CPT-42462 CMP [id number] CBC with Differential 2023 CPT-54106 C- reactive protein CPT-65588 Sedimentation Rate (ESR) 202 08/07/25 CPT-rashmi New IV antibiotic CPT-46292 CMP [id number] CBC with Differential 2023 CPT-59821 C- reactive protein [id number], Q98768C CPK CPT-19283 Sedimentation Rate (ESR) 202 08/08/11 CPT-94050 CMP [id number],[id number] CBC with Differential 2023 CPT-27343 C- reactive protein [id number], [id number] CPK CPT-23113 Sedimentation Rate (ESR) 202 08/08/11 CPT-Cooral Continue oral antibiotics 30/06/26 CPT-35384 CMP [id number] CBC with Differential 2023 CPT-29637 C- reactive protein CPT-07137 Sedimentation Rate (ESR) 202 08/06/26 CPT-47590 CMP [id number],[id number] CBC with Differential 2023 CPT-21605 C- reactive protein CPT-02915 Sedimentation Rate (ESR) 202 08/06/26 CPT-jahaira New Oral Antibiotic CPT-92810 CMP [id number],[id number] CBC with Differential 2023 CPT-91092 C- reactive protein CPT-05159 Sedimentation Rate (ESR) 202 08/07/19 CPT-85030 MRI Sacrum w/o contrast 2023 CPT-Cooral Continue oral antibiotics 30/06/05 CPT-03726 CMP [id number],[id number] CBC with Differential 2023 CPT-77213 C- reactive protein CPT-34523 Sedimentation Rate (ESR) 202 08/06/05 CPT-14383 CT scan ABD/Pelvis with contrast CPT-ca Continue IV antibiotics 2023 CPT-Cooral Continue oral antibiotics 30/05/29 CPT-wclc Weekly Central Line Care 08/06/23 CPT-rashmi New IV antibiotic CPT-rashmi New IV antibiotic CPT-rashmi New IV antibiotic CPT-cwl Weekly Labs (Continue) 05/30 CPT-Cooral Continue oral antibiotics 30/05/15 CPT-79630 CMP [id number] CBC with Differential 2023 CPT-58189 C- reactive protein CPT-19544 Sedimentation Rate (ESR) 202 08/06/15 CPT-labs Labs CPT-35315 CMP CPT-68442 Sedimentation Rate (ESR) 202 08/05/14 CPT-68250 C- reactive protein [id number],[id number] CBC with Differential 2023 CPT-05614 BMP [id number] CBC with Differential 2022 CPT-58560 C- reactive protein CPT-Cooral Continue oral antibiotics 20 28/04/26 CPT-89029 CMP [id number] CBC with Differential 2022 CPT-02949 C- reactive protein CPT-85507 Sedimentation Rate (ESR) 202 07/16/25 CPT-84129 CMP [id number] CBC with Differential 2022 CPT-31485 C- reactive protein CPT-34525 Sedimentation Rate (ESR) 202 07/16/25 CPT-PICREM PICC Removal CPT-ca Continue IV antibiotics 2022 CPT-Cooral Continue oral antibiotics 20 28/04/12 CPT-89358 CMP [id number] CBC with Differential 2022 CPT-20198 C- reactive protein CPT-67368 Sedimentation Rate (ESR) 202 07/17/11 CPT-ca Continue IV antibiotics 2022 CPT-87400 BMP CPT-PICREM PICC Removal CPT-ca Continue IV [...]
--- NOTE | 2025-03-11 08:45 | CT_ITS ---
FINAL REPORT TECHNIQUE: Thin section axial images were obtained through the abdomen after intravenous contrast. Reconstruction images were obtained from the axial data. Exam was performed using dose reduction techniques. CLINICAL HISTORY: Rectal Carcinoma COMPARISON: 12/16/2024 FINDINGS: The lung bases are clear. The liver is homogeneous. The gallbladder is present. The spleen, adrenal glands, and pancreas are unremarkable. There is no hydronephrosis or solid renal mass. There is no evidence of small bowel obstruction. 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 There is no abdominal lymphadenopathy or ascites. The appendix is normal. Presacral soft tissue stable. The prostate is unremarkable. The urinary bladder is normal. There is no pelvic lymphadenopathy or ascites. No acute osseous abnormalities identified. IMPRESSION: Stable exam without evidence of metastatic disease. Reviewed, Interpreted and Dictated by Yesenia Mooney MD Transcribed by Danni Keller Authenticated and [facility]
--- NOTE | 2025-03-11 08:45 | CT_ITS ---
FINAL REPORT TECHNIQUE: Thin section axial images were obtained from the thoracic inlet through the upper abdomen after intravenous contrast injection. Reconstruction images were obtained from the axial data. Exam was performed using dose reduction technique. CLINICAL HISTORY: Rectal Carcinoma COMPARISON: 12/16/2024 FINDINGS: Right sided Port-A-Cath is present. There is no mediastinal, hilar, or axillary lymphadenopathy. There is no pleural or pericardial effusion. The lungs are clear. Limited evaluation of the upper abdomen is without acute abnormality. No acute osseous abnormality. IMPRESSION: No evidence of metastatic disease. Reviewed, Interpreted and Dictated by Yesenia Mooney MD Transcribed by Danni Keller Authenticated and [facility]
--- OUTSIDE RECORDS SUMMARY | 2025-03-11 08:45 | XMS_ITS | Clinical Summary ---
Author Organization [facility] [facility] ([place], [place], [place], [place], [place]) Address [address] [place] [address] Care Team Providers Care Stock Repairer Name Role Phone Pat So MD Unavailable [phone] Vic Suazo MD Primary Care Provider [phone] Allergies No known active allergies Medications tamsulosin [...] by Robert Floyd MD on 11/08/2022 Immunizations Immunization Administration Dates Next Due Covid-19 Vaccine MRNA [...] Date Smoking Tobacco: Every Day Cigarettes 1 23.8 Started: 2001 Passive Smoke Exposure: Past Smokeless Tobacco: Former Snuff Quit: 2021 Comments:1/2 can of dip per year Alcohol Use Standard Drinks/Week Comments Yes 28 (1 standard drink = 0.6 oz pu re alcohol) 3 drinks a day Social Connection and Isolation Panel Answer Date Recorded In a typical week, how many times do you talk on the phone with family, friends, or neighbors? Three times a week 03/23/20 How often do you get togethe r with friends or relatives? Three times a week 03/23/2023 How often do you attend chur ch or advent services? Never 03/23/2023 Do you belong to any clubs o r organizations such as sikh groups, unions, fraternal or athletic groups, or [...] Date Harvey rded Speak language other than Vincentian at home Not on file 05/15/2023 Want help with school or training Not on file 05/15/2023 Substance Use Answer Date Recorded Used prescription meds for non-medical reasons N ot on file 05/15/2023 Used illegal drugs past 12 months Not on file 05/15/2023 Sex and Gender Information Value Date Recorded Sex Assigned at Male 03/23/2023 5:42 PM MANAGEMENT NURSE RN Legal Sex Male 2:23 PM CDT Gender Identity Male 03/23/2023 5:42 PM MANAGEMENT NURSE RN Sexual Orientation Straight 03/23/2023 5: 42 PM MANAGEMENT NURSE RN Occupation Industry Job Start Date Job End [...] Hepatitis C Screening 2001 Lipid Panel 2018 Tobacco Cessation Counseling and Screening (12+) 05/09/2024 05/09/2023 COVID-19 VACCINE (3 - season) 2025, 04/06/2021 Influenza Vaccine (#1) 2025 DTAP/TDAP/TD VACCINES (2 - Td or Tdap) 04/25/2033 Pneumococcal Vaccine: 0-49 Years Completed 04/25/20 23 Insurance [id number] (Home) [address] [id number] [place] MED[place] PEND Advance Directives For more information, please contact: [phone] * Full Code (Latest Code Status on File) Date Activated Date Inactivated Comments 03/23/2023 4:38 PM 2023 3:41 PM * Full Code Date Activated Date Inactivated Comments 03/13/2023 1:55 PM 03/16/2023 4:31 PM Care Teams Stock Repairer Relationship Specialty Start Date End Date Vic Suazo MD [address] [place] [address] PCP - General Family Medicine 01/31/23 Pat So MD [address] [facility] [address] [place] [address] Referring Physician Colon and Rectal Surgery 11/08/22
--- OUTSIDE RECORDS SUMMARY | 2025-03-11 08:45 | XMS_ITS ---
Author Organization [employer] ([place], [place], [place], [place], [place]) Address [address] [place] [address] Care Team Providers Care Corn Breeder Name Role Phone Pat So MD Unavailable [phone] Vic Suazo MD Primary Care Provider [phone] Active Problems Problem Noted Date Diagnosed Date Intra-abdominal infection 03/23/2023 Rectal cancer 03/13/2023 Acute radiation dermatitis 01/03/2023 Malignant neoplasm of rectum 11/08/2022 Cancer Staging:Clinical stage from 11/08/2022:Stage IIIC(cT4b, cN2, cM0) - Signed by Robert Floyd MD on 11/08/2022 Current Treatment and Therapy Plans No current plan information found. Past Treatment and Therapy Plans ONCOLOGY TREATMENT Plan Name Start Date Discontinue Date Treatment Medications Discontinue Reason Plan Provider [facility] - mFOLFOX 6 (oxaliplat in + [...] Treatment Medications Discontinue Reason Plan Provider Cycles [facility] Rectal neoadjuvant - Capecitabine (Xeloda) 825 mg/m2 with concurrent XRT 3 04/06/2023 capecitabine (XELODA) Therapy Complete Vic Ashford MD Treatment not started VAD Line Care Plan Name Start Date Discontinue Date Treatment Medications Discontinue Reason Plan Provider [facility] CARE - USE WITH INFUSIONS 05/09/2023 05/01/2024 alteplase (CATHFLO) 2 mg in SW 2 mL syringe Therapy Complete Minnie Wesley MD Lifetime Dose Tracking * Chemical Lifetime Dose Automatic Entry Manual Entr y Radiation 8 mGy 8 mGy 0 mGy
--- OUTSIDE RECORDS SUMMARY | 2025-03-11 08:45 | XMS_ITS | Clinical Summary ---
Author Organization [facility] Address [address] [place] [address] Care Team Providers Care Wire Bender Name Role Phone Provider, No Known Primary [...] patient's age to complete this topic Insurance [facility] Care Teams Wire Bender Relationship Specialty Start Date End Date Provider, [place] [address] PCP - General 05/01/23
--- OUTSIDE RECORDS SUMMARY | 2025-03-11 08:45 | XMS_ITS | Referral Summary ---
Author Organization [employer] ([place], [place], [place], [place], [place]) Address [address] [place] [address] Care Team Providers Care Founder And Chief Executive Officer Name Role Phone Pat So MD Unavailable [phone] Vic Suazo MD Primary Care Provider [phone] Allergies No known active allergies Medications tamsulosin [...] often do you attend chur ch or scientologist services? Never 03/23/2023 Do you belong to any clubs o r organizations such as hoahaoism groups, unions, fraternal or athletic groups, or [...] Date Harvey rded Speak language other than Guamanian at home Not on file 05/15/2023 Want help with school or training Not on file 05/15/2023 Substance Use Answer Date Recorded Used prescription meds for non-medical reasons N ot on file 05/15/2023 Used illegal drugs past 12 months Not on file 05/15/2023 Sex and Gender Information Value Date Recorded Sex Assigned at Male 03/23/2023 5:42 PM MANAGER SCIENCE Legal Sex Male 2:23 PM CDT Gender Identity Male 03/23/2023 5:42 PM MANAGER SCIENCE Sexual Orientation Straight 03/23/2023 5: 42 PM MANAGER SCIENCE Occupation Industry Job Start Date Job End [...] Plan of Treatment Not [place] [id number] [employer] MEDICAID PEND Advance Directives For more information, please contact: [phone] * Full Code (Latest Code Status on File) Date Activated Date Inactivated Comments 03/23/2023 4:38 PM 2023 3:41 PM * Full Code Date Activated Date Inactivated Comments 03/13/2023 1:55 PM 03/16/2023 4:31 PM Care Teams Founder And Chief Executive Officer Relationship Specialty Start Date End Date Vic Suazo MD [address] [place] [address] PCP - General Family Medicine 01/31/23 Pat So MD [address] [facility] [address] [place] [address] Referring Physician Colon and Rectal Surgery 11/08/22
--- OUTSIDE RECORDS SUMMARY | 2025-03-11 08:45 | XMS_ITS | Encounter Summary ---
Author Organization [employer] [facility] ([place], [place], [place], [place], [place]) Address [address] [place] [address] Care Team Providers Care Body Mechanic Name Role Phone Esperanza Logan RN Unavailable Unavailable Robert Floyd MD Unavailable [phone] Samreen Atkinson NP Unavailable Pat So MD Unavailable [phone] Vic Suazo MD Primary Care Provider [phone] Minnie Wesley MD Unavailable [phone] Naheed Singleton RN Unavailable Unavailable Shannan Olivas RN Unavailable Unavailable Encounter Details Date Type Department Care Team (Late st Contact Info) Description 04/16/2023 Outside Orders [facility] Central Scheduling [address] [place] [address] Pat So MD [address] [facility] [address] [place] [id number] Social History Tobacco Use Types Packs/Day Years [...] often do you attend chur ch or lutheran services? 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 Not on file Not o n file documented as of this encounter Plan of Treatment Not on file documented as of this encounter Visit Diagnoses Not on filedocumented in this encounter Care Teams Body Mechanic Relationship Specialty Start Date End Date Vic Suazo MD [address] [place], [place] [id number] PCP - General Family Medicine 01/31/23 Esperanza Logan, RN Nurse Navigator Oncology 11/08/22 03/18/24 Robert Floyd MD [address] [place] [address] [address] [place] [address] Radiation Oncologist Radiation Oncology 11/08/2203/18 Samreen Atkinson NP [address] [facility] [address] [place], [place] [id number] Advanced Registered Nurse Practitioner Radiation Oncology 11/08/22 03/18/24 Pat So MD [address] [facility] [address] [place] [address] Referring Physician Colon and Rectal Surgery 11/08/22 Minnie Wesley MD [address] [facility] [address] [place], [place] [id number] Medical Oncologist Hematology and Oncology 02/06/23 03/18/24 Naheed Singleton, ISABELLA Registered Nurse Oncology 03/14/23 03/18/24 Shannan Olivas RN Registered Nurse Radiation Oncology 03/26/23 03/18/24 documented as of this encounter
[2025-03-11] MEDS: IOPAMIDOL-370 (76%);100ML BOTTLE 75 ML IV (08:55)
[2025-03-11] MEDS: SODIUM CHLORIDE 0.9% 10ML SYR (RAD ONLY) 10 ML IV (08:55)
[2025-03-11] MEDS: BARIUM SULFATE(READI-CAT2);450ML BOTTLE 450 ML PO (08:55)
== END 2025-03-11 23:59 | disposition home or self-care (01) ==
LOC: RAD 08:40
PROVIDERS: PCP Family Medicine; Visit Provider Internal Medicine Medical Oncology
DX: C20 Malignant neoplasm of rectum (principal)
CPT/HCPCS: 71260; 74177; Q9967

== ENCOUNTER 2025-03-19 14:53 | Outpatient (CLI) | payer OTHER, SELFPAY ==
--- OUTSIDE RECORDS SUMMARY | 2025-03-19 14:56 | XMS_ITS | Clinical Summary ---
Author Organization [facility] Address [address] [place] [address] Care Team Providers Care Lock Stitch Channeler Name Role Phone Provider, No Known Primary [...] patient's age to complete this topic Insurance [facility] Care Teams Lock Stitch Channeler Relationship Specialty Start Date End Date Provider, [place] [address] PCP - General 05/01/23
--- OUTSIDE RECORDS SUMMARY | 2025-03-19 14:56 | XMS_ITS | Clinical Summary ---
Author Organization [facility] Address [address] [place] [address] [address] [place] [address] Phone Care Team Providers Care Advertising Campaign Manager Name Role Phone Status, Fax Unavailable Conditions or Problems Problem Name Problem Code Onset Date Status Entry Date Provider Comment Standard Description Annotate COVID-19 coronavirus acute bronchitis 584886298 (SNOMED CT) 09/10 Active 09/10 Avelino Perrin MD COVID-19 Fever (pyrexia) 195552753 (SNOMED CT) 09/02 Active 09/02 Chana Arthur RN Fever Nicotine dependence 21104819 (SNOMED CT) 06/28 Active 06/28 Malika Davis Nicotine dependence Renal failure, acute 19068552 (SNOMED CT) 06/12 Active 06/12 Avelino Perrin MD Acute kidney injury Candidiasis infection B37.89 (ICD-10-CM) 06/02 Active 06/02 Najma Araujo Other sites of candidiasis Personal history of antineoplastic chemotherapy 994822191 (SNOMED CT) 06/02 Active 06/02 Najma Araujo H/O: chemotherapy Infection following a procedure, organ and space surgical site, subsequent encounter(s) T81.43xD (ICD-10-CM) 06/02 Active 06/02 Najma Araujo Infection following a procedure, organ and space surgical site, subsequent encounter Abscess, intra-abdominal K65.1 (ICD-10-CM) 06/02 Active 06/02 Najma Araujo Peritoneal abscess Primary malignant neoplasm of rectum 76553316 (SNOMED CT) 06/02 Active 06/02 Najma Araujo Primary malignant neoplasm of rectum Medications Medication Instructions Start Date Stop Date Generic Name ND Provider DIAZEPAM 5 MG TABS Q6HPRN diazepam 20628746008 Esthela López OXYCODONE HCL 5 MG CAPS Q4HPRN oxycodone 92252075790 Esthela López OMEPRAZOLE 20 MG CPDR by mouth once a day omeprazole 96334963834 Esthela López SULFAMETHOXAZOLE -TRIMETHOPRIM 800-160 MG TABS Take 1 tablet by mouth once a day sulfamethoxazole -trimethoprim 86024051211 [facility] RN SULFAMETHOXAZOLE -TRIMETHOPRIM 800-160 MG TABS Take 1 tablet by mouth twice a day sulfamethoxazole -trimethoprim 43081896472 Avelino Perrin MD SULFAMETHOXAZOLE -TRIMETHOPRIM 800-160 MG TABS sulfamethoxazole -trimethoprim 17148964897 Avelino Perrin MD SULFAMETHOXAZOLE -TRIMETHOPRIM 800-160 MG TABS Take 1 tablet by mouth once a day sulfamethoxazole -trimethoprim 78910989409 Avelino Perrin MD PAXLOVID (300/100) 20 x 150 MG & 10 x 100MG TBPK 1 dose pack by mouth as directed nirmatrelvir-rit onavir 40538305783 Avelino Perrin MD FLUCONAZOLE 200 MG TABS fluconazole 35240204282 [facility] RN SULFAMETHOXAZOLE -TRIMETHOPRIM 800-160 MG TABS sulfamethoxazole -trimethoprim 38277044612 [facility] RN daptomycin recon soln 500mg Q 24hrs - 07/30 [facility] [phone] daptomycin recon [facility] RN ertapenem recon soln 1gm Q 24hrs - 07/30 [facility] ertapenem recon [facility] RN SULFAMETHOXAZOLE -TRIMETHOPRIM 800-160 MG TABS Take 1 tablet by mouth twice a day sulfamethoxazole -trimethoprim 45326371843 Avelino Perrin MD FLUCONAZOLE 200 MG TABS Take 1 tablet by mouth once a day fluconazole 33614598734 Avelino Perrin MD SULFAMETHOXAZOLE -TRIMETHOPRIM 800-160 MG TABS Take 1 tablet by mouth twice a day sulfamethoxazole -trimethoprim 11938112564 Avelino Perrin MD daptomycin recon soln 500mg Q 24hrs - 07/30 [facility] [phone] daptomycin recon soln [facility] ertapenem recon soln 1gm Q 24hrs - 07/30 [facility] ertapenem recon soln [facility] FLUCONAZOLE 200 MG TABS 1 tablet by mouth once a day fluconazole 42786736960 Avelino Perrin MD FLUCONAZOLE 200 MG TABS Take 1 tablet by mouth once a day fluconazole 17663922767 Avelino Perrin MD METRONIDAZOLE 500 MG TABS Take 1 tablet by mouth twice a day metronidazole 86843344184 Avelino Perrin MD LEVOFLOXACIN 750 MG TABS Take 1 tablet by mouth once a day levofloxacin 86213763259 Avelino Perrin MD PROMETHAZINE HCL 25 MG TABS Take 1/2 tablet by mouth once a day as needed nausea promethazine 46289626974 Avelino Perrin MD LEVOFLOXACIN 750 MG TABS Take 1 tablet by mouth once a day levofloxacin 20270914975 Avelino Perrin MD METRONIDAZOLE 500 MG TABS Take 1 tablet by mouth twice a day metronidazole 62271098646 Avelino Perrin MD OMEPRAZOLE 20 MG CPDR by mouth once a day omeprazole 64863210930 Kera Minor VASCULERA TABS once a day diosmin complex no.1 70984321267 Kera Minor TAMSULOSIN HCL 0.4 MG CAPS 1 capsule by mouth once a day tamsulosin 50054856271 Kera Bebeto NYSTATIN 976962 UNIT/ML SUSP Take 10 mLs (1,000,000 Units total) by mouth 2 (two) times daily Swish and Swallow nystatin 10263739798 Kera Tate ertapenem recon soln 1gm Q 24hrs - 06/12 [facility] ()[phone] ertapenem recon soln [facility] FLUCONAZOLE 100 MG TABS Take 1 tablet by mouth once a day fluconazole 65887391460 Rhona Amaya FLUCONAZOLE 200 MG TABS 1 tablet by mouth once a day fluconazole 32635507413 Avelino Perrin MD AMOXICILLIN-POT CLAVULANATE 875-125 MG TABS Take 1 tablet by mouth twice a day amoxicillin-pot clavulanate 57564154405 Avelino Perrin MD FLUCONAZOLE 200 MG TABS Take 1 tablet by mouth once a day fluconazole 42998702944 Avelino Perrin MD FLUCONAZOLE 100 MG TABS Take 1 tablet by mouth once a day fluconazole 51168571066 Avelino Perrin MD ertapenem recon soln 1gm Q 24hrs - 06/12 [facility] ()[phone] [facility] 200 MG TABS Take 1 tablet by mouth once a day fluconazole 74868757260 Avelino Perrin MD TAMSULOSIN HCL 0.4 MG CAPS Take 1 capsule by mouth once a day tamsulosin 38852609841 Avelino Perrin MD AMOXICILLIN-POT CLAVULANATE 875-125 MG TABS Take 1 tablet by mouth twice a day amoxicillin-pot clavulanate 74234896717 Avelino Perrin MD TAMSULOSIN HCL 0.4 MG CAPS 1 capsule by mouth once a day tamsulosin 87485454572 Avelino Perrin MD GABAPENTIN 100 MG CAPS Take 1 capsule by mouth once a day gabapentin 42130395742 Avelino Perrin MD TAMSULOSIN HCL 0.4 MG CAPS Take 1 capsule by mouth once a day tamsulosin 52340612455 Pat Newell RN AMOXICILLIN-POT CLAVULANATE 875-125 MG TABS Take 1 tablet by mouth twice a day amoxicillin-pot clavulanate 24327884997 Avelino Perrin MD FLUCONAZOLE 200 MG TABS Take 1 tablet by mouth once a day fluconazole 50187307891 Avelino Perrin MD ZOSYN 2-0.25 GM/50ML SOLN Zosyn 13.5G IV q24hrs continuous-AMer imed/ [facility] dose, line care, labs piperacillin-jose ramon obactam-dextrs 17872177914 Pat Newell RN ZOSYN 2-0.25 GM/50ML SOLN Zosyn 13.5G IV q24hrs continuous-AMer imed/ [facility] dose, line care, labs piperacillin-jose ramon obactam-dextrs 64279557275 Nicole Kaiser RN FLUCONAZOLE 200 MG TABS Take 2 tablet by mouth once a day fluconazole 83396791354 Avelino Perrin MD AMOXICILLIN-POT CLAVULANATE 875-125 MG TABS Take 1 tablet by mouth twice a day amoxicillin-pot clavulanate 83683818817 Avelino Perrin MD FLUCONAZOLE 200 MG TABS Take 1 tablet by mouth once a day fluconazole 38813750571 Avelino Perrin MD VASCULERA TABS once a day diosmin complex no.1 50455326687 Amber Ta GABAPENTIN 100 MG CAPS Take 2 capsules (200 mg total) by mouth nightly for 10 days. Max Daily Amount: 200 mg gabapentin 00460826998 Avelino Perrin MD FLUCONAZOLE 200 MG TABS Take 1 tablet (200 mg total) by mouth daily for 14 days. fluconazole 79284484067 Avelino Perrin MD FLUCONAZOLE 200 MG TABS Take 2 tablet by mouth once a day fluconazole 31382132810 Avelino Perrin MD GABAPENTIN 100 MG CAPS Take 2 capsule by mouth every night gabapentin 14400804835 Avelino Perrin MD magnesium gluconate 30 mg (550 mg) tablet Take 1 tablet by mouth once a day magnesium gluconate 64246150947 Avelino Perrin MD DIAZEPAM 5 MG TABS Q6HPRN diazepam 83023779427 Stephani Calina OXYCODONE HCL 5 MG CAPS Q4HPRN oxycodone 75364095705 Stephani Calina ZOSYN 2-0.25 GM/50ML SOLN Zosyn 13.5G IV q24hrs continuous-[facility]ER [employer] piperacillin-jose ramon obactam-dextrs 80244346041 Chana Gibson RN TAMSULOSIN HCL 0.4 MG CAPS Take 1 capsule (0.4 mg total) by mouth daily. tamsulosin 85460051938 QIE qieuser OXYCODONE HCL 5 MG TABS Take 1-2 tablets (5-10 mg total) by mouth every 6 (six) hours as needed for Pain for up to 7 days. Max Daily Amount: 40 mg oxycodone 15389144733 QIE qieuser NYSTATIN 653198 UNIT/ML SUSP Take 10 mLs (1,000,000 Units total) by mouth 2 (two) times daily Swish and Swallow nystatin 87433347404 QIE qieuser METHOCARBAMOL 500 MG TABS Take 1 tablet (500 mg total) by mouth 4 (four) times daily as needed for up to 10 days. METHOCARBAMOL QIE qieuser KETOROLAC TROMETHAMINE 10 MG TABS Take 1 tablet (10 mg total) by mouth every 6 (six) hours as needed for up to 5 days. ketorolac 86087858943 QIE qieuser GABAPENTIN 100 MG CAPS Take 2 capsules (200 mg total) by mouth nightly for 10 days. Max Daily Amount: 200 mg gabapentin 96070286170 QIE qieuser FLUCONAZOLE 200 MG TABS Take 1 tablet (200 mg total) by mouth daily for 14 days. fluconazole 46261774985 QIE qieuser DIAZEPAM 5 MG TABS Take 1 tablet (5 mg total) by mouth every 6 (six) hours as needed (Spasms) for up to 7 days. Max Daily Amount: 20 mg diazepam 83905443090 QIE qieuser Medications Administered No information available. [...] Other: Patient lexy albarran update - EmailStatus, [facility] ... TONI Corey This barry l be used to establish a PIN number for patients to register in the Patient Portal. External Other: Patient lexy albarran update - Email Push, [facility] ... PAT E-MAIL [email or web address] patient's e-mail address Office Visit: Office Visit: [...] Procedures Code Procedure Name Date Entry Date CPT-44112 CMP [id number] CBC with Differential 2023 CPT-62698 C- reactive protein CPT-48612 Sedimentation Rate (ESR) 202 08/09/06 CPT-LAB Other CPT-Cooral Continue oral antibiotics 20 28/08/08 CPT-44900 CMP [id number] CBC with Differential 2023 CPT-71549 C- reactive protein CPT-39544 Sedimentation Rate (ESR) 202 08/08/08 CPT-jahaira New Oral Antibiotic CPT-10187 CMP [id number],[id number] CBC with Differential 2023 CPT-36272 C- reactive protein CPT-64285 Sedimentation Rate (ESR) 202 08/07/25 CPT-rashmi New IV antibiotic CPT-17196 CMP [id number],[id number] CBC with Differential 2023 CPT-47685 C- reactive protein K709795, Z00373W CPK CPT-36881 Sedimentation Rate (ESR) 202 08/08/11 CPT-43018 CMP G4778w,[id number] CBC with Differential 2023 CPT-99464 C- reactive protein [id number], [id number] CPK CPT-01581 Sedimentation Rate (ESR) 202 08/08/11 CPT-Cooral Continue oral antibiotics 30/06/26 CPT-62933 CMP [id number],[id number] CBC with Differential 2023 CPT-16467 C- reactive protein CPT-60009 Sedimentation Rate (ESR) 202 08/06/26 CPT-38148 CMP [id number],[id number] CBC with Differential 2023 CPT-31178 C- reactive protein CPT-05070 Sedimentation Rate (ESR) 202 08/06/26 CPT-jahaira New Oral Antibiotic CPT-02372 CMP [id number],[id number] CBC with Differential 2023 CPT-83961 C- reactive protein CPT-45529 Sedimentation Rate (ESR) 202 08/07/19 CPT-36014 MRI Sacrum w/o contrast 2023 CPT-Cooral Continue oral antibiotics 30/06/05 CPT-82094 CMP [id number],[id number] CBC with Differential 2023 CPT-50048 C- reactive protein CPT-34788 Sedimentation Rate (ESR) 202 08/06/05 CPT-51622 CT scan ABD/Pelvis with contrast CPT-ca Continue IV antibiotics 2023 CPT-Cooral Continue oral antibiotics 30/05/29 CPT-wclc Weekly Central Line Care 08/06/23 CPT-rashmi New IV antibiotic CPT-rashmi New IV antibiotic CPT-rashmi New IV antibiotic CPT-cwl Weekly Labs (Continue) 05/30 CPT-Cooral Continue oral antibiotics 30/05/15 CPT-08133 CMP [id number],[id number] CBC with Differential 2023 CPT-87101 C- reactive protein CPT-74702 Sedimentation Rate (ESR) 202 08/06/15 CPT-labs Labs CPT-32102 CMP CPT-09338 Sedimentation Rate (ESR) 202 08/05/14 CPT-93774 C- reactive protein N3974q,[id number] CBC with Differential 2023 CPT-87597 BMP [id number],[id number] CBC with Differential 2022 CPT-13154 C- reactive protein CPT-Cooral Continue oral antibiotics 20 28/04/26 CPT-56611 CMP [id number],[id number] CBC with Differential 2022 CPT-46200 C- reactive protein CPT-03893 Sedimentation Rate (ESR) 202 07/16/25 CPT-47418 CMP [id number],[id number] CBC with Differential 2022 CPT-27739 C- reactive protein CPT-90516 Sedimentation Rate (ESR) 202 07/16/25 CPT-PICREM PICC Removal CPT-ca Continue IV antibiotics 2022 CPT-Cooral Continue oral antibiotics 20 28/04/12 CPT-97891 CMP B8730b,[id number] CBC with Differential 2022 CPT-25433 C- reactive protein CPT-07174 Sedimentation Rate (ESR) 202 07/17/11 CPT-ca Continue IV antibiotics 2022 CPT-53612 BMP CPT-PICREM PICC Removal CPT-ca Continue IV [...]
--- OUTSIDE RECORDS SUMMARY | 2025-03-19 14:57 | XMS_ITS | Clinical Summary ---
Author Organization [facility] ([place], [place], [place], [place], [place]) Address [address] [place] [address] Care Team Providers Care Frame Polisher Name Role Phone Pat So MD Unavailable [phone] Vic Suazo MD Primary Care Provider [phone] Allergies No known active allergies Medications tamsulosin [...] Date Smoking Tobacco: Every Day Cigarettes 1 23.9 Started: 2001 Passive Smoke Exposure: Past Smokeless [...] often do you attend chur ch or oriental orthodox services? Never 03/23/2023 Do you belong to [...] Date Harvey rded Speak language other than Kyrgyz at home Not on file 05/15/2023 Want help with school or training Not on file 05/15/2023 Substance Use Answer Date Recorded Used prescription meds for non-medical reasons N ot on file 05/15/2023 Used illegal drugs past 12 months Not on file 05/15/2023 Sex and Gender Information Value Date Recorded Sex Assigned at Male 03/23/2023 5:42 PM SKIVER COUNTER Legal Sex Male 2:23 PM CDT Gender Identity Male 03/23/2023 5:42 PM SKIVER COUNTER Sexual Orientation Straight 03/23/2023 5: 42 PM SKIVER COUNTER Occupation Industry Job Start Date Job End [...] Vaccine: 0-49 Years Completed 04/25/20 23 Insurance [id number] (Home) [address] [id number] [place] MED[place] PEND Advance Directives For more information, please contact: [phone] * Full Code (Latest Code Status on File) Date Activated Date Inactivated Comments 03/23/2023 4:38 PM 2023 3:41 PM * Full Code Date Activated Date Inactivated Comments 03/13/2023 1:55 PM 03/16/2023 4:31 PM Care Teams Frame Polisher Relationship Specialty Start Date End Date Vic Suazo MD [address] [place] [address] PCP - General Family Medicine 01/31/23 Pat So MD [address] [facility] [address] [place] [address] Referring Physician Colon and Rectal Surgery 11/08/22
--- OUTSIDE RECORDS SUMMARY | 2025-03-19 14:57 | XMS_ITS ---
Author Organization [employer] ([place], [place], [place], [place], [place]) Address [address] [place] [address] Care Team Providers Care Color Matcher Name Role Phone Pat So MD Unavailable [phone] Vic Suazo MD Primary Care Provider [phone] Active Problems Problem Noted Date Diagnosed Date [...] Treatment Medications Discontinue Reason Plan Provider Cycles [facility] - mFOLFOX 6 (oxaliplat in + [...] Date Treatment Medications Discontinue Reason Plan Provider [facility] - USE WITH INFUSIONS 05/09/2023 05/01/2024 alteplase (CATHFLO) 2 mg in SW 2 mL syringe Therapy Complete Minnie Wesley MD Lifetime Dose Tracking * Chemical Lifetime Dose Automatic Entry Manual Entr y Radiation 8 mGy 8 mGy 0 mGy
--- OUTSIDE RECORDS SUMMARY | 2025-03-19 14:57 | XMS_ITS | Referral Summary ---
Author Organization [employer] ([place], [place], [place], [place], [place]) Address [address] [place] [address] Care Team Providers Care Supervisor Bonding Name Role Phone Pat So MD Unavailable [phone] Vic Suazo MD Primary Care Provider [phone] Allergies No known active allergies Medications tamsulosin [...] often do you attend chur ch or buddhist services? Never 03/23/2023 Do you belong to any clubs o r organizations such as yazidi groups, unions, fraternal or athletic groups, or [...] Date Harvey rded Speak language other than Malaysian at home Not on file 05/15/2023 Want help with school or training Not on file 05/15/2023 Substance Use Answer Date Recorded Used prescription meds for non-medical reasons N ot on file 05/15/2023 Used illegal drugs past 12 months Not on file 05/15/2023 Sex and Gender Information Value Date Recorded Sex Assigned at Male 03/23/2023 5:42 PM ASSOCIATE PROFESSOR OF HISTORY Legal Sex Male 2:23 PM CDT Gender Identity Male 03/23/2023 5:42 PM ASSOCIATE PROFESSOR OF HISTORY Sexual Orientation Straight 03/23/2023 5: 42 PM ASSOCIATE PROFESSOR OF HISTORY Occupation Industry Job Start Date Job End [...] Treatment Not [place] [id number] [employer] MEDICAID PEND Advance Directives For more information, please contact: [phone] * Full Code (Latest Code Status on File) Date Activated Date Inactivated Comments 03/23/2023 4:38 PM 2023 3:41 PM * Full Code Date Activated Date Inactivated Comments 03/13/2023 1:55 PM 03/16/2023 4:31 PM Care Teams Supervisor Bonding Relationship Specialty Start Date End Date Vic Suazo MD [address] [place] [address] PCP - General Family Medicine 01/31/23 Pat So MD [address] [facility] [address] [place] [address] Referring Physician Colon and Rectal Surgery 11/08/22
[2025-03-19] MEDS: SODIUM CHLORIDE 0.9% 10ML FLUSH SYRINGE 10 ML IV (15:09)
[2025-03-19 15:15] LABS: Hematocrit 44.0 % (42.0-52.0); Hemoglobin 15.8 g/dL (14.1-18.0); Immature Granulocytes % 0.3 %; Mean Corpuscular HGB Conc 35.9 g/dL (31.8-35.4); Mean Corpuscular Hemoglobin 33.1 pg (27.0-31.2); Mean Corpuscular Volume 92.2 fl (80-94); Nucleated Red Blood Cells % 0 %; Platelet Count 141 K/mm3 (142-424); Red Blood Count 4.77 M/mm3 (4.60-6.20); Red Cell Distribution Width-SD 42.2 fL; White Blood Count 7.2 K/mm3 (4.8-10.8)
[2025-03-19 15:24] LABS: Alanine Aminotransferase 49 U/L (12-78); Albumin Level 4.4 g/dl (3.5-5.0); Albumin/Globulin Ratio 1.7 (1.1-1.8); Alkaline Phosphatase 109 U/L (38-126); Anion Gap 9.6 mEq/L (5-15); Aspartate Amino Transferase 39 U/L (17-59); Bilirubin,Total 0.5 mg/dl (0.2-1.3); Blood Urea Nitrogen 14 mg/dl (9-20); Calcium 9.3 mg/dl (8.4-10.2); Carbon Dioxide 27 mmol/L (22.0-30.0); Chloride 103 mmol/L (98-107); Creatinine,Serum 0.90 mg/dl (0.66-1.25); Estimated Glomerular Filt Rate 93 ml/min (>60); GFR (African American) 113 ML/MIN (>60); Globulin 2.6 g/dL (1.3-3.2); Glucose 92 mg/dl (74-100); Potassium 3.6 mmoL/L (3.5-5.1); Sodium 136 mmol/L (136-145); Total Protein,Serum 7.0 g/dl (6.3-8.2)
[2025-03-21 10:23] LABS: CEA 2.8 ng/mL (0.0-4.7)
== END 2025-03-19 23:59 | disposition home or self-care (01) ==
LOC: INF 14:54
PROVIDERS: PCP Family Medicine; Visit Provider Internal Medicine Medical Oncology
DX: C20 Malignant neoplasm of rectum (principal)
CPT/HCPCS: 36591; 80053; 82378; 85025; J1642

== ENCOUNTER 2025-04-22 15:23 | Outpatient (CLI) | payer OTHER, SELFPAY ==
[2025-04-22] MEDS: SODIUM CHLORIDE 0.9% 10ML FLUSH SYRINGE 10 ML IV (15:34)
--- OUTSIDE RECORDS SUMMARY | 2025-04-22 16:49 | XMS_ITS | Clinical Summary ---
Author Organization [facility] Address [address] [place] [address] [address] [place] [address] Phone Care Team Providers Care Paper Tube Grader Name Role Phone Status, Fax Unavailable Conditions or Problems Problem Name Problem Code Onset Date Status Entry Date Provider Comment Standard Description Annotate COVID-19 coronavirus acute bronchitis 819512916 (SNOMED CT) 09/10 Active 09/10 Avelino Perrin MD COVID-19 Fever (pyrexia) 936474433 (SNOMED CT) 09/02 Active 09/02 Chana Arthur RN Fever Nicotine dependence 37266376 (SNOMED CT) 06/28 Active 06/28 Malika Davis Nicotine dependence Renal failure, acute 82886958 (SNOMED CT) 06/12 Active 06/12 Avelino Perrin MD Acute kidney injury Candidiasis infection B37.89 (ICD-10-CM) 06/02 Active 06/02 Najma Araujo Other sites of candidiasis Personal history of antineoplastic chemotherapy 863101104 (SNOMED CT) 06/02 Active 06/02 Najma Araujo H/O: chemotherapy Infection following a procedure, organ and space surgical site, subsequent encounter(s) T81.43xD (ICD-10-CM) 06/02 Active 06/02 Najma Araujo Infection following a procedure, organ and space surgical site, subsequent encounter Abscess, intra-abdominal K65.1 (ICD-10-CM) 06/02 Active 06/02 Najma Araujo Peritoneal abscess Primary malignant neoplasm of rectum 32271775 (SNOMED CT) 06/02 Active 06/02 Najma Araujo Primary malignant neoplasm of rectum Medications Medication Instructions Start Date Stop Date Generic Name ND Provider DIAZEPAM 5 MG TABS Q6HPRN diazepam 85503619217 Esthela López OXYCODONE HCL 5 MG CAPS Q4HPRN oxycodone 40060061191 Esthela López OMEPRAZOLE 20 MG CPDR by mouth once a day omeprazole 47041544241 Esthela López SULFAMETHOXAZOLE -TRIMETHOPRIM 800-160 MG TABS Take 1 tablet by mouth once a day sulfamethoxazole -trimethoprim 43799184224 [facility] RN SULFAMETHOXAZOLE -TRIMETHOPRIM 800-160 MG TABS Take 1 tablet by mouth twice a day sulfamethoxazole -trimethoprim 73061562663 Avelino Perrin MD SULFAMETHOXAZOLE -TRIMETHOPRIM 800-160 MG TABS sulfamethoxazole -trimethoprim 52509105426 Avelino Perrin MD SULFAMETHOXAZOLE -TRIMETHOPRIM 800-160 MG TABS Take 1 tablet by mouth once a day sulfamethoxazole -trimethoprim 51207058074 Avelino Perrin MD PAXLOVID (300/100) 20 x 150 MG & 10 x 100MG TBPK 1 dose pack by mouth as directed nirmatrelvir-rit onavir 74136706333 Avelino Perrin MD FLUCONAZOLE 200 MG TABS fluconazole 30219175956 [facility] RN SULFAMETHOXAZOLE -TRIMETHOPRIM 800-160 MG TABS sulfamethoxazole -trimethoprim 48565070334 [facility] RN daptomycin recon soln 500mg Q 24hrs - 07/30 [facility] [phone] daptomycin recon [facility] RN ertapenem recon soln 1gm Q 24hrs - 07/30 [facility] ertapenem recon [facility] RN SULFAMETHOXAZOLE -TRIMETHOPRIM 800-160 MG TABS Take 1 tablet by mouth twice a day sulfamethoxazole -trimethoprim 22204725487 Avelino Perrin MD FLUCONAZOLE 200 MG TABS Take 1 tablet by mouth once a day fluconazole 46787095255 Avelino Perrin MD SULFAMETHOXAZOLE -TRIMETHOPRIM 800-160 MG TABS Take 1 tablet by mouth twice a day sulfamethoxazole -trimethoprim 88654683876 Avelino Perrin MD daptomycin recon soln 500mg Q 24hrs - 07/30 [facility] [phone] daptomycin recon soln [facility] ertapenem recon soln 1gm Q 24hrs - 07/30 [facility] ertapenem recon soln [facility] FLUCONAZOLE 200 MG TABS 1 tablet by mouth once a day fluconazole 73220961438 Avelino Perrin MD FLUCONAZOLE 200 MG TABS Take 1 tablet by mouth once a day fluconazole 52544465093 Avelino Perrin MD METRONIDAZOLE 500 MG TABS Take 1 tablet by mouth twice a day metronidazole 64963823154 Avelino Perrin MD LEVOFLOXACIN 750 MG TABS Take 1 tablet by mouth once a day levofloxacin 25086661312 Avelino Perrin MD PROMETHAZINE HCL 25 MG TABS Take 1/2 tablet by mouth once a day as needed nausea promethazine 47069003349 Avelino Perrin MD LEVOFLOXACIN 750 MG TABS Take 1 tablet by mouth once a day levofloxacin 93956452083 Avelino Perrin MD METRONIDAZOLE 500 MG TABS Take 1 tablet by mouth twice a day metronidazole 76668790053 Avelino Perrin MD OMEPRAZOLE 20 MG CPDR by mouth once a day omeprazole 48191994078 Kera Minor VASCULERA TABS once a day diosmin complex no.1 14855786156 Kera Minor TAMSULOSIN HCL 0.4 MG CAPS 1 capsule by mouth once a day tamsulosin 19006915392 Kera Bebeto NYSTATIN 698040 UNIT/ML SUSP Take 10 mLs (1,000,000 Units total) by mouth 2 (two) times daily Swish and Swallow nystatin 24135275237 Kera Tate ertapenem recon soln 1gm Q 24hrs - 06/12 [facility] ()[phone] ertapenem recon soln [facility] FLUCONAZOLE 100 MG TABS Take 1 tablet by mouth once a day fluconazole 85814005400 Rhona Amaya FLUCONAZOLE 200 MG TABS 1 tablet by mouth once a day fluconazole 79859024160 Avelino Perrin MD AMOXICILLIN-POT CLAVULANATE 875-125 MG TABS Take 1 tablet by mouth twice a day amoxicillin-pot clavulanate 25152486250 Avelino Perrin MD FLUCONAZOLE 200 MG TABS Take 1 tablet by mouth once a day fluconazole 54461515652 Avelino Perrin MD FLUCONAZOLE 100 MG TABS Take 1 tablet by mouth once a day fluconazole 70257269594 Avelino Perrin MD ertapenem recon soln 1gm Q 24hrs - 06/12 [facility] ()[phone] [facility] MG TABS Take 1 tablet by mouth once a day fluconazole 79557746543 Avelino Perrin MD TAMSULOSIN HCL 0.4 MG CAPS Take 1 capsule by mouth once a day tamsulosin 31593770438 Avelino Perrin MD AMOXICILLIN-POT CLAVULANATE 875-125 MG TABS Take 1 tablet by mouth twice a day amoxicillin-pot clavulanate 72937501948 Avelino Perrin MD TAMSULOSIN HCL 0.4 MG CAPS 1 capsule by mouth once a day tamsulosin 20568528714 Avelino Perrin MD GABAPENTIN 100 MG CAPS Take 1 capsule by mouth once a day gabapentin 71650638169 Avelino Perrin MD TAMSULOSIN HCL 0.4 MG CAPS Take 1 capsule by mouth once a day tamsulosin 80331340208 Pat Newell RN AMOXICILLIN-POT CLAVULANATE 875-125 MG TABS Take 1 tablet by mouth twice a day amoxicillin-pot clavulanate 65191389793 Avelino Perrin MD FLUCONAZOLE 200 MG TABS Take 1 tablet by mouth once a day fluconazole 77643400573 Avelino Perrin MD ZOSYN 2-0.25 GM/50ML SOLN Zosyn 13.5G IV q24hrs continuous-AMer imed/ [facility] dose, line care, labs piperacillin-jose ramon obactam-dextrs 14876310720 Pat Newell RN ZOSYN 2-0.25 GM/50ML SOLN Zosyn 13.5G IV q24hrs continuous-AMer imed/ [facility] dose, line care, labs piperacillin-jose ramon obactam-dextrs 54477925122 Nicole Kaiser RN FLUCONAZOLE 200 MG TABS Take 2 tablet by mouth once a day fluconazole 93821268563 Avelino Perrin MD AMOXICILLIN-POT CLAVULANATE 875-125 MG TABS Take 1 tablet by mouth twice a day amoxicillin-pot clavulanate 07153763984 Avelino Perrin MD FLUCONAZOLE 200 MG TABS Take 1 tablet by mouth once a day fluconazole 52675014253 Avelino Perrin MD VASCULERA TABS once a day diosmin complex no.1 04473555495 Amber Ta GABAPENTIN 100 MG CAPS Take 2 capsules (200 mg total) by mouth nightly for 10 days. Max Daily Amount: 200 mg gabapentin 99633029458 Avelino Perrin MD FLUCONAZOLE 200 MG TABS Take 1 tablet (200 mg total) by mouth daily for 14 days. fluconazole 78481843061 Avelino Perrin MD FLUCONAZOLE 200 MG TABS Take 2 tablet by mouth once a day fluconazole 51135303857 Avelino Perrin MD GABAPENTIN 100 MG CAPS Take 2 capsule by mouth every night gabapentin 61844458406 Avelino Perrin MD magnesium gluconate 30 mg (550 mg) tablet Take 1 tablet by mouth once a day magnesium gluconate 20540805005 Avelino Perrin MD DIAZEPAM 5 MG TABS Q6HPRN diazepam 50591296574 Stephani Calina OXYCODONE HCL 5 MG CAPS Q4HPRN oxycodone 02463765769 Stephani Calina ZOSYN 2-0.25 GM/50ML SOLN Zosyn 13.5G IV q24hrs continuous-[facility]ER [employer] piperacillin-jose ramon obactam-dextrs 11280655709 Chana Gibson RN TAMSULOSIN HCL 0.4 MG CAPS Take 1 capsule (0.4 mg total) by mouth daily. tamsulosin 47387964556 QIE qieuser OXYCODONE HCL 5 MG TABS Take 1-2 tablets (5-10 mg total) by mouth every 6 (six) hours as needed for Pain for up to 7 days. Max Daily Amount: 40 mg oxycodone 84340925607 QIE qieuser NYSTATIN 863673 UNIT/ML SUSP Take 10 mLs (1,000,000 Units total) by mouth 2 (two) times daily Swish and Swallow nystatin 00998430220 QIE qieuser METHOCARBAMOL 500 MG TABS Take 1 tablet (500 mg total) by mouth 4 (four) times daily as needed for up to 10 days. METHOCARBAMOL QIE qieuser KETOROLAC TROMETHAMINE 10 MG TABS Take 1 tablet (10 mg total) by mouth every 6 (six) hours as needed for up to 5 days. ketorolac 06614650140 QIE qieuser GABAPENTIN 100 MG CAPS Take 2 capsules (200 mg total) by mouth nightly for 10 days. Max Daily Amount: 200 mg gabapentin 33662541710 QIE qieuser FLUCONAZOLE 200 MG TABS Take 1 tablet (200 mg total) by mouth daily for 14 days. fluconazole 92573140692 QIE qieuser DIAZEPAM 5 MG TABS Take 1 tablet (5 mg total) by mouth every 6 (six) hours as needed (Spasms) for up to 7 days. Max Daily Amount: 20 mg diazepam 28554986713 QIE qieuser Medications Administered No information available. [...] Other: Patient lexy albarran update - EmailStatus, [facility] ... TONI Corey This barry l be used to establish a PIN number for patients to register in the Patient Portal. External Other: Patient lexy albarran update - Email Push, [facility] ... PAT E-MAIL [email or web address] patient's e-mail address Office Visit: Office Visit: [...] Procedures Code Procedure Name Date Entry Date CPT-28423 CMP C3700z,[id number] CBC with Differential 2023 CPT-03343 C- reactive protein CPT-79831 Sedimentation Rate (ESR) 202 08/09/06 CPT-LAB Other CPT-Cooral Continue oral antibiotics 20 28/08/08 CPT-86566 CMP V8390g,[id number] CBC with Differential 2023 CPT-61702 C- reactive protein CPT-75970 Sedimentation Rate (ESR) 202 08/08/08 CPT-jahaira New Oral Antibiotic CPT-35898 CMP V7945l,[id number] CBC with Differential 2023 CPT-32777 C- reactive protein CPT-51426 Sedimentation Rate (ESR) 202 08/07/25 CPT-rashmi New IV antibiotic CPT-72899 CMP [id number],[id number] CBC with Differential 2023 CPT-83896 C- reactive protein D732597, [id number] CPK CPT-52696 Sedimentation Rate (ESR) 202 08/08/11 CPT-78689 CMP N8370b,[id number] CBC with Differential 2023 CPT-55798 C- reactive protein G370140, [id number] CPK CPT-21887 Sedimentation Rate (ESR) 202 08/08/11 CPT-Cooral Continue oral antibiotics 30/06/26 CPT-69991 CMP T0652v,[id number] CBC with Differential 2023 CPT-37458 C- reactive protein CPT-12583 Sedimentation Rate (ESR) 202 08/06/26 CPT-15290 CMP Q4899s,[id number] CBC with Differential 2023 CPT-47775 C- reactive protein CPT-68046 Sedimentation Rate (ESR) 202 08/06/26 CPT-jahaira New Oral Antibiotic CPT-91039 CMP G7887g,[id number] CBC with Differential 2023 CPT-37294 C- reactive protein CPT-41825 Sedimentation Rate (ESR) 202 08/07/19 CPT-11455 MRI Sacrum w/o contrast 2023 CPT-Cooral Continue oral antibiotics 30/06/05 CPT-82709 CMP T7085s,[id number] CBC with Differential 2023 CPT-66437 C- reactive protein CPT-48545 Sedimentation Rate (ESR) 202 08/06/05 CPT-42074 CT scan ABD/Pelvis with contrast CPT-ca Continue IV antibiotics 2023 CPT-Cooral Continue oral antibiotics 30/05/29 CPT-wclc Weekly Central Line Care 08/06/23 CPT-rashmi New IV antibiotic CPT-rashmi New IV antibiotic CPT-rashmi New IV antibiotic CPT-cwl Weekly Labs (Continue) 05/30 CPT-Cooral Continue oral antibiotics 30/05/15 CPT-19618 CMP F1635h,[id number] CBC with Differential 2023 CPT-10015 C- reactive protein CPT-91007 Sedimentation Rate (ESR) 202 08/06/15 CPT-labs Labs CPT-55479 CMP CPT-28956 Sedimentation Rate (ESR) 202 08/05/14 CPT-80522 C- reactive protein P2798t,[id number] CBC with Differential 2023 CPT-72923 BMP A1282s,[id number] CBC with Differential 2022 CPT-65967 C- reactive protein CPT-Cooral Continue oral antibiotics 20 28/04/26 CPT-44800 CMP Q1840b,[id number] CBC with Differential 2022 CPT-01385 C- reactive protein CPT-82941 Sedimentation Rate (ESR) 202 07/16/25 CPT-75986 CMP L1785r,[id number] CBC with Differential 2022 CPT-60720 C- reactive protein CPT-63810 Sedimentation Rate (ESR) 202 07/16/25 CPT-PICREM PICC Removal CPT-ca Continue IV antibiotics 2022 CPT-Cooral Continue oral antibiotics 20 28/04/12 CPT-48982 CMP F4648a,[id number] CBC with Differential 2022 CPT-10267 C- reactive protein CPT-60955 Sedimentation Rate (ESR) 202 07/17/11 CPT-ca Continue IV antibiotics 2022 CPT-75588 BMP CPT-PICREM PICC Removal CPT-ca Continue IV [...]
--- OUTSIDE RECORDS SUMMARY | 2025-04-22 16:49 | XMS_ITS | Clinical Summary ---
Author Organization [facility] Address [address] [place] [address] Care Team Providers Care Sales Effectiveness Manager Name Role Phone Provider, No Known [...] patient's age to complete this topic Insurance [facility] Care Teams Sales Effectiveness Manager Relationship Specialty Start Date End Date Provider, [place] [address] PCP - General 05/01/23
--- OUTSIDE RECORDS SUMMARY | 2025-04-22 16:50 | XMS_ITS | Referral Summary ---
Author Organization [facility] ([place], [place], [place], [place], [place]) Address [address] [place] [address] Care Team Providers Care Pelt Salter Name Role Phone Pat So MD Unavailable [phone] Vic Suazo MD Primary Care Provider [phone] Allergies No known active allergies Medications tamsulosin [...] Date Smoking Tobacco: Every Day Cigarettes 1 24 Started: 2001 Passive Smoke Exposure: Past Smokeless [...] or neighbors? Three times a week 03/23/20 23 How often do you get togethe r with friends or relatives? Three times a week 03/23/2023 How often do you attend chur ch or buddhism services? 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 Legal Sex Male 2:23 PM CDT Gender Identity Male 03/23/2023 5:42 PM RED MUD THICKENER OPERATOR Sexual Orientation Straight 03/23/2023 5: 42 PM RED MUD THICKENER OPERATOR Occupation Industry Job Start Date Job [...] Plan of Treatment Not on file Insurance [id number] (Home) [facility] [place] [id number] [place] MEDICAID PEND Advance Directives For more information, please contact: [phone] * Full Code (Latest Code Status on File) Date Activated Date Inactivated Comments 03/23/2023 4:38 PM 2023 3:41 PM * Full Code Date Activated Date Inactivated Comments 03/13/2023 1:55 PM 03/16/2023 4:31 PM Care Teams Pelt Salter Relationship Specialty Start Date End Date Vic Suazo MD [address] [place] [address] PCP - General Family Medicine 01/31/23 Pat So MD [address] [facility] [address] [place] [address] Referring Physician Colon and Rectal Surgery 11/08/22
--- OUTSIDE RECORDS SUMMARY | 2025-04-22 16:50 | XMS_ITS ---
Author Organization [facility] ([place], [place], [place], [place], [place]) Address [address] [place] [address] Care Team Providers Care Licensing Analyst Name Role Phone Pat So MD Unavailable [phone] Vic Suazo MD Primary Care Provider [phone] Active Problems Problem Noted Date Diagnosed Date [...] Treatment Medications Discontinue Reason Plan Provider Cycles [facility] GI - mFOLFOX 6 (oxaliplat in [...] Date Treatment Medications Discontinue Reason Plan Provider [facility] LINE CARE - USE WITH INFUSIONS 05/09/2023 05/01/2024 alteplase (CATHFLO) 2 mg in SW 2 mL syringe Therapy Complete Minnie Wesley MD Lifetime Dose Tracking * Chemical Lifetime Dose Automatic Entry Manual Entr y Radiation 8 mGy 8 mGy 0 mGy
--- OUTSIDE RECORDS SUMMARY | 2025-04-22 16:50 | XMS_ITS | Clinical Summary ---
Author Organization [facility] ([place], [place], [place], [place], [place]) Address [address] [place] [address] Care Team Providers Care Dry Clipper Tender Name Role Phone Pat So MD Unavailable [phone] Vic Suazo MD Primary Care Provider [phone] Allergies No known active allergies Medications tamsulosin [...] often do you attend chur ch or hoahaoism services? Never 03/23/2023 Do you belong to any clubs o r organizations such as baptism groups, unions, fraternal or athletic groups, or [...] Date Harvey rded Speak language other than Azerbaijani at home Not on file 05/15/2023 Want help with school or training Not on file 05/15/2023 Substance Use Answer Date Recorded Used prescription meds for non-medical reasons N ot on file 05/15/2023 Used illegal drugs past 12 months Not on file 05/15/2023 Sex and Gender Information Value Date Recorded Sex Assigned at Male 03/23/2023 5:42 PM STEEL HANGER Legal Sex Male 2:23 PM CDT Gender Identity Male 03/23/2023 5:42 PM STEEL HANGER Sexual Orientation Straight 03/23/2023 5: 42 PM STEEL HANGER Occupation Industry Job Start Date Job [...] and Screening (12+) 05/09/2024 05/09/2023 COVID-19 VACCINE ( season) 2025, 04/06/2021 Influenza Vaccine (#1) 2025 DTAP/TDAP/TD VACCINES (2 - Td or Tdap) 04/25/2033 Pneumococcal Vaccine: 0-49 Years Completed 04/25/20 23 Insurance [id number] (Home) [address] [id number] [place] MEDICAID PEND Advance Directives For more information, please contact: [phone] * Full Code (Latest Code Status on File) Date Activated Date Inactivated Comments 03/23/2023 4:38 PM 2023 3:41 PM * Full Code Date Activated Date Inactivated Comments 03/13/2023 1:55 PM 03/16/2023 4:31 PM Care Teams Dry Clipper Tender Relationship Specialty Start Date End Date Vic Suazo MD [address] [place] [address] PCP - General Family Medicine 01/31/23 Pat So MD [address] [facility] [address] [place] [address] Referring Physician Colon and Rectal Surgery 11/08/22
== END 2025-04-22 23:59 | disposition home or self-care (01) ==
PROVIDERS: PCP Internal Medicine; Visit Provider Internal Medicine Medical Oncology
DX: C20 Malignant neoplasm of rectum (principal)
CPT/HCPCS: 96523; J1642